=== PATIENT | female | born 1985 ===

== ENCOUNTER 2017-07-21 18:29 | Inpatient (IN) | payer MEDICAID, SELFPAY ==
[2017-07-21 18:44] VITALS: BMI 34.7
[2017-07-21 20:01] LABS: HEMOGLOBIN 12.1 g/dL (12.0-16.0); MEAN CELL VOLUME 80.3 fl (81.0-99.0); MEAN CORPUSCULAR HEMOGLOBIN 26.1 pg (27.0-31.0); MEAN CORPUSCULAR HGB CONC 32.4 g/dL (33.0-37.0); RBC 4.63 Mil/uL (3.80-5.20); RED CELL DISTRIBUTION WIDTH 15.5 % (11.5-14.5)
[2017-07-22] MEDS ORDERED: Oxytocin 30 UNITS in Sodium Chloride 0.9% 500 ML IV SCH (06:00)
[2017-07-22] MEDS: Lactated Ringer's 1,000 ML IV SCH ×2 (06:02→06:57)
[2017-07-22] MEDS ORDERED: ceFAZolin IV 2 gm in Dextrose 2 GM/50 ML BAG IVPB ONE (07:30)
--- NOTE | 2017-07-22 07:56 | OBADHP ---
Datetime: 07/21/2017 19:00 Admit Comment, IP Provider: IUP at 39+w EDC Jul 14...c/o CTX this morning and then again ton ight. On and off. No SROM. No VB. +FM PNC Dr Neil Farris - scheduled sectoin Jul 13 PMH: denies PSH: C/S POBH: C/S failure to progress 7cm PGYNH: no STD NKA A: IUP at 39w Previous C/S declines PLAN: She wants to be admitted for sectoin. She ate this afternoon. Will do section in AM Informed consent Prep for delivery in AM Extremities - PN: Normal Abdomen - PN: Normal Back - PN: Normal Lungs - PN: Normal Heart - PN: Normal Thyroid - PN: Normal Neurologic - PN: Normal HEENT - PN: Normal General - PN: Normal FHR - Baseline A Provider: 130 Membranes, Provider: Intact Contraction Comments Provider: occ Comments, ACOG Physical Exam: Comfortable (Annotations: Data stored by CPN on behalf of user) Pool Provider: Negative IP Hx Assessment: The History has been Reviewed and is Current Vital Signs Provider: Reviewed; Within Normal Limits IP Chief Complaint: Uterine contractions NICHD Variability Prov Fetus A: Moderate 6-25bpm NICHD Accel Fetus A IP Provider: [id number] FHR Category Provider Fetus A: Category I NICHD Decel Fetus A IP Provider: None Dilatation, Provider: 0 Effacement, Provider: 0 Genitourinary Exam: Normal DTRs - PN: Normal IP Adm Impression: Term, intrauterine ; No Active Labor; Intact Membranes IP Admit Plan: Admit to unit; Initiate Section protocol
[2017-07-22] MEDS ORDERED: Morphine 1 mg/ml preservative-free Inj(Duramorph) ONE (08:27)
[2017-07-22] MEDS ORDERED: ePHEDrine 50 mg/ml Inj ONE (08:42)
[2017-07-22] MEDS ORDERED: Phenylephrine 10 mg/ml Inj ONE (08:42)
[2017-07-22] MEDS ORDERED: Cellulose Hemostat 2X3 Sheet ONE (09:18)
[2017-07-22] MEDS ORDERED: Oxycodone/Acetaminophen 5/325 mg Tab PO PRN (09:49)
[2017-07-22] MEDS ORDERED: DiphenhydrAMINE 50 mg/ml Inj IVP PRN ×2 (09:51→13:08)
[2017-07-22] MEDS ORDERED: Sodium Chloride 0.9% 500 ML IV ONE (16:00)
[2017-07-22 18:20] LABS: BASO % 0.1 % (0.0-2.0); EOS % 0.1 % (0.0-4.0); LYMPH # 1.2 K/uL (1.0-4.3); LYMPH % 7.6 % (20.0-40.0); MEAN CELL VOLUME 79.7 fl (81.0-99.0); MEAN CORPUSCULAR HEMOGLOBIN 25.7 pg (27.0-31.0); MEAN CORPUSCULAR HGB CONC 32.3 g/dL (33.0-37.0); MEAN PLATELET VOLUME 9.1 fl (7.2-11.7); MONO # 0.6 K/uL (0.0-0.8); MONO % 4.2 % (0.0-10.0); NEUT # 13.6 K/uL (1.8-7.0); PLATELET COUNT 303 K/uL (130-400); RBC 3.11 Mil/uL (3.80-5.20); RED CELL DISTRIBUTION WIDTH 15.2 % (11.5-14.5)
[2017-07-22 18:23] LABS: WHITE BLOOD COUNT 15.4 K/uL (4.8-10.8)
[2017-07-22 18:50] LABS: ANISOCYTOSIS SLIGHT; BANDS 1 % (0-2); LYMPHOCYTE 8 % (20-50); MONOCYTE 5 % (0-10); NEUTROPHIL 86 % (42-75); PLATELET ESTIMATE NORMAL (NORMAL); POIKILOCYTOSIS SLIGHT; TOTAL CELLS COUNTED 100
[2017-07-22] MEDS ORDERED: Lactated Ringer's 1,000 ML IV SCH (19:45)
[2017-07-23 06:59] LABS: BASO % 0.3 % (0.0-2.0); EOS % 0.3 % (0.0-4.0); LYMPH # 1.8 K/uL (1.0-4.3); LYMPH % 16.3 % (20.0-40.0); MEAN CELL VOLUME 78.8 fl (81.0-99.0); MEAN CORPUSCULAR HEMOGLOBIN 26.5 pg (27.0-31.0); MEAN CORPUSCULAR HGB CONC 33.7 g/dL (33.0-37.0); MEAN PLATELET VOLUME 9.3 fl (7.2-11.7); MONO # 0.6 K/uL (0.0-0.8); MONO % 5.8 % (0.0-10.0); NEUT # 8.5 K/uL (1.8-7.0); NEUT % 77.3 % (50.0-75.0); NRBC % 0.1 % (0.0-0.0); RBC 2.45 Mil/uL (3.80-5.20); RED CELL DISTRIBUTION WIDTH 15.1 % (11.5-14.5)
[2017-07-23 07:08] LABS: HEMOGLOBIN 6.5 g/dL (12.0-16.0)
--- NOTE | 2017-07-23 07:55 | OBPPN ---
Datetime: 07/23/2017 06:50 PP Pain Prov: Within normal limits PP Nausea Prov: Denies PP Flatus Prov: No PP BM Prov: No PP Breasts Prov: Not Done PP Heart Prov: Normal PP Lungs Prov: Normal PP Abdomen/Uterus Prov: Normal PP Lochia Prov: Normal PP Vulva/Perineum Prov: Not Done PP CVA Tenderness Prov: Not Done PP Extremities Prov: Normal PP C/S Incision Prov: Normal PP Progress Prov: Normal PP Impression Prov: Normal progression PP Plan Prov: Continue present management PP Progress Note Prov: 31 yo , s/p on 07/22/17, POD 1. Pt was seen and examined at [facility] this morning; no acute events overnight- she was experiencing some nausea yesterday that has s juanis resolved. Reports mild abdominal pain that is well controlled with medication. She has not yet ambulated around the room. Has not passed gas and has not had a BM. Lochia like menses in volume. Lorin ast and bottle feeding baby. Tolerating diet without stomach upset. Denies fever, chills, chest pain, shortness of breath, nausea, vomiting, pain in calves. Gen: no acute distress, alert CV: S1S2, RRR Resp: normal effort of respiration, clear to auscultation bilaterally Abdomen: BS+, appropriate tenderness to palpation. Uterus is firm and at the level of the umbilicu s. Dressing in place, clean, dry. Ext: no edema, calves nontender A: 31 yo , s/p on 07/22/17, POD 1. Pt stable, pain well controlled. Doing well. P: Continue current post- management. Receiving iron. Pending repeat CBC. [email or web address] OB Hospitalist Addendum: POD 1 s/p Repeat c/s, doing well, breast feeding. Hbg 6.5. Will follow for sx. (ES) Vital Signs Provider PP: Reviewed Datetime: 07/22/2017 16:04 PP Pain Prov comment: abdominal pain Vital Signs Provider Details PP: T: 98.9 BP: 93/57 HR: 97
[2017-07-23] MEDS: Oxycodone/Acetaminophen 5/325 mg Tab PO PRN (21:45)
[2017-07-24] MEDS: Oxycodone/Acetaminophen 5/325 mg Tab PO PRN (03:37)
[2017-07-24 06:40] LABS: HEMOGLOBIN 6.8 g/dL (12.0-16.0); MEAN CORPUSCULAR HEMOGLOBIN 26.4 pg (27.0-31.0); RBC 2.56 Mil/uL (3.80-5.20); RED CELL DISTRIBUTION WIDTH 14.8 % (11.5-14.5); WHITE BLOOD COUNT 14.4 K/uL (4.8-10.8)
--- NOTE | 2017-07-24 08:38 | OP ---
PROCEDURE DATE: 07/22/2017 PREOPERATIVE DIAGNOSES: Intrauterine at 39 weeks' gestation, previous section x1, declining vaginal after section. POSTOPERATIVE DIAGNOSES: Intrauterine at 39 weeks' gestation, previous section x1, declining vaginal after section. PROCEDURE: Repeat low-transverse section via previous Pfannenstiel incision. SURGEON: Jose Antonio Ruth DO MARINE MAMMAL TRAINER: Steve Dominguez MD (Dr. Dominguez, OB hospitalist that was on-call and who was available for assistance. For this cases, or assistant was vital and necessary for the procedure. He was there from the time of incision to the delivery to the closure of the skin). SECOND MARINE MAMMAL TRAINER: Dr. Flores, PGY1. ANESTHESIOLOGIST: Shimon Michael MD TYPE OF ANESTHESIA: Spinal. OPERATIVE FINDINGS: A live female infant delivered from a cephalic presentation, thin meconium noted. Apgars score of 9 and 9 given at 1 and 5 minutes respectively. was delivered intact spontaneously. Ovaries and tubes appeared to be within normal limits grossly. All equipments, sponges, and needles were accounted for. She remained hemodynamically stable throughout the procedure. ESTIMATED BLOOD LOSS: 800 mL. DESCRIPTION OF PROCEDURE: Maria G was brought to the operating room. She was given spinal anesthesia by Dr. Michael. Compression boots were placed on both lower extremities. A catheter was used to drain the bladder of its contents and left in place and noted to be draining clear urine. She was placed in supine position. She was then draped and prepped in the usual sterile manner. Once adequate anesthesia was obtained, an incision was made using a scalpel. Previous surgical scar was removed. An incision was then taken down to the underlying fascia using electrocautery. Fascia was nicked in the midline and extended bilaterally using electrocautery. Inferior aspect of the fascia was grasped using two Jessy clamps, tented up, and the rectus muscle was both bluntly and sharply dissected using electrocautery. The same was done with the superior aspect of the fascia. In the midline, superiorly the rectus muscle was grasped using 2 Allis clamps and tented up and in the midline. The rectus muscle was incised in the midline using a scalpel. Incision was then taken down inferiorly and superiorly with Metzenbaum scissors. Peritoneum was identified and then entered using 2 Moriah clamps and Metzenbaum scissors. The incision was then extended superiorly and inferiorly with direct visualization of bladder and intestines. Two lap pads were placed on paracolic gutters and bladder blade is inserted. A bladder flap was created by incising peritoneum on the uterus and then extending bilaterally using Metzenbaum scissors. The bladder flaps were created digitally. Bladder blade was then inserted behind the bladder flap. A low transverse incision was made using a scalpel. Upon entering the uterus, the incision was then extended bilaterally using Band-Aid scissors. Rupture of membranes was performed using forceps with teeth, thin meconium was noted. Thereafter, infant was then delivered as atraumatically as possible. First, the head was delivered with bulb suctioned nasopharyngeally. The remainder of the was then delivered as atraumatically as possible. The infant was crying spontaneously, was bulb suctioned. Cord was clamped and cut. Infant was handed to the pad extraction tender in attendance. Cord bloods were obtained and placenta was delivered intact manually. Uterus was then exteriorized and cleared of debris and clots. Good contracted uterus is noted, IV Pitocin is given. A 0 Vicryl suture was used to close the first layer of the uterus in an interlocking fashion. Second layer of the uterus was closed using 0 Vicryl suture imbricating the first layer. Ovaries and tubes appeared to be within normal limits. Posterior cul-de-sac was cleared of debris and clots. Irrigation was performed. The uterus was placed back into the peritoneal cavity. Irrigation was performed. The lower uterine segment was noted to have some bleeding suture was placed [id number] fashion in the midline and hemostasis was assured. Surgicel was placed under the bladder flap at the side of low transverse incision. All equipments were removed and accounted for. The rectus muscle was approximated using 0-Vicryl suture x3. Hemostasis is assured after inspection. A 0 Vicryl suture was used approximate the fascia layer in a running fashion. Irrigation was performed and hemostasis was assured using electrocautery. Skin was then approximated using 3-0 Vicryl suture. Dermabond, Steri-Strips, and a pressure bandage were applied. All equipments were accounted for. Jose Antonio Ruth DO
--- NOTE | 2017-07-24 10:53 | OBDS ---
DELIVERY PERSONNEL Delivery Doctor: Duyen Ruth DO Scrub Nurse: Sherly Camara Legal Entity Controller: Candis Ivan RN Anesthesiologist: Kyler Michael MD Resident: Nona lora (resident) MATERNAL INFORMATION Delivery Anesthesia: Spinal Medications in Delivery: Pitocin 20 mu in 1 liter of LR Estimated Blood Loss (ml): 800 Placenta Cultured: No Maternal Complications: None RN Comments: Atraumatic primary of viable babygirl with Lusty cry at 09:00 Dr Workman pr esent to recieve infant. Assigned 9/9 APGARs no abnoramalities noted. Patient tolerated delivery w ell. Infant recoverying well at this time. Provider Comments: Pre Op Dx: IUP at 39w/previous C/S x 1 declines PostOp Dx same Procedure: Repeat LTCS via previous Pfannensteil incision Surgeon Dr Flory Lora Anesth: Dr Michael Anesth: spinal Findings: live female delivered from [facility] presentation thin meconium 9/9 placenta delivered intact spontaneously Ovaries and tubes WNL All equipment sponges and needles accounted for EBL 800cc She remained stable LABOR SUMMARY EDC: 07/25/2017 00:00 No. Babies in Womb: 1 Attempted: No Labor Anesthesia: Spinal LABOR INFORMATION Reason for Induction: Not Applicable Oxytocin: N/A Group B Beta Strep: Negative Antibiotics # of Doses: 1 Antibiotics Time of Last Dose: 08:35 Steroids Given: None Reason Steroids Not Administered: Not Applicable Other Reason Not Administered: Not required MEMBRANES Membranes Rupture Method: Artificial Rupture of Membranes: 07/22/2017 09:00 Length of Rupture (hrs): 0.00 Amniotic Fluid Color: Light Meconium Amniotic Fluid Amount: Small Amniotic Fluid Odor: Normal STAGES OF LABOR Stage 3 hrs: 0 Stage 3 min: 1 VAGINAL DELIVERY Episiotomy: None Laceration Extension: N/A Laceration Type: None CSECTION DELIVERY Primary Indication: Repeat Elective CSection Urgency: Non Elective CSection Incidence: Repeat Labor: No Labor Elective: Nonelective CSection Incision: Lower Uterine Transverse Uterine Closure: Double-layer closure BABY A INFORMATION Infant Delivery Date/Time: 07/22/2017 09:00 Method of Delivery: Born in Route : No : N/A Forceps: N/A Vacuum Extraction: N/A Shoulder Dystocia : No SHOULDER DYSTOCIA BABY A Delivery Date/Time: 07/22/2017 09:00 PRESENTATION/POSITION BABY A Presentation: Cephalic Cephalic Presentation: Vertex Vertex Position: Right Occipital Posterior Breech Presentation: N/A PLACENTA INFORMATION BABY A Placenta Delivery Time : 07/22/2017 09:01 Placenta Method of Delivery: Manual Removal Placenta Status: Delivered SCORES BABY A Heart Rate 1 min: >100 bpm Resp Effort 1 min: Good Cry Reflex Irritability 1 min: Cough or Sneeze or Pulls Away Muscle Tone 1 min: Active Motion Color 1 min: Body [place], Extremities Blue Resuscitation Effort 1 min: N/A SCORE 1 MIN: 9 Heart Rate 5 min: >100 bpm Resp Effort 5 min: Good Cry Reflex Irritability 5 min: Cough or Sneeze or Pulls Away Muscle Tone 5 min: Active Motion Color 5 min: Body [place], Extremities Blue Resuscitation Effort 5 min: N/A SCORE 5 MIN: 9 INFANT INFORMATION BABY A Gestational Age at Delivery: 39.0 Gestational Status: Term Infant Outcome : Liveborn Condition : Stable Infant Sex: Female IDENTIFICATION/MEDS BABY A ID Band Number: [id number] ID Band Location: Right Leg; Right Arm WEIGHT/LENGTH BABY A Birthweight (gms): 3470 Weight (lb): 7 Infant Weight (oz): 10 Length Inches: 21.00 Infant Length cms: 53.3 CORD INFORMATION BABY A No. Cord Vessels: 3 Nuchal Cord : N/A Cord Blood Taken: No Suction: Mouth; Nose ASSESSMENT BABY A Infant Complications: None Physical Findings at Delivery: Within Normal Limits Infant Respirations: Appears Normal [employer]sembler [employer]dn[employer]/ALS Called : No Care By: Dr Workman Transferred To: Remains with Mother
--- NOTE | 2017-07-24 11:05 | OBPPN ---
Datetime: 07/23/2017 06:50 PP Progress Note Prov: 31 yo , s/p on 07/22/17, POD 1. Pt was seen and examined at [facility] this morning; no acute events overnight- she was experiencing some nausea yesterday that has s juanis resolved. Reports mild abdominal pain that is well controlled with medication. She has not yet ambulated around the room. Has not passed gas and has not had a BM. Lochia like menses in volume. Lorin ast and bottle feeding baby. Tolerating diet without stomach upset. Denies fever, chills, chest pain, shortness of breath, nausea, vomiting, pain in calves. Gen: no acute distress, alert CV: S1S2, RRR Resp: normal effort of respiration, clear to auscultation bilaterally Abdomen: BS+, appropriate tenderness to palpation. Uterus is firm and at the level of the umbilicu s. Dressing in place, clean, dry. Ext: no edema, calves nontender A: 31 yo , s/p on 07/22/17, POD 1. Pt stable, pain well controlled. Doing well. P: Continue current post- management. Receiving iron. Pending repeat CBC. [email or web address] OB Hospitalist Addendum: Pt seen and examined by me. Agree w/ above. POD 1 s/p Repeat c/s, doing well, breast feeding. Hbg 6.5. Will follow for sx. (ES)
[2017-07-24] MEDS: Multivitamin With Minerals Tab PO SCH ×2 (12:38→12:40)
[2017-07-24 20:09] LABS: HEMOGLOBIN 7.3 g/dL (12.0-16.0); MEAN CELL VOLUME 81.5 fl (81.0-99.0); MEAN CORPUSCULAR HEMOGLOBIN 26.8 pg (27.0-31.0); MEAN CORPUSCULAR HGB CONC 32.9 g/dL (33.0-37.0); RBC 2.73 Mil/uL (3.80-5.20); RED CELL DISTRIBUTION WIDTH 15.2 % (11.5-14.5); WHITE BLOOD COUNT 14.9 K/uL (4.8-10.8)
--- NOTE | 2017-07-24 20:37 | OBPPN ---
Datetime: 07/24/2017 06:30 PP Pain Prov: Within normal limits PP Nausea Prov: Denies PP Flatus Prov: Yes PP BM Prov: Yes PP Breasts Prov: Not Done PP Heart Prov: Normal PP Lungs Prov: Normal PP Abdomen/Uterus Prov: Normal PP Lochia Prov: Normal PP Vulva/Perineum Prov: Not Done PP CVA Tenderness Prov: Not Done PP Extremities Prov: Normal PP C/S Incision Prov: Normal PP Progress Prov: Normal PP Impression Prov: Normal progression PP Plan Prov: Continue present management PP Progress Note Prov: POD 2 31 yo , s/p on 07/22/17, POD 2. Yesterday pt was dizzy and lightheaded when she tr ied to ambulate; her post- CBC showed hemoglobin of 6.5, and she received 1U PRBC. Pt was seen later in the evening yesterday, around 8 pm, at which time she was not dizzy and stated she felt bett er and had ambulated without dizziness. She was seen and examined this morning and reports no acute e vents overnight. Reports mild abdominal pain that is well controlled with medication. Has passed gas and has had a BM. Lochia less than menses in volume. Able to ambulate this morning without dizziness. Breast and bottle feeding baby. Tolerating diet without stomach upset. Denies fever, chills, chest p ain, shortness of breath, nausea, vomiting, pain in calves. Gen: no acute distress, alert CV: S1S2, RRR Resp: normal effort of respiration, clear to auscultation bilaterally Abdomen: BS+, appropriate tenderness to palpation. Uterus is firm and at the level of the umbilicu s. Incision: steri strips in place, minimal dried old blood, no erythema or exudates. Ext: no edema, calves nontender A: 31 yo , s/p on 07/22/17, POD 2. Pt stable, pain well controlled, asymptomatic of anemia. P: Continue current post- management, including ferrous sulfate 325 mg TID; pending repeat CBC. Encourage , encourage pt to notify mother-baby unit staff if feels faint/dizzy. [email or web address] [employer] PAVING MACHINE OPERATOR attending addendum: Patient seen and examined by me assessment and plan. Patient denies lightheadedness malaise ambula ting well. repeat CBC this pm Vital Signs Provider PP: Reviewed (Annotations: Data stored by CPN on behalf of user)
[2017-07-25 06:47] LABS: HEMOGLOBIN 7.7 g/dL (12.0-16.0); MEAN CELL VOLUME 80.3 fl (81.0-99.0); MEAN CORPUSCULAR HEMOGLOBIN 26.9 pg (27.0-31.0); MEAN CORPUSCULAR HGB CONC 33.5 g/dL (33.0-37.0); RBC 2.88 Mil/uL (3.80-5.20); WHITE BLOOD COUNT 13.5 K/uL (4.8-10.8)
[2017-07-25] MEDS: Multivitamin With Minerals Tab PO SCH (09:48)
--- NOTE | 2017-07-25 11:21 | OBDCSUM ---
Datetime: 07/25/2017 07:48 Discharged to, Provider: Home Follow up at, Provider: [facility] Disch Instr Activity: Normal activity; May be up to bathroom; May be up for meals; May Shower Disch Instr Diet: Regular Discharge Instructions, Provider: Routine instructions given Discharge Diagnosis, Provider: Term Delivered Follow up in weeks, Provider: 1 week Disch Referrals: None Contraception discussed, Prov: Yes Disch Activity Restrictions: No exercising; No lifting; No driving; No sexual activity; Nothing in v agina - [place], tampons, douche Discharge Comment, Provider: 31 yo , s/p of viable full term female infant on , POD 3. Baby born at 0900 with weight of 3470g , and APGARS 9/9. Encourage PNV 1 tab PO/day Ibuprofen 600 mg 1 tab Q6h PRN if moderate pain, Percocet 5-325mg if severe pain, Senokot-S 2 tabl ets nightly for constipation, Ferrous Sulfate 325 mg BID Ambulate with caution. Nothing per vagina for 4-6 weeks, no heavy lifting. Do not drive while taki ng Percocet. If excessive bleeding, or fever without relief from tylenol, go to ED. Follow up with [facility] with Dr. Kim in 1 week for wound check, and in 4-6 weeks for post- appointment. Follow up with [facility] for visit in 1 week. Patient was seen with the resident and I agree with note Patient cleared for discharge Contraception after Delivery: Undecided
--- NOTE | 2017-07-25 11:21 | OBPPN ---
Datetime: 07/25/2017 07:43 PP Pain Prov: Within normal limits PP Nausea Prov: Denies PP Flatus Prov: Yes PP BM Prov: Yes PP Breasts Prov: Not Done PP Heart Prov: Normal PP Lungs Prov: Normal PP Abdomen/Uterus Prov: Normal PP Lochia Prov: Normal PP Vulva/Perineum Prov: Not Done PP CVA Tenderness Prov: Not Done PP Extremities Prov: Abnormal PP C/S Incision Prov: Normal PP Progress Prov: Normal PP Comments Phys Exam Prov: pedal edema PP Progress Note Prov: 31 yo , s/p on 07/22/17, POD 3. She was seen and examined thi s morning and reports no acute events overnight; has not had repeat episodes of dizziness and weaknes s. Reports mild abdominal pain that is well controlled with medication. Has passed gas and has had a BM. Lochia less than menses in volume. Able to ambulate last night and morning without dizziness. Lorin ast and bottle feeding baby. Tolerating diet without stomach upset. Denies fever, chills, chest pain, shortness of breath, nausea, vomiting, pain in calves. Gen: no acute distress, alert CV: S1S2, RRR Resp: normal effort of respiration, clear to auscultation bilaterally Abdomen: BS+, appropriate tenderness to palpation. Uterus is firm and at the level of the umbilicu s. Incision: steri strips in place, no erythema or exudates. Ext: calves nontender, has 1+ pedal edema A: 31 yo , s/p on 07/22/17, POD 3. Pt stable, pain well controlled, asymptomatic of anemia. P: Plan for discharge today. [email or web address] The patient was seen with the resident I agree with the note the patient is cleared for discharge Datetime: 07/24/2017 20:00 Vital Signs Provider PP: Reviewed; Within Normal Limits
[2017-07-25 18:25] VITALS: BP 116/89; PULSE 84; RESP 20; TEMP 97.5; O2SAT 98
== END 2017-07-25 13:35 | disposition home or self-care (01) | DRG 370 ==
LOC: H.EROB2 18:29 → H.L&D 19:14 → H.OB/GYN 07-22 13:00
PROVIDERS: ADMIT Obstetrics & Gynecology; ATTEND Obstetrics & Gynecology
PROC: 4A1HXCZ Monitoring of Products of Conception, Cardiac Rate, External Approach (ICD-10-PCS; 2017-07-21)
PROC: 10D00Z1 Extraction of Products of Conception, Low, Open Approach (ICD-10-PCS; principal; 2017-07-22)
PROC: 30233N1 Transfusion of Nonautologous Red Blood Cells into Peripheral Vein, Percutaneous Approach (ICD-10-PCS; 2017-07-23)
DX: O34.211 Maternal care for low transverse scar from previous cesarean delivery (principal); O90.81 Anemia of the puerperium; O77.0 Labor and delivery complicated by meconium in amniotic fluid; Z37.0 Single live birth; Z3A.39 39 weeks gestation of pregnancy

== ENCOUNTER 2017-08-02 23:23 | Inpatient (IN) | payer MEDICAID, SELFPAY ==
[2017-08-02 23:24] VITALS: BMI 34.7
--- NOTE | 2017-08-03 01:03 | ED PDOC ---
HPI: Abdomen Time Seen by Provider: 08/03/17 00:28 Chief Complaint (Nursing): Abdominal Pain Chief Complaint (Provider): abdominal pain History Per: Patient History/Exam Limitations: no limitations Onset/Duration Of Symptoms: Hrs Current Symptoms Are (Timing): Still Present Location Of Pain/Discomfort: Diffuse Quality Of Discomfort: Stabbing, "Pain" Additional History Per: Patient Additional Complaint(s): 31 y/o female presents with diffuse abdominal pain x 7 hours. Pain improved with Percocet, but returned shortly after. Patient states she had delivery 10 days ago and required blood transfusion at that time, currently on iron supplement. Patient notes mild lower abdominal pain since then, but notes pain to have intensified tonight, more diffusely. Denies fever, nausea/vomiting , chest pain, shortness of breath, palpitations, changes in bowel movements, recent travel, urinary symptoms. Last BM earlier tonight. Past Medical History Reviewed: Historical Data, Nursing Documentation, Vital Signs Vital Signs: Last Vital Signs Temp 99.3 F 08/03/17 05:02 Pulse 112 H 08/03/17 05:02 Resp 16 08/03/17 05:02 BP 105/65 08/03/17 05:02 Pulse Ox 100 08/03/17 05:16 - Medical History PMH: No Chronic Diseases Denies: Depression, Diabetes, HTN - Surgical History Surgical History: (4 years ago) - Family History Family History: States: No Known Family Hx - Living Arrangements Living Arrangements: With Family - Home Medications Home Medications: Ambulatory Orders Medication Instructions Recorded Ferrous Sulfate [Feosol] 325 mg PO BID #60 tab 07/25/17 Ibuprofen [Motrin Tab] 600 mg PO Q6 PRN #20 tab 07/25/17 Vit Calc,Iron,Folic 1 each PO DAILY #0 07/25/17 [ Vitamins] Sennosides/Docusate Sodium 1 each PO HS #28 tablet 07/25/17 [Senokot-S Tablet] oxyCODONE/Acetaminophen [Percocet 1 ea PO Q6 PRN #20 tab 07/25/17 5/325 mg Tab] - Allergies Allergies/Adverse Reactions: Allergies Allergy/AdvReac Type Severity Reaction Status Date / Time No Known Allergies Allergy Verified 08/02/17 23:59 Review of Systems ROS Statement: Except As Marked, All Systems Reviewed And Found Negative Gastrointestinal: Positive for: Abdominal Pain Physical Exam - Reviewed Nursing Documentation Reviewed: Yes Vital Signs Reviewed: Yes - Physical Exam Appears: Positive for: Well, Non-toxic, Uncomfortable Head Exam: Positive for: ATRAUMATIC, NORMAL INSPECTION, NORMOCEPHALIC Skin: Positive for: Normal Color Eye Exam: Positive for: Normal appearance ENT: Positive for: Normal ENT Inspection Cardiovascular/Chest: Positive for: Regular Rate, Rhythm Respiratory: Positive for: Normal Breath Sounds Gastrointestinal/Abdominal: Positive for: Bowel Sounds, Soft, Tenderness ( diffuse), Distended. Negative for: Guarding, Rebound Back: Positive for: Normal Inspection Extremity: Positive for: Normal ROM Neurologic/Psych: Positive for: Alert, Oriented - Laboratory Results Result Diagrams: 08/03/17 01:35 08/03/17 01:35 - ECG O2 Sat by Pulse Oximetry: 100 - Progress ED Course And Treament: labs, urine, CT abd/pelvis, IV toradol Addendum created by Arabella Gilmore MD on 08/03/2017 5:03 AM Eastern Time ([place] & [place]) THIS REPORT CONTAINS FINDINGS THAT MAY BE CRITICAL TO PATIENT CARE. The findings were verbally communicaated via telephone conference with Heena Iniguez PA-C at 5:03 AM EST on 08/03/2017. The findings were acknowledged and understood. Initial Report created on 08/03/2017 5:00 AM Eastern Time ([place] & [place]) EXAM: CT Abdomen and Pelvis With Intravenous Contrast CLINICAL HISTORY: 31 years old, female; Pain; Abdominal pain; Generalized; Prior surgery; Surgery date: <1 month; Surgery type: ; Additional info: Abd pain. 2 weeks ago TECHNIQUE: Axial computed tomography images of the abdomen and pelvis with intravenous contrast. All CT scans at this facility use one or more dose reduction techniques, viz.: automated exposure control; ma/kV adjustment per patient size (including targeted exams where dose is matched to indication; i.e. head); or iterative reconstruction technique. Coronal and sagittal reformatted images were created and reviewed. CONTRAST: 90 mL of [id number] administered intravenously. COMPARISON: CT - ABD PELVIS PO IV CONTRAST 2015-04-11 00:29 FINDINGS: Lower thorax: Streaky bibasilar opacities secondary to atelectasis or infiltrate. ABDOMEN: Liver: Unremarkable. No mass. Gallbladder and bile ducts: Unremarkable. No calcified stones. No ductal dilation. Pancreas: Unremarkable. No mass. No ductal dilation. Spleen: Unremarkable. No splenomegaly. Adrenals: Unremarkable. No mass. Kidneys and ureters: Unremarkable. No solid mass. No hydronephrosis. Stomach and bowel: Unremarkable. No obstruction. No mucosal thickening. Appendix: No findings to suggest acute appendicitis. PELVIS: Bladder: Unremarkable. No mass. Reproductive: There is enlarged uterus. There is a large complex mostly hyperdense fluid collection containing gas with rim enhancement and surrounding inflammatory stranding in the pelvis. The collection abuts the anterior margin of the lower uterine segment and measures 12.8 x 7.0 x 8.3 cm. Hyperdensity in the fluid collection is probably secondary to blood products. There is gas present in the endometrial cavity. ABDOMEN and PELVIS: Intraperitoneal space: There is a small amount of free fluid in the abdomen surrounding the liver and spleen. Free fluid extends to the paracolic gutters and pelvis. There is diffuse stranding in the mesentery of the lower abdomen and pelvis. Bones/joints: No acute fracture. No dislocation. Vasculature: Unremarkable. No abdominal aortic aneurysm. Lymph nodes: Unremarkable. No enlarged lymph nodes. IMPRESSION: Enlarged uterus with gas in the endometrial cavity. Endometritis is not excluded. Clinical correlation recommended. Large complex fluid collection abutting the anterior margin of the lower uterine segment most consistent with an abscess. Hyperdense fluid in the collection probably secondary to blood products. Given history of recent , findings could be related to uterine dehiscence. Ascites. Generalized inflammatory stranding of the mesentery in the abdomen and pelvi IV vanco, IV zosyn dose ordered in ED. Case discussed with Dr. Mercer, Ob on-call; patient to be admitted. Recommends notifying OB resident. Case discussed with Dr. Burton Ob resident on-call, will evaluate patient Disposition - Clinical Impression Clinical Impression: uterine abscess - Patient ED Disposition Is Patient to be Admitted: Yes - Disposition Disposition Time: 05:00 Condition: FAIR
[2017-08-03 01:38] LABS: BASO # 0.1 K/uL (0.0-0.2); BASO % 0.3 % (0.0-2.0); EOS % 0.1 % (0.0-4.0); HEMOGLOBIN 9.6 g/dL (12.0-16.0); LYMPH # 1.2 K/uL (1.0-4.3); LYMPH % 6.1 % (20.0-40.0); MEAN CELL VOLUME 80.1 fl (81.0-99.0); MEAN CORPUSCULAR HGB CONC 32.4 g/dL (33.0-37.0); MEAN PLATELET VOLUME 8.2 fl (7.2-11.7); MONO # 0.5 K/uL (0.0-0.8); MONO % 2.5 % (0.0-10.0); NEUT # 18.2 K/uL (1.8-7.0); PLATELET COUNT 609 K/uL (130-400); RBC 3.68 Mil/uL (3.80-5.20); RED CELL DISTRIBUTION WIDTH 15.5 % (11.5-14.5)
[2017-08-03 01:41] LABS: SQUAMOUS EPITHIAL < 1 /hpf (0-5); URINE BILIRUBIN NEGATIVE (NEGATIVE); URINE BLOOD NEGATIVE (NEGATIVE); URINE CLARITY CLEAR (Clear); URINE COLOR YELLOW (YELLOW); URINE GLUCOSE (UA) NEG (Normal); URINE LEUKOCYTE ESTERASE NEG Leu/uL (Negative); URINE NITRATE NEGATIVE (NEGATIVE); URINE PROTEIN NEGATIVE (NEGATIVE); URINE UROBILINOGEN 0.2-1.0 mg/dL (0.2-1.0)
[2017-08-03 01:48] LABS: ALB/GLOB RATIO 0.8 (1.0-2.1); ALBUMIN 3.2 g/dL (3.5-5.0); ALT/SGPT 34 U/L (9-52); AST/SGOT 26 U/L (14-36); BLOOD UREA NITROGEN 15 mg/dl (7-17); CALCIUM 8.7 mg/dL (8.4-10.2); GFR AFRICAN-AMERICAN > 60; GFR NON-AFRICAN AMERICAN > 60; LIPASE 12 U/L (23-300)
[2017-08-03] MEDS ORDERED: Iohexol 240 (50 ml) PO ONE (02:03)
[2017-08-03] MEDS ORDERED: Iohexol 240 (50 ml) ONE (02:25)
[2017-08-03] MEDS ORDERED: Iohexol 300 100 ML IJ ONE (03:51)
[2017-08-03] MEDS ORDERED: Sodium Chloride 0.9% 100 ML ONE (03:52)
[2017-08-03 04:12] LABS: ANISOCYTOSIS SLIGHT; BANDS 5 % (0-2); HYPOCHROMIC SLIGHT; LYMPHOCYTE 7 % (20-50); MONOCYTE 0 % (0-10); NEUTROPHIL 88 % (42-75); PLATELET ESTIMATE MARKEDLY INCREASED (NORMAL); TOTAL CELLS COUNTED 100
--- NOTE | 2017-08-03 05:00 | CT ---
EXAM: CT Abdomen and Pelvis With Intravenous Contrast CLINICAL HISTORY: 31 years old, female; Pain; Abdominal pain; Generalized; Prior surgery; Surgery date: <1 month; Surgery type: ; Additional info: Abd pain. 2 weeks ago TECHNIQUE: Axial computed tomography images of the abdomen and pelvis with intravenous contrast. All CT scans at this facility use one or more dose reduction techniques, viz.: automated exposure control; ma/kV adjustment per patient size (including targeted exams where dose is matched to indication; i.e. head); or iterative reconstruction technique. Coronal and sagittal reformatted images were created and reviewed. CONTRAST: 90 mL of [id number] administered intravenously. COMPARISON: CT - ABD PELVIS PO IV CONTRAST 2015-04-11 00:29 FINDINGS: Lower thorax: Streaky bibasilar opacities secondary to atelectasis or infiltrate. ABDOMEN: Liver: Unremarkable. No mass. Gallbladder and bile ducts: Unremarkable. No calcified stones. No ductal dilation. Pancreas: Unremarkable. No mass. No ductal dilation. Spleen: Unremarkable. No splenomegaly. Adrenals: Unremarkable. No mass. Kidneys and ureters: Unremarkable. No solid mass. No hydronephrosis. Stomach and bowel: Unremarkable. No obstruction. No mucosal thickening. Appendix: No findings to suggest acute appendicitis. PELVIS: Bladder: Unremarkable. No mass. Reproductive: There is enlarged uterus. There is a large complex mostly hyperdense fluid collection containing gas with rim enhancement and surrounding inflammatory stranding in the pelvis. The collection abuts the anterior margin of the lower uterine segment and measures 12.8 x 7.0 x 8.3 cm. Hyperdensity in the fluid collection is probably secondary to blood products. There is gas present in the endometrial cavity. ABDOMEN and PELVIS: Intraperitoneal space: There is a small amount of free fluid in the abdomen surrounding the liver and spleen. Free fluid extends to the paracolic gutters and pelvis. There is diffuse stranding in the mesentery of the lower abdomen and pelvis. Bones/joints: No acute fracture. No dislocation. Vasculature: Unremarkable. No abdominal aortic aneurysm. Lymph nodes: Unremarkable. No enlarged lymph nodes. IMPRESSION: Enlarged uterus with gas in the endometrial cavity. Endometritis is not excluded. Clinical correlation recommended. Large complex fluid collection abutting the anterior margin of the lower uterine segment most consistent with an abscess. Hyperdense fluid in the collection probably secondary to blood products. Given history of recent , findings could be related to uterine dehiscence. Ascites. Generalized inflammatory stranding of the mesentery in the abdomen and pelvi
[2017-08-03] MEDS ORDERED: Piperacillin/Tazobact 3.375 GM in Sodium Chloride 0.9% 100 ML IV STA (05:02)
[2017-08-03] MEDS ORDERED: Sodium Chloride 0.9% 1,000 ML IV STA (05:03)
[2017-08-03] MEDS ORDERED: Piperacillin/Tazobact 3.375 gm Inj IVPB ONE (05:13)
--- NOTE | 2017-08-03 05:48 | CP.PCM.HP ---
History of Present Illness - History of Present Illness History of Present Illness: Pt is a 31F s/p repeat c section on 07/22 at 39+wks gestation presenting to ED on POD #10 with complaints of worsening abdominal pain since yesterday evening. Pt localizes pain to upper abdomen, describes is as dull/ache , associated with chills and pleuritic posterior chest wall pain. Also reports mild burning with urination and minimally productive cough over the past week. Denies n/v/d/c, fever, calf pain, LE edema, headache, dizziness. Denies sick contacts or recent travel. PNC course unremarkable, GBS negative. Pt had an uncomplicated c section procedure with post course complicated by severe anemia with Hg of 6.5 and was transfused 1 units of PRBC and d/c on Iron supplements. Tolerating PO fluids and +BM. Denies any illness in baby. PMHX: denies Meds: Motrin, Percocet, Ferrous Sulfate, Colace OBHx: 2 c section NKDA ER Course: Morphine x1 CBC BCx Abdominal CT Urinalysis Vancomyocin and Zosyn x1 Cxray Present on Admission - Present on Admission Any Indicators Present on Admission: No History of DVT/PE: No History of Uncontrolled Diabetes: No Urinary Catheter: No Decubitus Ulcer Present: No Review of Systems - Constitutional Constitutional: absent: Fever, Malaise, Weakness - EENT Eyes: absent: Blurred Vision - Cardiovascular Cardiovascular: absent: Chest Pain, Pedal Edema - Respiratory Respiratory: Cough (minimal sputum production), Pain with Coughing (sharp chest wall pain- posterior with deep inhalation and cough). absent: Dyspnea, Hemoptysis, Wheezing, Excessive Mucous Production - Gastrointestinal Gastrointestinal: Abdominal Pain. absent: Bloating, Change in Bowel Habits, Loose Stools, Nausea, Vomiting - Genitourinary Genitourinary: Dysuria. absent: Flank Pain - Reproductive: Female Reproductive:Female: absent: Abnormal Vaginal Bleeding, Genital Pruritis, Vaginal Discharge, Vaginal Odor Past Patient History - Past Social History Smoking Status: Never Smoked - CARDIAC Hx Hypertension: No - PSYCHIATRIC Hx Depression: No - SURGICAL HISTORY Hx Section: Yes - ANESTHESIA Hx Anesthesia: Yes Meds Allergies/Adverse Reactions: Allergies Allergy/AdvReac Type Severity Reaction Status Date / Time No Known Allergies Allergy Verified 08/02/17 23:59 Physical Exam - Constitutional Appears: Well, Non-toxic, Other (uncomfortable, lying still ) - Head Exam Head Exam: ATRAUMATIC, NORMAL INSPECTION - ENT Exam ENT Exam: Mucous Membranes Moist - Respiratory Exam Respiratory Exam: Clear to Auscultation Bilateral. absent: Accessory Muscle Use , Chest Wall Tenderness, Rales, Respiratory Distress - Cardiovascular Exam Cardiovascular Exam: +S1, +S2. absent: Systolic Murmur - GI/Abdominal Exam GI & Abdominal Exam: Normal Bowel Sounds (surgical incision, closed, clean margins, steri strips in place, no bleeding, discharge, erythema, fluctance), Soft, Tenderness (tender to light palpation of upper quadrants). absent: Distended, Guarding - Extremities Exam Extremities exam: Positive for: normal inspection - Back Exam Back exam: CVA tenderness (L). absent: CVA tenderness (R) (questionnable tenderness over left CVA) - Neurological Exam Neurological exam: Alert, Oriented x3 - Psychiatric Exam Psychiatric exam: Normal Mood - Skin Skin Exam: Normal Color Results - Vital Signs Recent Vital Signs: Last Vital Signs Temp 99.3 F 08/03/17 05:02 Pulse 112 H 08/03/17 05:02 Resp 16 08/03/17 05:02 BP 105/65 08/03/17 05:02 Pulse Ox 100 08/03/17 05:46 - Labs Result Diagrams: 08/03/17 01:35 08/03/17 01:35 Labs: Laboratory Results - last 24 hr 08/03/17 08/03/17 08/03/17 01:35 01:35 01:35 WBC 20.0 H RBC 3.68 L Hgb 9.6 L Hct 29.5 L MCV 80.1 L MCH 26.0 L MCHC 32.4 L RDW 15.5 H Plt Count 609 H D MPV 8.2 Neut % (Auto) 91.0 H Lymph % (Auto) 6.1 L Major % (Auto) 2.5 Eos % (Auto) 0.1 Baso % (Auto) 0.3 Neut # (Auto) 18.2 H Lymph # (Auto) 1.2 Major # (Auto) 0.5 Eos # (Auto) 0.0 Baso # (Auto) 0.1 Neutrophils % (Manual) 88 H Band Neutrophils % 5 H Lymphocytes % (Manual) 7 L Monocytes % (Manual) 0 Platelet Estimate Markedly increased H Hypochromasia (manual) Slight Anisocytosis (manual) Slight Sodium 137 Potassium 4.3 Chloride 101 Carbon Dioxide 24 Anion Gap 16 BUN 15 Creatinine 0.6 L Est GFR ( Amer) > 60 Est GFR (Non-Af Amer) > 60 Random Glucose 121 H Calcium 8.7 Total Bilirubin 1.1 AST 26 ALT 34 Alkaline Phosphatase 124 Total Protein 7.0 Albumin 3.2 L D Globulin 3.8 Albumin/Globulin Ratio 0.8 L Lipase 12 L Urine Color Yellow Urine Clarity Clear Urine pH 6.0 Ur Specific [place] 1.016 Urine Protein Negative Urine Glucose (UA) Neg Urine Ketones Negative Urine Blood Negative Urine Nitrate Negative Urine Bilirubin Negative Urine Urobilinogen 0.2-1.0 Ur Leukocyte Esterase Neg Urine RBC (Auto) 2 Urine Microscopic WBC 2 Ur Squamous Epith Cells < 1 Assessment & Plan - Assessment and Plan (Free Text) Assessment: 31 y/o female s/p c section POD#10 presenting with acute abdominal pain. #Abdominal Pain -Abdominal CT: + for complex fluid collection in lower uterine segment consistent with an abscess. Hyperdense fluid collection sugegstive of blood products, could be related to uterine dehiscince. +Ascitis -Leukocytosis, WBC 20 -Blood Cx, UCx, Cxray pending -Vancomyosin and Zosyn given in ED x1 #Cough associated with pleuritis CP -URI vs PNU -Questionnable infiltrates seen on Abdominal CT -F/U Cxray
[2017-08-03 06:36] LABS: VENOUS BLOOD GAS PCO2 39 mmHg (40-60); VENOUS BLOOD GAS PO2 26 mm/Hg (30-55); VENOUS BLOOD PH 7.45 (7.32-7.43)
[2017-08-03] MEDS ORDERED: Oxycodone/Acetaminophen 5/325 mg Tab PO STA (07:56)
[2017-08-03] MEDS ORDERED: Oxycodone/Acetaminophen 5/325 mg Tab ONE (08:00)
--- NOTE | 2017-08-03 09:09 | RAD ---
HISTORY: COMPARISON: No prior. TECHNIQUE: Chest PA and lateral FINDINGS: LINES AND TUBES: None. LUNG AND PLEURA: The lungs are well inflated. There is confluent airspace disease in the left upper lobe. There is subsegmental atelectasis in the left lower lobe. HEART AND MEDIASTINUM: The heart is not enlarged. The hilar and mediastinal contours are within normal limits. SKELETAL STRUCTURES: The bony structures are within normal limits for the patient's age. VISUALIZED UPPER ABDOMEN: Normal. OTHER FINDINGS: None. IMPRESSION: Left upper lobe pneumonia. Follow-up to resolution is advised.
[2017-08-03] MEDS: Sodium Chloride 0.9% 1,000 ML IV SCH ×2 (11:03→20:38)
[2017-08-03] MEDS: Piperacillin/Tazobact 3.375 GM in Sodium Chloride 0.9% 100 ML IVPB SCH ×3 (12:36→22:34)
[2017-08-03] MEDS: Oxycodone/Acetaminophen 5/325 mg Tab PO PRN (15:18)
[2017-08-03] MEDS ORDERED: Oxycodone/Acetaminophen 5/325 mg Tab PO PRN (18:04)
[2017-08-03] MEDS ORDERED: Sodium Chloride 0.9% 500 ML IV ONE (20:29)
--- NOTE | 2017-08-03 23:40 | US ---
EXAM: US Bilateral Duplex Extrem Lower Arteries Complete EXAM DATE/TIME: 08/03/2017 8:21 PM CLINICAL HISTORY: 31 years old, female; Signs and symptoms; Other: Tachycardia; Additional info: Tachycardia, post op TECHNIQUE: Real-time ultrasound of the bilateral duplex extrem lower arteries complete with image documentation. COMPARISON: No relevant prior studies available. FINDINGS: RIGHT LE Peak systolic velocities are as follows (cm/s): FIRST ASSIST 110 SFA 74-94 Pop 94 SPINNING FRAME TENDER 87 ODETTE 70 DP 77 Triphasic waveforms are observed in the FIRST ASSIST, SFA, popliteal arteries. Monophasic wave forms are observed in the SPINNING FRAME TENDER, ODETTE, DP. LEFT LE Peak systolic velocities are as follows (cm/s): FIRST ASSIST 116 SFA 70-86 Pop 70 SPINNING FRAME TENDER 84 ODETTE 80 DP 92 Triphasic waveforms are observed in the FIRST ASSIST, SFA, popliteal arteries. Monophasic wave forms are observed in the SPINNING FRAME TENDER, ODETTE, DP. IMPRESSION: No vascular occlusion. Monophasic waveforms in SPINNING FRAME TENDER,ODETTE,DP bilaterally.
[2017-08-04 00:29] LABS: BASO % 0.2 % (0.0-2.0); EOS # 0.1 K/uL (0.0-0.7); EOS % 0.4 % (0.0-4.0); HEMOGLOBIN 8.8 g/dL (12.0-16.0); LYMPH # 1.5 K/uL (1.0-4.3); MEAN CELL VOLUME 79.5 fl (81.0-99.0); MEAN CORPUSCULAR HEMOGLOBIN 26.4 pg (27.0-31.0); MEAN CORPUSCULAR HGB CONC 33.2 g/dL (33.0-37.0); MEAN PLATELET VOLUME 8.4 fl (7.2-11.7); MONO # 0.6 K/uL (0.0-0.8); NEUT # 16.1 K/uL (1.8-7.0); NEUT % 88.4 % (50.0-75.0); RBC 3.33 Mil/uL (3.80-5.20); RED CELL DISTRIBUTION WIDTH 15.7 % (11.5-14.5); WHITE BLOOD COUNT 18.2 K/uL (4.8-10.8)
[2017-08-04] MEDS: Oxycodone/Acetaminophen 5/325 mg Tab PO PRN (00:33)
[2017-08-04] MEDS: Piperacillin/Tazobact 3.375 GM in Sodium Chloride 0.9% 100 ML IVPB SCH ×4 (03:05→22:34)
[2017-08-04 06:25] LABS: BASO % 0.2 % (0.0-2.0); EOS % 0.3 % (0.0-4.0); HEMOGLOBIN 8.2 g/dL (12.0-16.0); LYMPH # 1.2 K/uL (1.0-4.3); LYMPH % 6.9 % (20.0-40.0); MEAN CELL VOLUME 80.5 fl (81.0-99.0); MEAN CORPUSCULAR HEMOGLOBIN 26.3 pg (27.0-31.0); MEAN CORPUSCULAR HGB CONC 32.6 g/dL (33.0-37.0); MEAN PLATELET VOLUME 8.6 fl (7.2-11.7); MONO # 0.8 K/uL (0.0-0.8); MONO % 4.3 % (0.0-10.0); NEUT # 15.9 K/uL (1.8-7.0); NEUT % 88.3 % (50.0-75.0); RBC 3.11 Mil/uL (3.80-5.20); RED CELL DISTRIBUTION WIDTH 15.8 % (11.5-14.5)
--- NOTE | 2017-08-04 06:54 | CP.PCM.PN ---
<Brandon Burton - Last Filed: 08/04/17 09:01> Subjective - Date & Time of Evaluation Date of Evaluation: 08/04/17 Time of Evaluation: 06:59 - Subjective Subjective: Overnight- pt reported severe abdominal and back pain after using the bathroom. Pt seen and evaluated by me. Pt was given 2 tablets of percocet 3-325mg. Pain scale 3/10 after medication was administered. Pt remained tachycardic overnight. Tmax overnight 102 This morning, pt was seen sleeping in bed comfortable. Reporting abdominal and back pain, 3/10. + mild cough. Denies sob, cp, n/v, chills. BM last night. Normal urination. Objective - Vital Signs/Intake and Output Vital Signs (last 24 hours): Temp Pulse Resp BP Pulse Ox 98.9 F 107 H 16 96/64 L 98 08/04/17 05:00 08/04/17 05:00 08/04/17 05:00 08/04/17 05:00 08/04/17 05:00 - Medications Medications: Current Medications Acetaminophen (Tylenol 325mg Tab) 650 mg PO Q4 PRN PRN Reason: Fever >100.4 F Last Admin: 08/04/17 00:33 Dose: 650 mg Sodium Chloride (Sodium Chloride 0.9%) 1,000 mls @ 100 mls/hr IV .Q10H MARCIA Stop: 08/04/17 09:18 Last Admin: 08/03/17 20:38 Dose: 100 mls/hr Vancomycin HCl 1 gm/ Sodium (Chloride) 250 mls @ 166.667 mls/hr IVPB Q12 MARCIA PRN Reason: Protocol Last Admin: 08/03/17 21:26 Dose: 166.667 mls/hr Piperacillin Sod/Tazobactam (Sod 3.375 gm/ Sodium Chloride) 100 mls @ 100 mls/ hr IVPB Q6 MARICA PRN Reason: Protocol Last Admin: 08/04/17 03:05 Dose: 100 mls/hr Oxycodone/Acetaminophen (Percocet 5/325 Mg Tab) 1 tab PO Q6 PRN PRN Reason: Pain, moderate (4-7) Stop: 08/06/17 08:45 Last Admin: 08/04/17 00:33 Dose: 1 tab Oxycodone/Acetaminophen (Percocet 5/325 Mg Tab) 2 tab PO Q4 PRN PRN Reason: Pain, severe (8-10) Stop: 08/06/17 18:05 Last Admin: 08/04/17 03:03 Dose: 2 tab - Labs Labs: 08/04/17 00:20 08/03/17 01:35 - Constitutional Appears: Well, Non-toxic, No Acute Distress - ENT Exam ENT Exam: Mucous Membranes Moist - Respiratory Exam Respiratory Exam: Clear to Ausculation Bilateral. absent: Rales, Wheezes - Cardiovascular Exam Cardiovascular Exam: REGULAR RHYTHM, +S1, +S2. absent: Murmur - GI/Abdominal Exam GI & Abdominal Exam: Distended, Soft, Tenderness (Diffuse tenderness on light palpation), Normal Bowel Sounds. absent: Guarding, Rigid Additional comments: + Ascites, palpable fluid shift - Extremities Exam Extremities Exam: Normal Capillary Refill, Normal Inspection. absent: Calf Tenderness, Pedal Edema - Back Exam Back Exam: CVA tenderness (L), CVA tenderness (R), NORMAL INSPECTION Additional comments: BL flank tenderness to palpation - Neurological Exam Neurological Exam: Alert, Awake, Oriented x3 - Psychiatric Exam Psychiatric exam: Normal Affect - Skin Skin Exam: Normal Color Assessment and Plan - Assessment and Plan (Free Text) Assessment: 31 y/o female s/p c section POD #10 admitted with sepsis secondary to possible abdominal abscess and pnu. Still spiking fevers overnight but afebrile this morning. #Sepsis, improving -Tmax 102 overnight, low grade fevers this morning. Tachycardia improving, 100' s this morning -WBC trending down, 18 -Unclear etiology. Likely from abdominal fluid collection vs PNU -Abdominal CT: 12 cm fluid collection suggestive of abscess -Cxray: left lower lobe infiltrate consistent with pnu -F/u repeat BCx, UCx -ID consulted as pt was still spiking fevers despite being on ABX -Will consider IR drainage if pt condition not improving #Abdominal pain, controlled -D/C percocet 5-325 -Motrin 600 #Diet-Advanced to regular #DVT ppx -encouraged pt to ambulate -SCD's Discussed with OB Hospitalist Ashley PGY1 <Steve Dominguez O - Last Filed: 08/04/17 14:27> Objective - Vital Signs/Intake and Output Vital Signs (last 24 hours): Temp Pulse Resp BP Pulse Ox 97.6 F 97 H 18 100/66 98 08/04/17 12:00 08/04/17 12:00 08/04/17 12:00 08/04/17 12:00 08/04/17 12:00 - Medications Medications: Current Medications Acetaminophen (Tylenol 325mg Tab) 650 mg PO Q4 PRN PRN Reason: Fever >100.4 F Last Admin: 08/04/17 00:33 Dose: 650 mg Vancomycin HCl 1 gm/ Sodium (Chloride) 250 mls @ 166.667 mls/hr IVPB Q12 MARCIA PRN Reason: Protocol Last Admin: 08/04/17 11:21 Dose: 166.667 mls/hr Piperacillin Sod/Tazobactam (Sod 3.375 gm/ Sodium Chloride) 100 mls @ 100 mls/ hr IVPB Q6 MARCIA PRN Reason: Protocol Last Admin: 08/04/17 09:16 Dose: 100 mls/hr Ibuprofen (Motrin Tab) 600 mg PO Q6 PRN PRN Reason: Pain, moderate (4-7) Ondansetron HCl (Zofran Inj) 2 mg IVP Q4 PRN PRN Reason: Nausea/Vomiting Oxycodone/Acetaminophen (Percocet 5/325 Mg Tab) 1 tab PO Q6 PRN PRN Reason: Pain, moderate (4-7) Stop: 08/06/17 08:45 Last Admin: 08/04/17 00:33 Dose: 1 tab Oxycodone/Acetaminophen (Percocet 5/325 Mg Tab) 2 tab PO Q4 PRN PRN Reason: Pain, severe (8-10) Stop: 08/06/17 18:05 Last Admin: 08/04/17 03:03 Dose: 2 tab - Labs Labs: 08/04/17 05:31 08/03/17 01:35 Attending/Attestation - Attestation I have personally seen and examined this patient.: Yes I have fully participated in the care of the patient.: Yes I have reviewed all pertinent clinical information, including history, physical exam and plan: Yes Notes (Text): 08/04/17 14:26 Pt was seen and reviewed with resident and I agree with the above. Steve Dominguez M.D.
--- NOTE | 2017-08-04 07:40 | CARD ---
APPROVED REPORT EKG Measurement Heart [id number] <Conclusion> Sinus tachycardia Otherwise normal ECG
[2017-08-04] MEDS ORDERED: Meropenem 1 GM in Sodium Chloride 0.9% 100 ML IVPB ONE (10:08)
[2017-08-04] MEDS: Sodium Chloride 0.9% 1,000 ML IV SCH (15:38)
[2017-08-05] MEDS: Meropenem 1 GM in Sodium Chloride 0.9% 100 ML IVPB SCH ×3 (00:51→18:10)
--- NOTE | 2017-08-05 02:47 | CON ---
DATE: INFECTIOUS DISEASE CONSULTATION HISTORY OF PRESENT ILLNESS: The patient is a 31-year-old female, born in [place], who had a on 07/22/2017 at 39 weeks gestation. She entered the Emergency Room yesterday with complaints of abdominal pain, some nausea, no vomiting, fever and chills.She stated that she had some pain immediately post section and intermittently increased, then decreased. The patient stated that on , it became far more severe and she again noted chills and sweat. She had some chest pain and complains of cough. Apparently, the patient had an uncomplicated with course complicated by severe anemia with a hemoglobin of 6.5. The patient's labs; her lactic acid was 1, her white count was 20 when she came in and is 18 today, hemoglobin is 8.2, platelet count is 451, had been 609, and she has a left shift, polys being 91 to 88. Creatinine is 0.6, GFR is greater than 60, and lipase is 12. Liver function tests are within normal limits. CT scan of abdomen and pelvis. Impression was enlarged uterus with gas in the endometrial cavity, endometritis is not excluded. There is a large complex fluid collection abutting the anterior margin of the lower uterine segment most consistent with an abscess, hyperdense fluid collection probably secondary to blood products. Given history of recent findings could be related to uterine dehiscence, ascites generalized and inflammatory changes of the mesentery, abdomen and pelvis. PHYSICAL EXAMINATION: GENERAL: The patient is alert, cooperative, and pleasant. HEENT: Within normal limits although conjunctivae are pale. NECK: Supple. LUNGS: Decreased breath sounds at the right base and some scattered rhonchi. HEART: Regular sinus with rhythm. ABDOMEN: Positive bowel sounds. Surgical incision is intact with clean margines, no discharge noted. There is a tenderness and palpation in most of the abdomen. EXTREMITIES: No CCE. IMPRESSION: Intraabdominal abscess. Await culture results..For present the patient was placed on vancomycin and Zosyn. I have added meropenem for additional gram-negative and positive coverage. Raheel Valderrama MD [facility] # [id number] MTDD
[2017-08-05] MEDS: Piperacillin/Tazobact 3.375 GM in Sodium Chloride 0.9% 100 ML IVPB SCH ×4 (04:12→22:19)
[2017-08-05 06:52] LABS: HEMOGLOBIN 7.4 g/dL (12.0-16.0); MEAN CORPUSCULAR HEMOGLOBIN 25.7 pg (27.0-31.0); MEAN CORPUSCULAR HGB CONC 32.1 g/dL (33.0-37.0); RBC 2.89 Mil/uL (3.80-5.20); WHITE BLOOD COUNT 11.7 K/uL (4.8-10.8)
[2017-08-05 07:14] LABS: ALB/GLOB RATIO 0.7 (1.0-2.1); ALBUMIN 2.3 g/dL (3.5-5.0); ALT/SGPT 30 U/L (9-52); AST/SGOT 28 U/L (14-36); BLOOD UREA NITROGEN 9 mg/dl (7-17); CALCIUM 7.7 mg/dL (8.4-10.2); GFR AFRICAN-AMERICAN > 60; GFR NON-AFRICAN AMERICAN > 60
--- NOTE | 2017-08-05 11:02 | CP.PCM.PN ---
<Sultan Hieu - Last Filed: 08/05/17 11:10> Subjective - Date & Time of Evaluation Date of Evaluation: 08/05/17 Time of Evaluation: 09:15 - Subjective Subjective: Pt was seen and examined this morning. Pt reports she still has lower abdominal pain but improved from yesterday and she is feeling better than yesterday. Pt reports she still has right lower back pain. Denies any overnight fever. Denies nausea, vomiting, chest pain or dyspnea. Pt is tolerating PO. Objective - Vital Signs/Intake and Output Vital Signs (last 24 hours): Temp Pulse Resp BP Pulse Ox 98.4 F 89 18 98/65 L 97 08/05/17 08:33 08/05/17 09:00 08/05/17 08:33 08/05/17 08:33 08/05/17 08:33 Intake and Output: 08/05/17 08/05/17 06:59 18:59 Intake Total 2150 Output Total 3 Balance 2147 - Medications Medications: Current Medications Acetaminophen (Tylenol 325mg Tab) 650 mg PO Q4 PRN PRN Reason: Fever >100.4 F Last Admin: 08/04/17 00:33 Dose: 650 mg Ferrous Sulfate (Feosol) 325 mg PO BID [facility] Vancomycin HCl 1 gm/ Sodium (Chloride) 250 mls @ 166.667 mls/hr IVPB Q12 [facility] PRN Reason: Protocol Last Admin: 08/04/17 20:55 Dose: 166.667 mls/hr Piperacillin Sod/Tazobactam (Sod 3.375 gm/ Sodium Chloride) 100 mls @ 100 mls/ hr IVPB Q6 [facility] PRN Reason: Protocol Last Admin: 08/05/17 10:08 Dose: 100 mls/hr Meropenem 1 gm/ Sodium (Chloride) 100 mls @ 100 mls/hr IVPB Q8 [facility] PRN Reason: Protocol Last Admin: 08/05/17 08:43 Dose: 100 mls/hr Ibuprofen (Motrin Tab) 600 mg PO Q6 PRN PRN Reason: Pain, moderate (4-7) Last Admin: 08/04/17 22:31 Dose: 600 mg Ondansetron HCl (Zofran Inj) 2 mg IVP Q4 PRN PRN Reason: Nausea/Vomiting Oxycodone/Acetaminophen (Percocet 5/325 Mg Tab) 1 tab PO Q6 PRN PRN Reason: Pain, moderate (4-7) Stop: 08/06/17 08:45 Last Admin: 08/04/17 00:33 Dose: 1 tab Oxycodone/Acetaminophen (Percocet 5/325 Mg Tab) 2 tab PO Q4 PRN PRN Reason: Pain, severe (8-10) Stop: 08/06/17 18:05 Last Admin: 08/04/17 03:03 Dose: 2 tab Potassium Chloride (K-Dur 20 Meq Er Tab) 20 meq PO BID [facility] Stop: 08/06/17 00:00 - Labs Labs: 08/05/17 06:00 08/05/17 06:00 - Constitutional Appears: Well, Non-toxic, No Acute Distress, Other - ENT Exam ENT Exam: Mucous Membranes Moist - Respiratory Exam Respiratory Exam: Clear to Ausculation Bilateral. absent: Rhonchi, Wheezes - Cardiovascular Exam Cardiovascular Exam: REGULAR RHYTHM, +S1, +S2 - GI/Abdominal Exam GI & Abdominal Exam: Soft, Tenderness (in the lower abdomen with soft palpation) . absent: Guarding Additional comments: + Ascites, palpable fluid shift - Back Exam Additional comments: Mild Right CVA tenderness. No midline tendeness. - Neurological Exam Neurological Exam: Alert, Awake, Oriented x3 Assessment and Plan - Assessment and Plan (Free Text) Assessment: Assessment: 31 y/o female s/p c section on 07/22/17, today is POD #14 admitted on 08/03/17 with sepsis secondary to possible abdominal abscess and pneumonia. No overnight fever #Sepsis, improving -Afebrile >24 hrs. Tachycardia resolving 90's this morning -WBC trending down: 11.7 today. -Unclear etiology. Likely from abdominal fluid collection vs PNU -Abdominal CT: 12 cm fluid collection suggestive of abscess -CXR: left lower lobe infiltrate consistent with PNU -F/u BCx: no growth after 24 hours. -UCx: no growth (final). -ID consult by Dr. Banks appreciated. -Will repeat CT of abdomen and pelvis tomorrow morning to see progression. -Will consider IR drainage if pt condition not improving # Hypokalemia -K: 3.0 -Start KCl 20 meq po BID -Repeat BMP tomorrow AM. #Abdominal pain, controlled -Continue motrin 600 mg PO Q6H #Anemia: -H&H: 7.4/23.2 today. -Start fesol 325 mg po bid #Diet -Regular #DVT prophylaxis: -encouraged pt to ambulate -SCD's Case discussed with OB Hospitalist Dr. Dominguez. <Steve Dominguez - Last Filed: 08/06/17 10:20> Objective - Vital Signs/Intake and Output Vital Signs (last 24 hours): Temp Pulse Resp BP Pulse Ox 98.6 F 86 18 110/74 98 08/06/17 08:25 08/06/17 08:25 08/06/17 08:25 08/06/17 08:25 08/06/17 08:25 - Medications Medications: Current Medications Acetaminophen (Tylenol 325mg Tab) 650 mg PO Q4 PRN PRN Reason: Fever >100.4 F Last Admin: 08/04/17 00:33 Dose: 650 mg Ferrous Sulfate (Feosol) 325 mg PO BID [facility] Last Admin: 08/05/17 17:12 Dose: 325 mg Vancomycin HCl 1 gm/ Sodium (Chloride) 250 mls @ 166.667 mls/hr IVPB Q12 [facility]ARCIA PRN Reason: Protocol Last Admin: 08/06/17 09:16 Dose: 166.667 mls/hr Piperacillin Sod/Tazobactam (Sod 3.375 gm/ Sodium Chloride) 100 mls @ 100 mls/ hr IVPB Q6 MARCIA PRN Reason: Protocol Last Admin: 08/06/17 04:36 Dose: 100 mls/hr Meropenem 1 gm/ Sodium (Chloride) 100 mls @ 100 mls/hr IVPB Q8 MARCIA PRN Reason: Protocol Last Admin: 08/06/17 08:49 Dose: 100 mls/hr Ibuprofen (Motrin Tab) 600 mg PO Q6 PRN PRN Reason: Pain, moderate (4-7) Last Admin: 08/05/17 19:13 Dose: 600 mg Ondansetron HCl (Zofran Inj) 2 mg IVP Q4 PRN PRN Reason: Nausea/Vomiting Oxycodone/Acetaminophen (Percocet 5/325 Mg Tab) 2 tab PO Q4 PRN PRN Reason: Pain, severe (8-10) Stop: 08/06/17 18:05 Last Admin: 08/04/17 03:03 Dose: 2 tab - Labs Labs: 08/06/17 04:15 08/06/17 04:15 Attending/Attestation - Attestation I have personally seen and examined this patient.: Yes I have fully participated in the care of the patient.: Yes I have reviewed all pertinent clinical information, including history, physical exam and plan: Yes Notes (Text): 08/06/17 10:19 Pt was seen and examined with Resident and I agree with the above.
[2017-08-05] MEDS: Potassium Chloride 20 mEq ER Tab PO SCH ×2 (11:38→17:12)
--- NOTE | 2017-08-05 18:54 | CP.PCM.PN ---
Subjective - Date & Time of Evaluation Date of Evaluation: 08/05/17 Time of Evaluation: 18:53 - Subjective Subjective: I D NOTE IMPROVING WBC:11.7 ,DOWN FROM [address] FOR AM Objective - Vital Signs/Intake and Output Vital Signs (last 24 hours): Temp Pulse Resp BP Pulse Ox 98.8 F 101 H 16 104/72 98 08/05/17 16:55 08/05/17 16:55 08/05/17 16:55 08/05/17 16:55 08/05/17 16:55 Intake and Output: 08/05/17 08/05/17 06:59 18:59 Intake Total 2149 2049 Output Total 3 Balance 2146 2049 - Medications Medications: Current Medications Acetaminophen (Tylenol 325mg Tab) 650 mg PO Q4 PRN PRN Reason: Fever >100.4 F Last Admin: 08/04/17 00:33 Dose: 650 mg Ferrous Sulfate (Feosol) 325 mg PO BID [facility] Last Admin: 08/05/17 17:12 Dose: 325 mg Vancomycin HCl 1 gm/ Sodium (Chloride) 250 mls @ 166.667 mls/hr IVPB Q12 [facility] PRN Reason: Protocol Last Admin: 08/05/17 11:01 Dose: 166.667 mls/hr Piperacillin Sod/Tazobactam (Sod 3.375 gm/ Sodium Chloride) 100 mls @ 100 mls/ hr IVPB Q6 MARCIA PRN Reason: Protocol Last Admin: 08/05/17 17:13 Dose: 100 mls/hr Meropenem 1 gm/ Sodium (Chloride) 100 mls @ 100 mls/hr IVPB Q8 [facility]IA PRN Reason: Protocol Last Admin: 08/05/17 18:10 Dose: 100 mls/hr Ibuprofen (Motrin Tab) 600 mg PO Q6 PRN PRN Reason: Pain, moderate (4-7) Last Admin: 08/05/17 10:59 Dose: 600 mg Ondansetron HCl (Zofran Inj) 2 mg IVP Q4 PRN PRN Reason: Nausea/Vomiting Oxycodone/Acetaminophen (Percocet 5/325 Mg Tab) 1 tab PO Q6 PRN PRN Reason: Pain, moderate (4-7) Stop: 08/06/17 08:45 Last Admin: 08/04/17 00:33 Dose: 1 tab Oxycodone/Acetaminophen (Percocet 5/325 Mg Tab) 2 tab PO Q4 PRN PRN Reason: Pain, severe (8-10) Stop: 08/06/17 18:05 Last Admin: 08/04/17 03:03 Dose: 2 tab Potassium Chloride (K-Dur 20 Meq Er Tab) 20 meq PO BID MARCIA Stop: 08/06/17 00:00 Last Admin: 08/05/17 17:12 Dose: 20 meq - Labs Labs: 08/05/17 06:00 08/05/17 06:00
[2017-08-06] MEDS: Meropenem 1 GM in Sodium Chloride 0.9% 100 ML IVPB SCH ×3 (01:06→17:24)
[2017-08-06] MEDS: Piperacillin/Tazobact 3.375 GM in Sodium Chloride 0.9% 100 ML IVPB SCH ×4 (04:36→21:23)
[2017-08-06] MEDS ORDERED: Iohexol 240 (50 ml) PO ONE (05:03)
[2017-08-06 05:30] LABS: HEMOGLOBIN 7.2 g/dL (12.0-16.0); MEAN CELL VOLUME 80.3 fl (81.0-99.0); MEAN CORPUSCULAR HEMOGLOBIN 26.2 pg (27.0-31.0); MEAN CORPUSCULAR HGB CONC 32.6 g/dL (33.0-37.0); RBC 2.76 Mil/uL (3.80-5.20); RED CELL DISTRIBUTION WIDTH 15.9 % (11.5-14.5); WHITE BLOOD COUNT 9.1 K/uL (4.8-10.8)
[2017-08-06 05:39] LABS: BLOOD UREA NITROGEN 10 mg/dl (7-17); GFR AFRICAN-AMERICAN > 60; GFR NON-AFRICAN AMERICAN > 60
[2017-08-06] MEDS ORDERED: Iohexol 300 100 ML IJ ONE (12:07)
[2017-08-06] MEDS ORDERED: Sodium Chloride 0.9% 100 ML ONE (12:07)
--- NOTE | 2017-08-06 13:20 | CT ---
PROCEDURE: CT Abdomen and Pelvis with contrast HISTORY: f/u CT for abd pain. Clinically improving. COMPARISON: Abdomen pelvis CT with contrast 08/03/2017. TECHNIQUE: Contrast dose: Omnipaque 300, 40 cc Radiation dose: Total exam DLP = 652.76 mGy-cm. This CT exam was performed using one or more of the following dose reduction techniques: Automated exposure control, adjustment of the mA and/or kV according to patient size, and/or use of iterative reconstruction technique. FINDINGS: LOWER THORAX: Increased linear atelectasis identified in the bilateral lung bases with trace bibasilar pleural effusions now identified in the interval, right greater than left. LIVER: Hepatic steatosis identified without discrete mass the liver once again. GALLBLADDER AND BILE DUCTS: A distended but otherwise unremarkable gallbladder is identified. PANCREAS: Unremarkable. No gross lesion or ductal dilatation. SPLEEN: Prior perisplenic ascites appears to have resolved. ADRENALS: Unremarkable. No mass. KIDNEYS AND URETERS: Unremarkable. No hydronephrosis. No solid mass. VASCULATURE: Unremarkable. No aortic aneurysm. BOWEL: No definite bowel obstruction pattern appreciated. APPENDIX: Normal appendix. PERITONEUM: A lucent, nonspecific fluid collection is appreciated increased in size at the right lower quadrant immediately lateral to the uterus measuring 4.1 x 10.3 cm (these anteroposterior by transverse dimensions). No emphysematous changes are related however limited poor peripheral enhancement is suggested. Thickening of the ascending colon including the cecum is appreciated on sympathetic basis. The prior midline abscess containing hyperdense component suggestive of hemorrhage now measures 6.4 x 12.7 cm, stable to slightly smaller in the interval. Trace loculated fluid is seen at the anterior perineum at the left lower quadrant once again, though smaller (only 2 cm greatest dimension). Prior gas in the endometrial cavity has resolved with the uterus remaining prominent in this state. Small umbilical hernia again evident. LYMPH NODES: Unremarkable. No enlarged lymph nodes. BLADDER: Nearly completely decompressed. REPRODUCTIVE: See peritoneum section above. BONES: No acute fracture. OTHER FINDINGS: None. IMPRESSION: uterus is remarkable only for resolution of prior endometrial cavity gas. The dominant fluid collection in the midline inferior pelvis is stable to slightly smaller in size potentially reflecting diminishing hemorrhagic abscess. A separate fluid collection is now identified at the right lower quadrant immediately superolateral to the dominant collection measuring 4.1 x 10.3 cm with borderline peripheral enhancement. An additional small abscess is not excluded. Next item hepatic steatosis again noted.
--- NOTE | 2017-08-06 17:03 | CP.PCM.PN ---
<Radha Allisona - Last Filed: 08/06/17 17:39> Subjective - Date & Time of Evaluation Date of Evaluation: 08/06/17 Time of Evaluation: 15:30 - Subjective Subjective: Pt was seen and evaluated at bedside. Clinically improving from yesterday; states abdominal pain is less intense in nature, but still present; rates 5-6/ 10. Reports that she has been ambulating around the unit. Denies further nausea /vomiting, dizziness. Objective - Vital Signs/Intake and Output Vital Signs (last 24 hours): Temp Pulse Resp BP Pulse Ox 99.1 F 92 H 20 97/65 L 98 08/06/17 15:49 08/06/17 15:49 08/06/17 15:49 08/06/17 15:49 08/06/17 15:49 - Medications Medications: Current Medications Acetaminophen (Tylenol 325mg Tab) 650 mg PO Q4 PRN PRN Reason: Fever >100.4 F Last Admin: 08/04/17 00:33 Dose: 650 mg Ferrous Sulfate (Feosol) 325 mg PO BID [facility]IA Last Admin: 08/06/17 16:22 Dose: 325 mg Vancomycin HCl 1 gm/ Sodium (Chloride) 250 mls @ 166.667 mls/hr IVPB Q12 MARCIA PRN Reason: Protocol Last Admin: 08/06/17 09:16 Dose: 166.667 mls/hr Piperacillin Sod/Tazobactam (Sod 3.375 gm/ Sodium Chloride) 100 mls @ 100 mls/ hr IVPB Q6 MARCIA PRN Reason: Protocol Last Admin: 08/06/17 16:19 Dose: 100 mls/hr Meropenem 1 gm/ Sodium (Chloride) 100 mls @ 100 mls/hr IVPB Q8 MARCIA PRN Reason: Protocol Last Admin: 08/06/17 08:49 Dose: 100 mls/hr Ibuprofen (Motrin Tab) 600 mg PO Q6 PRN PRN Reason: Pain, moderate (4-7) Last Admin: 08/06/17 13:08 Dose: 600 mg Ondansetron HCl (Zofran Inj) 2 mg IVP Q4 PRN PRN Reason: Nausea/Vomiting Oxycodone/Acetaminophen (Percocet 5/325 Mg Tab) 2 tab PO Q4 PRN PRN Reason: Pain, severe (8-10) Stop: 08/06/17 18:05 Last Admin: 08/04/17 03:03 Dose: 2 tab - Labs Labs: 08/06/17 04:15 08/06/17 04:15 - Constitutional Appears: Non-toxic - Head Exam Head Exam: ATRAUMATIC, NORMAL INSPECTION, NORMOCEPHALIC - Eye Exam Eye Exam: Normal appearance - ENT Exam ENT Exam: Mucous Membranes Moist - Respiratory Exam Respiratory Exam: Clear to Ausculation Bilateral, NORMAL BREATHING PATTERN. absent: Accessory Muscle Use, Respiratory Distress - Cardiovascular Exam Cardiovascular Exam: REGULAR RHYTHM, +S1, +S2 - GI/Abdominal Exam GI & Abdominal Exam: Soft, Tenderness (diffuse lower abdomen) - Extremities Exam Extremities Exam: Normal Inspection. absent: Pedal Edema - Back Exam Back Exam: NORMAL INSPECTION Assessment and Plan - Assessment and Plan (Free Text) Assessment: 31 y/o female s/p c section on 07/22/17, today is POD #15; admitted on 08/03/17 with sepsis secondary to possible abdominal abscess/fluid collection vs pneumonia. Afebrile >24 hrs. Tachycardia improved. Plan: #Sepsis -Improving -Etiology pneumonia vs abdominal fluid collection -Afebrile >24 hrs -Tachycardia resolving 80s-90s this morning -WBC trending down: 9.1 today; down from 20 on admission -CXR: left lower lobe infiltrate consistent with PNU -ID consult by Dr. Banks appreciated -Continue with vancomycin and zosyn, meropenem -F/u Blood Cx: no growth after 24 hours. -Urine Cx: no growth (final) #Abdominal fluid collection -Abdominal CT on admission showed 12.8cm x 7.0cm x 8.3cm cm fluid collection suggestive of abscess -Repeat CT today: lucent nonspecific fluid collection appreciatedin RLQ immediately lateral to the uterus. (4.1x10.3xm). Prior seen dominant fluid collection in midline inferior pelvis is stable to slightly smaller in size ( now 6.4cm x 12.7cm) potentially reflecting diminishing hemorrhagic abscess. -Interventional Radiology Consult pending -Consider general surgery consult #Abdominal pain, -Controlled -Continue motrin 600 mg PO Q6 #Lung infiltrate vs atelectasis -Seen on CXR and on abdominal CT on admission -Still present on repeat CT today -Receiving vancomycin, zosyn, meropenem -Encourage incentive spirometry #Anemia: -H&H: 7.2/22.2 today. -Continue ferrous sulfate 325 mg po bid -Repeat CBC # Hypokalemia -K 3.5 today -Resolving -Repeat BMP tomorrow AM #Diet -Regular as tolerated #DVT prophylaxis: -encouraged pt to ambulate -SCD's Case discussed with OB Hospitalist Dr. Dominguez. <Steve Dominguez - Last Filed: 08/07/17 07:58> Objective - Vital Signs/Intake and Output Vital Signs (last 24 hours): Temp Pulse Resp BP Pulse Ox 97.3 F L 102 H 18 107/71 95 08/07/17 05:21 08/07/17 05:21 08/07/17 05:21 08/07/17 05:21 08/07/17 05:21 - Medications Medications: Current Medications Acetaminophen (Tylenol 325mg Tab) 650 mg PO Q4 PRN PRN Reason: Pain, moderate (4-7) Ferrous Sulfate (Feosol) 325 mg PO BID [facility] Last Admin: 08/06/17 16:22 Dose: 325 mg Piperacillin Sod/Tazobactam (Sod 3.375 gm/ Sodium Chloride) 100 mls @ 100 mls/ hr IVPB Q6 MARCIA PRN Reason: Protocol Last Admin: 08/07/17 03:12 Dose: 100 mls/hr Meropenem 1 gm/ Sodium (Chloride) 100 mls @ 100 mls/hr IVPB Q8 MARCIA PRN Reason: Protocol Last Admin: 08/07/17 00:08 Dose: 100 mls/hr Metronidazole (Flagyl 500mg/100ml Ns) 100 mls @ 100 mls/hr IVPB Q8 MARCIA PRN Reason: Protocol Last Admin: 08/07/17 01:14 Dose: 100 mls/hr Ibuprofen (Motrin Tab) 600 mg PO Q6 PRN PRN Reason: Pain, moderate (4-7) Last Admin: 08/06/17 13:08 Dose: 600 mg Ondansetron HCl (Zofran Inj) 2 mg IVP Q4 PRN PRN Reason: Nausea/Vomiting Saccharomyces Boulardii (Florastor) 250 mg PO BID [facility] Last Admin: 08/06/17 21:23 Dose: 250 mg - Labs Labs: 08/07/17 04:20 08/07/17 04:20 Attending/Attestation - Attestation I have personally seen and examined this patient.: Yes I have fully participated in the care of the patient.: Yes I have reviewed all pertinent clinical information, including history, physical exam and plan: Yes Notes (Text): 08/07/17 07:52 S/P Section, POD #15 admitted for a collection of fluid in the pelvis and pneumonia On Antibiotics. Repeat CT scan reporting a slight change in the collected fluid in the pelvis. Pt clinically stable, temps fairly normal Plan: - Interventional Radiology Consult - Pending - General Surgery consult - Pending - NPO Since Midnight - Continue Monitoring 08/07/17 07:57
[2017-08-06] MEDS: Saccharomyces Boulardi 250 mg Cap PO SCH (21:23)
--- NOTE | 2017-08-06 22:55 | CP.PCM.PN ---
Subjective - Date & Time of Evaluation Date of Evaluation: 08/06/17 Time of Evaluation: 22:50 - Subjective Subjective: I D NOTE CT SCAN REVIEWED, HAVE DISCONTINUED VANCOMYCIN AND ADDED FLAGYL FOR ADDITIONAL ANAEROBIC COVERAGE Objective - Vital Signs/Intake and Output Vital Signs (last 24 hours): Temp Pulse Resp BP Pulse Ox 97.7 F 88 20 108/75 98 08/06/17 19:40 08/06/17 20:50 08/06/17 19:40 08/06/17 19:40 08/06/17 19:40 Intake and Output: 08/06/17 08/07/17 18:59 06:59 Intake Total 1190 Output Total 4 Balance 1186 - Medications Medications: Current Medications Acetaminophen (Tylenol 325mg Tab) 650 mg PO Q4 PRN PRN Reason: Pain, moderate (4-7) Ferrous Sulfate (Feosol) 325 mg PO BID [facility] Last Admin: 08/06/17 16:22 Dose: 325 mg Piperacillin Sod/Tazobactam (Sod 3.375 gm/ Sodium Chloride) 100 mls @ 100 mls/ hr IVPB Q6 [facility]ARCIA PRN Reason: Protocol Last Admin: 08/06/17 21:23 Dose: 100 mls/hr Meropenem 1 gm/ Sodium (Chloride) 100 mls @ 100 mls/hr IVPB Q8 [facility]ARCIA PRN Reason: Protocol Last Admin: 08/06/17 17:24 Dose: 100 mls/hr Metronidazole (Flagyl 500mg/100ml Ns) 100 mls @ 100 mls/hr IVPB Q8 [facility]IA PRN Reason: Protocol Ibuprofen (Motrin Tab) 600 mg PO Q6 PRN PRN Reason: Pain, moderate (4-7) Last Admin: 08/06/17 13:08 Dose: 600 mg Ondansetron HCl (Zofran Inj) 2 mg IVP Q4 PRN PRN Reason: Nausea/Vomiting Saccharomyces Boulardii (Florastor) 250 mg PO BID [facility] Last Admin: 08/06/17 21:23 Dose: 250 mg - Labs Labs: 08/06/17 04:15 08/06/17 04:15
[2017-08-07] MEDS: Meropenem 1 GM in Sodium Chloride 0.9% 100 ML IVPB SCH ×3 (00:08→16:48)
[2017-08-07] MEDS: metroNIDAZOLE 500mg/100ml NS 100 ML IVPB SCH ×3 (01:14→16:16)
[2017-08-07] MEDS: Piperacillin/Tazobact 3.375 GM in Sodium Chloride 0.9% 100 ML IVPB SCH ×4 (03:12→21:06)
[2017-08-07 05:22] LABS: BASO # 0.1 K/uL (0.0-0.2); BASO % 0.6 % (0.0-2.0); EOS # 0.1 K/uL (0.0-0.7); EOS % 1.4 % (0.0-4.0); HEMOGLOBIN 7.4 g/dL (12.0-16.0); LYMPH % 20.6 % (20.0-40.0); MEAN CORPUSCULAR HGB CONC 32.5 g/dL (33.0-37.0); MONO # 0.8 K/uL (0.0-0.8); MONO % 7.8 % (0.0-10.0); NEUT # 6.9 K/uL (1.8-7.0); NEUT % 69.6 % (50.0-75.0); NRBC % 0.1 % (0.0-0.0); RBC 2.85 Mil/uL (3.80-5.20); RED CELL DISTRIBUTION WIDTH 16.2 % (11.5-14.5); WHITE BLOOD COUNT 9.9 K/uL (4.8-10.8)
[2017-08-07 05:33] LABS: BLOOD UREA NITROGEN 4 mg/dl (7-17); CALCIUM 7.9 mg/dL (8.4-10.2); GFR AFRICAN-AMERICAN > 60; GFR NON-AFRICAN AMERICAN > 60
[2017-08-07] MEDS: Saccharomyces Boulardi 250 mg Cap PO SCH ×3 (08:36→17:40)
--- NOTE | 2017-08-07 08:59 | CP.PCM.CON ---
History of Present Illness - History of Present Illness History of Present Illness: General Surgery Consult Note - Dr. Dickson 31 y/o female with no significant PMHx seen at bedside by general surgery team for evaluation of abdominal pain. Pt says she had a approx 2 weeks ago and since then has been experiencing abdominal pain all around the front and sides of her stomach, extending down towards her bladder. Says it does not radiate to her back. She admits that during her she lost a lot of blood and required a blood transfusion, and has been taking iron supplements since. She admits to relief with Motrin but needed to take it every 5 hours to control her pain. She states that five days ago she began feeling a fever and chills, and the pain started to feel worse, prompting her to come to the hospital. States she also noticed some burning on urination with decreased output. Denies nausea; admits to vomiting after taking Percocet. Denies CP/SOB. Admits to having regular bowel movements and passing flatus. Tolerating PO diet without difficulty. Denies D/C. Denies blood in urine; denies melena. PSHx: x 2 (Jul 2017; 2013) All: NKDA SocHx: denies EtOH, cigarette or illicit drug use FamHx: noncontributory Review of Systems - Review of Systems All systems: reviewed and no additional remarkable complaints except (per HPI) Past Patient History - Past Medical History & Family History Past Medical History?: Yes - Past Social History Smoking Status: Never Smoked - CARDIAC Hx Cardiac Disorders: No Hx Hypertension: No - PULMONARY Hx Respiratory Disorders: No - NEUROLOGICAL Hx Neurological Disorder: No - HEENT Hx HEENT Problems: No - RENAL Hx Chronic Kidney Disease: No - ENDOCRINE/METABOLIC Hx Endocrine Disorders: No - HEMATOLOGICAL/ONCOLOGICAL Hx Blood Disorders: No Hx AIDS: No Hx Human Immunodeficiency Virus (HIV): No - INTEGUMENTARY Hx Dermatological Problems: No - MUSCULOSKELETAL/RHEUMATOLOGICAL Hx Musculoskeletal Disorders: No Hx Falls: No - GASTROINTESTINAL Hx Gastrointestinal Disorders: No - GENITOURINARY/GYNECOLOGICAL Hx Genitourinary Disorders: No - PSYCHIATRIC Hx Psychophysiologic Disorder: No Hx Depression: No Hx Substance Use: No - SURGICAL HISTORY Hx Surgeries: Yes Hx Section: Yes - ANESTHESIA Hx Anesthesia: Yes Hx Anesthesia Reactions: No Hx Malignant Hyperthermia: No Has any member of the family had a problem w/ anesthesia?: No Meds Allergies/Adverse Reactions: Allergies Allergy/AdvReac Type Severity Reaction Status Date / Time No Known Allergies Allergy Verified 08/02/17 23:59 - Medications Medications: Current Medications Acetaminophen (Tylenol 325mg Tab) 650 mg PO Q4 PRN PRN Reason: Pain, moderate (4-7) Ferrous Sulfate (Feosol) 325 mg PO BID [facility] Last Admin: 08/07/17 08:36 Dose: Not Given Piperacillin Sod/Tazobactam (Sod 3.375 gm/ Sodium Chloride) 100 mls @ 100 mls/ hr IVPB Q6 [facility] PRN Reason: Protocol Last Admin: 08/07/17 03:12 Dose: 100 mls/hr Meropenem 1 gm/ Sodium (Chloride) 100 mls @ 100 mls/hr IVPB Q8 [facility] PRN Reason: Protocol Last Admin: 08/07/17 00:08 Dose: 100 mls/hr Metronidazole (Flagyl 500mg/100ml Ns) 100 mls @ 100 mls/hr IVPB Q8 [facility] PRN Reason: Protocol Last Admin: 08/07/17 08:35 Dose: 100 mls/hr Sodium Chloride (Sodium Chloride 0.9%) 1,000 mls @ 125 mls/hr IV .Q8H [facility] Stop: 08/08/17 08:49 Potassium Chloride 10 meq/ (Sodium Chloride) 105 mls @ 105 mls/hr IV Q1 [facility] Stop: 08/07/17 12:59 Ibuprofen (Motrin Tab) 600 mg PO Q6 PRN PRN Reason: Pain, moderate (4-7) Last Admin: 08/06/17 13:08 Dose: 600 mg Ondansetron HCl (Zofran Inj) 2 mg IVP Q4 PRN PRN Reason: Nausea/Vomiting Saccharomyces Boulardii (Florastor) 250 mg PO BID [facility] Last Admin: 08/07/17 08:36 Dose: Not Given Physical Exam - Constitutional Appears: Well, Non-toxic, No Acute Distress - Head Exam Head Exam: ATRAUMATIC - Eye Exam Eye Exam: Normal appearance - Respiratory Exam Respiratory Exam: NORMAL BREATHING PATTERN. absent: Chest Wall Tenderness, Respiratory Distress - Cardiovascular Exam Cardiovascular Exam: REGULAR RHYTHM - GI/Abdominal Exam GI & Abdominal Exam: Soft, Tenderness. absent: Distended, Mass Additional comments: mild diffuse periumbilical tenderness - Extremities Exam Extremities exam: Positive for: normal inspection. Negative for: calf tenderness - Neurological Exam Neurological exam: Alert, Normal Gait, Oriented x3 - Psychiatric Exam Psychiatric exam: Normal Affect, Normal Mood - Skin Skin Exam: Dry, Intact, Normal Color Results - Vital Signs Recent Vital Signs: Last Vital Signs Temp 98.1 F 08/07/17 08:00 Pulse 88 08/07/17 08:00 Resp 18 08/07/17 08:00 BP 111/73 08/07/17 08:00 Pulse Ox 94 L 08/07/17 08:00 - Labs Result Diagrams: 08/07/17 04:20 08/07/17 04:20 Labs: Laboratory Results - last 24 hr 08/07/17 08/07/17 04:20 04:20 WBC 9.9 RBC 2.85 L Hgb 7.4 L Hct 22.8 L MCV 80.0 L MCH 26.0 L MCHC 32.5 L RDW 16.2 H Plt Count 543 H MPV 9.0 Neut % (Auto) 69.6 Lymph % (Auto) 20.6 [place] % (Auto) 7.8 Eos % (Auto) 1.4 Baso % (Auto) 0.6 Neut # (Auto) 6.9 Lymph # (Auto) 2.0 [place] # (Auto) 0.8 Eos # (Auto) 0.1 Baso # (Auto) 0.1 Sodium 139 Potassium 3.1 L Chloride 107 Carbon Dioxide 25 Anion Gap 10 BUN 4 L Creatinine 0.5 L Est GFR ( Amer) > 60 Est GFR (Non-Af Amer) > 60 Random Glucose 113 H Calcium 7.9 L Assessment & Plan - Assessment and Plan (Free Text) Assessment: 31 y/o female with intra-abdominal fluid collection Plan: -cont IV abx -cont IVF -recommend IR drainage -monitor Hgb/Hct -no need for acute surgical intervention at this time -discussed w/ Dr. Dickson
[2017-08-07] MEDS: Sodium Chloride 0.9% 1,000 ML IV SCH ×2 (09:13→14:45)
[2017-08-07 09:44] LABS: INR 1.2 (0.9-1.2); PROTHROMBIN TIME 13.2 Seconds (9.8-13.1)
--- NOTE | 2017-08-07 10:39 | CP.PCM.PN ---
Subjective - Date & Time of Evaluation Date of Evaluation: 08/07/17 Time of Evaluation: 07:30 - Subjective Subjective: Pt seen and evaluated at bedside this am. Reports no acute events overnight aside from needing pain medication x1. Has been NPO overnight for possible IR procedure today. Objective - Vital Signs/Intake and Output Vital Signs (last 24 hours): Temp Pulse Resp BP Pulse Ox 98.1 F 83 18 111/73 94 L 08/07/17 09:00 08/07/17 09:00 08/07/17 09:00 08/07/17 09:00 08/07/17 09:00 - Medications Medications: Current Medications Acetaminophen (Tylenol 325mg Tab) 650 mg PO Q4 PRN PRN Reason: Pain, moderate (4-7) Ferrous Sulfate (Feosol) 325 mg PO BID [facility] Last Admin: 08/07/17 08:36 Dose: Not Given Piperacillin Sod/Tazobactam (Sod 3.375 gm/ Sodium Chloride) 100 mls @ 100 mls/ hr IVPB Q6 [facility] PRN Reason: Protocol Last Admin: 08/07/17 09:31 Dose: 100 mls/hr Meropenem 1 gm/ Sodium (Chloride) 100 mls @ 100 mls/hr IVPB Q8 [facility] PRN Reason: Protocol Last Admin: 08/07/17 09:15 Dose: 100 mls/hr Metronidazole (Flagyl 500mg/100ml Ns) 100 mls @ 100 mls/hr IVPB Q8 [facility] PRN Reason: Protocol Last Admin: 08/07/17 08:35 Dose: 100 mls/hr Sodium Chloride (Sodium Chloride 0.9%) 1,000 mls @ 125 mls/hr IV .Q8H [facility] Stop: 08/08/17 08:49 Last Admin: 08/07/17 09:13 Dose: 125 mls/hr Potassium Chloride 10 meq/ (Sodium Chloride) 105 mls @ 105 mls/hr IV Q1 [facility] Stop: 08/07/17 12:59 Last Admin: 08/07/17 10:22 Dose: 105 mls/hr Ibuprofen (Motrin Tab) 600 mg PO Q6 PRN PRN Reason: Pain, moderate (4-7) Last Admin: 08/06/17 13:08 Dose: 600 mg Ondansetron HCl (Zofran Inj) 2 mg IVP Q4 PRN PRN Reason: Nausea/Vomiting Saccharomyces Rachidi (Florastor) 250 mg PO BID [facility] Last Admin: 08/07/17 08:36 Dose: Not Given - Labs Labs: 08/07/17 04:20 08/07/17 04:20 PT 13.2 Seconds (9.8-13.1) H 08/07/17 09:10 INR 1.2 (0.9-1.2) 08/07/17 09:10 - Constitutional Appears: Non-toxic - Head Exam Head Exam: ATRAUMATIC, NORMAL INSPECTION - Eye Exam Eye Exam: Normal appearance - ENT Exam ENT Exam: Mucous Membranes Moist - Respiratory Exam Respiratory Exam: Clear to Ausculation Bilateral, NORMAL BREATHING PATTERN. absent: Respiratory Distress - Cardiovascular Exam Cardiovascular Exam: +S1, +S2 - GI/Abdominal Exam GI & Abdominal Exam: Soft, Tenderness Additional comments: diffuse, mild - Extremities Exam Extremities Exam: Normal Inspection. absent: Calf Tenderness, Pedal Edema - Back Exam Back Exam: NORMAL INSPECTION - Neurological Exam Neurological Exam: Alert, Awake, Oriented x3 - Skin Skin Exam: Dry, Intact, Warm Assessment and Plan - Assessment and Plan (Free Text) Assessment: 31 y/o female s/p c section on 07/22/17, today is POD #16; admitted on 08/03/17 with sepsis secondary to possible abdominal abscess/fluid collection vs pneumonia. Afebrile >24 hrs. Tachycardia improved. For possible IR drainage today Plan: #Sepsis -Improving -Etiology pneumonia vs abdominal fluid collection -Afebrile less than 100.4 >24 hrs -Tachycardia resolving 80s-90s this morning -WBC trended down since admission, 20 on admission, 9.7 today -CXR: left lower lobe infiltrate consistent with PNU -ID consult by Dr. Banks appreciated -Continue with zosyn, meropenem -ID d/c vancomycin and started flagyll -F/u Blood Cx: no growth after 24 hours. -Urine Cx: no growth (final) #Abdominal fluid collection -Abdominal CT on admission showed 12.8cm x 7.0cm x 8.3cm cm fluid collection suggestive of abscess -Repeat CT today: lucent nonspecific fluid collection appreciatedin RLQ immediately lateral to the uterus. (4.1x10.3xm). Prior seen dominant fluid collection in midline inferior pelvis is stable to slightly smaller in size ( now 6.4cm x 12.7cm) potentially reflecting diminishing hemorrhagic abscess. -Interventional Radiology Consult - spoke to Dr. Vasquez or possible IR procedure today -General surgery consult #Abdominal pain -Controlled -Continue motrin 600 mg PO Q6 -IV toradol since pt NPO #Lung infiltrate vs atelectasis -Seen on CXR and on abdominal CT on admission -Still present on repeat CT today -Received vancomycin, zosyn, meropenem; now vancomycin discontinued and flagyll added by ID -Encourage incentive spirometry #Anemia: -H&H: 7.4/22.8 today -Continue ferrous sulfate 325 mg po bid -Repeat CBC # Hypokalemia -K 3.1 today -K-rider 10mEq x 4 today -Repeat BMP tomorrow AM -Consult medicine team #Diet -NPO for procedure #DVT prophylaxis: -encouraged pt to ambulate -SCD's Pt seen/discussed this morning with OB attending inspector publications Dr. Dominguez.
[2017-08-07] MEDS ORDERED: Lidocaine 1% Inj (20ml) ONE (12:40)
[2017-08-07] MEDS ORDERED: Midazolam 2 MG/2 ML VIAL ONE (12:56)
[2017-08-07] MEDS ORDERED: Sodium Chloride 0.9% 100 ML ONE (13:09)
[2017-08-07] MEDS ORDERED: HYDROmorphone 0.5 mg/0.5 ml ISec IVP PRN (13:31)
--- NOTE | 2017-08-07 18:09 | CP.PCM.PN ---
<PrietoantwanRadhaa - Last Filed: 08/07/17 18:30> Subjective - Date & Time of Evaluation Date of Evaluation: 08/07/17 Time of Evaluation: 17:45 - Subjective Subjective: Pt seen and evaluated at bedside this PM; she is s/p IR drainage of abdominal/ pelvic fluid collection, with a NEIL drain currently in place. She reports some relief of abdominal pain following the drainage. Drained fluid was cultured; results are pending. Has been able to tolerate PO intake after the procedure. Objective - Vital Signs/Intake and Output Vital Signs (last 24 hours): Temp Pulse Resp BP Pulse Ox 99.7 F H 73 18 119/78 99 08/07/17 15:16 08/07/17 15:16 08/07/17 15:16 08/07/17 15:16 08/07/17 15:16 Intake and Output: 08/07/17 08/07/17 06:59 18:59 Intake Total 200 Output Total 20 Balance 180 - Medications Medications: Current Medications Acetaminophen (Tylenol 325mg Tab) 650 mg PO Q4 PRN PRN Reason: Pain, moderate (4-7) Ferrous Sulfate (Feosol) 325 mg PO BID [facility] Last Admin: 08/07/17 17:40 Dose: 325 mg Hydromorphone HCl (Dilaudid) 0.5 mg IVP Q15M PRN PRN Reason: Pain, moderate (4-7) Stop: 08/08/17 13:32 Piperacillin Sod/Tazobactam (Sod 3.375 gm/ Sodium Chloride) 100 mls @ 100 mls/ hr IVPB Q6 [facility] PRN Reason: Protocol Last Admin: 08/07/17 15:43 Dose: 100 mls/hr Meropenem 1 gm/ Sodium (Chloride) 100 mls @ 100 mls/hr IVPB Q8 [facility] PRN Reason: Protocol Last Admin: 08/07/17 16:48 Dose: 100 mls/hr Metronidazole (Flagyl 500mg/100ml Ns) 100 mls @ 100 mls/hr IVPB Q8 [facility] PRN Reason: Protocol Last Admin: 08/07/17 16:16 Dose: 100 mls/hr Sodium Chloride (Sodium Chloride 0.9%) 1,000 mls @ 125 mls/hr IV .Q8H [facility] Stop: 08/08/17 08:49 Last Admin: 08/07/17 14:45 Dose: 200 mls Ibuprofen (Motrin Tab) 600 mg PO Q6 PRN PRN Reason: Pain, moderate (4-7) Last Admin: 08/06/17 13:08 Dose: 600 mg Ondansetron HCl (Zofran Inj) 2 mg IVP Q4 PRN PRN Reason: Nausea/Vomiting Saccharomyces Boulardii (Florastor) 250 mg PO BID [facility] Last Admin: 08/07/17 17:40 Dose: 250 mg - Labs Labs: 08/07/17 04:20 08/07/17 04:20 PT 13.2 Seconds (9.8-13.1) H 08/07/17 09:10 INR 1.2 (0.9-1.2) 08/07/17 09:10 - Constitutional Appears: Non-toxic - Head Exam Head Exam: ATRAUMATIC, NORMAL INSPECTION, NORMOCEPHALIC - Eye Exam Eye Exam: Normal appearance - ENT Exam ENT Exam: Mucous Membranes Moist - Respiratory Exam Respiratory Exam: Clear to Ausculation Bilateral, NORMAL BREATHING PATTERN. absent: Decreased Breath Sounds, Respiratory Distress - Cardiovascular Exam Cardiovascular Exam: REGULAR RHYTHM, +S1, +S2 - GI/Abdominal Exam GI & Abdominal Exam: Soft, Tenderness (mild, diffuse, improved), Normal Bowel Sounds - Extremities Exam Extremities Exam: Normal Capillary Refill, Normal Inspection. absent: Calf Tenderness Additional comments: Neg Antonina's bilaterally - Back Exam Back Exam: NORMAL INSPECTION - Neurological Exam Neurological Exam: Alert, Awake, Oriented x3 - Skin Skin Exam: Dry, Intact, Normal Color, Warm Assessment and Plan - Assessment and Plan (Free Text) Assessment: 31 y/o female s/p c section on 07/22/17, today is POD #16; admitted on 08/03/17 with sepsis secondary to possible abdominal abscess/fluid collection vs pneumonia. S/p IR drain today. Plan: #Sepsis -Etiology pneumonia vs abdominal fluid collection -Tachycardia improving, HR mostly 70s-80s; 2 readings 90+ -WBC trended down since admission, 20 on admission, 9.7 today -CXR: left lower lobe infiltrate consistent with PNU -ID consult by Dr. Banks appreciated -Continue with zosyn, meropenem -ID d/c vancomycin and started flagyll -F/u Blood Cx: aerobic bottle, gram variable rods; as per RN note, ID aware -Urine Cx: no growth (final) #Abdominal fluid collection -Abdominal CT on admission showed 12.8cm x 7.0cm x 8.3cm cm fluid collection suggestive of abscess -Repeat CT 08/06: lucent nonspecific fluid collection appreciated in RLQ immediately lateral to the uterus. (4.1x10.3xm). Prior seen dominant fluid collection in midline inferior pelvis is stable to slightly smaller in size ( now 6.4cm x 12.7cm) potentially reflecting diminishing hemorrhagic abscess. -Interventional Radiology Consult - pt underwent IR drain of fluid collection today; fluid was sent for culture. -General surgery consult - no surgical intervention at this time #Abdominal pain -Controlled -Continue motrin 600 mg PO Q6 #Lung infiltrate vs atelectasis -Seen on CXR and on abdominal CT on admission -Still present on repeat CT today -Received vancomycin, zosyn, meropenem; now vancomycin discontinued and flagyll added by ID -Encourage incentive spirometry -Consult medicine team #Anemia: -H&H: 7.4/22.8 today -Continue ferrous sulfate 325 mg po bid -Repeat CBC # Hypokalemia -K 3.1 today -K-rider 10mEq x 4 today -Repeat BMP tomorrow AM -Consult medicine team #Diet -Resume regular diet #GI prophylaxis -Pepcid 20 PO daily -Florastor 250 mg PO BID #DVT prophylaxis: -Encouraged pt to ambulate -SCD's Pt discussed with OB attending Dr. Ruht. <Jose Antonio Ruth - Last Filed: 08/08/17 09:06> Objective - Vital Signs/Intake and Output Vital Signs (last 24 hours): Temp Pulse Resp BP Pulse Ox 99.6 F 74 18 114/75 95 08/08/17 08:00 08/08/17 08:00 08/08/17 08:00 08/08/17 08:00 08/08/17 08:00 Intake and Output: 08/08/17 08/08/17 06:59 18:59 Intake Total 2100 Output Total 70 Balance 2030 - Medications Medications: Current Medications Acetaminophen (Tylenol 325mg Tab) 650 mg PO Q4 PRN PRN Reason: Pain, moderate (4-7) Famotidine (Pepcid) 20 mg PO DAILY [facility] Last Admin: 08/07/17 20:59 Dose: 20 mg Ferrous Sulfate (Feosol) 325 mg PO BID [facility] Last Admin: 08/07/17 17:40 Dose: 325 mg Hydromorphone HCl (Dilaudid) 0.5 mg IVP Q15M PRN PRN Reason: Pain, moderate (4-7) Stop: 08/08/17 13:32 Piperacillin Sod/Tazobactam (Sod 3.375 gm/ Sodium Chloride) 100 mls @ 100 mls/ hr IVPB Q6 [facility] PRN Reason: Protocol Last Admin: 08/08/17 04:52 Dose: 100 mls/hr Meropenem 1 gm/ Sodium (Chloride) 100 mls @ 100 mls/hr IVPB Q8 [facility] PRN Reason: Protocol Last Admin: 08/08/17 01:41 Dose: 100 mls/hr Metronidazole (Flagyl 500mg/100ml Ns) 100 mls @ 100 mls/hr IVPB Q8 [facility] PRN Reason: Protocol Last Admin: 08/08/17 01:40 Dose: 100 mls/hr Ibuprofen (Motrin Tab) 600 mg PO Q6 PRN PRN Reason: Pain, moderate (4-7) Last Admin: 08/07/17 20:14 Dose: 600 mg Ondansetron HCl (Zofran Inj) 2 mg IVP Q4 PRN PRN Reason: Nausea/Vomiting Saccharomyces Boulardii (Florastor) 250 mg PO BID [facility] Last Admin: 08/07/17 17:40 Dose: 250 mg - Labs Labs: 08/08/17 04:25 08/08/17 04:25 PT 13.2 Seconds (9.8-13.1) H 08/07/17 09:10 INR 1.2 (0.9-1.2) 08/07/17 09:10 - GI/Abdominal Exam GI & Abdominal Exam: absent: Guarding, Rigid, Rebound Assessment and Plan - Assessment and Plan (Free Text) Plan: [facility] for Aug 07...On rounds, I saw Maria G at 16: 30pm after IR drainage of fluid collectoin. After speaking with Dr Vasquez, small amount of blood removed - dark...sent for culture. She tolerated well. She appears fine and in NAD. Also, note reviewed and agreed...TIM
--- NOTE | 2017-08-07 18:22 | CP.PCM.CON ---
History of Present Illness - History of Present Illness History of Present Illness: Consult Note: Family Medicine 31 YO F s/p repeat c section on 07/22/17 was admitted for worsening abdominal pain with subjective fever, chills and burning with urination. Abdominal pain was localized diffusely around her abdomen extending down her bladder. Patient had been having normal bowl movement and been able to pass flatus since the surgery. Denies any sick contacts or travel history. Patient had a normal c section with post anemia of 6.5 for which she was transfused one unit of blood and advised to continue to take iron supplements daily on discharge. - Patient had intrabdominal fluid drainage today. Tolerated procedure well. Pain is currently controlled with medication. Denies any chest pain, SOB, Nausea , vomiting or diarrhea. PMH:: Anemia PSH: C section x 2 Allergy: NKDA FH: Non contributory Past Patient History - Past Medical History & Family History Past Medical History?: Yes - Past Social History Smoking Status: Never Smoked - CARDIAC Hx Cardiac Disorders: No Hx Hypertension: No - PULMONARY Hx Respiratory Disorders: No - NEUROLOGICAL Hx Neurological Disorder: No - HEENT Hx HEENT Problems: No - RENAL Hx Chronic Kidney Disease: No - ENDOCRINE/METABOLIC Hx Endocrine Disorders: No - HEMATOLOGICAL/ONCOLOGICAL Hx Blood Disorders: No Hx AIDS: No Hx Human Immunodeficiency Virus (HIV): No - INTEGUMENTARY Hx Dermatological Problems: No - MUSCULOSKELETAL/RHEUMATOLOGICAL Hx Musculoskeletal Disorders: No Hx Falls: No - GASTROINTESTINAL Hx Gastrointestinal Disorders: No - GENITOURINARY/GYNECOLOGICAL Hx Genitourinary Disorders: No - PSYCHIATRIC Hx Psychophysiologic Disorder: No Hx Depression: No Hx Substance Use: No - SURGICAL HISTORY Hx Surgeries: Yes Hx Section: Yes - ANESTHESIA Hx Anesthesia: Yes Hx Anesthesia Reactions: No Hx Malignant Hyperthermia: No Has any member of the family had a problem w/ anesthesia?: No Meds Allergies/Adverse Reactions: Allergies Allergy/AdvReac Type Severity Reaction Status Date / Time No Known Allergies Allergy Verified 08/02/17 23:59 - Medications Medications: Current Medications Acetaminophen (Tylenol 325mg Tab) 650 mg PO Q4 PRN PRN Reason: Pain, moderate (4-7) Ferrous Sulfate (Feosol) 325 mg PO BID [facility] Last Admin: 08/07/17 17:40 Dose: 325 mg Hydromorphone HCl (Dilaudid) 0.5 mg IVP Q15M PRN PRN Reason: Pain, moderate (4-7) Stop: 08/08/17 13:32 Piperacillin Sod/Tazobactam (Sod 3.375 gm/ Sodium Chloride) 100 mls @ 100 mls/ hr IVPB Q6 [facility] PRN Reason: Protocol Last Admin: 08/07/17 15:43 Dose: 100 mls/hr Meropenem 1 gm/ Sodium (Chloride) 100 mls @ 100 mls/hr IVPB Q8 [facility] PRN Reason: Protocol Last Admin: 08/07/17 16:48 Dose: 100 mls/hr Metronidazole (Flagyl 500mg/100ml Ns) 100 mls @ 100 mls/hr IVPB Q8 [facility] PRN Reason: Protocol Last Admin: 08/07/17 16:16 Dose: 100 mls/hr Sodium Chloride (Sodium Chloride 0.9%) 1,000 mls @ 125 mls/hr IV .Q8H [facility] Stop: 08/08/17 08:49 Last Admin: 08/07/17 14:45 Dose: 200 mls Ibuprofen (Motrin Tab) 600 mg PO Q6 PRN PRN Reason: Pain, moderate (4-7) Last Admin: 08/06/17 13:08 Dose: 600 mg Ondansetron HCl (Zofran Inj) 2 mg IVP Q4 PRN PRN Reason: Nausea/Vomiting Saccharomyces Boulardii (Florastor) 250 mg PO BID [facility] Last Admin: 08/07/17 17:40 Dose: 250 mg Physical Exam - Constitutional Appears: No Acute Distress - Head Exam Head Exam: NORMAL INSPECTION - Respiratory Exam Respiratory Exam: Clear to Auscultation Bilateral, NORMAL BREATHING PATTERN. absent: Rhonchi, Wheezes - Cardiovascular Exam Cardiovascular Exam: REGULAR RHYTHM, +S1, +S2 - GI/Abdominal Exam GI & Abdominal Exam: Soft Additional comments: mild diffuse abdominal tenderness. - Drain c/ D/I. Draining serosanguinous fluid - Extremities Exam Extremities exam: Positive for: normal inspection. Negative for: calf tenderness, pedal edema, tenderness - Neurological Exam Neurological exam: Alert, CN II-XII Intact, Oriented x3 Results - Vital Signs Recent Vital Signs: Last Vital Signs Temp 99.7 F H 08/07/17 15:16 Pulse 73 08/07/17 15:16 Resp 18 08/07/17 15:16 BP 119/78 08/07/17 15:16 Pulse Ox 99 08/07/17 15:16 - Labs Result Diagrams: 08/07/17 04:20 08/07/17 04:20 Labs: Laboratory Results - last 24 hr 08/07/17 08/07/17 08/07/17 04:20 04:20 09:10 WBC 9.9 RBC 2.85 L Hgb 7.4 L Hct 22.8 L MCV 80.0 L MCH 26.0 L MCHC 32.5 L RDW 16.2 H Plt Count 543 H MPV 9.0 Neut % (Auto) 69.6 Lymph % (Auto) 20.6 [place] % (Auto) 7.8 Eos % (Auto) 1.4 Baso % (Auto) 0.6 Neut # (Auto) 6.9 Lymph # (Auto) 2.0 [place] # (Auto) 0.8 Eos # (Auto) 0.1 Baso # (Auto) 0.1 PT 13.2 H INR 1.2 Sodium 139 Potassium 3.1 L Chloride 107 Carbon Dioxide 25 Anion Gap 10 BUN 4 L Creatinine 0.5 L Est GFR ( Amer) > 60 Est GFR (Non-Af Amer) > 60 Random Glucose 113 H Calcium 7.9 L Assessment & Plan - Assessment and Plan (Free Text) Assessment: 31 YO F w/ abdominal pain s/p C section section w/ intrabdominal fluid collection 1) Abdominal pain ( improving) - Most likely secondary to fluid collection suggestive of abscess. Admitted with Sepsis. - CT 08/06: lucent nonspecific fluid collection appreciated in RLQ immediately lateral to the uterus. (4.1x10.3xm). Prior seen dominant fluid collection in midline inferior pelvis is stable to slightly smaller in size (now 6.4cm x 12.7cm) potentially reflecting diminishing hemorrhagic abscess. - Urine culture did not show any growth - ID consulted, Surgery consulted - C/W Zosyn, meropenem, Flagyl as per ID. WBC trending down to 9.9. - S/P IR drainage today, fluid sent for culture - No surgical intervention at this time - C/W pain management as per primary team 2) Lung infiltrate -Received vancomycin, zosyn, meropenem; now vancomycin discontinued and flagyll added by ID - C/W IV antibiotics as per ID - Encourage incentive spirometry 3) Anemia -H&H: 7.4/22.8 today -Continue ferrous sulfate 325 mg po bid - F/U with morning CBC 4) Hypokalemia - K+: of 3.1 - 4 runs of K+ given - F/U with morning CMP 5) DVT prophylaxis - Recommend anticoagulation : Will speak to primary team - Encourage ambulation - C/W w/ SCD
[2017-08-08] MEDS: metroNIDAZOLE 500mg/100ml NS 100 ML IVPB SCH ×3 (01:40→16:49)
[2017-08-08] MEDS: Meropenem 1 GM in Sodium Chloride 0.9% 100 ML IVPB SCH ×3 (01:41→16:58)
[2017-08-08] MEDS: Sodium Chloride 0.9% 1,000 ML IV SCH (01:46)
[2017-08-08] MEDS: Piperacillin/Tazobact 3.375 GM in Sodium Chloride 0.9% 100 ML IVPB SCH ×3 (04:52→21:18)
[2017-08-08 05:32] LABS: BASO # 0.1 K/uL (0.0-0.2); BASO % 0.7 % (0.0-2.0); EOS # 0.1 K/uL (0.0-0.7); HEMOGLOBIN 7.1 g/dL (12.0-16.0); LYMPH # 2.1 K/uL (1.0-4.3); LYMPH % 22.6 % (20.0-40.0); MEAN CELL VOLUME 79.8 fl (81.0-99.0); MEAN CORPUSCULAR HEMOGLOBIN 25.7 pg (27.0-31.0); MEAN CORPUSCULAR HGB CONC 32.3 g/dL (33.0-37.0); MEAN PLATELET VOLUME 8.7 fl (7.2-11.7); MONO # 0.9 K/uL (0.0-0.8); MONO % 9.5 % (0.0-10.0); NEUT # 6.1 K/uL (1.8-7.0); NEUT % 66.2 % (50.0-75.0); NRBC % 0.3 % (0.0-0.0); RBC 2.76 Mil/uL (3.80-5.20); RED CELL DISTRIBUTION WIDTH 16.2 % (11.5-14.5); WHITE BLOOD COUNT 9.2 K/uL (4.8-10.8)
[2017-08-08 05:53] LABS: BLOOD UREA NITROGEN 7 mg/dl (7-17); CALCIUM 8.1 mg/dL (8.4-10.2); GFR AFRICAN-AMERICAN > 60; GFR NON-AFRICAN AMERICAN > 60
--- NOTE | 2017-08-08 08:11 | CP.PCM.CON ---
History of Present Illness - History of Present Illness History of Present Illness: Pt seen and examined at bedside this AM. Reports decreased abdominal pain today , stating she only has mild tenderness now localized to the drain site. States she feels much better overall. Slept well overnight. Denies F/C/N/V/CP/SOB at present. Past Patient History - Past Medical History & Family History Past Medical History?: Yes - Past Social History Smoking Status: Never Smoked - CARDIAC Hx Cardiac Disorders: No Hx Hypertension: No - PULMONARY Hx Respiratory Disorders: No - NEUROLOGICAL Hx Neurological Disorder: No - HEENT Hx HEENT Problems: No - RENAL Hx Chronic Kidney Disease: No - ENDOCRINE/METABOLIC Hx Endocrine Disorders: No - HEMATOLOGICAL/ONCOLOGICAL Hx Blood Disorders: No Hx AIDS: No Hx Human Immunodeficiency Virus (HIV): No - INTEGUMENTARY Hx Dermatological Problems: No - MUSCULOSKELETAL/RHEUMATOLOGICAL Hx Musculoskeletal Disorders: No Hx Falls: No - GASTROINTESTINAL Hx Gastrointestinal Disorders: No - GENITOURINARY/GYNECOLOGICAL Hx Genitourinary Disorders: No - PSYCHIATRIC Hx Psychophysiologic Disorder: No Hx Depression: No Hx Substance Use: No - SURGICAL HISTORY Hx Surgeries: Yes Hx Section: Yes - ANESTHESIA Hx Anesthesia: Yes Hx Anesthesia Reactions: No Hx Malignant Hyperthermia: No Has any member of the family had a problem w/ anesthesia?: No Meds Allergies/Adverse Reactions: Allergies Allergy/AdvReac Type Severity Reaction Status Date / Time No Known Allergies Allergy Verified 08/02/17 23:59 - Medications Medications: Current Medications Acetaminophen (Tylenol 325mg Tab) 650 mg PO Q4 PRN PRN Reason: Pain, moderate (4-7) Famotidine (Pepcid) 20 mg PO DAILY [facility] Last Admin: 08/07/17 20:59 Dose: 20 mg Ferrous Sulfate (Feosol) 325 mg PO BID [facility] Last Admin: 08/07/17 17:40 Dose: 325 mg Hydromorphone HCl (Dilaudid) 0.5 mg IVP Q15M PRN PRN Reason: Pain, moderate (4-7) Stop: 08/08/17 13:32 Piperacillin Sod/Tazobactam (Sod 3.375 gm/ Sodium Chloride) 100 mls @ 100 mls/ hr IVPB Q6 [facility] PRN Reason: Protocol Last Admin: 08/08/17 04:52 Dose: 100 mls/hr Meropenem 1 gm/ Sodium (Chloride) 100 mls @ 100 mls/hr IVPB Q8 [facility] PRN Reason: Protocol Last Admin: 08/08/17 01:41 Dose: 100 mls/hr Metronidazole (Flagyl 500mg/100ml Ns) 100 mls @ 100 mls/hr IVPB Q8 [facility] PRN Reason: Protocol Last Admin: 08/08/17 01:40 Dose: 100 mls/hr Ibuprofen (Motrin Tab) 600 mg PO Q6 PRN PRN Reason: Pain, moderate (4-7) Last Admin: 08/07/17 20:14 Dose: 600 mg Ondansetron HCl (Zofran Inj) 2 mg IVP Q4 PRN PRN Reason: Nausea/Vomiting Saccharomyces Boulardii (Florastor) 250 mg PO BID [facility] Last Admin: 08/07/17 17:40 Dose: 250 mg Results - Vital Signs Recent Vital Signs: Last Vital Signs Temp 99.6 F 08/08/17 08:00 Pulse 74 08/08/17 08:00 Resp 18 08/08/17 08:00 BP 114/75 08/08/17 08:00 Pulse Ox 95 08/08/17 08:00 - Labs Result Diagrams: 08/08/17 04:25 08/08/17 04:25 Labs: Laboratory Results - last 24 hr 08/07/17 08/08/17 08/08/17 09:10 04:25 04:25 WBC 9.2 RBC 2.76 L Hgb 7.1 L Hct 22.0 L MCV 79.8 L MCH 25.7 L MCHC 32.3 L RDW 16.2 H Plt Count 491 H MPV 8.7 Neut % (Auto) 66.2 Lymph % (Auto) 22.6 [place] % (Auto) 9.5 Eos % (Auto) 1.0 Baso % (Auto) 0.7 Neut # (Auto) 6.1 Lymph # (Auto) 2.1 [place] # (Auto) 0.9 H Eos # (Auto) 0.1 Baso # (Auto) 0.1 PT 13.2 H INR 1.2 Sodium 143 Potassium 3.6 Chloride 110 H Carbon Dioxide 25 Anion Gap 12 BUN 7 Creatinine 0.5 L Est GFR ( Amer) > 60 Est GFR (Non-Af Amer) > 60 Random Glucose 85 Calcium 8.1 L
--- NOTE | 2017-08-08 08:16 | CP.PCM.PN ---
Subjective - Date & Time of Evaluation Date of Evaluation: 08/08/17 Time of Evaluation: 08:12 - Subjective Subjective: General Surgery Progress Note - Dr. Dickson Pt seen and examined at bedside this AM. Reports decreased abdominal pain today , stating she only has mild tenderness now localized to the drain site. States she feels much better overall. Tolerated regular diet last night without difficulty; no N/V. Voiding without difficulty. Denies having a bowel movement since the surgery. Denies diarrhea/constipation. Slept well overnight. Denies F/ C/CP/SOB at present. Objective - Vital Signs/Intake and Output Vital Signs (last 24 hours): Temp Pulse Resp BP Pulse Ox 99.6 F 74 18 114/75 95 08/08/17 08:00 08/08/17 08:00 08/08/17 08:00 08/08/17 08:00 08/08/17 08:00 Intake and Output: 08/08/17 08/08/17 06:59 18:59 Intake Total 2100 Output Total 70 Balance 2030 - Medications Medications: Current Medications Acetaminophen (Tylenol 325mg Tab) 650 mg PO Q4 PRN PRN Reason: Pain, moderate (4-7) Famotidine (Pepcid) 20 mg PO DAILY [facility] Last Admin: 08/07/17 20:59 Dose: 20 mg Ferrous Sulfate (Feosol) 325 mg PO BID [facility] Last Admin: 08/07/17 17:40 Dose: 325 mg Hydromorphone HCl (Dilaudid) 0.5 mg IVP Q15M PRN PRN Reason: Pain, moderate (4-7) Stop: 08/08/17 13:32 Piperacillin Sod/Tazobactam (Sod 3.375 gm/ Sodium Chloride) 100 mls @ 100 mls/ hr IVPB Q6 [facility] PRN Reason: Protocol Last Admin: 08/08/17 04:52 Dose: 100 mls/hr Meropenem 1 gm/ Sodium (Chloride) 100 mls @ 100 mls/hr IVPB Q8 [facility] PRN Reason: Protocol Last Admin: 08/08/17 01:41 Dose: 100 mls/hr Metronidazole (Flagyl 500mg/100ml Ns) 100 mls @ 100 mls/hr IVPB Q8 [facility] PRN Reason: Protocol Last Admin: 08/08/17 01:40 Dose: 100 mls/hr Ibuprofen (Motrin Tab) 600 mg PO Q6 PRN PRN Reason: Pain, moderate (4-7) Last Admin: 08/07/17 20:14 Dose: 600 mg Ondansetron HCl (Zofran Inj) 2 mg IVP Q4 PRN PRN Reason: Nausea/Vomiting Saccharomyces Boulardii (Florastor) 250 mg PO BID [facility] Last Admin: 08/07/17 17:40 Dose: 250 mg - Labs Labs: 08/08/17 04:25 08/08/17 04:25 PT 13.2 Seconds (9.8-13.1) H 08/07/17 09:10 INR 1.2 (0.9-1.2) 08/07/17 09:10 - Constitutional Appears: Well, Non-toxic, No Acute Distress - Head Exam Head Exam: ATRAUMATIC, NORMAL INSPECTION - Respiratory Exam Respiratory Exam: NORMAL BREATHING PATTERN. absent: Wheezes, Respiratory Distress - Cardiovascular Exam Cardiovascular Exam: REGULAR RHYTHM - GI/Abdominal Exam GI & Abdominal Exam: Soft, Tenderness. absent: Distended, Firm, Mass Additional comments: mild localized RLQ tenderness to drain site IR drain in place with 15-20cc dark sanguinous output no strikethrough noted on drain bandage midline longitudinal scar noted - Extremities Exam Extremities Exam: Normal Inspection. absent: Calf Tenderness - Neurological Exam Neurological Exam: Alert, Awake, Oriented x3 - Psychiatric Exam Psychiatric exam: Normal Affect, Normal Mood - Skin Skin Exam: Dry, Warm Assessment and Plan - Assessment and Plan (Free Text) Assessment: 31 y/o female with intra-abdominal fluid collection, s/p drainage by IR Plan: -s/p IR drainage yesterday; symptoms resolving -cont IV abx -cont IVF -cont regular diet -monitor Hgb/Hct -recommend CT scan prior to drain removal -no surgical intervention planned at this time -please re-consult as needed -discussed w/ Dr. Dickson
[2017-08-08] MEDS: Saccharomyces Boulardi 250 mg Cap PO SCH ×2 (09:14→16:50)
--- NOTE | 2017-08-08 09:45 | RAD ---
HISTORY: Abdominal drainage catheter placement COMPARISON: And pelvis CT examinations dated 08/06/2017. FINDINGS: BOWEL: There is a nonobstructive bowel gas pattern identified. A peritoneal drainage catheter placed in the pelvis with telemetry wires complete significantly obscuring evaluation of the exam. Consider repeat radiography. No gross free intrarenal gas or suspicious intra-abdominal calcifications. BONES: Normal. OTHER FINDINGS: None. IMPRESSION: Nonobstructive bowel gas pattern. Peritoneal drainage catheter in position in the pelvis.
--- NOTE | 2017-08-08 16:58 | CP.PCM.PN ---
Subjective - Date & Time of Evaluation Date of Evaluation: 08/08/17 Time of Evaluation: 11:45 - Subjective Subjective: Pt seen and evaluated at bedside; reports significant improvement in comfort level since IR drainage of abdominal/pelvic fluid collection yesterday. Denies abdominal pain/discomfort at this time, denies dizziness, chest pain, shortness of breath. States she can tolerate PO diet without nausea/vomiting, and has been ambulating. Objective - Vital Signs/Intake and Output Vital Signs (last 24 hours): Temp Pulse Resp BP Pulse Ox 98.2 F 82 20 107/72 97 08/08/17 16:32 08/08/17 16:32 08/08/17 16:32 08/08/17 16:32 08/08/17 16:32 Intake and Output: 08/08/17 08/08/17 06:59 18:59 Intake Total 2100 Output Total 70 Balance 2030 - Medications Medications: Current Medications Acetaminophen (Tylenol 325mg Tab) 650 mg PO Q4 PRN PRN Reason: Pain, moderate (4-7) Famotidine (Pepcid) 20 mg PO DAILY [facility] Last Admin: 08/08/17 09:14 Dose: 20 mg Ferrous Sulfate (Feosol) 325 mg PO BID [facility] Last Admin: 08/08/17 16:50 Dose: 325 mg Meropenem 1 gm/ Sodium (Chloride) 100 mls @ 100 mls/hr IVPB Q8 [facility] PRN Reason: Protocol Last Admin: 08/08/17 09:16 Dose: 100 mls/hr Metronidazole (Flagyl 500mg/100ml Ns) 100 mls @ 100 mls/hr IVPB Q8 [facility] PRN Reason: Protocol Last Admin: 08/08/17 16:49 Dose: 100 mls/hr Piperacillin Sod/Tazobactam (Sod 3.375 gm/ Sodium Chloride) 100 mls @ 100 mls/ hr IVPB Q6 [facility] PRN Reason: Protocol Ibuprofen (Motrin Tab) 600 mg PO Q6 PRN PRN Reason: Pain, moderate (4-7) Last Admin: 08/08/17 10:06 Dose: 600 mg Ondansetron HCl (Zofran Inj) 2 mg IVP Q4 PRN PRN Reason: Nausea/Vomiting Saccharomyces Boulardii (Florastor) 250 mg PO BID [facility] Last Admin: 08/08/17 16:50 Dose: 250 mg - Labs Labs: 08/08/17 04:25 08/08/17 04:25 PT 13.2 Seconds (9.8-13.1) H 08/07/17 09:10 INR 1.2 (0.9-1.2) 08/07/17 09:10 - Constitutional Appears: Non-toxic - Head Exam Head Exam: ATRAUMATIC, NORMAL INSPECTION, NORMOCEPHALIC - Eye Exam Eye Exam: Normal appearance - ENT Exam ENT Exam: Mucous Membranes Moist - Respiratory Exam Respiratory Exam: Clear to Ausculation Bilateral, NORMAL BREATHING PATTERN. absent: Accessory Muscle Use, Decreased Breath Sounds - Cardiovascular Exam Cardiovascular Exam: REGULAR RHYTHM, +S1, +S2 - GI/Abdominal Exam GI & Abdominal Exam: Soft, Normal Bowel Sounds. absent: Distended, Guarding, Rigid, Rebound Additional comments: drain clean, dry, intact in place in RLQ,minimal amount of serosanginious fluid in drain at time of exam - Extremities Exam Extremities Exam: Normal Capillary Refill, Normal Inspection. absent: Calf Tenderness - Neurological Exam Neurological Exam: Alert, Awake, Oriented x3 Assessment and Plan - Assessment and Plan (Free Text) Assessment: 31 y/o female s/p c section on 07/22/17, today is POD #17; admitted on 08/03/17 with sepsis secondary to possible abdominal abscess/fluid collection vs pneumonia. S/p IR drain yesterday. Clinically significantly improving- tachycardia resolved, blood pressure stable, pain resolved. Plan: #Sepsis -Resolving -Etiology pneumonia vs abdominal fluid collection -Tachycardia resolved HR in 80s >24 hrs -Afebrile overnight -WBC trended down since admission, 20 on admission, has been wnl x3 days, 9.2 today -CXR: left lower lobe infiltrate consistent with PNU -ID consult by Dr. Banks appreciated -Continue with zosyn, meropenem -ID d/c vancomycin and started flagyll -F/u Blood Cx: aerobic bottle, gram variable rods; as per RN note, ID aware -Urine Cx: no growth (final) #Abdominal fluid collection -Abdominal CT on admission showed 12.8cm x 7.0cm x 8.3cm cm fluid collection suggestive of abscess -Repeat CT 08/06: lucent nonspecific fluid collection appreciated in RLQ immediately lateral to the uterus. (4.1x10.3xm). Prior seen dominant fluid collection in midline inferior pelvis is stable to slightly smaller in size ( now 6.4cm x 12.7cm) potentially reflecting diminishing hemorrhagic abscess. -Interventional Radiology Consult - pt underwent IR drain of fluid collection today; fluid was sent for culture -Culture of drained fluid pending -General surgery consult - no surgical intervention at this time, recommend repeat CT prior to drain removal; otherwise have signed off. #Abdominal pain -Controlled -Continue motrin 600 mg PO Q6 #Lung infiltrate vs atelectasis -Seen on CXR and on abdominal CT on admission -Still present on repeat CT today -Received vancomycin, zosyn, meropenem; now vancomycin discontinued and flagyll added by ID -Encourage incentive spirometry -Consult medicine team - family medicine consult appreciated, continue with abx as per ID #Anemia: -H&H: 7.1/22.0 today -Continue ferrous sulfate 325 mg po bid -Transfuse 1U PRBC -Repeat CBC # Hypokalemia -K 3.5 today -s/p K 3.1 yesterday, received K-rider 10mEq x 4 yesterday -Repeat CMP tomorrow AM #Diet -Regular diet #GI prophylaxis -Pepcid 20mg PO daily -Florastor 250 mg PO BID #DVT prophylaxis: -Lovenox 40mg SC daily -Encouraged pt to ambulate Discussed w/ OB attending Dr. Baxter.
--- NOTE | 2017-08-08 17:52 | CP.PCM.PN ---
Subjective - Date & Time of Evaluation Date of Evaluation: 08/08/27 Time of Evaluation: 17:50 - Subjective Subjective: I D NOTE HAD FEVER DURING IR DRAINAGE WBC IS DECREASED NEED TO MONITOR HGB NO CHANGE IN RX Objective - Vital Signs/Intake and Output Vital Signs (last 24 hours): Temp Pulse Resp BP Pulse Ox 98.2 F 82 20 107/72 97 08/08/17 16:32 08/08/17 16:32 08/08/17 16:32 08/08/17 16:32 08/08/17 16:32 Intake and Output: 08/08/17 08/08/17 06:59 18:59 Intake Total 2100 Output Total 70 Balance 2030 - Medications Medications: Current Medications Acetaminophen (Tylenol 325mg Tab) 650 mg PO Q4 PRN PRN Reason: Pain, moderate (4-7) Famotidine (Pepcid) 20 mg PO DAILY [facility] Last Admin: 08/08/17 09:14 Dose: 20 mg Ferrous Sulfate (Feosol) 325 mg PO BID [facility] Last Admin: 08/08/17 16:50 Dose: 325 mg Meropenem 1 gm/ Sodium (Chloride) 100 mls @ 100 mls/hr IVPB Q8 [facility] PRN Reason: Protocol Last Admin: 08/08/17 16:58 Dose: 100 mls/hr Metronidazole (Flagyl 500mg/100ml Ns) 100 mls @ 100 mls/hr IVPB Q8 [facility] PRN Reason: Protocol Last Admin: 08/08/17 16:49 Dose: 100 mls/hr Piperacillin Sod/Tazobactam (Sod 3.375 gm/ Sodium Chloride) 100 mls @ 100 mls/ hr IVPB Q6 [facility] PRN Reason: Protocol Ibuprofen (Motrin Tab) 600 mg PO Q6 PRN PRN Reason: Pain, moderate (4-7) Last Admin: 08/08/17 10:06 Dose: 600 mg Ondansetron HCl (Zofran Inj) 2 mg IVP Q4 PRN PRN Reason: Nausea/Vomiting Saccharomyces Boulardii (Florastor) 250 mg PO BID [facility] Last Admin: 08/08/17 16:50 Dose: 250 mg - Labs Labs: 08/08/17 04:25 08/08/17 04:25 PT 13.2 Seconds (9.8-13.1) H 08/07/17 09:10 INR 1.2 (0.9-1.2) 08/07/17 09:10
[2017-08-09] MEDS: metroNIDAZOLE 500mg/100ml NS 100 ML IVPB SCH ×3 (00:11→16:27)
[2017-08-09] MEDS: Meropenem 1 GM in Sodium Chloride 0.9% 100 ML IVPB SCH ×3 (00:15→16:28)
[2017-08-09] MEDS: Piperacillin/Tazobact 3.375 GM in Sodium Chloride 0.9% 100 ML IVPB SCH ×4 (05:03→21:33)
[2017-08-09 05:40] LABS: HEMOGLOBIN 8.3 g/dL (12.0-16.0); MEAN CELL VOLUME 80.4 fl (81.0-99.0); MEAN CORPUSCULAR HEMOGLOBIN 25.2 pg (27.0-31.0); MEAN CORPUSCULAR HGB CONC 31.4 g/dL (33.0-37.0); RBC 3.27 Mil/uL (3.80-5.20); RED CELL DISTRIBUTION WIDTH 16.1 % (11.5-14.5); WHITE BLOOD COUNT 9.5 K/uL (4.8-10.8)
[2017-08-09 06:39] LABS: ALB/GLOB RATIO 0.7 (1.0-2.1); ALBUMIN 2.3 g/dL (3.5-5.0); ALT/SGPT 62 U/L (9-52); AST/SGOT 45 U/L (14-36); BLOOD UREA NITROGEN 6 mg/dl (7-17); CALCIUM 7.7 mg/dL (8.4-10.2); GFR AFRICAN-AMERICAN > 60; GFR NON-AFRICAN AMERICAN > 60
[2017-08-09] MEDS: Saccharomyces Boulardi 250 mg Cap PO SCH ×2 (08:20→16:27)
[2017-08-09] MEDS: Enoxaparin 40 mg Syringe SC SCH (08:20)
--- NOTE | 2017-08-09 08:30 | CP.PCM.PN ---
Subjective - Date & Time of Evaluation Date of Evaluation: 08/09/17 Time of Evaluation: 08:22 - Subjective Subjective: 31 year old female s/p C section on 07/22/17 and intra-abdominal fluid drainage on 08/07/17 seen at bedside this morning. Patient is AAO x 3 and NAD at time of examination. States that pain to surgical site today is 4/10 but is well controlled with Motrin. States that she has noticed small amounts of hemouria. Denies any recent N/V/F/C/CP/SOB/D/posterior calf pain when squeezed. States that she has good appetite and has been eating regularly. Objective - Vital Signs/Intake and Output Vital Signs (last 24 hours): Temp Pulse Resp BP Pulse Ox 98.3 F 73 18 122/78 96 08/09/17 05:52 08/09/17 05:52 08/09/17 05:52 08/09/17 05:52 08/09/17 05:52 - Medications Medications: Current Medications Acetaminophen (Tylenol 325mg Tab) 650 mg PO Q4 PRN PRN Reason: Pain, moderate (4-7) Enoxaparin Sodium (Lovenox) 40 mg SC DAILY [facility] PRN Reason: Protocol Last Admin: 08/09/17 08:20 Dose: 40 mg Famotidine (Pepcid) 20 mg PO DAILY [facility] Last Admin: 08/09/17 08:21 Dose: 20 mg Ferrous Sulfate (Feosol) 325 mg PO BID [facility] Last Admin: 08/09/17 08:19 Dose: 325 mg Meropenem 1 gm/ Sodium (Chloride) 100 mls @ 100 mls/hr IVPB Q8 [facility] PRN Reason: Protocol Last Admin: 08/09/17 08:21 Dose: 100 mls/hr Metronidazole (Flagyl 500mg/100ml Ns) 100 mls @ 100 mls/hr IVPB Q8 [facility] PRN Reason: Protocol Last Admin: 08/09/17 08:20 Dose: 100 mls/hr Piperacillin Sod/Tazobactam (Sod 3.375 gm/ Sodium Chloride) 100 mls @ 100 mls/ hr IVPB Q6 [facility] PRN Reason: Protocol Last Admin: 08/09/17 05:03 Dose: 100 mls/hr Ibuprofen (Motrin Tab) 600 mg PO Q6 PRN PRN Reason: Pain, moderate (4-7) Last Admin: 08/09/17 00:07 Dose: 600 mg Ondansetron HCl (Zofran Inj) 2 mg IVP Q4 PRN PRN Reason: Nausea/Vomiting Saccharomyces Boulardii (Florastor) 250 mg PO BID [facility] Last Admin: 08/09/17 08:20 Dose: 250 mg - Labs Labs: 08/09/17 05:00 08/09/17 05:00 PT 13.2 Seconds (9.8-13.1) H 08/07/17 09:10 INR 1.2 (0.9-1.2) 08/07/17 09:10 - Constitutional Appears: Well, Non-toxic, No Acute Distress - Head Exam Head Exam: ATRAUMATIC, NORMOCEPHALIC - Eye Exam Eye Exam: EOMI, PERRL Pupil Exam: PERRL - ENT Exam ENT Exam: Normal Exam - Neck Exam Neck Exam: Normal Inspection - Respiratory Exam Respiratory Exam: NORMAL BREATHING PATTERN. absent: Respiratory Distress - GI/Abdominal Exam GI & Abdominal Exam: Guarding. absent: Distended, Firm Additional comments: Site of abdominal drainage shows no clinical signs of infection at this time. Minimal drainage collection appreciated. Dressings C/D/I - Rectal Exam Rectal Exam: Deferred - Extremities Exam Extremities Exam: Normal Inspection - Back Exam Back Exam: NORMAL INSPECTION - Neurological Exam Neurological Exam: Alert, Awake, Oriented x3 - Psychiatric Exam Psychiatric exam: Normal Affect, Normal Mood - Skin Skin Exam: Intact, Normal Color, Warm Assessment and Plan - Assessment and Plan (Free Text) Assessment: 31 YO F w/ abdominal pain s/p C section section w/ intra-abdominal fluid collection and intra-abdominal fluid drainage Plan: 1) Intra-abdominal collection - pain is controlled, PO intake is appropriate, no BM, voiding regularly. - Management as per primary team - OBGYN - [employer] will follow 2) Lung infiltrate - Patient febrile overnight, suspect may be secondary to medications vs. non-infectious inflammatory response. However, will f/u with repeat CXR and procalcitonin - 08/03 CXR UNRULY pneumonia - Receiving Meropenem, Flagyl, Zosyn per ID - C/W IV antibiotics as per ID - Encourage incentive spirometry - Repeat CXR - patient may go down to xray without telemetry - Send procalcitonin - Consider scaling back abx 3) Anemia - Management and recommendations as per primary team - OBGYN - [employer] will follow 4) Hypokalemia - Likely secondary to combination of medications and underlying condition - K+ of 3.4 - Give 40 KCl PO followed by 20 tomorrow - Recheck BMP in AM 5) DVT prophylaxis - Lovenox 40 SQ daily
--- NOTE | 2017-08-09 10:19 | RAD ---
HISTORY: repeat for infilatrate UNRULY pneumonia COMPARISON: 08/03/2017 TECHNIQUE: Chest PA and lateral FINDINGS: LUNGS: There is vague bandlike opacity in the upper left eugene thorax. This is seen only in the frontal projection and may represent fluid or thickening within the superior aspect of the major fissure or may represent focal consolidation or parenchymal scar. It is unchanged compared to the prior examination. There is linear vertically oriented scar/ atelectasis at the left base. PLEURA: Small right pleural effusion. No pneumothorax. CARDIOVASCULAR: Normal. OSSEOUS STRUCTURES: No significant abnormalities. VISUALIZED UPPER ABDOMEN: Normal. OTHER FINDINGS: None. IMPRESSION: Stable band -like opacity in upper left eugene thorax common nonspecific. Stable vertically-oriented linear scar/ atelectasis at left base. New small right pleural effusion.
--- NOTE | 2017-08-09 17:05 | CP.PCM.PCO ---
Assessment/Plan - Assessment and Plan (Free Text) Assessment: Patient discussed with resident. Also discussed with Dr Valderrama. Wants echocardiogram adn repeat abd CTscan D/w Dr Mercer,OB on today. We will sign off. He is aware and is in agreement. He will order echo. He will hold off on CT scan for now
--- NOTE | 2017-08-09 17:12 | CP.PCM.PN ---
<Dandre Murdock - Last Filed: 08/09/17 19:27> Subjective - Date & Time of Evaluation Date of Evaluation: 08/09/17 Time of Evaluation: 09:00 - Subjective Subjective: 31 y/o F evaluated and examined by bedside. Pt reports feeling well, had a fever of 100.6 degF at 1 am last night. Pt reports remarkable improvement since NEIL drainage was placed. Pain is intermittent and currently 4/10 intensity at most severe. Pt with decreased appetite, tolerating PO, ambulating with no difficulties, no urinary complaints, having soft bowel movements. Objective - Vital Signs/Intake and Output Vital Signs (last 24 hours): Temp Pulse Resp BP Pulse Ox 99.4 F 81 20 108/70 95 08/09/17 15:47 08/09/17 15:47 08/09/17 15:47 08/09/17 15:47 08/09/17 15:47 - Medications Medications: Current Medications Acetaminophen (Tylenol 325mg Tab) 650 mg PO Q4 PRN PRN Reason: Pain, moderate (4-7) Enoxaparin Sodium (Lovenox) 40 mg SC DAILY [facility] PRN Reason: Protocol Last Admin: 08/09/17 08:20 Dose: 40 mg Famotidine (Pepcid) 20 mg PO DAILY [facility] Last Admin: 08/09/17 08:21 Dose: 20 mg Ferrous Sulfate (Feosol) 325 mg PO BID [facility] Last Admin: 08/09/17 16:27 Dose: 325 mg Meropenem 1 gm/ Sodium (Chloride) 100 mls @ 100 mls/hr IVPB Q8 [facility] PRN Reason: Protocol Last Admin: 08/09/17 16:28 Dose: 100 mls/hr Metronidazole (Flagyl 500mg/100ml Ns) 100 mls @ 100 mls/hr IVPB Q8 [facility] PRN Reason: Protocol Last Admin: 08/09/17 16:27 Dose: 100 mls/hr Piperacillin Sod/Tazobactam (Sod 3.375 gm/ Sodium Chloride) 100 mls @ 100 mls/ hr IVPB Q6 [facility] PRN Reason: Protocol Last Admin: 08/09/17 16:28 Dose: 100 mls/hr Ibuprofen (Motrin Tab) 600 mg PO Q6 PRN PRN Reason: Pain, moderate (4-7) Last Admin: 08/09/17 14:28 Dose: 600 mg Ondansetron HCl (Zofran Inj) 2 mg IVP Q4 PRN PRN Reason: Nausea/Vomiting Saccharomyces Boulardii (Florastor) 250 mg PO BID [facility] Last Admin: 08/09/17 16:27 Dose: 250 mg - Labs Labs: 08/09/17 05:00 08/09/17 05:00 PT 13.2 Seconds (9.8-13.1) H 08/07/17 09:10 INR 1.2 (0.9-1.2) 08/07/17 09:10 - Constitutional Appears: Well, No Acute Distress - Head Exam Head Exam: ATRAUMATIC, NORMAL INSPECTION - Eye Exam Eye Exam: EOMI, Normal appearance - ENT Exam ENT Exam: Mucous Membranes Moist - Neck Exam Neck Exam: Full ROM - Respiratory Exam Respiratory Exam: Clear to Ausculation Bilateral, NORMAL BREATHING PATTERN - Cardiovascular Exam Cardiovascular Exam: REGULAR RHYTHM, +S1, +S2 - GI/Abdominal Exam GI & Abdominal Exam: Soft, Tenderness (mild on RLQ, where NEIL dainage is placed. ), Normal Bowel Sounds. absent: Firm, Guarding - Neurological Exam Neurological Exam: Alert, Awake, Oriented x3 Assessment and Plan - Assessment and Plan (Free Text) Assessment: 31 y/o female s/p c section on 07/22/17, today is POD #18; admitted on 08/03/17 with sepsis secondary to possible abdominal abscess/fluid collection. S/P IR drain on 08/07/17. --Clinically improving-tachycardia resolved, blood pressure stable, pain resolved. Plan: # Sepsis -Resolving -Etiology pneumonia vs abdominal fluid collection -Fever of 100.6 degF at 01:00 today 08/09/17. -WBC trended down since admission, 20 on admission, has been wnl x3 days, 9.2 yesterday, 9.5-today 08/09/17. -CXR: UNRULY pneumonia on 08/03. -ID on board, Dr. Banks. -General Surgery and Family Medicine signed off. -Continue with zosyn, meropenem and flagyl. -Blood Cx: Enterobacter Sajazakii, sensitive to current antibiotic therapy. -Urine Cx: no growth (final) -Today's CXR showed stable band-like opacity in upper left hemithorax and stable vertically-oriented linear scar atelectasis at L base. New R pleural effusion. #Abdominal fluid collection -Abdominal CT on 08/03showed 12.8cm x 7.0cm x 8.3cm cm fluid collection suggestive of abscess -Repeat CT on 08/06: lucent nonspecific fluid collection appreciated in RLQ immediately lateral to the uterus. (4.1x10.3xm). Prior seen dominant fluid collection in midline inferior pelvis is stable to slightly smaller in size ( now 6.4cm x 12.7cm) potentially reflecting diminishing hemorrhagic abscess. -Interventional Radiology consulted. -NEIL drainage placed on 08/07/17; fluid was sent for culture -Culture of drained fluid-NO growth after 2 days (preliminary) -General surgery consult - no surgical intervention at this time, recommend repeat CT prior to drain removal; otherwise have signed off. #Abdominal pain -Controlled -Continue motrin 600 mg PO Q6 #Lung infiltrate vs atelectasis -Seen on CXR and on abdominal CT on admission -C/w incentive spirometry - C/w current antibiotics: Meropenem, Zosyn and Flagyl. #Anemia: -Today's H&H: 8.3/26.3 (08/09/17) s/p 1 PRBC's yesterday 08/08/17. -H&H: 7.1/22.0 yesterday 08/08/17 -Continue ferrous sulfate 325 mg po bid -Repeat CBC # Hypokalemia -K 3.4 today -KCl 20mEq PO ordered for tonight. -F/U BMP #Diet -Regular diet #GI prophylaxis -Pepcid 20mg PO daily -Florastor 250 mg PO BID #DVT prophylaxis: -Lovenox 40mg SC daily -Ambulation Encouraged <Sravan Mercer - Last Filed: 08/10/17 07:59> Objective - Vital Signs/Intake and Output Vital Signs (last 24 hours): Temp Pulse Resp BP Pulse Ox 97.9 F 72 18 124/80 96 08/10/17 05:15 08/10/17 05:15 08/10/17 05:15 08/10/17 05:15 08/10/17 05:15 Intake and Output: 08/10/17 08/10/17 06:59 18:59 Intake Total 1000 Output Total 10 Balance 990 - Medications Medications: Current Medications Acetaminophen (Tylenol 325mg Tab) 650 mg PO Q4 PRN PRN Reason: Pain, moderate (4-7) Enoxaparin Sodium (Lovenox) 40 mg SC DAILY [facility] PRN Reason: Protocol Last Admin: 08/09/17 08:20 Dose: 40 mg Famotidine (Pepcid) 20 mg PO DAILY [facility] Last Admin: 08/09/17 08:21 Dose: 20 mg Ferrous Sulfate (Feosol) 325 mg PO BID [facility] Last Admin: 08/09/17 16:27 Dose: 325 mg Meropenem 1 gm/ Sodium (Chloride) 100 mls @ 100 mls/hr IVPB Q8 [facility] PRN Reason: Protocol Last Admin: 08/10/17 00:12 Dose: 100 mls/hr Metronidazole (Flagyl 500mg/100ml Ns) 100 mls @ 100 mls/hr IVPB Q8 [facility] PRN Reason: Protocol Last Admin: 08/10/17 00:14 Dose: 100 mls/hr Piperacillin Sod/Tazobactam (Sod 3.375 gm/ Sodium Chloride) 100 mls @ 100 mls/ hr IVPB Q6 [facility] PRN Reason: Protocol Last Admin: 08/10/17 04:19 Dose: 100 mls/hr Ibuprofen (Motrin Tab) 600 mg PO Q6 PRN PRN Reason: Pain, moderate (4-7) Last Admin: 08/10/17 00:16 Dose: 600 mg Ondansetron HCl (Zofran Inj) 2 mg IVP Q4 PRN PRN Reason: Nausea/Vomiting Saccharomyces Boulardii (Florastor) 250 mg PO BID [facility] Last Admin: 08/09/17 16:27 Dose: 250 mg - Labs Labs: 08/09/17 05:00 08/10/17 04:45 PT 13.2 Seconds (9.8-13.1) H 08/07/17 09:10 INR 1.2 (0.9-1.2) 08/07/17 09:10 Assessment and Plan - Assessment and Plan (Free Text) Plan: I saw and examined the patient. Patient status post abscess drainage by interventional radiology. She reports pain much improved. Incision clean, dry, intact. NEIL drain serosanguineous fluid. Vital signs improved over the past 24 hours. Plan to continue current management.
[2017-08-09] MEDS ORDERED: Potassium Chloride 20 mEq ER Tab PO ONE (19:01)
[2017-08-10] MEDS: Meropenem 1 GM in Sodium Chloride 0.9% 100 ML IVPB SCH ×3 (00:12→16:41)
[2017-08-10] MEDS: metroNIDAZOLE 500mg/100ml NS 100 ML IVPB SCH ×3 (00:14→16:41)
[2017-08-10] MEDS: Piperacillin/Tazobact 3.375 GM in Sodium Chloride 0.9% 100 ML IVPB SCH ×2 (04:19→09:18)
[2017-08-10 06:43] LABS: BLOOD UREA NITROGEN 7 mg/dl (7-17); CALCIUM 8.1 mg/dL (8.4-10.2); GFR AFRICAN-AMERICAN > 60; GFR NON-AFRICAN AMERICAN > 60
[2017-08-10 08:40] LABS: BASO # 0.1 K/uL (0.0-0.2); BASO % 0.6 % (0.0-2.0); EOS # 0.2 K/uL (0.0-0.7); EOS % 1.4 % (0.0-4.0); HEMOGLOBIN 8.7 g/dL (12.0-16.0); MEAN CORPUSCULAR HEMOGLOBIN 26.6 pg (27.0-31.0); MEAN CORPUSCULAR HGB CONC 33.3 g/dL (33.0-37.0); MONO # 0.7 K/uL (0.0-0.8); MONO % 6.2 % (0.0-10.0); NEUT # 7.7 K/uL (1.8-7.0); NEUT % 72.8 % (50.0-75.0); NRBC % 0.1 % (0.0-0.0); RBC 3.28 Mil/uL (3.80-5.20); RED CELL DISTRIBUTION WIDTH 16.1 % (11.5-14.5); WHITE BLOOD COUNT 10.6 K/uL (4.8-10.8)
[2017-08-10] MEDS: Saccharomyces Boulardi 250 mg Cap PO SCH ×2 (08:46→16:41)
[2017-08-10] MEDS: Enoxaparin 40 mg Syringe SC SCH (08:47)
--- NOTE | 2017-08-10 09:01 | CP.PCM.PN ---
Subjective - Date & Time of Evaluation Date of Evaluation: 08/10/17 Time of Evaluation: 08:47 - Subjective Subjective: 31 y/o F evaluated and examined by bedside. Pt reports feeling well, with remarkable improvement since day of admission, ambulating with no difficulties, tolerating PO, better appetite than yesterday. Pt remained afebrile overnight. No events reported. Abdominal pain is mild 4/10 at most intense and relieved with PO Ibuprofen. Output NEIL drainage 10 cc yesterday. Objective - Vital Signs/Intake and Output Vital Signs (last 24 hours): Temp Pulse Resp BP Pulse Ox 98 F 73 18 124/82 96 08/10/17 08:37 08/10/17 08:37 08/10/17 08:37 08/10/17 08:37 08/10/17 08:37 Intake and Output: 08/10/17 08/10/17 06:59 18:59 Intake Total 1000 Output Total 10 Balance 990 - Medications Medications: Current Medications Acetaminophen (Tylenol 325mg Tab) 650 mg PO Q4 PRN PRN Reason: Pain, moderate (4-7) Enoxaparin Sodium (Lovenox) 40 mg SC DAILY [facility] PRN Reason: Protocol Last Admin: 08/09/17 08:20 Dose: 40 mg Famotidine (Pepcid) 20 mg PO DAILY [facility] Last Admin: 08/10/17 08:47 Dose: 20 mg Ferrous Sulfate (Feosol) 325 mg PO BID [facility] Last Admin: 08/10/17 08:47 Dose: 325 mg Meropenem 1 gm/ Sodium (Chloride) 100 mls @ 100 mls/hr IVPB Q8 [facility] PRN Reason: Protocol Last Admin: 08/10/17 00:12 Dose: 100 mls/hr Metronidazole (Flagyl 500mg/100ml Ns) 100 mls @ 100 mls/hr IVPB Q8 [facility] PRN Reason: Protocol Last Admin: 08/10/17 00:14 Dose: 100 mls/hr Piperacillin Sod/Tazobactam (Sod 3.375 gm/ Sodium Chloride) 100 mls @ 100 mls/ hr IVPB Q6 [facility] PRN Reason: Protocol Last Admin: 08/10/17 04:19 Dose: 100 mls/hr Ibuprofen (Motrin Tab) 600 mg PO Q6 PRN PRN Reason: Pain, moderate (4-7) Last Admin: 08/10/17 00:16 Dose: 600 mg Ondansetron HCl (Zofran Inj) 2 mg IVP Q4 PRN PRN Reason: Nausea/Vomiting Saccharomyces Boulardii (Florastor) 250 mg PO BID [facility] Last Admin: 08/10/17 08:46 Dose: 250 mg - Labs Labs: 08/10/17 08:36 08/10/17 04:45 PT 13.2 Seconds (9.8-13.1) H 08/07/17 09:10 INR 1.2 (0.9-1.2) 08/07/17 09:10 - Constitutional Appears: Well, Non-toxic, No Acute Distress - Head Exam Head Exam: ATRAUMATIC - Eye Exam Eye Exam: EOMI, Normal appearance - ENT Exam ENT Exam: Mucous Membranes Moist - Neck Exam Neck Exam: Full ROM - Respiratory Exam Respiratory Exam: Clear to Ausculation Bilateral, NORMAL BREATHING PATTERN - Cardiovascular Exam Cardiovascular Exam: REGULAR RHYTHM, +S1, +S2 - GI/Abdominal Exam GI & Abdominal Exam: Soft, Tenderness (very mild on RLQ, improved since yesterday. ), Normal Bowel Sounds - Extremities Exam Extremities Exam: Full ROM, Normal Inspection. absent: Tenderness - Neurological Exam Neurological Exam: Alert, Awake, Oriented x3 Assessment and Plan - Assessment and Plan (Free Text) Assessment: 31 y/o female s/p c section on 07/22/17, today is POD #19; admitted on 08/03/17 with sepsis secondary to possible abdominal abscess/fluid collection. S/P IR drain on 08/07/17. --Clinically improving-tachycardia resolved, blood pressure stable, pain under control. Plan: #Abdominal fluid collection -VS currently stable -Abdominal CT on 08/03 showed 12.8cm x 7.0cm x 8.3cm cm fluid collection on RLQ , suggestive of abscess -Repeat CT on 08/06 showed lucent nonspecific fluid collection appreciated in RLQ immediately lateral to the uterus. (4.1x10.3xm). Prior seen dominant fluid collection in midline inferior pelvis is stable to slightly smaller in size ( now 6.4cm x 12.7cm) potentially reflecting diminishing hemorrhagic abscess. -Interventional Radiology on board. -NEIL drainage placed on 08/07/17 by IR; fluid was sent for culture -Culture of drained fluid-NO growth after 3 days (preliminary) -General surgery consult - no surgical intervention at this time, recommend repeat CT prior to NEIL drain removal; otherwise have signed off. -Blood Cx: Enterobacter Sajazakii. -ID on board, Dr. Banks. -Today, Zosyn was discontinued, Ciprofloxacin started, As per ID. -CT scan prior to NEIL drain removal was recommended by ID and General Surgery. -Currently on IV Meropenem, Flagyl and Ciprofloxacin. TODAY IS DAY#6 OF IV ANTIBIOTICS. Need at least 10 days of IV antibiotics. -As per IR, NEIL drainage can be removed on Sunday after a CT of Abdomen/Pelvis. Spoke with Dr Vasquez. -F/U CBC,CMP(CHECK LFTs),AND BLOOD CULTURES. # Sepsis -CXR: UNRULY pneumonia on 08/03.-VS currently stable -Etiology: pneumonia vs abdominal fluid collection -Last fever of 100.6 degF at 01:00 on 08/09/17. -WBC trending down since admission, 10.6-WNL today 08/10/17. -General Surgery and Family Medicine signed off. -Zosyn was discontinued, Ciprofloxacin started. As per ID. -Blood Cx: Enterobacter Sajazakii. -Urine Cx: no growth (final) -CXR on 08/09/17 showed stable band-like opacity in upper left hemithorax and stable vertically-oriented linear scar atelectasis at L base. New R pleural effusion. -Currently on IV Meropenem, Flagyl and Ciprofloxacin. -F/U CBC,CMP(CHECK LFTs),AND BLOOD CULTURES) #Abdominal pain -Controlled -Continue motrin 600 mg PO Q6 #Lung infiltrate vs atelectasis -Seen on CXR and on abdominal CT on admission -C/w incentive spirometry -C/w current antibiotics: Meropenem, Ciprofloxacin and Flagyl. #Anemia: -Today's H&H: 8.7/26.2 (08/10/17) -S/p 1 PRBC's yesterday 08/08/17. -H&H: was 7.1/22.0 on 08/08/17 -Continue ferrous sulfate 325 mg po bid -F/U CBC tomorrow. # Hypokalemia -K 3.6-WNL today -F/U BMP tomorrow. #Diet -Regular diet #GI prophylaxis -Pepcid 20mg PO daily -Florastor 250 mg PO BID #DVT prophylaxis: -Lovenox 40mg SC daily -Ambulation Encouraged
--- NOTE | 2017-08-10 14:30 | CP.PCM.PN ---
Subjective - Date & Time of Evaluation Date of Evaluation: 08/10/17 Time of Evaluation: 14:15 - Subjective Subjective: I D NOTE PATIENT CLINICALLY IMPROVING SINCE IR DRAINAGE HAD LOW GRADE FEVER POSITIVE BLOOD CULTURES FOR ENTEROBACTER SAKAZAKI MICs FOR ZOSYN ARE CLOSE TO INTERMEDIATE,HAVE D/Tc AND STARTED CIPRO .CONTINUE METRONIDAZOLE AND MEROPENEM PATIENT WILL NEED AT LEAST 10 DAYS TO POSSIBLY [address] SCAN FINDINGS HAVE ORDERED F/U CBC,CMP(CHECK LFTs),AND BLOOD CULTURES). Objective - Vital Signs/Intake and Output Vital Signs (last 24 hours): Temp Pulse Resp BP Pulse Ox 98.4 F 80 18 120/77 94 L 08/10/17 12:45 08/10/17 12:45 08/10/17 12:45 08/10/17 12:45 08/10/17 12:45 Intake and Output: 08/10/17 08/10/17 06:59 18:59 Intake Total 1000 Output Total 10 Balance 990 - Medications Medications: Current Medications Acetaminophen (Tylenol 325mg Tab) 650 mg PO Q4 PRN PRN Reason: Pain, moderate (4-7) Enoxaparin Sodium (Lovenox) 40 mg SC DAILY [facility] PRN Reason: Protocol Last Admin: 08/10/17 08:47 Dose: 40 mg Famotidine (Pepcid) 20 mg PO DAILY [facility] Last Admin: 08/10/17 08:47 Dose: 20 mg Ferrous Sulfate (Feosol) 325 mg PO BID [facility] Last Admin: 08/10/17 08:47 Dose: 325 mg Meropenem 1 gm/ Sodium (Chloride) 100 mls @ 100 mls/hr IVPB Q8 [facility] PRN Reason: Protocol Last Admin: 08/10/17 08:48 Dose: 100 mls/hr Metronidazole (Flagyl 500mg/100ml Ns) 100 mls @ 100 mls/hr IVPB Q8 [facility] PRN Reason: Protocol Last Admin: 08/10/17 08:48 Dose: 100 mls/hr Ciprofloxacin (Cipro 400mg/200ml Dsw) 400 mg in 200 mls @ 200 mls/hr IVPB Q12 [facility] PRN Reason: Protocol Ibuprofen (Motrin Tab) 600 mg PO Q6 PRN PRN Reason: Pain, moderate (4-7) Last Admin: 08/10/17 13:35 Dose: 600 mg Ondansetron HCl (Zofran Inj) 2 mg IVP Q4 PRN PRN Reason: Nausea/Vomiting Saccharomyces Boulardii (Florastor) 250 mg PO BID [facility] Last Admin: 08/10/17 08:46 Dose: 250 mg - Labs Labs: 08/10/17 08:36 08/10/17 04:45 PT 13.2 Seconds (9.8-13.1) H 08/07/17 09:10 INR 1.2 (0.9-1.2) 08/07/17 09:10
--- NOTE | 2017-08-10 17:16 | CP.PCM.PN ---
Subjective - Date & Time of Evaluation Date of Evaluation: 08/10/17 Time of Evaluation: 16:54 - Subjective Subjective: Pt is a 31F s/p repeat c section on 07/22 at 39+wks gestation, now POD# 19 admitted for pelvic abscess and spepticemia, s/p IR drainage and IV antibiotics, clinically improving. Pt has now been afebrile for over 36 hours, last WBC = 10.6, IR drainage is about 10cc today. Patient denies CP, no SOB, no N/V, tolerating PO diet, abdominal pain tolerable with meds, ambulating well. Objective - Vital Signs/Intake and Output Vital Signs (last 24 hours): Temp Pulse Resp BP Pulse Ox 98 F 82 20 127/85 98 08/10/17 16:31 08/10/17 16:31 08/10/17 16:31 08/10/17 16:31 08/10/17 16:31 Intake and Output: 08/10/17 08/10/17 06:59 18:59 Intake Total 1000 Output Total 10 Balance 990 - Medications Medications: Current Medications Acetaminophen (Tylenol 325mg Tab) 650 mg PO Q4 PRN PRN Reason: Pain, moderate (4-7) Enoxaparin Sodium (Lovenox) 40 mg SC DAILY [facility] PRN Reason: Protocol Last Admin: 08/10/17 08:47 Dose: 40 mg Famotidine (Pepcid) 20 mg PO DAILY [facility] Last Admin: 08/10/17 08:47 Dose: 20 mg Ferrous Sulfate (Feosol) 325 mg PO BID [facility] Last Admin: 08/10/17 16:42 Dose: 325 mg Meropenem 1 gm/ Sodium (Chloride) 100 mls @ 100 mls/hr IVPB Q8 [facility] PRN Reason: Protocol Last Admin: 08/10/17 16:41 Dose: 100 mls/hr Metronidazole (Flagyl 500mg/100ml Ns) 100 mls @ 100 mls/hr IVPB Q8 [facility] PRN Reason: Protocol Last Admin: 08/10/17 16:41 Dose: 100 mls/hr Ciprofloxacin (Cipro 400mg/200ml Dsw) 400 mg in 200 mls @ 200 mls/hr IVPB Q12 [facility] PRN Reason: Protocol Ibuprofen (Motrin Tab) 600 mg PO Q6 PRN PRN Reason: Pain, moderate (4-7) Last Admin: 08/10/17 13:35 Dose: 600 mg Ondansetron HCl (Zofran Inj) 2 mg IVP Q4 PRN PRN Reason: Nausea/Vomiting Saccharomyces Boulardii (Florastor) 250 mg PO BID [facility] Last Admin: 08/10/17 16:41 Dose: 250 mg - Labs Labs: 08/10/17 08:36 08/10/17 04:45 PT 13.2 Seconds (9.8-13.1) H 08/07/17 09:10 INR 1.2 (0.9-1.2) 08/07/17 09:10 - Constitutional Appears: Well, Non-toxic - Head Exam Head Exam: ATRAUMATIC - Eye Exam Pupil Exam: NORMAL ACCOMODATION - Respiratory Exam Respiratory Exam: NORMAL BREATHING PATTERN - Cardiovascular Exam Cardiovascular Exam: REGULAR RHYTHM - GI/Abdominal Exam Additional comments: soft, mild tenderness, drain present, +serosanginous fluid about 10cc today, no rebound, no gaurding - Extremities Exam Extremities Exam: Normal Inspection Assessment and Plan - Assessment and Plan (Free Text) Plan: A/P 31 yo s/p pelvic abscess and septicemia with IR drainage, improving 1. Continue IV antibiotics as per ID 2. As per IR, drainage to come out in a few days 3. COntinue pain management and all other orders
[2017-08-10] MEDS: Ciprofloxacin 400mg/200ml D5W 400 MG/200 ML BAG IVPB SCH (20:18)
[2017-08-11] MEDS: metroNIDAZOLE 500mg/100ml NS 100 ML IVPB SCH ×3 (00:25→16:28)
[2017-08-11] MEDS: Meropenem 1 GM in Sodium Chloride 0.9% 100 ML IVPB SCH ×3 (01:51→16:28)
[2017-08-11 07:25] LABS: BASO % 0.4 % (0.0-2.0); EOS # 0.1 K/uL (0.0-0.7); EOS % 1.3 % (0.0-4.0); HEMOGLOBIN 9.1 g/dL (12.0-16.0); LYMPH # 2.2 K/uL (1.0-4.3); LYMPH % 21.1 % (20.0-40.0); MEAN CELL VOLUME 79.1 fl (81.0-99.0); MEAN CORPUSCULAR HEMOGLOBIN 26.3 pg (27.0-31.0); MEAN CORPUSCULAR HGB CONC 33.3 g/dL (33.0-37.0); MEAN PLATELET VOLUME 8.9 fl (7.2-11.7); MONO # 0.6 K/uL (0.0-0.8); MONO % 5.4 % (0.0-10.0); NEUT # 7.5 K/uL (1.8-7.0); NEUT % 71.8 % (50.0-75.0); NRBC % 0.2 % (0.0-0.0); RBC 3.44 Mil/uL (3.80-5.20); RED CELL DISTRIBUTION WIDTH 16.8 % (11.5-14.5); WHITE BLOOD COUNT 10.4 K/uL (4.8-10.8)
[2017-08-11 07:30] LABS: ALB/GLOB RATIO 0.7 (1.0-2.1); ALBUMIN 2.5 g/dL (3.5-5.0); ALT/SGPT 50 U/L (9-52); AST/SGOT 30 U/L (14-36); BLOOD UREA NITROGEN 5 mg/dl (7-17); CALCIUM 8.3 mg/dL (8.4-10.2); GFR AFRICAN-AMERICAN > 60; GFR NON-AFRICAN AMERICAN > 60
[2017-08-11] MEDS: Saccharomyces Boulardi 250 mg Cap PO SCH ×2 (08:36→16:28)
[2017-08-11] MEDS: Enoxaparin 40 mg Syringe SC SCH (08:36)
[2017-08-11] MEDS: Ciprofloxacin 400mg/200ml D5W 400 MG/200 ML BAG IVPB SCH ×2 (08:37→21:17)
--- NOTE | 2017-08-11 14:01 | CP.PCM.PN ---
Subjective - Date & Time of Evaluation Date of Evaluation: 08/11/17 Time of Evaluation: 08:45 - Subjective Subjective: 31 y/o F evaluated and examined by bedside. Pt reports feeling better. RLQ pain is constant, 4/10 intensity at most severe and relieved with PO Ibuprofen. Pt afebrile for more than 48 hours, tolerating PO, appetite improving, ambulating with NO difficulties, urinating with NO issues, had a bowel movement last night which was soft. NEIL drain ouput: 10cc last 24 hours. sanguineous fluid. Objective - Vital Signs/Intake and Output Vital Signs (last 24 hours): Temp Pulse Resp BP Pulse Ox 99.7 F H 81 20 125/86 95 08/11/17 07:32 08/11/17 07:32 08/11/17 07:32 08/11/17 07:32 08/11/17 07:32 Intake and Output: 08/11/17 08/11/17 06:59 18:59 Intake Total 1450 Output Total 10 Balance 1440 - Medications Medications: Current Medications Acetaminophen (Tylenol 325mg Tab) 650 mg PO Q4 PRN PRN Reason: Pain, moderate (4-7) Enoxaparin Sodium (Lovenox) 40 mg SC DAILY [facility] PRN Reason: Protocol Last Admin: 08/11/17 08:36 Dose: 40 mg Famotidine (Pepcid) 20 mg PO DAILY [facility] Last Admin: 08/11/17 08:36 Dose: 20 mg Ferrous Sulfate (Feosol) 325 mg PO BID [facility] Last Admin: 08/11/17 08:36 Dose: 325 mg Meropenem 1 gm/ Sodium (Chloride) 100 mls @ 100 mls/hr IVPB Q8 [facility] PRN Reason: Protocol Last Admin: 08/11/17 08:37 Dose: 100 mls/hr Metronidazole (Flagyl 500mg/100ml Ns) 100 mls @ 100 mls/hr IVPB Q8 [facility] PRN Reason: Protocol Last Admin: 08/11/17 08:36 Dose: 100 mls/hr Ciprofloxacin (Cipro 400mg/200ml Dsw) 400 mg in 200 mls @ 200 mls/hr IVPB Q12 [facility] PRN Reason: Protocol Last Admin: 08/11/17 08:37 Dose: 200 mls/hr Ibuprofen (Motrin Tab) 600 mg PO Q6 PRN PRN Reason: Pain, moderate (4-7) Last Admin: 08/11/17 08:35 Dose: 600 mg Ondansetron HCl (Zofran Inj) 2 mg IVP Q4 PRN PRN Reason: Nausea/Vomiting Saccharomyces Boulardii (Florastor) 250 mg PO BID [facility] Last Admin: 08/11/17 08:36 Dose: 250 mg - Labs Labs: 08/11/17 05:30 08/11/17 05:30 PT 13.2 Seconds (9.8-13.1) H 08/07/17 09:10 INR 1.2 (0.9-1.2) 08/07/17 09:10 - Constitutional Appears: Well, No Acute Distress - Head Exam Head Exam: ATRAUMATIC, NORMAL INSPECTION - Eye Exam Eye Exam: EOMI, Normal appearance - ENT Exam ENT Exam: Mucous Membranes Moist - Neck Exam Neck Exam: Full ROM, Normal Inspection. absent: Meningismus - Respiratory Exam Respiratory Exam: Clear to Ausculation Bilateral, NORMAL BREATHING PATTERN - Cardiovascular Exam Cardiovascular Exam: REGULAR RHYTHM, +S1, +S2 - GI/Abdominal Exam GI & Abdominal Exam: Soft, Tenderness (mild on RLQ.), Normal Bowel Sounds Additional comments: NEIL drain in place, RLQ, with clean, dry and intact dressing. - Extremities Exam Extremities Exam: Full ROM, Normal Inspection. absent: Tenderness - Neurological Exam Neurological Exam: Alert, Awake, Oriented x3 Assessment and Plan - Assessment and Plan (Free Text) Assessment: 31 y/o female s/p on 07/22/17, today is POD #20; admitted on 08/03/17 with sepsis secondary to possible abdominal abscess/fluid collection. S/P IR drain on 08/07/17. Blood Cx: positive for Enterobacter Sajazakii. --Clinically improving-tachycardia resolved, blood pressure stable, pain under control. --Needs to complete at least 10 days of IV antibiotics. --Will repeat CT scan of abdomen before NEIL drain removal on Sunday08/13/17. Plan: #Abdominal fluid collection -VS currently stable -Abdominal CT on 08/03 showed 12.8cm x 7.0cm x 8.3cm cm fluid collection on RLQ , suggestive of abscess -Repeat CT on 08/06 showed lucent nonspecific fluid collection appreciated in RLQ immediately lateral to the uterus. (4.1x10.3xm). Prior seen dominant fluid collection in midline inferior pelvis is stable to slightly smaller in size ( now 6.4cm x 12.7cm) potentially reflecting diminishing hemorrhagic abscess. -Interventional Radiology on board. -NEIL drainage placed on 08/07/17 by IR; fluid was sent for culture -Culture of drained fluid-NO growth -Final report. -General Surgery and Family Medicine signed off. -General surgery recommended repeat CT prior to NEIL drain removal, have signed off. -Blood Cx: positive for Enterobacter Sajazakii. -ID on board, Dr. Banks. -Currently on IV Meropenem, Flagyl and Ciprofloxacin. TODAY IS DAY#7 OF IV ANTIBIOTICS. Need at least 10 days of IV antibiotics. -As per IR, NEIL drainage can be removed on Sunday after a CT of Abdomen/Pelvis. Spoke with Dr Vasquez. -F/U CBC,CMP,AND BLOOD CULTURES. # Sepsis -CXR: UNRULY pneumonia on 08/03.-VS currently stable -Etiology: pneumonia vs abdominal fluid collection -Last fever of 100.6 degF at 01:00 on 08/09/17, more than 48 hours ago. -WBC trending down since admission, 10.4-WNL today 08/11/17. -Blood Cx: positive for Enterobacter Sajazakii. -Urine Cx: no growth (final) -CXR on 08/09/17 showed stable band-like opacity in upper left hemithorax and stable vertically-oriented linear scar atelectasis at L base. New R pleural effusion. -Currently on IV Meropenem, Flagyl and Ciprofloxacin. -F/U CBC,CMP(CHECK LFTs),AND BLOOD CULTURES) #Abdominal pain -Controlled -Continue motrin 600 mg PO Q6 #Lung infiltrate vs atelectasis -Seen on CXR and on abdominal CT on admission -C/w incentive spirometry -C/w current antibiotics: Meropenem, Ciprofloxacin and Flagyl. #Anemia: -Today's H&H: 9.1/27.2 (08/11/17) -S/p 1 PRBC's yesterday 08/08/17. -H&H: was 7.1/22.0 on 08/08/17 -Continue ferrous sulfate 325 mg po bid -F/U CBC tomorrow. # Hypokalemia -K 3.6-WNL today 08/11/17 -F/U CMP tomorrow. #Diet -Regular diet #GI prophylaxis -Pepcid 20mg PO daily -Florastor 250 mg PO BID #DVT prophylaxis: -Lovenox 40mg SC daily -Ambulation Encouraged
--- NOTE | 2017-08-11 15:15 | CP.PCM.PN ---
Subjective - Date & Time of Evaluation Date of Evaluation: 08/11/17 Time of Evaluation: 15:11 - Subjective Subjective: I D NOTE AFEBRILE TODAY CXR REVIEWED WOULD HAVE CT DONE ON CHEST AND ABDOMEN Objective - Vital Signs/Intake and Output Vital Signs (last 24 hours): Temp Pulse Resp BP Pulse Ox 99.7 F H 81 20 125/86 95 08/11/17 07:32 08/11/17 07:32 08/11/17 07:32 08/11/17 07:32 08/11/17 07:32 Intake and Output: 08/11/17 08/11/17 06:59 18:59 Intake Total 1450 Output Total 10 Balance 1440 - Medications Medications: Current Medications Acetaminophen (Tylenol 325mg Tab) 650 mg PO Q4 PRN PRN Reason: Pain, moderate (4-7) Enoxaparin Sodium (Lovenox) 40 mg SC DAILY [facility] PRN Reason: Protocol Last Admin: 08/11/17 08:36 Dose: 40 mg Famotidine (Pepcid) 20 mg PO DAILY [facility] Last Admin: 08/11/17 08:36 Dose: 20 mg Ferrous Sulfate (Feosol) 325 mg PO BID [facility] Last Admin: 08/11/17 08:36 Dose: 325 mg Meropenem 1 gm/ Sodium (Chloride) 100 mls @ 100 mls/hr IVPB Q8 [facility] PRN Reason: Protocol Last Admin: 08/11/17 08:37 Dose: 100 mls/hr Metronidazole (Flagyl 500mg/100ml Ns) 100 mls @ 100 mls/hr IVPB Q8 [facility] PRN Reason: Protocol Last Admin: 08/11/17 08:36 Dose: 100 mls/hr Ciprofloxacin (Cipro 400mg/200ml Dsw) 400 mg in 200 mls @ 200 mls/hr IVPB Q12 [facility] PRN Reason: Protocol Last Admin: 08/11/17 08:37 Dose: 200 mls/hr Ibuprofen (Motrin Tab) 600 mg PO Q6 PRN PRN Reason: Pain, moderate (4-7) Last Admin: 08/11/17 08:35 Dose: 600 mg Ondansetron HCl (Zofran Inj) 2 mg IVP Q4 PRN PRN Reason: Nausea/Vomiting Saccharomyces Boulardii (Florastor) 250 mg PO BID [facility] Last Admin: 08/11/17 08:36 Dose: 250 mg - Labs Labs: 08/11/17 05:30 08/11/17 05:30 PT 13.2 Seconds (9.8-13.1) H 08/07/17 09:10 INR 1.2 (0.9-1.2) 08/07/17 09:10
[2017-08-12] MEDS: metroNIDAZOLE 500mg/100ml NS 100 ML IVPB SCH ×3 (00:13→16:15)
[2017-08-12] MEDS: Meropenem 1 GM in Sodium Chloride 0.9% 100 ML IVPB SCH ×3 (01:16→16:15)
[2017-08-12] MEDS: Ciprofloxacin 400mg/200ml D5W 400 MG/200 ML BAG IVPB SCH ×2 (08:42→21:31)
[2017-08-12] MEDS: Enoxaparin 40 mg Syringe SC SCH (08:43)
[2017-08-12] MEDS: Saccharomyces Boulardi 250 mg Cap PO SCH ×2 (08:43→16:15)
--- NOTE | 2017-08-12 11:55 | CP.PCM.PN ---
<Judy Monsalve - Last Filed: 08/12/17 12:10> Subjective - Date & Time of Evaluation Date of Evaluation: 08/12/17 Time of Evaluation: 10:00 - Subjective Subjective: Patient seen and examined this morning with Dr. Lane. patient was ambulating in hallway this morning w/o any pain. Patient reports occasional abdominal pain which is well controlled on Ibuprofen. Tolerating PO diet, Voiding freely, Afebrile, had a normal BM this morning. Patient denies any dizziness, chest pain , SOB, or urinary symptoms. Objective - Vital Signs/Intake and Output Vital Signs (last 24 hours): Temp Pulse Resp BP Pulse Ox 99.6 F 78 20 117/74 99 08/12/17 08:14 08/12/17 08:14 08/12/17 08:14 08/12/17 08:14 08/12/17 08:14 Intake and Output: 08/12/17 08/12/17 06:59 18:59 Intake Total 700 Balance 700 - Medications Medications: Current Medications Acetaminophen (Tylenol 325mg Tab) 650 mg PO Q4 PRN PRN Reason: Pain, moderate (4-7) Famotidine (Pepcid) 20 mg PO DAILY [facility] Last Admin: 08/12/17 08:43 Dose: 20 mg Ferrous Sulfate (Feosol) 325 mg PO BID [facility] Last Admin: 08/12/17 08:43 Dose: 325 mg Meropenem 1 gm/ Sodium (Chloride) 100 mls @ 100 mls/hr IVPB Q8 MARCIA PRN Reason: Protocol Last Admin: 08/12/17 08:42 Dose: 100 mls/hr Metronidazole (Flagyl 500mg/100ml Ns) 100 mls @ 100 mls/hr IVPB Q8 MARCIA PRN Reason: Protocol Last Admin: 08/12/17 08:42 Dose: 100 mls/hr Ciprofloxacin (Cipro 400mg/200ml Dsw) 400 mg in 200 mls @ 200 mls/hr IVPB Q12 MARCIA PRN Reason: Protocol Last Admin: 08/12/17 08:42 Dose: 200 mls/hr Ibuprofen (Motrin Tab) 600 mg PO Q6 PRN PRN Reason: Pain, moderate (4-7) Last Admin: 08/12/17 04:55 Dose: 600 mg Ondansetron HCl (Zofran Inj) 2 mg IVP Q4 PRN PRN Reason: Nausea/Vomiting Saccharomyces Rachidi (Florastor) 250 mg PO BID MARCIA Last Admin: 08/12/17 08:43 Dose: 250 mg - Labs Labs: 08/11/17 05:30 08/11/17 05:30 PT 13.2 Seconds (9.8-13.1) H 08/07/17 09:10 INR 1.2 (0.9-1.2) 08/07/17 09:10 - Constitutional Appears: No Acute Distress - Head Exam Head Exam: ATRAUMATIC, NORMAL INSPECTION - Eye Exam Eye Exam: EOMI, Normal appearance Pupil Exam: NORMAL ACCOMODATION - ENT Exam ENT Exam: Mucous Membranes Moist - Neck Exam Neck Exam: Normal Inspection - Respiratory Exam Respiratory Exam: Clear to Ausculation Bilateral, NORMAL BREATHING PATTERN - Cardiovascular Exam Cardiovascular Exam: REGULAR RHYTHM - GI/Abdominal Exam GI & Abdominal Exam: Soft, Tenderness (RLQ around NEIL drain ), Normal Bowel Sounds - Exam Additional comments: NEIL drain in place, RLQ, with clean, dry and intact dressing, NEIL drain with some serosanguineous fluid - Extremities Exam Extremities Exam: Full ROM, Normal Inspection - Back Exam Back Exam: NORMAL INSPECTION. absent: CVA tenderness (L), CVA tenderness (R) - Neurological Exam Neurological Exam: Alert, Awake, Oriented x3 - Psychiatric Exam Psychiatric exam: Normal Affect - Skin Skin Exam: Normal Color Assessment and Plan - Assessment and Plan (Free Text) Assessment: A/P: 31 y/o female s/p on 07/22/17, today is POD #20; admitted on 08/03/17 with sepsis secondary to possible abdominal abscess/fluid collection. S/P IR drain on 08/07/17. Blood Cx: positive for Enterobacter Sajazakii. Patient requirs 10 days of IV abx and repeat CT abdo before NEIL drain removal. Abdominal fluid collection -Stable -Abdominal CT on 08/03 showed 12.8cm x 7.0cm x 8.3cm cm fluid collection on RLQ , suggestive of abscess -Repeat CT on 08/06 showed lucent nonspecific fluid collection appreciated in RLQ immediately lateral to the uterus. (4.1x10.3xm). Prior seen dominant fluid collection in midline inferior pelvis is stable to slightly smaller in size ( now 6.4cm x 12.7cm) potentially reflecting diminishing hemorrhagic abscess. -Interventional Radiology on board. -NEIL drainage placed on 08/07/17 by IR; fluid was sent for culture -Culture of drained fluid-NO growth -Final report. -Blood Cx: positive for Enterobacter Sajazakii. -General Surgery and Family Medicine signed off. -General surgery recommended repeat CT prior to NEIL drain removal -ID on board, Dr. Banks. -Continue Meropenem, Flagyl and Ciprofloxacin. TODAY IS DAY#8 OF IV ANTIBIOTICS. Need at least 10 days of IV antibiotics. -As per IR, NEIL drainage can be removed on Sunday after a CT of Abdomen/Pelvis Sepsis -CXR: UNRULY pneumonia on 08/03.-VS currently stable -Etiology: pneumonia vs abdominal fluid collection -Last fever of 100.6 degF at 01:00 on 08/09/17, more than 48 hours ago. -WBC trending down since admission, 10.4-WNL today 08/11/17. -Blood Cx: positive for Enterobacter Sajazakii. -Urine Cx: no growth (final) -Follow up Bcx 08/11/17 -CXR on 08/09/17 showed stable band-like opacity in upper left hemithorax and stable vertically-oriented linear scar atelectasis at L base. New R pleural effusion. -Currently on IV Meropenem, Flagyl and Ciprofloxacin, day 8 Abdominal pain -Controlled -Continue motrin 600 mg PO Q6 PRN Lung infiltrate vs atelectasis -Seen on CXR and on abdominal CT on admission -C/w incentive spirometry -C/w current antibiotics: Meropenem, Ciprofloxacin and Flagyl. Anemia: -Today's H&H: 9.1/27.2 (08/11/17) -S/p 1 PRBC's yesterday 08/08/17. -H&H: was 7.1/22.0 on 08/08/17 -Continue ferrous sulfate 325 mg po bid Hypokalemia -K 3.6-WNL today 08/11/17 #Diet -Regular diet GI prophylaxis -Pepcid 20mg PO daily -Florastor 250 mg PO BID DVT prophylaxis: -Ambulation Encouraged <Nae Lane - Last Filed: 08/12/17 16:39> Objective - Vital Signs/Intake and Output Vital Signs (last 24 hours): Temp Pulse Resp BP Pulse Ox 98.4 F 72 18 122/81 96 08/12/17 15:55 08/12/17 15:55 08/12/17 15:55 08/12/17 15:55 08/12/17 15:55 Intake and Output: 08/12/17 08/12/17 06:59 18:59 Intake Total 700 Balance 700 - Medications Medications: Current Medications Acetaminophen (Tylenol 325mg Tab) 650 mg PO Q4 PRN PRN Reason: Pain, moderate (4-7) Famotidine (Pepcid) 20 mg PO DAILY [facility] Last Admin: 08/12/17 08:43 Dose: 20 mg Ferrous Sulfate (Feosol) 325 mg PO BID [facility] Last Admin: 08/12/17 16:15 Dose: 325 mg Meropenem 1 gm/ Sodium (Chloride) 100 mls @ 100 mls/hr IVPB Q8 MARCIA PRN Reason: Protocol Last Admin: 08/12/17 16:15 Dose: 100 mls/hr Metronidazole (Flagyl 500mg/100ml Ns) 100 mls @ 100 mls/hr IVPB Q8 MARCIA PRN Reason: Protocol Last Admin: 08/12/17 16:15 Dose: 100 mls/hr Ciprofloxacin (Cipro 400mg/200ml Dsw) 400 mg in 200 mls @ 200 mls/hr IVPB Q12 MARCIA PRN Reason: Protocol Last Admin: 08/12/17 08:42 Dose: 200 mls/hr Ibuprofen (Motrin Tab) 600 mg PO Q6 PRN PRN Reason: Pain, moderate (4-7) Last Admin: 08/12/17 04:55 Dose: 600 mg Ondansetron HCl (Zofran Inj) 2 mg IVP Q4 PRN PRN Reason: Nausea/Vomiting Saccharomyces Boulardii (Florastor) 250 mg PO BID [facility] Last Admin: 08/12/17 16:15 Dose: 250 mg - Labs Labs: 08/11/17 05:30 08/11/17 05:30 PT 13.2 Seconds (9.8-13.1) H 08/07/17 09:10 INR 1.2 (0.9-1.2) 08/07/17 09:10 Assessment and Plan - Assessment and Plan (Free Text) Assessment: Addendum by Dr. Lane: I have assessed the patient independently and I agree with the above management
[2017-08-13] MEDS: metroNIDAZOLE 500mg/100ml NS 100 ML IVPB SCH ×3 (00:30→16:26)
[2017-08-13] MEDS: Meropenem 1 GM in Sodium Chloride 0.9% 100 ML IVPB SCH ×3 (01:30→16:28)
[2017-08-13] MEDS ORDERED: Iohexol 240 (50 ml) PO ONE (06:00)
[2017-08-13] MEDS ORDERED: Iohexol 300 100 ML IJ ONE (09:54)
[2017-08-13] MEDS: Saccharomyces Boulardi 250 mg Cap PO SCH ×2 (10:50→16:23)
--- NOTE | 2017-08-13 11:05 | CT ---
PROCEDURE: CT Abdomen and Pelvis with contrast HISTORY: Evaluate RLQ fluid collection. COMPARISON: Abdomen and pelvis CT with contrast 08/06/2017. TECHNIQUE: Following oral and intravenous contrast administration, a CT examination of the abdomen and pelvis performed from the domes of the diaphragms to the symphysis pubis with reformatted datasets provided not only axial but also sagittal and coronal series. Contrast dose: Omnipaque 300, 95 cc Radiation dose: Total exam DLP = 823.67 mGy-cm. This CT exam was performed using one or more of the following dose reduction techniques: Automated exposure control, adjustment of the mA and/or kV according to patient size, and/or use of iterative reconstruction technique. FINDINGS: LOWER THORAX: A mild right pleural effusion is increased appearing now [id number] overall volume. None is seen at the left and there is no pericardial effusion. Compression atelectasis affects the right right lower lobe. LIVER: Hepatic steatosis appreciated without focal mass once again. GALLBLADDER AND BILE DUCTS: Unremarkable. PANCREAS: Unremarkable. No gross lesion or ductal dilatation. SPLEEN: Unremarkable. ADRENALS: Unremarkable. No mass. KIDNEYS AND URETERS: Unremarkable. No hydronephrosis. No solid mass. VASCULATURE: Unremarkable. No aortic aneurysm. BOWEL: Some thickening of the distal ascending colon/hepatic flexure is appreciated, potentially on the basis of segmental colitis with peristalsis less likely. No pericolic reaction identified. No bowel obstruction nevertheless. Limited distention of the stomach with gas and retained fluid is identified. APPENDIX: Normal appendix. PERITONEUM: Anterior pelvic abscess is reiterated but now with drainage catheter in place only marginally smaller in size measuring 11.8 x 6.5 cm compared to 6.4 x 12.7 cm previously. Abscess Mass as contents may be too viscus to drain through the pigtail catheter deployed. Alternately, the catheter may be included in part or completely. However, the complex smaller abscess is significantly diminished in size at the right adnexal compartment, measuring 7.5 x 2.1 cm compared to 10.3 x 4.1 cm previously. LYMPH NODES: Unremarkable. No enlarged lymph nodes. BLADDER: Unremarkable. REPRODUCTIVE: Enlarged uterus. BONES: No acute fracture. OTHER FINDINGS: None. IMPRESSION: Only a marginal decrease in size in the dominant abscess at the midline inferior pelvis is seen status post drainage catheter placement. Consider possible drainage catheter dysfunction or viscous abscess not drainable might current catheter. Significant reduction in right adnexal smaller abscess noted however. Limited segmental colitis is questioned at the distal ascending colon through hepatic flexure. Infectious or inflammatory causes likely. . Continued CT follow-up recommended.
--- NOTE | 2017-08-13 11:57 | CP.PCM.PN ---
<Dandre Murdock - Last Filed: 08/13/17 12:15> Subjective - Date & Time of Evaluation Date of Evaluation: 08/13/17 Time of Evaluation: 08:00 - Subjective Subjective: 31 y/o F evaluated and examined by bedside. Pt reports feeling well. Pt tolerating PO, good appetite, voiding with no problems, ambulating on the floor , normal bowel movements. Pt afebrile with NO acute events overnight. --Pt aware she will be going for a CT scan of abdomen. --NEIL drain to be removed later today or tomorrow after evaluating CT scan. -NEIL drained 5cc of sanguineous fluid yesterday. (for 24 hours) Objective - Vital Signs/Intake and Output Vital Signs (last 24 hours): Temp Pulse Resp BP Pulse Ox 98.3 F 80 20 109/76 97 08/13/17 09:00 08/13/17 09:00 08/13/17 09:00 08/13/17 09:00 08/13/17 09:00 Intake and Output: 08/13/17 08/13/17 06:59 18:59 Intake Total 640 Output Total 5 Balance 635 - Medications Medications: Current Medications Acetaminophen (Tylenol 325mg Tab) 650 mg PO Q4 PRN PRN Reason: Pain, moderate (4-7) Famotidine (Pepcid) 20 mg PO DAILY [facility] Last Admin: 08/13/17 10:50 Dose: 20 mg Ferrous Sulfate (Feosol) 325 mg PO BID [facility] Last Admin: 08/13/17 10:50 Dose: 325 mg Meropenem 1 gm/ Sodium (Chloride) 100 mls @ 100 mls/hr IVPB Q8 MARCIA PRN Reason: Protocol Last Admin: 08/13/17 10:49 Dose: 100 mls/hr Metronidazole (Flagyl 500mg/100ml Ns) 100 mls @ 100 mls/hr IVPB Q8 MARCIA PRN Reason: Protocol Last Admin: 08/13/17 08:35 Dose: 100 mls/hr Ciprofloxacin (Cipro 400mg/200ml Dsw) 400 mg in 200 mls @ 200 mls/hr IVPB Q12 MARCIA PRN Reason: Protocol Last Admin: 08/12/17 21:31 Dose: 200 mls/hr Ibuprofen (Motrin Tab) 600 mg PO Q6 PRN PRN Reason: Pain, moderate (4-7) Last Admin: 08/12/17 20:11 Dose: 600 mg Ondansetron HCl (Zofran Inj) 2 mg IVP Q4 PRN PRN Reason: Nausea/Vomiting Saccharomyces Boulardii (Florastor) 250 mg PO BID MARCIA Last Admin: 08/13/17 10:50 Dose: 250 mg - Labs Labs: 08/11/17 05:30 08/11/17 05:30 PT 13.2 Seconds (9.8-13.1) H 08/07/17 09:10 INR 1.2 (0.9-1.2) 08/07/17 09:10 - Constitutional Appears: Well, No Acute Distress - Head Exam Head Exam: ATRAUMATIC, NORMAL INSPECTION - Eye Exam Eye Exam: EOMI - ENT Exam ENT Exam: Mucous Membranes Moist - Neck Exam Neck Exam: Full ROM. absent: Meningismus - Respiratory Exam Respiratory Exam: Clear to Ausculation Bilateral, NORMAL BREATHING PATTERN - Cardiovascular Exam Cardiovascular Exam: REGULAR RHYTHM, +S1, +S2 - GI/Abdominal Exam GI & Abdominal Exam: Soft, Tenderness (very mild on RLQ, where NEIL drain is located. ), Normal Bowel Sounds. absent: Guarding, Rigid, Rebound - Neurological Exam Neurological Exam: Alert, Awake, Oriented x3 - Skin Skin Exam: Dry, Intact, Normal Color Assessment and Plan - Assessment and Plan (Free Text) Assessment: 31 y/o female s/p on 07/22/17, today is POD #20; admitted on 08/03/17 with sepsis secondary to possible abdominal abscess/fluid collection. --S/P IR drain on 08/07/17. Blood Cx: positive for Enterobacter Sajazakii. Patient requires 10 days of IV abx. --CT of Abdomen/Pelvis today 08/13/17 showed only a marginal decrease in size in the dominant abscess at the midline inferior pelvis. Consider possible drainage catheter dysfunction or viscous abscess not drainable. --Evaluating NEIL drain removal. As per IR, not today. --Awaiting Today's Infectious Disease's recommendations. C/W IV antibiotics. Plan: 1. Abdominal fluid collection, possible abscess -Stable -Abdominal CT on 08/03 showed 12.8cm x 7.0cm x 8.3cm cm fluid collection on RLQ , suggestive of abscess -Repeat CT on 08/06 showed lucent nonspecific fluid collection appreciated in RLQ immediately lateral to the uterus. (4.1x10.3cm). Prior seen dominant fluid collection in midline inferior pelvis is stable to slightly smaller in size ( now 6.4cm x 12.7cm) potentially reflecting diminishing hemorrhagic abscess. -Interventional Radiology on board. -NEIL drainage placed on 08/07/17 by IR; fluid was sent for culture. Culture of drained fluid-NO growth -Final report. -Blood Cx: positive for Enterobacter Sajazakii. -General Surgery and Family Medicine signed off. -General surgery recommended repeat CT prior to NEIL drain removal -ID on board, Dr. Banks. -CT of Abdomen/Pelvis today 08/13/17 showed only a marginal decrease in size in the dominant abscess at the midline inferior pelvis. Consider possible drainage catheter dysfunction or viscous abscess not drainable. -NEIL drained 5cc of sanguineous fluid yesterday. (for 24 hours). As per IR, NEIL drainage cannot be removed today. Will revaluate tomorrow. -Continue Meropenem, Flagyl and Ciprofloxacin. TODAY IS DAY#9 OF IV ANTIBIOTICS . Need at least 10 days of IV antibiotics. -Awaiting today's Infectology recommendations. 2. Sepsis -CXR: UNRULY pneumonia on 08/03.-VS currently stable -Etiology: pneumonia vs abdominal fluid collection -Last fever of 100.6 degF at 01:00 on 08/09/17, more than 4 days ago. -WBC trending down since admission, 10.4-WNL today 08/11/17. -Blood Cx: positive for Enterobacter Sajazakii. -Urine Cx: no growth (final) -CXR on 08/09/17 showed stable band-like opacity in upper left hemithorax and stable vertically-oriented linear scar atelectasis at L base. New R pleural effusion. -Currently on IV Meropenem, Flagyl and Ciprofloxacin, day 9 -Bcx 08/11/17 no growth after 48 hours -BCx 08/12/17 no growth after 24 hours. 3. Abdominal pain -Controlled -Continue motrin 600 mg PO Q6 PRN 4. Lung infiltrate vs atelectasis -Seen on CXR and on abdominal CT on admission -CXR on 08/09/17 showed stable band-like opacity in upper left hemithorax and stable vertically-oriented linear scar atelectasis at L base. New R pleural effusion. -C/w incentive spirometry -C/w current antibiotics: Meropenem, Ciprofloxacin and Flagyl. 5. Anemia - Resolving - H&H: 9.1/27.2 (08/11/17) - S/p 1 PRBC's on 08/08/17. - H&H: was 7.1/22.0 on 08/08/17 - Continue ferrous sulfate 325 mg po bid 6. Hypokalemia -Resolved -K 3.6-WNL today 08/11/17 7. Diet -Regular diet 8. GI prophylaxis -Pepcid 20mg PO daily -Florastor 250 mg PO BID 9. DVT prophylaxis -Ambulation Encouraged <Aleyda Soria - Last Filed: 08/13/17 16:11> Objective - Vital Signs/Intake and Output Vital Signs (last 24 hours): Temp Pulse Resp BP Pulse Ox 98.3 F 80 20 109/76 97 08/13/17 09:00 08/13/17 09:00 08/13/17 09:00 08/13/17 09:00 08/13/17 09:00 Intake and Output: 08/13/17 08/13/17 06:59 18:59 Intake Total 640 Output Total 5 Balance 635 - Medications Medications: Current Medications Acetaminophen (Tylenol 325mg Tab) 650 mg PO Q4 PRN PRN Reason: Pain, moderate (4-7) Famotidine (Pepcid) 20 mg PO DAILY [facility] Last Admin: 08/13/17 10:50 Dose: 20 mg Ferrous Sulfate (Feosol) 325 mg PO BID [facility] Last Admin: 08/13/17 10:50 Dose: 325 mg Meropenem 1 gm/ Sodium (Chloride) 100 mls @ 100 mls/hr IVPB Q8 MARCIA PRN Reason: Protocol Last Admin: 08/13/17 10:49 Dose: 100 mls/hr Metronidazole (Flagyl 500mg/100ml Ns) 100 mls @ 100 mls/hr IVPB Q8 MARCIA PRN Reason: Protocol Last Admin: 08/13/17 08:35 Dose: 100 mls/hr Ciprofloxacin (Cipro 400mg/200ml Dsw) 400 mg in 200 mls @ 200 mls/hr IVPB Q12 MARCIA PRN Reason: Protocol Last Admin: 08/13/17 12:15 Dose: 200 mls/hr Ibuprofen (Motrin Tab) 600 mg PO Q6 PRN PRN Reason: Pain, moderate (4-7) Last Admin: 08/13/17 13:44 Dose: 600 mg Ondansetron HCl (Zofran Inj) 2 mg IVP Q4 PRN PRN Reason: Nausea/Vomiting Saccharomyces Boulardii (Florastor) 250 mg PO BID MARCIA Last Admin: 08/13/17 10:50 Dose: 250 mg - Labs Labs: 08/11/17 05:30 08/11/17 05:30 PT 13.2 Seconds (9.8-13.1) H 08/07/17 09:10 INR 1.2 (0.9-1.2) 08/07/17 09:10 Assessment and Plan - Assessment and Plan (Free Text) Assessment: OB Hospitalist Addendum: Pt seen and examined by me. 31 yo POD #22 s/p section on 07/22, admitted on 08/03/2017 w/ sepsis w/ fluid collections / hematomas in abdomen as well as pneumonia. Pt is now s/p IR drainage on 08/[address] Vasquez. Pt is also currently on Day 9/10 of IV abx, specifically Ciprofloxacin, Meropenem, and Flagyl Pt appears well today and reports that she feel better. IR drain w/ small amt of serosanguinous fluid. (ES)
[2017-08-13] MEDS: Ciprofloxacin 400mg/200ml D5W 400 MG/200 ML BAG IVPB SCH ×2 (12:15→21:54)
--- NOTE | 2017-08-13 15:15 | CP.PCM.PN ---
Subjective - Date & Time of Evaluation Date of Evaluation: 08/13/17 Time of Evaluation: 15:13 - Subjective Subjective: ID NOTE CT NOTED APPAARENTLL MINIMAL DECREASE IN ABSCESS SIZI IR TO RE EVALUATE CONTINUE IV ANTIBIOTICS Objective - Vital Signs/Intake and Output Vital Signs (last 24 hours): Temp Pulse Resp BP Pulse Ox 98.3 F 80 20 109/76 97 08/13/17 09:00 08/13/17 09:00 08/13/17 09:00 08/13/17 09:00 08/13/17 09:00 Intake and Output: 08/13/17 08/13/17 06:59 18:59 Intake Total 640 Output Total 5 Balance 635 - Medications Medications: Current Medications Acetaminophen (Tylenol 325mg Tab) 650 mg PO Q4 PRN PRN Reason: Pain, moderate (4-7) Famotidine (Pepcid) 20 mg PO DAILY [facility] Last Admin: 08/13/17 10:50 Dose: 20 mg Ferrous Sulfate (Feosol) 325 mg PO BID [facility] Last Admin: 08/13/17 10:50 Dose: 325 mg Meropenem 1 gm/ Sodium (Chloride) 100 mls @ 100 mls/hr IVPB Q8 MARCIA PRN Reason: Protocol Last Admin: 08/13/17 10:49 Dose: 100 mls/hr Metronidazole (Flagyl 500mg/100ml Ns) 100 mls @ 100 mls/hr IVPB Q8 MARCIA PRN Reason: Protocol Last Admin: 08/13/17 08:35 Dose: 100 mls/hr Ciprofloxacin (Cipro 400mg/200ml Dsw) 400 mg in 200 mls @ 200 mls/hr IVPB Q12 MARCIA PRN Reason: Protocol Last Admin: 08/13/17 12:15 Dose: 200 mls/hr Ibuprofen (Motrin Tab) 600 mg PO Q6 PRN PRN Reason: Pain, moderate (4-7) Last Admin: 08/13/17 13:44 Dose: 600 mg Ondansetron HCl (Zofran Inj) 2 mg IVP Q4 PRN PRN Reason: Nausea/Vomiting Saccharomyces Boulardii (Florastor) 250 mg PO BID [facility] Last Admin: 08/13/17 10:50 Dose: 250 mg - Labs Labs: 08/11/17 05:30 08/11/17 05:30 PT 13.2 Seconds (9.8-13.1) H 08/07/17 09:10 INR 1.2 (0.9-1.2) 08/07/17 09:10
[2017-08-14] MEDS: metroNIDAZOLE 500mg/100ml NS 100 ML IVPB SCH ×2 (00:33→08:51)
[2017-08-14] MEDS: Meropenem 1 GM in Sodium Chloride 0.9% 100 ML IVPB SCH ×2 (01:39→08:52)
[2017-08-14 07:04] LABS: BASO % 0.4 % (0.0-2.0); EOS # 0.2 K/uL (0.0-0.7); EOS % 2.2 % (0.0-4.0); HEMOGLOBIN 9.6 g/dL (12.0-16.0); LYMPH # 1.8 K/uL (1.0-4.3); LYMPH % 17.4 % (20.0-40.0); MEAN CORPUSCULAR HEMOGLOBIN 26.1 pg (27.0-31.0); MEAN CORPUSCULAR HGB CONC 32.6 g/dL (33.0-37.0); MEAN PLATELET VOLUME 8.9 fl (7.2-11.7); MONO # 0.7 K/uL (0.0-0.8); MONO % 6.8 % (0.0-10.0); NEUT # 7.7 K/uL (1.8-7.0); NEUT % 73.2 % (50.0-75.0); RBC 3.67 Mil/uL (3.80-5.20); WHITE BLOOD COUNT 10.5 K/uL (4.8-10.8)
[2017-08-14 07:49] VITALS: BP 123/77; PULSE 68; RESP 18; TEMP 98.5; O2SAT 97
[2017-08-14] MEDS: Ciprofloxacin 400mg/200ml D5W 400 MG/200 ML BAG IVPB SCH (08:51)
[2017-08-14] MEDS: Saccharomyces Boulardi 250 mg Cap PO SCH (08:58)
--- NOTE | 2017-08-14 10:23 | CT ---
PROCEDURE: Date of procedure: 08/07/2017 Procedure: 1. Pelvic abscess drainage with CT guidance, CPT 28677 Medications: The patient received IV sedation administered by anesthesiologist Radiation: 1310.31 mGy-cm HISTORY: Status post with pelvic collection containing air TECHNIQUE: Following informed consent procedure time-out, non contrast CT was performed which showed a large complex pelvic collection. The skin localizer was placed on the patient's abdomen and a repeat CT scan performed. The skin was marked, prepped, and draped in the usual sterile fashion. Under CT guidance, a Nutritics drainage catheter was advanced into the collection. Upon return of purulent drainage, the catheter exchanged over an 035 guidewire and the tract was dilated to accommodate a 10 Prydeinig pigtail drainage catheter formed within the collection. The position of the 10 Fr drainage catheter was confirmed with repeat CT scan. 60 cubic centimeters of old blood was removed and sent for culture and sensitivity. The catheter was secured the patient's skin. A dressing was applied. IMPRESSION: CT-guided drainage of pelvic collection with the placement of a 10 Prydeinig drainage catheter. 60 cubic centimeters of old blood products was removed and sent for culture and sensitivity.
--- NOTE | 2017-08-14 14:19 | CP.PCM.DIS ---
Provider - Provider Date of Admission: 08/03/17 05:06 Attending physician: Sravan Mercer MD Primary care physician: Dr Sarahi Jensen at [facility] in [place]. Consults: Interventional Radiology: Dr Vasquez. Infectious Disease: Dr Valderrama Family Medicine: Dr Acuna General Surgery: Dr Dickson Time Spent in preparation of Discharge (in minutes): 30 Diagnosis - Discharge Diagnosis (1) uterine abscess Status: Acute Comment: -S/P delivery. Colecction of fluid on CT scan showed minimal decreased in size after 8 days since IR drain was placed. -Collection of fluid most probable of blood, possible hematoma. -Pt afebrile for >5 days, discharged on PO Metronidazole and Ciprofloxacin for 2 weeks as per ID. -Will f /u at [facility] with Dr Montgomery and Dr Jensen. Hospital Course - Lab Results Lab Results: Micro Results 08/12/17 09:10 Blood Blood Culture - Preliminary NO GROWTH AFTER 48 HOURS 08/11/17 09:01 Blood Blood Culture - Preliminary NO GROWTH AFTER 3 DAYS 08/07/17 17:43 Other: Please Indicate Gram Stain - Final 08/07/17 17:43 Other: Please Indicate Body Fluid Culture - Final No growth. 08/03/17 06:30 Blood-Venous Blood Culture - Final Enterobacter Sakazakii 08/03/17 06:30 Blood-Venous Gram Stain - Final 08/03/17 23:43 Blood Blood Culture - Final NO GROWTH AFTER 5 DAYS 08/03/17 23:43 Blood Gram Stain - Final TEST NOT PERFORMED 08/03/17 06:15 Blood-Venous Blood Culture - Final NO GROWTH AFTER 5 DAYS 08/03/17 06:15 Blood-Venous Gram Stain - Final TEST NOT PERFORMED 08/04/17 03:30 Urine,Clean Catch Urine Culture - Final No Growth (<1,000 CFU/ML) 08/03/17 05:57 Urine,Clean Catch Urine Culture - Final No Growth (<1,000 CFU/ML) Most Recent Lab Values WBC 10.5 K/uL (4.8-10.8) 08/14/17 06:10 RBC 3.67 Mil/uL (3.80-5.20) L 08/14/17 06:10 Hgb 9.6 g/dL (12.0-16.0) L 08/14/17 06:10 Hct 29.3 % (34.0-47.0) L 08/14/17 06:10 MCV 80.0 fl (81.0-99.0) L 08/14/17 06:10 MCH 26.1 pg (27.0-31.0) L 08/14/17 06:10 MCHC 32.6 g/dL (33.0-37.0) L 08/14/17 06:10 RDW 17.0 % (11.5-14.5) H 08/14/17 06:10 Plt Count 574 K/uL (130-400) H 08/14/17 06:10 MPV 8.9 fl (7.2-11.7) 08/14/17 06:10 Neut % (Auto) 73.2 % (50.0-75.0) 08/14/17 06:10 Lymph % (Auto) 17.4 % (20.0-40.0) L 08/14/17 06:10 Mineral % (Auto) 6.8 % (0.0-10.0) 08/14/17 06:10 Eos % (Auto) 2.2 % (0.0-4.0) 08/14/17 06:10 Baso % (Auto) 0.4 % (0.0-2.0) 08/14/17 06:10 Neut # (Auto) 7.7 K/uL (1.8-7.0) H 08/14/17 06:10 Lymph # (Auto) 1.8 K/uL (1.0-4.3) 08/14/17 06:10 Mineral # (Auto) 0.7 K/uL (0.0-0.8) 08/14/17 06:10 Eos # (Auto) 0.2 K/uL (0.0-0.7) 08/14/17 06:10 Baso # (Auto) 0.0 K/uL (0.0-0.2) 08/14/17 06:10 Neutrophils % (Manual) 88 % (42-75) H 08/03/17 01:35 Band Neutrophils % 5 % (0-2) H 08/03/17 01:35 Lymphocytes % (Manual) 7 % (20-50) L 08/03/17 01:35 Monocytes % (Manual) 0 % (0-10) 08/03/17 01:35 Platelet Estimate Markedly increased (NORMAL) H 08/03/17 01:35 Hypochromasia (manual) Slight 08/03/17 01:35 Anisocytosis (manual) Slight 08/03/17 01:35 PT 13.2 Seconds (9.8-13.1) H 08/07/17 09:10 INR 1.2 (0.9-1.2) 08/07/17 09:10 pO2 26 mm/Hg (30-55) L 08/03/17 06:33 VBG pH 7.45 (7.32-7.43) H 08/03/17 06:33 VBG pCO2 39 mmHg (40-60) L 08/03/17 06:33 VBG HCO3 26.0 mmol/L 08/03/17 06:33 VBG Total CO2 28.3 mmol/L (22-28) H 08/03/17 06:33 VBG O2 Sat (Calc) 57.1 % (40-65) 08/03/17 06:33 VBG Base Excess 3.0 mmol/L (0.0-2.0) H 08/03/17 06:33 VBG Potassium 4.2 mmol/L (3.6-5.2) 08/03/17 06:33 Sodium 138.0 mmol/L (132-148) 08/03/17 06:33 Chloride 110.0 mmol/L (98-107) H 08/03/17 06:33 Glucose 105 mg/dL (65-105) 08/03/17 06:33 Lactate 1.0 mmol/L (0.7-2.1) 08/03/17 06:33 FiO2 21.0 % 08/03/17 06:33 Sodium 142 mmol/l (132-148) 08/11/17 05:30 Potassium 3.6 MMOL/L (3.6-5.0) 08/11/17 05:30 Chloride 107 mmol/L (98-107) 08/11/17 05:30 Carbon Dioxide 26 mmol/L (22-30) 08/11/17 05:30 Anion Gap 13 (10-20) 08/11/17 05:30 BUN 5 mg/dl (7-17) L 08/11/17 05:30 Creatinine 0.5 mg/dl (0.7-1.2) L 08/11/17 05:30 Est GFR ( Amer) > 60 08/11/17 05:30 Est GFR (Non-Af Amer) > 60 08/11/17 05:30 Random Glucose 92 mg/dL (65-105) 08/11/17 05:30 Lactic Acid 1.0 MMOL/L (0.7-2.1) 08/04/17 18:20 Calcium 8.3 mg/dL (8.4-10.2) L 08/11/17 05:30 Total Bilirubin 0.3 mg/dl (0.2-1.3) 08/11/17 05:30 AST 30 U/L (14-36) 08/11/17 05:30 ALT 50 U/L (9-52) 08/11/17 05:30 Alkaline Phosphatase 115 U/L (38-126) 08/11/17 05:30 Total Protein 5.9 G/DL (6.3-8.2) L 08/11/17 05:30 Albumin 2.5 g/dL (3.5-5.0) L 08/11/17 05:30 Globulin 3.5 gm/dL (2.2-3.9) 08/11/17 05:30 Albumin/Globulin Ratio 0.7 (1.0-2.1) L 08/11/17 05:30 Lipase 12 U/L (23-300) L 08/03/17 01:35 Procalcitonin 0.22 NG/ML (0.19-0.49) 08/09/17 04:30 Venous Blood Potassium 4.2 mmol/L (3.6-5.2) 08/03/17 06:33 Urine Color Yellow (YELLOW) 08/03/17 01:35 Urine Clarity Clear (Clear) 08/03/17 01:35 Urine pH 6.0 (5.0-8.0) 08/03/17 01:35 Ur Specific [place] 1.016 (1.003-1.030) 08/03/17 01:35 Urine Protein Negative mg/dL (NEGATIVE) 08/03/17 01:35 Urine Glucose (UA) Neg mg/dL (Normal) 08/03/17 01:35 Urine Ketones Negative mg/dL (NEGATIVE) 08/03/17 01:35 Urine Blood Negative (NEGATIVE) 08/03/17 01:35 Urine Nitrate Negative (NEGATIVE) 08/03/17 01:35 Urine Bilirubin Negative (NEGATIVE) 08/03/17 01:35 Urine Urobilinogen 0.2-1.0 mg/dL (0.2-1.0) 08/03/17 01:35 Ur Leukocyte Esterase Neg Elizabet/uL (Negative) 08/03/17 01:35 Urine RBC (Auto) 2 /hpf (0-3) 08/03/17 01:35 Urine Microscopic WBC 2 /hpf (0-5) 08/03/17 01:35 Ur Squamous Epith Cells < 1 /hpf (0-5) 08/03/17 01:35 Vancomycin Trough 6.7 ug/mL (5.0-10.0) 08/04/17 20:15 Blood Type O POSITIVE 08/08/17 21:02 Antibody Screen Negative 08/08/17 21:02 Crossmatch See Detail 08/08/17 21:02 BBK History Checked Patient has bt 08/08/17 21:02 - Hospital Course Hospital Course: 31 y/o F s/p on 07/22/17, today POD #23, was admitted on 08/03/17 with sepsis secondary to possible abdominal abscess or fluid collection. -Abdominal CT on 08/03: 12.8cm x 7.0cm x 8.3cm cm fluid collection on RLQ, suggestive of abscess -Repeat CT on 08/06: lucent nonspecific fluid collection appreciated in RLQ immediately lateral to the uterus. (4.1x10.3cm). Prior seen dominant fluid collection in midline inferior pelvis is stable to slightly smaller in size ( now 6.4cm x 12.7cm) potentially reflecting diminishing hemorrhagic abscess. -IR drain placed on 08/07/17. It has been collecting from 3-10 cc daily since placement. -Blood Cx: positive for Enterobacter Sajazakii. -Patient completed 10 days of IV abx as per ID. Pt today with IV Metronidazole, Ciprofloxacin and Meropenem. -WBC has return and stayed within normal levels for 9 days. -Pt remained afebrile for more than 4 days. Last fever episode on 08/09/17 at 1am -CT of Abdomen/Pelvis today 08/13/17: only a marginal decrease in size in the dominant abscess at the midline inferior pelvis. Consider possible drainage catheter dysfunction or viscous abscess not drainable. -IR drain removed today, 08/14/17. -Repeated Blood Cx 2 and 3 days ago, are preliminary negative for any growth. Pt has remained afebrile and stable, tolerating PO, WBC in normal range for several days with NO urinary problems. Pt discharged today with PO Ciprofloxacin and Metronidazole for 2 weeks, will f/u with Dr Montgomery in [address] Jensen in 2 weeks at [facility]. - Date & Time of H&P Date of H&P: 08/03/17 Time of H&P: 05:48 Discharge Exam - Head Exam Head Exam: ATRAUMATIC, NORMAL INSPECTION - Eye Exam Eye Exam: EOMI, Normal appearance - Neck Exam Neck exam: Full Rom, Lymphadenopathy - Respiratory Exam Respiratory Exam: Clear to PA & Lateral, NORMAL BREATHING PATTERN - Cardiovascular Exam Cardiovascular Exam: REGULAR RHYTHM, +S1, +S2 - GI/Abdominal Exam GI & Abdominal Exam: Normal Bowel Sounds, Soft, Tenderness (mild on RUQ.). absent: Distended, Guarding Discharge Plan - Discharge Medications Prescriptions: Ciprofloxacin [Cipro] 500 mg PO BID 14 Days #28 tab Ibuprofen [Motrin Tab] 600 mg PO Q6 PRN #30 tab PRN Reason: Pain, Moderate (4-7) Metronidazole [Flagyl] 500 mg PO QID 14 Days #56 tablet - Follow Up Plan Condition: FAIR Disposition: HOME/ ROUTINE Instructions: Abscess Incision and Drainage, ( Delivery) (DC) , Abscess Drainage, Percutaneous (DC), Acute Abdominal Pain (DC), Acute Abdominal Pain (GEN) Additional Instructions: -Please F/U at [facility], 3rd floor with Dr Montgomery on Sunday at 3:20pm and with Dr Jensen on Sunday08/27/17 at 3:00pm. -Wound care as instructed. -Please complete PO antibiotics course. -Please go to ER if fever or intolerable pain. Referrals: [facility] [Provider Group] Sarahi Jensen MD [Family Provider] -
== END 2017-08-14 15:00 | disposition home or self-care (01) | DRG 376 ==
LOC: H.ER 23:23 → H.ERHOLD 08-03 05:06 → H.TEL 08-03 13:04 → H.MEDSURG1 08-10 22:19
PROVIDERS: ADMIT Obstetrics & Gynecology; ATTEND Obstetrics & Gynecology
PROC: 0W9J30Z Drainage of Pelvic Cavity with Drainage Device, Percutaneous Approach (ICD-10-PCS; principal; 2017-08-07 12:30)
PROC: 30233N1 Transfusion of Nonautologous Red Blood Cells into Peripheral Vein, Percutaneous Approach (ICD-10-PCS; 2017-08-09)
DX: O86.0 Infection of obstetric surgical wound (principal); K65.1 Peritoneal abscess; A41.9 Sepsis, unspecified organism; J18.9 Pneumonia, unspecified organism; R18.8 Other ascites; O86.12 Endometritis following delivery; O90.81 Anemia of the puerperium; E87.6 Hypokalemia; B96.89 Other specified bacterial agents as the cause of diseases classified elsewhere; G89.18 Other acute postprocedural pain

== ENCOUNTER 2017-08-18 18:01 | Inpatient (IN) | payer MEDICAID, SELFPAY ==
[2017-08-18 18:01] VITALS: BMI 34.7
[2017-08-18] MEDS ORDERED: Sodium Chloride 0.9% 1,000 ML IV STA ×2 (19:03→23:18)
--- NOTE | 2017-08-18 19:06 | ED PDOC ---
HPI: General Adult Time Seen by Provider: 08/18/17 18:50 Chief Complaint (Nursing): GI Problem Chief Complaint (Provider): Breast pain History Per: Patient History/Exam Limitations: no limitations Additional Complaint(s): Pt reports fever (Tm 38C) today, associated with nausea, vomiting, R breast pain and R back pain. Pt recently discharged from [facility] s/p post-op uterine abscess, currently on Cipro and Flagyl. Pt pumping breast milk. Denies abdominal pain, diarrhea, dysuria, hematuria, cough, SOB. Past Medical History Reviewed: Nursing Documentation, Vital Signs Vital Signs: Last Vital Signs Temp 100.2 F H 08/22/17 15:41 Pulse 81 08/22/17 15:41 Resp 18 08/22/17 15:41 BP 119/78 08/22/17 15:41 Pulse Ox 95 08/22/17 15:41 - Medical History PMH: No Chronic Diseases Denies: Depression, Diabetes, HIV, HTN, Chronic Kidney Disease - Surgical History Surgical History: (4 years ago) - Family History Family History: States: Unknown Family Hx - Living Arrangements Living Arrangements: With Family - Home Medications Home Medications: Ambulatory Orders Medication Instructions Recorded Ibuprofen [Motrin Tab] 600 mg PO Q6 PRN #20 tab 07/25/17 Ciprofloxacin [Cipro] 500 mg PO BID 14 Days #28 tab 08/14/17 Ibuprofen [Motrin Tab] 600 mg PO Q6 PRN #30 tab 08/14/17 Metronidazole [Flagyl] 500 mg PO QID 14 Days #56 tablet 08/14/17 Ferrous Sulfate [Feosol] 65 mg PO BID 08/19/17 Ferrous Sulfate [Feosol] 65 mg PO BID 08/19/17 - Allergies Allergies/Adverse Reactions: Allergies Allergy/AdvReac Type Severity Reaction Status Date / Time No Known Allergies Allergy Verified 08/18/17 18:29 Review of Systems Constitutional: Positive for: Fever, Malaise Cardiovascular: Negative for: Chest Pain, Palpitations Respiratory: Negative for: Cough, Shortness of Breath Gastrointestinal: Positive for: Nausea, Vomiting. Negative for: Abdominal Pain , Diarrhea Genitourinary Female: Negative for: Dysuria, Hematuria Skin: Negative for: Rash, Lesions Neurological: Negative for: Altered Mental Status, Headache Physical Exam - Reviewed Nursing Documentation Reviewed: Yes Vital Signs Reviewed: Yes - Physical Exam Appears: Positive for: Well, No Acute Distress Head Exam: Positive for: ATRAUMATIC, NORMAL INSPECTION Skin: Positive for: Normal Color, Warm, Dry Eye Exam: Positive for: Normal appearance, EOMI, PERRL Cardiovascular/Chest: Positive for: Regular Rate, Rhythm, Other (R BREAST: No TTP, no erythema, no edema no enlarged ducts appreciated, no mass) Respiratory: Positive for: Normal Breath Sounds. Negative for: Rales, Rhonchi, Wheezing Gastrointestinal/Abdominal: Positive for: Normal Exam, Bowel Sounds, Soft. Negative for: Tenderness Back: Positive for: Normal Inspection, Other (TTP R upper lateral back). Negative for: L CVA Tenderness, R CVA Tenderness Extremity: Positive for: Normal ROM. Negative for: Tenderness, Calf Tenderness , Deformity, Swelling - Laboratory Results Result Diagrams: 08/22/17 05:45 08/22/17 05:45 - ECG O2 Sat by Pulse Oximetry: 97 Medical Decision Making Medical Decision Makin yo female with fever, vomiting, R breast pain and R back pain. - labs - CXR - IVF - Toradol - Zofran Disposition - Clinical Impression Clinical Impression: Pleural effusion, Pneumonia - Disposition Disposition Time: 19:00 Condition: STABLE Patient Signed Over To: Stef Franks
[2017-08-18 19:16] LABS: VENOUS BLOOD GAS BASE EXCESS 0.8 mmol/L (0.0-2.0); VENOUS BLOOD GAS PCO2 39 mmHg (40-60); VENOUS BLOOD GAS PO2 30 mm/Hg (30-55); VENOUS BLOOD PH 7.42 (7.32-7.43)
[2017-08-18 19:49] LABS: BASO % 0.4 % (0.0-2.0); EOS # 0.1 K/uL (0.0-0.7); EOS % 1.2 % (0.0-4.0); HEMOGLOBIN 10.3 g/dL (12.0-16.0); LYMPH # 1.3 K/uL (1.0-4.3); LYMPH % 11.3 % (20.0-40.0); MEAN CELL VOLUME 79.9 fl (81.0-99.0); MEAN CORPUSCULAR HEMOGLOBIN 25.1 pg (27.0-31.0); MEAN CORPUSCULAR HGB CONC 31.4 g/dL (33.0-37.0); MEAN PLATELET VOLUME 9.3 fl (7.2-11.7); MONO % 8.7 % (0.0-10.0); NEUT # 8.8 K/uL (1.8-7.0); NEUT % 78.4 % (50.0-75.0); NRBC % 0.2 % (0.0-0.0); RBC 4.13 Mil/uL (3.80-5.20); RED CELL DISTRIBUTION WIDTH 17.1 % (11.5-14.5); WHITE BLOOD COUNT 11.2 K/uL (4.8-10.8)
[2017-08-18 19:54] LABS: URINE BILIRUBIN NEGATIVE (NEGATIVE); URINE BLOOD SMALL (NEGATIVE); URINE CLARITY CLEAR (Clear); URINE COLOR YELLOW (YELLOW); URINE GLUCOSE (UA) NEG (Normal); URINE LEUKOCYTE ESTERASE SMALL Leu/uL (Negative); URINE PROTEIN NEGATIVE (NEGATIVE); URINE UROBILINOGEN 0.2-1.0 mg/dL (0.2-1.0)
[2017-08-18 19:56] LABS: INR 1.4 (0.9-1.2); PARTIAL THROMBOPLASTIN TIME 32.5 Seconds (25.6-37.1); PROTHROMBIN TIME 15.1 Seconds (9.8-13.1)
[2017-08-18 20:00] LABS: ALB/GLOB RATIO 0.8 (1.0-2.1); ALBUMIN 3.3 g/dL (3.5-5.0); CALCIUM 9.2 mg/dL (8.4-10.2)
--- NOTE | 2017-08-18 20:47 | RAD ---
EXAM: XR Chest, 2 Views CLINICAL HISTORY: 31 years old, female; Signs and symptoms; Fever; Additional info: R sided back pain TECHNIQUE: Frontal and lateral views of the chest. COMPARISON: CR - CHEST TWO VIEWS (PA/LAT) 2017-08-09 09:34 FINDINGS: Lungs/pleura: Elevation of the right hemidiaphragm with atelectasis. Evidence of small right effusion. Cannot exclude infectious infiltrate at the right lung base. Opacity in the left upper lung field concerning for infiltrate. Heart/mediastinum: No acute abnormality as visualized. No cardiomegaly. Bones: No acute abnormality as visualized. IMPRESSION: Elevation of the right hemidiaphragm with atelectasis. Evidence of small right effusion. Cannot exclude infectious infiltrate at the right lung base. Opacity in the left upper lung field concerning for infiltrate. Similar appearance compared to prior study. Followup evaluation recommended. Followup imaging to resolution recommended.
[2017-08-18] MEDS ORDERED: Sodium Chloride 0.9% 100 ML ONE (21:58)
[2017-08-18] MEDS ORDERED: Iodixanol 320 MG/ML 100 ML BOTTLE IV ONE (21:58)
[2017-08-18] MEDS ORDERED: Piperacillin/Tazobact 3.375 GM in Sodium Chloride 0.9% 100 ML IVPB STA (23:18)
[2017-08-18] MEDS ORDERED: Piperacillin/Tazobact 3.375 gm Inj IVPB ONE (23:40)
--- NOTE | 2017-08-19 00:38 | CP.PCM.HP ---
History of Present Illness - History of Present Illness History of Present Illness: Hx taken from patient and previous records PMD: [facility] 31 y/o F with PMHx of bacteremia and pelvic abscess after delivery via C-Sect on 07/22/17 and posterior hosp admission to [facility] from 08/03/17 to 08/14/17, presented to ED c/o persistent, progressively increasing in intensity chest pain to the right side of the thorax, nausea, 1 episode of NBNB vomiting and fever. As per patient when she was DC from hosp she was having the chest pain but was told was prob MSK from being in bed and was DC on NSAIDs, the chest pain has worsen and is spreading to a more extended area covering lateral/ medial and anterior/upper R/chest, worsen with movement and deep inspiration. Fever was 100.4 today as well as vomiting. She denies cough or SOB, she is able to climb 1 set of stairs at home without SOB, lochia s still present but as per patient is decreasing in amount, denies pelvic or abd pain. Denies sick contacts , recent traveling, pets, exposure to dust, chemicals, animals. Patient was born in [place] and has lived in [facility] for 17 years. Denies breast pain or swelling, she is pumping breast milk at home and baby is doing fine. She is . During her last admission she had a BCx positive for Enterobacter Sakasakki, repeated CT abd and pelvis on 08/13/16 showed markedly decrease in size of adnexal smaller abscess but minimally decrease in size of pelvic abscess. Patient was taking Cipro and Flagyl PO since DCed from [facility] 4 days ago. ED course: WBC 11.2 Hgb 10.3 PT/INR 15.1/1.4 Dimers 3117 CXR: R/pleura effusion. Left loculated atelectasies/opacity: Please see full report CT Chest: Moderate right pleural effusion with evidence of mild loculation. Collection of fluid visualized along with the major fissure. Atelectasis in association with right effusion in the lower lobe and right middle lobe. Likely associated infectious infiltrate also in this location. Masslike focus of infiltrate in the left upper lobe with air bronchograms. Minimal pericardial effusion. Spleen slightly prominent in size. BUN/Creat: 18/1.5 GFR 41 Lactate 0.8 Given Zsyn/Vanco one dose, IV fluids, Toradol, Zofran Bcx ordered PMHx: As per HPI SxHX: C-Sect x2 SHx: Denies x3, lives with family, no recent travel or sick contacts. Originally [place] town in [place] FhX: Mother, Father DM OBHx: S/P C-Sect 07/22/17, Uncomplicated , complicated with acute anemia that needed 1 unit of PRBC transfusion (Full terms) Had normal PAP 2016 Present on Admission - Present on Admission Any Indicators Present on Admission: No Review of Systems - Review of Systems All systems: reviewed and no additional remarkable complaints except - Constitutional Constitutional: Fever - Respiratory Additional comments: Pleuritic CP - Gastrointestinal Gastrointestinal: As Per HPI - Reproductive: Female Reproductive:Female: As Per HPI - Menstruation Menstruation: As Per HPI Past Patient History - Past Medical History & Family History Past Medical History?: Yes - Past Social History Smoking Status: Never Smoked Alcohol: None Home Situation {Lives}: With Family - CARDIAC Hx Hypertension: No - PULMONARY Hx Respiratory Disorders: No - NEUROLOGICAL Hx Neurological Disorder: No - HEENT Hx HEENT Problems: No - RENAL Hx Chronic Kidney Disease: No - ENDOCRINE/METABOLIC Hx Endocrine Disorders: No - HEMATOLOGICAL/ONCOLOGICAL Hx Blood Transfusions: Yes Hx Human Immunodeficiency Virus (HIV): No - INTEGUMENTARY Hx Dermatological Problems: No - MUSCULOSKELETAL/RHEUMATOLOGICAL Hx Musculoskeletal Disorders: No Hx Falls: No - GASTROINTESTINAL Hx Gastrointestinal Disorders: No - GENITOURINARY/GYNECOLOGICAL Hx Genitourinary Disorders: Yes (Pelvic abscess/Post bleeding) - PSYCHIATRIC Hx Depression: No - SURGICAL HISTORY Hx Surgeries: Yes Hx Section: Yes - ANESTHESIA Hx Anesthesia: Yes Hx Anesthesia Reactions: No Hx Malignant Hyperthermia: No Meds Allergies/Adverse Reactions: Allergies Allergy/AdvReac Type Severity Reaction Status Date / Time No Known Allergies Allergy Verified 08/18/17 18:29 Physical Exam - Constitutional Appears: Non-toxic, No Acute Distress - Head Exam Head Exam: ATRAUMATIC - Eye Exam Eye Exam: EOMI Pupil Exam: PERRL - ENT Exam ENT Exam: Mucous Membranes Moist - Respiratory Exam Respiratory Exam: Decreased Breath Sounds (R/lung base), NORMAL BREATHING PATTERN. absent: Rales, Rhonchi, Wheezes, Respiratory Distress - Cardiovascular Exam Cardiovascular Exam: REGULAR RHYTHM, +S1, +S2. absent: Gallop, Systolic Murmur - GI/Abdominal Exam GI & Abdominal Exam: Normal Bowel Sounds, Soft. absent: Distended, Mass, Rebound, Tenderness - Extremities Exam Extremities exam: Positive for: normal capillary refill. Negative for: calf tenderness, joint swelling, pedal edema, tenderness - Back Exam Back exam: absent: CVA tenderness (L), CVA tenderness (R) - Neurological Exam Neurological exam: Alert, CN II-XII Intact, Oriented x3 - Psychiatric Exam Psychiatric exam: Normal Affect, Normal Mood - Skin Skin Exam: Intact, Normal Color, Warm Results - Vital Signs Recent Vital Signs: Last Vital Signs Temp 98.2 F 08/19/17 00:35 Pulse 82 08/19/17 00:35 Resp 20 08/18/17 18:29 BP 125/86 08/19/17 00:35 Pulse Ox 97 08/19/17 00:35 - Labs Result Diagrams: 08/18/17 19:12 08/18/17 19:12 Labs: Laboratory Results - last 24 hr 08/18/17 08/18/17 08/18/17 19:05 19:12 19:12 WBC 11.2 H RBC 4.13 Hgb 10.3 L Hct 33.0 L MCV 79.9 L MCH 25.1 L MCHC 31.4 L RDW 17.1 H Plt Count 608 H MPV 9.3 Neut % (Auto) 78.4 H Lymph % (Auto) 11.3 L [place] % (Auto) 8.7 Eos % (Auto) 1.2 Baso % (Auto) 0.4 Neut # (Auto) 8.8 H Lymph # (Auto) 1.3 [place] # (Auto) 1.0 H Eos # (Auto) 0.1 Baso # (Auto) 0.0 PT INR APTT D-Dimer, Quantitative pO2 30 VBG pH 7.42 VBG pCO2 39 L VBG HCO3 24.6 VBG Total CO2 26.5 VBG O2 Sat (Calc) 56.3 VBG Base Excess 0.8 VBG Potassium 4.0 Sodium 139.0 143 Chloride 110.0 H 106 Glucose 129 H Lactate 0.8 FiO2 21.0 Potassium 4.7 Carbon Dioxide 25 Anion Gap 17 BUN 18 H Creatinine 1.5 H Est GFR ( Amer) 49 Est GFR (Non-Af Amer) 41 Random Glucose 130 H Calcium 9.2 Total Bilirubin 0.5 AST 23 ALT 30 Alkaline Phosphatase 116 Total Protein 7.4 Albumin 3.3 L D Globulin 4.1 H Albumin/Globulin Ratio 0.8 L Venous Blood Potassium 4.0 Urine Color Urine Clarity Urine pH Ur Specific [place] Urine Protein Urine Glucose (UA) Urine Ketones Urine Blood Urine Nitrate Urine Bilirubin Urine Urobilinogen Ur Leukocyte Esterase Urine RBC (Auto) Urine Microscopic WBC 08/18/17 08/18/17 19:12 19:12 WBC RBC Hgb Hct MCV MCH MCHC RDW Plt Count MPV Neut % (Auto) Lymph % (Auto) [place] % (Auto) Eos % (Auto) Baso % (Auto) Neut # (Auto) Lymph # (Auto) [place] # (Auto) Eos # (Auto) Baso # (Auto) PT 15.1 H INR 1.4 H APTT 32.5 D-Dimer, Quantitative 3117 H pO2 VBG pH VBG pCO2 VBG HCO3 VBG Total CO2 VBG O2 Sat (Calc) VBG Base Excess VBG Potassium Sodium Chloride Glucose Lactate FiO2 Potassium Carbon Dioxide Anion Gap BUN Creatinine Est GFR ( Amer) Est GFR (Non-Af Amer) Random Glucose Calcium Total Bilirubin AST ALT Alkaline Phosphatase Total Protein Albumin Globulin Albumin/Globulin Ratio Venous Blood Potassium Urine Color Yellow Urine Clarity Clear Urine pH 6.0 Ur Specific [place] 1.010 Urine Protein Negative Urine Glucose (UA) Neg Urine Ketones Negative Urine Blood Small Urine Nitrate Negative Urine Bilirubin Negative Urine Urobilinogen 0.2-1.0 Ur Leukocyte Esterase Small Urine RBC (Auto) 1 Urine Microscopic WBC 6 H Assessment & Plan - Assessment and Plan (Free Text) Assessment: Pleural effusion/Pneumonia PE likely chronic. Poss HCAP, although this is uncertain. Patient DCed from hosp 4 days ago and had similar symptoms to today's presentation during last inpatient stay as well as some changes including R/pleural effusion on CXR done at the time CT Chest at ED today: Moderate right pleural effusion with evidence of mild loculation. Collection of fluid visualized along with the major fissure. Atelectasis in association with right effusion in the lower lobe and right middle lobe. Likely associated infectious infiltrate also in this location. Masslike focus of infiltrate in the left upper lobe with air bronchograms. WBC 11.2. No cough, SOB C/O Pleuritic CP, 1 episode of fever S/p IV abx and 10 day hosp admission for pelvic abscess. C/W Zosyn/Vanco CPT/PEP valve Q8h Duonebs PRN Pulmonology consult: Dr Shepherd, will follow recs F/U Procalcitonin, AM CBC, Legionella ag, sputum Cx and Citology, BCx, Quantiferon, INES, RF, ESR. MILIND Impaired BUN/Creat/GFR that is a new finding Unknown F/U repeat BMP AM IV fluids F/U abd US Microcitic anemia IMproving Patient anemic since delivery and has been on Iron BID at home. Hgb today 10.3 which continue trending up since C-Sect F/U Iron studies, VIt b12, Folate Coagulopathy Elevated PT/INR/D-Dimers/Platelets POss related to infectious/inflammatory process? R/O malignancy Consider Hem-onc consult Denies LE pain. CT angio chest no PE F/U Abd/Pelvis US F/U INES/ESR Pelvic abscess Recently DCed from hosp after 10 days of IV abx C/W Zosyn/Vanco IV CT Abd/Pelvis on 08/13/17: Some interval improvement from initial CT Denies pelvic/abd pain F/U Abd/TV US Small pericardial effusion Chest CT finding F/U Echo, INES, RF, ESR Prophylactic measures Florastor Hold anticoag for now since PT/INR slightly elevated SCDs
[2017-08-19] MEDS ORDERED: Sodium Chloride 3% for Inhalation 4 ML VIAL.NEB IH PRN (00:39)
[2017-08-19] MEDS ORDERED: Albuterol-Ipratrop 3 mg / 0.5 (3 ml) UD INH PRN (01:04)
--- NOTE | 2017-08-19 01:23 | ED PDOC ---
"- Laboratory Results Result Diagrams: 08/18/17 19:12 08/18/17 19:12 - ECG O2 Sat by Pulse Oximetry: 96 Pulse Ox Interpretation: Normal Medical Decision Making Medical Decision Making: EXAM: CT Angiography Chest With Intravenous Contrast CLINICAL HISTORY: 31 years old, female; Signs and symptoms; Other: Vomiting, fever; Additional info: R/O pe, elevated d-dimer, rib pain TECHNIQUE: Axial computed tomographic angiography images of the chest with intravenous contrast using pulmonary embolism protocol. All CT scans at this facility use one or more dose reduction techniques, viz.: automated exposure control; ma/kV adjustment per patient size (including targeted exams where dose is matched to indication; i.e. head); or iterative reconstruction technique. MIP reconstructed images were created and reviewed. Coronal and sagittal reformatted images were created and reviewed. CONTRAST: 95 mL of VISIPAQUE 320 administered intravenously. COMPARISON: CR - CHEST TWO VIEWS (PA/LAT) 2017-08-09 09:34 FINDINGS: Pulmonary arteries: No acute abnormality as visualized. No pulmonary embolism. Aorta: No acute findings. No thoracic aortic aneurysm. Lungs: Atelectasis in association with right effusion in the lower lobe and right middle lobe. Likely associated infectious infiltrate also in this location. Masslike focus of infiltrate in the left upper lobe with air bronchograms. Pleural space: Moderate right effusion with evidence of mild loculation. Collection of fluid visualized along with the major fissure. No pneumothorax. Heart: Minimal pericardial effusion. No cardiomegaly. Bones: No acute fracture. Soft tissues: No acute abnormality as visualized. Lymph nodes: No acute abnormality as visualized. No enlarged lymph nodes. Spleen slightly prominent in size. IMPRESSION: JUANI ANDREWS | Preliminary Radiology Report FPGA ENGINEER (QA) DISCREPANCY? If there is a discrepancy between the preliminary and final interpretation, please notify [facility] via [email or web address]. If you do not have access to our QA portal, call our QA team at [phone] CONFIDENTIALITY STATEMENT This report is intended only for the use of the referring physician, and only in accordance with law, If you received this in error, call [phone] Page 2 of 2 Moderate right pleural effusion with evidence of mild loculation. Collection of fluid visualized along with the major fissure. Atelectasis in association with right effusion in the lower lobe and right middle lobe. Likely associated infectious infiltrate also in this location. Masslike focus of infiltrate in the left upper lobe with air bronchograms. Minimal pericardial effusion. Spleen slightly prominent in size. Patient was endorsed to me pending labwork. Patient had elevated d-dimer requiring CT Angio, no clot seen but pleural effusions and PNA identified. Blood Cx's previously ordered, ABx ordered, will require admission. Case discussed with family practice resident. Disposition - Clinical Impression Clinical Impression: Pleural effusion, Pneumonia - POA Present On Arrival: None - Disposition Disposition: Admitted as In-Patient Disposition Time: 23:00 Condition: FAIR"
[2017-08-19] MEDS: Piperacillin/Tazobact 3.375 GM in Sodium Chloride 0.9% 100 ML IVPB SCH ×5 (06:08→23:45)
[2017-08-19 08:21] LABS: BASO # 0.1 K/uL (0.0-0.2); BASO % 0.6 % (0.0-2.0); EOS # 0.1 K/uL (0.0-0.7); EOS % 1.5 % (0.0-4.0); HEMOGLOBIN 9.3 g/dL (12.0-16.0); LYMPH # 1.5 K/uL (1.0-4.3); LYMPH % 15.8 % (20.0-40.0); MEAN CELL VOLUME 79.7 fl (81.0-99.0); MEAN CORPUSCULAR HEMOGLOBIN 25.3 pg (27.0-31.0); MEAN CORPUSCULAR HGB CONC 31.7 g/dL (33.0-37.0); MONO % 10.4 % (0.0-10.0); NEUT # 6.8 K/uL (1.8-7.0); NEUT % 71.7 % (50.0-75.0); RBC 3.68 Mil/uL (3.80-5.20); RED CELL DISTRIBUTION WIDTH 16.8 % (11.5-14.5); WHITE BLOOD COUNT 9.5 K/uL (4.8-10.8)
[2017-08-19 08:30] LABS: IRON 19 ug/dL (37-170)
[2017-08-19 08:38] LABS: ALB/GLOB RATIO 0.7 (1.0-2.1); ALBUMIN 2.6 g/dL (3.5-5.0); CALCIUM 8.3 mg/dL (8.4-10.2)
[2017-08-19 08:41] LABS: % IRON SATURATION 8 % (20-55); TOTAL IRON BINDING CAPACITY 233 ug/dL (250-450)
--- NOTE | 2017-08-19 09:31 | CT ---
PROCEDURE: CT Chest with contrast (Pulmonary Angiogram) HISTORY: r/o PE, elevated D-Dimer, rib pain COMPARISON: None available. TECHNIQUE: Axial computed tomography images were obtained of the chest in the pulmonary arterial phase of enhancement. Coronal and sagittal reformatted images were created and reviewed. Intravenous contrast dose: Radiation dose: Total exam DLP = mGy-cm. This CT exam was performed using one or more of the following dose reduction techniques: Automated exposure control, adjustment of the mA and/or kV according to patient size, and/or use of iterative reconstruction technique. FINDINGS: PULMONARY ARTERIES: Unremarkable. No pulmonary embolism. AORTA: No acute findings. No thoracic aortic aneurysm. LUNGS: Moderate right pleural effusion with evidence of mild loculation. Collection of fluid visualized along the left major fissure. Atelectasis in association with right pleural effusion in the right lower lobe and right middle lobe. A likely infectious infiltrate in this location as well masslike focus of infiltrate in the left upper lobe with air bronchograms. PLEURAL SPACES: See above. HEART: Small pericardial effusion. LYMPH NODES: No lymphadenopathy. BONES, CHEST WALL: Unremarkable. No fracture or destructive lesion OTHER FINDINGS: Unremarkable. IMPRESSION: Moderate right pleural effusion with evidence of mild loculation. Collection of fluid visualized along the left major fissure. Atelectasis in association with right pleural effusion in the right lower lobe and right middle lobe. A likely infectious infiltrate in this location as well masslike focus of infiltrate in the left upper lobe with air bronchograms.
[2017-08-19] MEDS: Saccharomyces Boulardi 250 mg Cap PO SCH ×2 (09:40→17:13)
--- NOTE | 2017-08-19 10:22 | US ---
HISTORY: S/P Pelvic Abcess. Pleural effusion COMPARISON: None. TECHNIQUE: Sonographic evaluation of the abdomen. FINDINGS: LIVER: Measures cm. Normal echogenicity of the liver parenchyma. No mass. No intrahepatic bile duct dilatation. GALLBLADDER: Unremarkable. No gallstones. COMMON BILE DUCT: Measures mm. No stones. No dilatation. PANCREAS: Unremarkable as visualized. No mass. No ductal dilatation. RIGHT KIDNEY: Measures cm. Normal echogenicity. No calculus, mass, or hydronephrosis. LEFT KIDNEY: Measures cm. Normal echogenicity. No calculus, mass, or hydronephrosis. SPLEEN: Normal in size and contour. No mass. AORTA: No aneurysmal dilatation. IVC: Unremarkable. OTHER FINDINGS: Right pleural effusion. IMPRESSION: Right pleural effusion.
--- NOTE | 2017-08-19 13:44 | US ---
PROCEDURE: HISTORY: S/P Pelvic abscess and C-Sect COMPARISON: 03/09/2016 TECHNIQUE: FINDINGS: The uterus measures 15.9 x 8.5 x 11.0 centimeters. The endometrium measures 7 millimeters. There is an anterior complex cystic mass measuring 10.7 centimeters with a central echogenic region measuring 2.3 centimeters. The ovaries are not identified. IMPRESSION: Anterior complex cystic utero mass measuring up to 10.7 centimeters which is nonspecific in appearance. It is uncertain whether this is uterine or adnexal in origin. This could represent an abscess. Recommend correlation with pelvic MRI with contrast.
[2017-08-19 18:44] LABS: FOLATE 15.1 ng/mL
--- NOTE | 2017-08-19 19:45 | CP.PCM.CON ---
History of Present Illness - History of Present Illness History of Present Illness: Pulmonary consult. 31 y/o F, admitted on 08/18/17 c/o of CP R side of the thorax, extended to lateral/medial, anterior/upper R chest, pain has continued from last day she was discharged from [facility] on 08/11/17. Currently, Pt c/o of increased pain from 2 days CORRESPONDENT associated to fever 100.4F, nausea, vomiting x1 NBNB, also associated intermittent cough with scanty phlegms, denied SOB. Pt was taking abx from last admission with no complete relief. Worsening Symptoms: CT Chest showing R moderate pleural effusion with evidence of mild loculation collection of of fluid visualized along the major fissure. Atelectasis RLL, and R middle lobe. A likely infectious infiltrate in this location as well mass-like focus of infiltrate in the left upper lobe with air bronchograms. Pt with no chronic PMHx, Born in [place], living in [facility] x 17 yrs, Pt is s/p C - Section on 07/22/17, admitted to [facility], [place] on 08/03/17 to 08/11/17 with sepsis possible 2nd to pelvic abscess. There after, on 08/07/17, she had IR drainage of abscess with improvement. On 08/11/17, Pt was discharged home but stated that chest pain continue. Aggravated factor: Movements/ deep inspiration. Pt denied: SOB, bloody cough, exposures to dust, chemicals or animal, diarrhea , abdominal/pelvic pain, urinary symptoms, sick contact, recent travel out of [facility]. Review of Systems - Constitutional Constitutional: Chills, Fever, Malaise - EENT Eyes: Other (negative) Ears: Other (negative) Nose/Mouth/Throat: Other (negative) - Cardiovascular Cardiovascular: Chest Pain - Respiratory Respiratory: Cough - Gastrointestinal Gastrointestinal: Nausea, Vomiting - Genitourinary Genitourinary: Other (negative) - Musculoskeletal Musculoskeletal: Other (negative) - Integumentary Integumentary: Other (negative) - Neurological Neurological: Other (negative) - Psychiatric Psychiatric: Other (negative) - Endocrine Endocrine: Other (negative) - Hematologic/Lymphatic Hematologic: Other (negative) Past Patient History - Past Medical History & Family History Past Medical History?: Yes Pertinent Family History: Unknown - Past Social History Smoking Status: Never Smoked Alcohol: None Drugs: Denies Home Situation {Lives}: With Family - CARDIAC Hx Cardiac Disorders: No Hx Hypertension: No - PULMONARY Hx Respiratory Disorders: No - NEUROLOGICAL Hx Neurological Disorder: No - HEENT Hx HEENT Problems: No - RENAL Hx Chronic Kidney Disease: No - ENDOCRINE/METABOLIC Hx Endocrine Disorders: No - HEMATOLOGICAL/ONCOLOGICAL Hx Blood Disorders: Yes Hx Blood Transfusions: Yes Hx Human Immunodeficiency Virus (HIV): No - INTEGUMENTARY Hx Dermatological Problems: No - MUSCULOSKELETAL/RHEUMATOLOGICAL Hx Musculoskeletal Disorders: No Hx Falls: No - GASTROINTESTINAL Hx Gastrointestinal Disorders: No - GENITOURINARY/GYNECOLOGICAL Hx Genitourinary Disorders: Yes (Pelvic abscess/Post bleeding) - PSYCHIATRIC Hx Psychophysiologic Disorder: No Hx Depression: No - SURGICAL HISTORY Hx Surgeries: Yes Hx Section: Yes - ANESTHESIA Hx Anesthesia: Yes Hx Anesthesia Reactions: No Hx Malignant Hyperthermia: No Meds Allergies/Adverse Reactions: Allergies Allergy/AdvReac Type Severity Reaction Status Date / Time No Known Allergies Allergy Verified 08/18/17 18:29 - Medications Medications: Current Medications Acetaminophen (Tylenol 325mg Tab) 650 mg PO Q6 PRN PRN Reason: Fever >100.4 F Albuterol/Ipratropium (Duoneb 3 Mg/0.5 Mg (3 Ml) Ud) 3 ml INH RQ6 PRN PRN Reason: Shortness of Breath Famotidine (Pepcid) 20 mg PO BID [facility] Last Admin: 08/19/17 17:13 Dose: 20 mg Ferrous Sulfate (Feosol) 325 mg PO BID [facility] Last Admin: 08/19/17 17:13 Dose: 325 mg Vancomycin HCl 1 gm/ Sodium (Chloride) 250 mls @ 166.667 mls/hr IVPB Q12 MARCIA PRN Reason: Protocol Last Admin: 08/19/17 13:24 Dose: 166.667 mls/hr Piperacillin Sod/Tazobactam (Sod 3.375 gm/ Sodium Chloride) 100 mls @ 100 mls/ hr IVPB Q6H MARCIA PRN Reason: Protocol Last Admin: 08/19/17 17:13 Dose: 100 mls/hr Ibuprofen (Motrin Tab) 600 mg PO Q6 PRN PRN Reason: Pain, Mild (1-3) Ondansetron HCl (Zofran Inj) 4 mg IVP Q6 PRN PRN Reason: Nausea/Vomiting Saccharomyces Boulardii (Florastor) 250 mg PO BID [facility] Last Admin: 08/19/17 17:13 Dose: 250 mg Senna/Docusate Sodium (Senokot S 50 Mg-8.6 Mg) 1 tab PO [facility] Physical Exam - Constitutional Appears: No Acute Distress - Head Exam Head Exam: NORMAL INSPECTION - Eye Exam Eye Exam: PERRL - ENT Exam ENT Exam: Normal Exam - Neck Exam Neck exam: Positive for: Normal Inspection - Respiratory Exam Respiratory Exam: Chest Wall Tenderness (mild), NORMAL BREATHING PATTERN - Cardiovascular Exam Cardiovascular Exam: REGULAR RHYTHM - GI/Abdominal Exam GI & Abdominal Exam: Normal Bowel Sounds, Soft - Extremities Exam Extremities exam: Positive for: normal inspection - Neurological Exam Neurological exam: Alert, Oriented x3 - Psychiatric Exam Psychiatric exam: Normal Mood - Skin Skin Exam: Warm Results - Vital Signs Recent Vital Signs: Last Vital Signs Temp 98.6 F 08/19/17 15:37 Pulse 84 08/19/17 15:37 Resp 20 08/19/17 15:37 BP 108/73 08/19/17 15:37 Pulse Ox 95 08/19/17 15:37 reviewed Adalgisa - Labs Result Diagrams: 08/20/17 05:30 08/20/17 05:30 Labs: Laboratory Results - last 24 hr 08/18/17 08/18/17 08/18/17 19:05 19:12 19:12 WBC 11.2 H RBC 4.13 Hgb 10.3 L Hct 33.0 L MCV 79.9 L MCH 25.1 L MCHC 31.4 L RDW 17.1 H Plt Count 608 H MPV 9.3 Neut % (Auto) 78.4 H Lymph % (Auto) 11.3 L [place] % (Auto) 8.7 Eos % (Auto) 1.2 Baso % (Auto) 0.4 Neut # (Auto) 8.8 H Lymph # (Auto) 1.3 [place] # (Auto) 1.0 H Eos # (Auto) 0.1 Baso # (Auto) 0.0 ESR PT INR APTT D-Dimer, Quantitative pO2 30 VBG pH 7.42 VBG pCO2 39 L VBG HCO3 24.6 VBG Total CO2 26.5 VBG O2 Sat (Calc) 56.3 VBG Base Excess 0.8 VBG Potassium 4.0 Sodium 139.0 143 Chloride 110.0 H 106 Glucose 129 H Lactate 0.8 FiO2 21.0 Potassium 4.7 Carbon Dioxide 25 Anion Gap 17 BUN 18 H Creatinine 1.5 H Est GFR ( Amer) 49 Est GFR (Non-Af Amer) 41 Random Glucose 130 H Calcium 9.2 Iron TIBC % Saturation Ferritin Total Bilirubin 0.5 AST 23 ALT 30 Alkaline Phosphatase 116 Total Protein 7.4 Albumin 3.3 L D Globulin 4.1 H Albumin/Globulin Ratio 0.8 L Vitamin B12 Folate Procalcitonin TSH 3rd Generation Venous Blood Potassium 4.0 Urine Color Urine Clarity Urine pH Ur Specific Harper Urine Protein Urine Glucose (UA) Urine Ketones Urine Blood Urine Nitrate Urine Bilirubin Urine Urobilinogen Ur Leukocyte Esterase Urine RBC (Auto) Urine Microscopic WBC Ur L.pneumophila Ag 08/18/17 08/18/17 08/19/17 19:12 19:12 06:30 WBC 9.5 RBC 3.68 L Hgb 9.3 L Hct 29.3 L MCV 79.7 L MCH 25.3 L MCHC 31.7 L RDW 16.8 H Plt Count 529 H MPV 9.0 Neut % (Auto) 71.7 Lymph % (Auto) 15.8 L [place] % (Auto) 10.4 H Eos % (Auto) 1.5 Baso % (Auto) 0.6 Neut # (Auto) 6.8 Lymph # (Auto) 1.5 [place] # (Auto) 1.0 H Eos # (Auto) 0.1 Baso # (Auto) 0.1 ESR 76 H PT 15.1 H INR 1.4 H APTT 32.5 D-Dimer, Quantitative 3117 H pO2 VBG pH VBG pCO2 VBG HCO3 VBG Total CO2 VBG O2 Sat (Calc) VBG Base Excess VBG Potassium Sodium Chloride Glucose Lactate FiO2 Potassium Carbon Dioxide Anion Gap BUN Creatinine Est GFR ( Amer) Est GFR (Non-Af Amer) Random Glucose Calcium Iron TIBC % Saturation Ferritin Total Bilirubin AST ALT Alkaline Phosphatase Total Protein Albumin Globulin Albumin/Globulin Ratio Vitamin B12 Folate Procalcitonin TSH 3rd Generation Venous Blood Potassium Urine Color Yellow Urine Clarity Clear Urine pH 6.0 Ur Specific Harper 1.010 Urine Protein Negative Urine Glucose (UA) Neg Urine Ketones Negative Urine Blood Small Urine Nitrate Negative Urine Bilirubin Negative Urine Urobilinogen 0.2-1.0 Ur Leukocyte Esterase Small Urine RBC (Auto) 1 Urine Microscopic WBC 6 H Ur L.pneumophila Ag 08/19/17 08/19/17 08/19/17 06:30 06:30 06:30 WBC RBC Hgb Hct MCV MCH MCHC RDW Plt Count MPV Neut % (Auto) Lymph % (Auto) [place] % (Auto) Eos % (Auto) Baso % (Auto) Neut # (Auto) Lymph # (Auto) [place] # (Auto) Eos # (Auto) Baso # (Auto) ESR PT INR APTT D-Dimer, Quantitative pO2 VBG pH VBG pCO2 VBG HCO3 VBG Total CO2 VBG O2 Sat (Calc) VBG Base Excess VBG Potassium Sodium 141 Chloride 106 Glucose Lactate FiO2 Potassium 3.8 Carbon Dioxide 21 L Anion Gap 18 BUN 13 Creatinine 1.3 H Est GFR ( Amer) 58 Est GFR (Non-Af Amer) 48 Random Glucose 99 Calcium 8.3 L Iron 19 L TIBC 233 L % Saturation 8 L Ferritin 146.0 H Total Bilirubin 0.4 AST 23 ALT 22 Alkaline Phosphatase 90 Total Protein 6.3 Albumin 2.6 L D Globulin 3.7 Albumin/Globulin Ratio 0.7 L Vitamin B12 438 Folate 15.1 Procalcitonin 0.12 L TSH 3rd Generation 1.70 Venous Blood Potassium Urine Color Urine Clarity Urine pH Ur Specific Harper Urine Protein Urine Glucose (UA) Urine Ketones Urine Blood Urine Nitrate Urine Bilirubin Urine Urobilinogen Ur Leukocyte Esterase Urine RBC (Auto) Urine Microscopic WBC Ur L.pneumophila Ag 08/19/17 10:15 WBC RBC Hgb Hct MCV MCH MCHC RDW Plt Count MPV Neut % (Auto) Lymph % (Auto) [place] % (Auto) Eos % (Auto) Baso % (Auto) Neut # (Auto) Lymph # (Auto) [place] # (Auto) Eos # (Auto) Baso # (Auto) ESR PT INR APTT D-Dimer, Quantitative pO2 VBG pH VBG pCO2 VBG HCO3 VBG Total CO2 VBG O2 Sat (Calc) VBG Base Excess VBG Potassium Sodium Chloride Glucose Lactate FiO2 Potassium Carbon Dioxide Anion Gap BUN Creatinine Est GFR ( Amer) Est GFR (Non-Af Amer) Random Glucose Calcium Iron TIBC % Saturation Ferritin Total Bilirubin AST ALT Alkaline Phosphatase Total Protein Albumin Globulin Albumin/Globulin Ratio Vitamin B12 Folate Procalcitonin TSH 3rd Generation Venous Blood Potassium Urine Color Urine Clarity Urine pH Ur Specific [place] Urine Protein Urine Glucose (UA) Urine Ketones Urine Blood Urine Nitrate Urine Bilirubin Urine Urobilinogen Ur Leukocyte Esterase Urine RBC (Auto) Urine Microscopic WBC Ur L.pneumophila Ag Negative reviewed J.P. - EKG Data EKG comments: reviewed J.P. - Imaging and Cardiology CT scan - chest Status: Report reviewed by me (Adalgisa) Chest x-ray Status: Report reviewed by me (Adalgisa) US - abdomen Status: Report reviewed by me (Adalgisa) Assessment & Plan (1) Pleural effusion Status: Acute Priority: High (2) Atelectasis of right lung Status: Acute Priority: High (3) PNA (pneumonia) Status: Acute Priority: High - Assessment and Plan (Free Text) Plan: F/U Sputum C-S, Continue Vanco, Zosyn, Duoneb, Lovenox and rest of Tx. IR Thoracentesis for R pleural effusion. ID consult. - Date & Time Date: 08/19/17 Time: 17:30
[2017-08-19] MEDS: Docusate-Senna 50 mg-8.6 mg Tab PO SCH (21:44)
[2017-08-20] MEDS: Piperacillin/Tazobact 3.375 GM in Sodium Chloride 0.9% 100 ML IVPB SCH ×4 (06:17→23:32)
[2017-08-20 06:34] LABS: HEMOGLOBIN 9.1 g/dL (12.0-16.0); MEAN CELL VOLUME 79.5 fl (81.0-99.0); MEAN CORPUSCULAR HEMOGLOBIN 25.8 pg (27.0-31.0); MEAN CORPUSCULAR HGB CONC 32.5 g/dL (33.0-37.0); RBC 3.53 Mil/uL (3.80-5.20); RED CELL DISTRIBUTION WIDTH 16.5 % (11.5-14.5); WHITE BLOOD COUNT 7.9 K/uL (4.8-10.8)
[2017-08-20 06:42] LABS: INR 1.3 (0.9-1.2); PROTHROMBIN TIME 14.8 Seconds (9.8-13.1)
[2017-08-20 07:16] LABS: ALB/GLOB RATIO 0.8 (1.0-2.1); ALBUMIN 2.7 g/dL (3.5-5.0); ALT/SGPT 27 U/L (9-52); AST/SGOT 23 U/L (14-36); BLOOD UREA NITROGEN 10 mg/dl (7-17); CALCIUM 8.6 mg/dL (8.4-10.2); GFR AFRICAN-AMERICAN > 60; GFR NON-AFRICAN AMERICAN > 60
[2017-08-20] MEDS: Saccharomyces Boulardi 250 mg Cap PO SCH ×2 (08:34→16:34)
--- NOTE | 2017-08-20 09:02 | CARD ---
APPROVED REPORT EKG Measurement Heart [id number] <Conclusion> Normal sinus rhythm with sinus arrhythmia Normal ECG
[2017-08-20] MEDS ORDERED: Lidocaine 1% Inj (20ml) ONE (11:01)
--- NOTE | 2017-08-20 11:46 | CP.PCM.PN ---
Subjective - Date & Time of Evaluation Date of Evaluation: 08/20/17 Time of Evaluation: 08:00 - Subjective Subjective: No acute overnight events. Pt seen and examined at the bedside this morning. States she feels her back/posterior chest wall pain is controlled. Denies shortness of breath, cough, abdominal pain, n/v/d, calf pain, fever, chills. Explained plan with pt for thorocentesis. Questions regarding procedures asked and answered. Pt verbalized understanding. Objective - Vital Signs/Intake and Output Vital Signs (last 24 hours): Temp Pulse Resp BP Pulse Ox 99 F 92 H 18 119/76 97 08/20/17 11:33 08/20/17 11:33 08/20/17 11:33 08/20/17 11:33 08/20/17 11:33 - Medications Medications: Current Medications Acetaminophen (Tylenol 325mg Tab) 650 mg PO Q6 PRN PRN Reason: Fever >100.4 F Albuterol/Ipratropium (Duoneb 3 Mg/0.5 Mg (3 Ml) Ud) 3 ml INH RQ6 PRN PRN Reason: Shortness of Breath Famotidine (Pepcid) 20 mg PO BID [facility] Last Admin: 08/20/17 08:34 Dose: 20 mg Ferrous Sulfate (Feosol) 325 mg PO BID [facility] Last Admin: 08/20/17 08:33 Dose: 325 mg Vancomycin HCl 1 gm/ Sodium (Chloride) 250 mls @ 166.667 mls/hr IVPB Q12 MARCIA PRN Reason: Protocol Last Admin: 08/20/17 08:34 Dose: 166.667 mls/hr Piperacillin Sod/Tazobactam (Sod 3.375 gm/ Sodium Chloride) 100 mls @ 100 mls/ hr IVPB Q6H MARCIA PRN Reason: Protocol Last Admin: 08/20/17 06:17 Dose: 100 mls/hr Ibuprofen (Motrin Tab) 600 mg PO Q6 PRN PRN Reason: Pain, Mild (1-3) Ondansetron HCl (Zofran Inj) 4 mg IVP Q6 PRN PRN Reason: Nausea/Vomiting Saccharomyces Boulardii (Florastor) 250 mg PO BID [facility] Last Admin: 08/20/17 08:34 Dose: 250 mg Senna/Docusate Sodium (Senokot S 50 Mg-8.6 Mg) 1 tab PO HS [facility] Last Admin: 08/19/17 21:44 Dose: 1 tab - Labs Labs: 08/20/17 05:30 08/20/17 05:30 PT 14.8 Seconds (9.8-13.1) H 08/20/17 05:30 INR 1.3 (0.9-1.2) H 08/20/17 05:30 APTT 32.5 Seconds (25.6-37.1) 08/18/17 19:12 - Constitutional Appears: Well, Non-toxic, No Acute Distress - ENT Exam ENT Exam: Mucous Membranes Moist - Respiratory Exam Respiratory Exam: Chest Wall Tenderness. absent: Accessory Muscle Use, Prolonged Expiratory Phase, Rales, Wheezes, Respiratory Distress Additional comments: Poor breath sounds on right mid and lower lung bases, no rales appreciated. + R Chest wall tenderness - Cardiovascular Exam Cardiovascular Exam: REGULAR RHYTHM, +S1, +S2. absent: Murmur - GI/Abdominal Exam GI & Abdominal Exam: Normal Bowel Sounds. absent: Distended, Tenderness - Extremities Exam Extremities Exam: Normal Inspection - Neurological Exam Neurological Exam: Alert, Awake, Oriented x3 - Psychiatric Exam Psychiatric exam: Normal Mood - Skin Skin Exam: Normal Color Assessment and Plan - Assessment and Plan (Free Text) Assessment: 31 y/o F admitted with moderate pleural effusion. Pt was recently d/c after 10 day hosp admission for pelvic abscess complication from c secton on 07/23. S/P thoracentisis Pleural effusion -Etiology unknown. Working differential includes Transudative 2/2 to low albumin , ParaPNU effusion, Patient DCed from hosp 4 days ago and had similar symptoms to today's presentation during last inpatient stay as well as some changes including R/pleural effusion on CXR done at the time. -S/p IV abx and 10 day hosp admission for pelvic abscess. -No cough, SOB, C/O Pleuritic CP -WBC 7.9 today, procalcitonin -Cxray: Moderate R. Pleural effusion -CT Chest at ED today: Moderate right pleural effusion with evidence of mild loculation. Mass-like focus of infiltrate in the left. Pulmonary arteries no PE upper lobe with air bronchograms. -Pulmonology consult: Dr Shepherd, thoracentesis completed, pleural fluid analysis sent -C/W Zosyn/Vanco -CPT/PEP valve Q8h -Duonebs PRN and Incentive spirometry q1hr -F/U am Procalcitonin, AM CBC, Legionella ag, sputum Cx and Citology, BCx, Quantiferon, INES, RF, ESR, BCx, Pelvic abscess -Recently DCed from hosp after 10 days of IV abx -C/W Zosyn/Vanco IV -CT Abd/Pelvis on 08/13/17: Some interval improvement from initial CT -Denies pelvic/abd pain -F/U Abd/TV US -ID Consulted, Dr. Jannie VAZ, improved -Crea 0.9 today -Likely prerenal 2/2 dehydration -IV fluids Microcitic anemia -Improving -Patient anemic since delivery and has been on Iron BID at home. -Hgb 9.1 today, 10 on admission -F/U Iron studies, VIt b12, Folate Coagulopathy -Elevated PT/INR/D-Dimers/Platelets -POss related to infectious/inflammatory process? -Consider Hem-onc consult -Denies LE pain. CT angio chest no PE -F/U Abd/Pelvis US -F/U INES/ESR Small pericardial effusion -Chest CT finding -F/U Echo, INES, RF, ESR -F/u Echo Prophylactic measures -Florastor -Hold anticoag for now since PT/INR slightly elevated -SCDs Diet -Regular
--- NOTE | 2017-08-20 11:52 | US ---
PROCEDURE: ULTRASOUND-GUIDED THORACENTESIS CLINICAL HISTORY: 31-year-old female with suspected loculated right pleural effusion is referred to Interventional Radiology for ultrasound-guided thoracentesis. COMPARISON: CT angiography of the pulmonary arteries dated 08/18/2017 PROCEDURE: 1. Ultrasound-guided right thoracentesis. PRE-PROCEDURE FINDINGS: 1. Moderate volume simple. Pleural effusion. POST-PROCEDURE FINDINGS: 1. No evidence of post-procedural complication. INTERVENTIONAL RADIOLOGIST: Norberto Randolph M.D. (the attending was present for the entire procedure) ANESTHESIA: None. MEDICATION: Lidocaine 1% for local subcutaneous analgesia. COMPLICATIONS: None. PROCEDURE DESCRIPTION AND FINDINGS: The risks, benefits, alternatives and possible complications of the procedure were fully discussed; all questions were answered and informed consent was obtained. The patient was brought into the interventional suite and a pre-procedure 'time-out' was performed. The patient was placed in the seated position. Preliminary ultrasound images of the right hemithorax demonstrate a moderate simple appearing pleural effusion. The right hemithorax was prepped and draped in the usual sterile fashion. Maximum sterile barrier precautions were maintained throughout the entire procedure. Following subcutaneous infiltration of lidocaine 1% for local analgesia, under ultrasound guidance, a 5 Cambodian centesis catheter was advanced into right pleural space with real-time visualization of needle entry. The ultrasound images were permanently recorded and submitted to the PACS. The inner stylet was removed with prompt return of serosanguineous fluid. The catheter was attached to gentle vacuum suction. A total of 800 mL of serosanguineous fluid was aspirated. A sample was sent to the laboratory for analysis. The drainage catheter was then removed. A sterile adhesive bandage was placed over the puncture site. The patient tolerated the procedure well without immediate post-procedure complications and was transferred back to the floor in stable condition. IMPRESSION: SUCCESSFUL ULTRASOUND-GUIDED RIGHT DIAGNOSTIC AND THERAPEUTIC THORACENTESIS.
--- NOTE | 2017-08-20 12:40 | PCM.SURG1 ---
Surgeon's Initial Post Op Note - Surgeon's Notes Surgeon: Norberto Ranodlph MD Hydraulic Lift Driver: None Type of Anesthesia: Local Pre-Operative Diagnosis: pleural effusion Operative Findings: moderate RIGHT simple appearing pleural effusion Post-Operative Diagnosis: same Operation Performed: US guided RIGHT thoracentesis Specimen/Specimens Removed: 800 cc serosanguinous fluid. sample submitted Estimated Blood Loss: EBL {In ML}: 0 Date of Surgery/Procedure: 08/20/17 Time of Surgery/Procedure: 11:10
[2017-08-20 15:15] LABS: BODY FLUID TYPE PLEURAL/THORACENTESI
[2017-08-20 15:44] LABS: GLUCOSE,BODY FLUID 88 mg/dL (NONE ESTABLISHED)
--- NOTE | 2017-08-20 16:47 | CP.PCM.PN ---
Subjective - Date & Time of Evaluation Date of Evaluation: 08/20/17 Time of Evaluation: 10:00 - Subjective Subjective: F/U Pleural effusion. No A/D, breathing better. Objective - Vital Signs/Intake and Output Vital Signs (last 24 hours): Temp Pulse Resp BP Pulse Ox 98.1 F 93 H 18 107/72 95 08/20/17 15:57 08/20/17 15:57 08/20/17 15:57 08/20/17 15:57 08/20/17 15:57 - Medications Medications: Current Medications Acetaminophen (Tylenol 325mg Tab) 650 mg PO Q6 PRN PRN Reason: Fever >100.4 F Albuterol/Ipratropium (Duoneb 3 Mg/0.5 Mg (3 Ml) Ud) 3 ml INH RQ6 PRN PRN Reason: Shortness of Breath Enoxaparin Sodium (Lovenox) 40 mg SC DAILY [facility] PRN Reason: Protocol Famotidine (Pepcid) 20 mg PO BID [facility] Last Admin: 08/20/17 16:34 Dose: 20 mg Ferrous Sulfate (Feosol) 325 mg PO BID [facility] Last Admin: 08/20/17 16:34 Dose: 325 mg Vancomycin HCl 1 gm/ Sodium (Chloride) 250 mls @ 166.667 mls/hr IVPB Q12 [facility] PRN Reason: Protocol Last Admin: 08/20/17 08:34 Dose: 166.667 mls/hr Piperacillin Sod/Tazobactam (Sod 3.375 gm/ Sodium Chloride) 100 mls @ 100 mls/ hr IVPB Q6H [facility] PRN Reason: Protocol Last Admin: 08/20/17 13:49 Dose: 100 mls/hr Ibuprofen (Motrin Tab) 600 mg PO Q6 PRN PRN Reason: Pain, Mild (1-3) Last Admin: 08/20/17 13:45 Dose: 600 mg Morphine Sulfate (Morphine) 2 mg IVP Q4 PRN PRN Reason: Pain, moderate (4-7) Ondansetron HCl (Zofran Inj) 4 mg IVP Q6 PRN PRN Reason: Nausea/Vomiting Saccharomyces Boulardii (Florastor) 250 mg PO BID [facility] Last Admin: 08/20/17 16:34 Dose: 250 mg Senna/Docusate Sodium (Senokot S 50 Mg-8.6 Mg) 1 tab PO HS [facility] Last Admin: 08/19/17 21:44 Dose: 1 tab - Labs Labs: 08/20/17 05:30 08/20/17 05:30 PT 14.8 Seconds (9.8-13.1) H 08/20/17 05:30 INR 1.3 (0.9-1.2) H 08/20/17 05:30 APTT 32.5 Seconds (25.6-37.1) 08/18/17 19:12 - Constitutional Appears: No Acute Distress - Head Exam Head Exam: NORMAL INSPECTION - Eye Exam Eye Exam: PERRL - ENT Exam ENT Exam: Normal Exam - Neck Exam Neck Exam: Normal Inspection - Respiratory Exam Respiratory Exam: Chest Wall Tenderness (mild), NORMAL BREATHING PATTERN - Cardiovascular Exam Cardiovascular Exam: REGULAR RHYTHM - GI/Abdominal Exam GI & Abdominal Exam: Soft, Normal Bowel Sounds - Extremities Exam Extremities Exam: Normal Inspection - Back Exam Back Exam: NORMAL INSPECTION - Neurological Exam Neurological Exam: Alert, Oriented x3 - Psychiatric Exam Psychiatric exam: Normal Mood - Skin Skin Exam: Warm Assessment and Plan (1) Pleural effusion Status: Acute (2) Atelectasis of right lung Status: Acute (3) PNA (pneumonia) Status: Acute - Assessment and Plan (Free Text) Plan: For IR thoracentesis today.
[2017-08-20 16:59] LABS: BF GROSS APPEARANCE SL CLOUDY (CLEAR)
[2017-08-20 17:01] LABS: BODY FLUID MONO/MACROPHAGE 6 % (0-0); BODY FLUID TOTAL COUNT 100 (0-0)
--- NOTE | 2017-08-20 17:47 | CARD ---
APPROVED REPORT EXAM: Two-dimensional and M-mode echocardiogram with Doppler and color Doppler. Other Information Quality : GoodRhythm : NSR INDICATION Pericardial Effusion Pleural Effusion 2D DIMENSIONS IVSd0.99 (0.7-1.1cm)LVDd4.72 (3.9-5.9cm) LVOT Diameter1.87 (1.8-2.4cm)PWd0.84 (0.7-1.1cm) IVSs1.34 (0.8-1.2cm)LVDs3.15 (2.5-4.0cm) FS (%) 33.3 %PWs1.15 (0.8-1.2cm) M-Mode DIMENSIONS Left Atrium (MM)3.61 (2.5-4.0cm)IVSd0.91 (0.7-1.1cm) Aortic Root2.63 (2.2-3.7cm)LVDd4.68 (4.0-5.6cm) Aortic Cusp Exc.1.67 (1.5-2.0cm)PWd0.96 (0.7-1.1cm) IVSs1.60 cmFS (%) 42 % LVDs2.72 (2.0-3.8cm)PWs1.39 cm Mitral Valve MV E Oekbgbbq03.0cm/sMV DECEL [id number] A Fofnpqgu74.9cm/s MV WWS17hcH/A ratio1.4MVA (PHT)3.74cm2 TDI Lateral E' Peak V14.67cm/sMedial E' Peak V10.84cm/sE/Lateral E'6.7 E/Medial E'9.1 Tricuspid Valve TR Peak Srwotqrb175eb/sRAP IWZGVIRH39uyLtRH Peak Gr.28mmHg SRJA25vlHe LEFT VENTRICLE The left ventricle is normal size. There is normal left ventricular wall thickness. The left ventricular function is normal. The left ventricular ejection fraction is within the normal range. The Ejection Fraction is 60-65%. There is normal LV segmental wall motion. The left ventricular diastolic function is normal. RIGHT VENTRICLE The right ventricle is normal size. The right ventricular systolic function is normal. ATRIA The left atrium size is normal. The right atrium size is normal. AORTIC VALVE The aortic valve is normal in structure. No aortic regurgitation is present. There is no aortic valvular stenosis. MITRAL VALVE The mitral valve is normal in structure. There is no mitral valve stenosis. Mitral regurgitation is trace to mild. TRICUSPID VALVE The tricuspid valve is normal in structure. There is no tricuspid valve regurgitation noted. There is no tricuspid valve stenosis. PULMONIC VALVE The pulmonary valve is normal in structure. There is no pulmonic valvular regurgitation. GREAT VESSELS The aortic root is normal in size. The IVC is normal in size and collapses >50% with inspiration. PERICARDIAL EFFUSION The pericardium appears normal. <Conclusion> The left ventricle is normal size. The left ventricular function is normal. The left ventricular ejection fraction is within the normal range. The Ejection Fraction is 60-65%. Mitral regurgitation is trace to mild.
[2017-08-20] MEDS: Enoxaparin 40 mg Syringe SC SCH (20:39)
[2017-08-20] MEDS: Docusate-Senna 50 mg-8.6 mg Tab PO SCH (21:11)
[2017-08-21] MEDS: Piperacillin/Tazobact 3.375 GM in Sodium Chloride 0.9% 100 ML IVPB SCH ×3 (05:13→17:20)
[2017-08-21 06:21] LABS: BASO % 0.5 % (0.0-2.0); EOS # 0.2 K/uL (0.0-0.7); EOS % 1.9 % (0.0-4.0); HEMOGLOBIN 9.2 g/dL (12.0-16.0); LYMPH # 1.5 K/uL (1.0-4.3); MEAN CELL VOLUME 79.1 fl (81.0-99.0); MEAN CORPUSCULAR HEMOGLOBIN 25.7 pg (27.0-31.0); MEAN CORPUSCULAR HGB CONC 32.5 g/dL (33.0-37.0); MEAN PLATELET VOLUME 8.8 fl (7.2-11.7); MONO # 0.5 K/uL (0.0-0.8); MONO % 6.7 % (0.0-10.0); NEUT % 72.9 % (50.0-75.0); NRBC % 0.1 % (0.0-0.0); RBC 3.57 Mil/uL (3.80-5.20); WHITE BLOOD COUNT 8.2 K/uL (4.8-10.8)
[2017-08-21 06:31] LABS: BLOOD UREA NITROGEN 8 mg/dl (7-17); CALCIUM 8.5 mg/dL (8.4-10.2); GFR AFRICAN-AMERICAN > 60; GFR NON-AFRICAN AMERICAN > 60
[2017-08-21] MEDS: Enoxaparin 40 mg Syringe SC SCH (08:23)
[2017-08-21] MEDS: Saccharomyces Boulardi 250 mg Cap PO SCH ×2 (08:24→17:15)
--- NOTE | 2017-08-21 12:07 | CP.PCM.CON ---
Addendum entered and electronically signed by Dandre Murdock MD 08/21/17 18 :35: Case discussed by Dr Ruth with Dr Acuna. --No further ALLERGIST/MD intervention at this moment. --General Surgery consult recommended. Case discussed with Dr uRth, OB manager transfusion. Mathieu PGY-1. Original Note: <Dandre Murdock - Last Filed: 08/21/17 13:20> History of Present Illness - History of Present Illness History of Present Illness: ALLERGIST/MD Consult Note. 31 y/o F presented to ED 3 days ago with complaints of R posterior chest pain. - Pt was previously hospitalized on 08/03/17 due to pelvic fluid collections (S/ P on 07/22/17) and was managed for suspected abscess with IV antibiotics. Pt was discharged on 08/14/17 with PO antibiotics, Metronidazole and Ciprofloxacin. - Pt reports NO pain on abdomen or pelvic areas. Pt has not been able to breastfeed due to antibiotics intake. Pt pumping her breasts. Pt denies mayor vaginal bleeding, vaginal discharge, urinary complaints, fever, chills, night sweats, fever or SOB. Pt tolerating PO, decreased appetite but eating, ambulating but feels tired. - Pt underwent thoracocentesis yesterday and reports improvement of chest pain and SOB. Review of Systems - Constitutional Constitutional: absent: Anorexia, Chills, Fever, Night Sweats - EENT Eyes: absent: Blurred Vision - Breasts Breasts: absent: Skin Changes, Swelling - Cardiovascular Cardiovascular: absent: Chest Pain, Chest Pain at Rest - Respiratory Respiratory: absent: Cough, Dyspnea - Gastrointestinal Gastrointestinal: absent: Abdominal Pain, Bloating, Constipation, Loose Stools - Genitourinary Genitourinary: absent: Change in Urinary Stream, Difficulty Urinating, Flank Pain, Hematuria, Freq UTI - Reproductive: Female Reproductive:Female: absent: Dysmenorrhea, Genital Lesions, Vaginal Discharge, Vaginal Odor, Vaginal Pruritis Past Patient History - Past Medical History & Family History Past Medical History?: Yes - Past Social History Smoking Status: Never Smoked Alcohol: None Drugs: Denies Home Situation {Lives}: With Family - CARDIAC Hx Cardiac Disorders: No Hx Hypertension: No - PULMONARY Hx Respiratory Disorders: No - NEUROLOGICAL Hx Neurological Disorder: No - HEENT Hx HEENT Problems: No - RENAL Hx Chronic Kidney Disease: No - ENDOCRINE/METABOLIC Hx Endocrine Disorders: No - HEMATOLOGICAL/ONCOLOGICAL Hx Blood Disorders: Yes Hx Blood Transfusions: Yes Hx Human Immunodeficiency Virus (HIV): No - INTEGUMENTARY Hx Dermatological Problems: No - MUSCULOSKELETAL/RHEUMATOLOGICAL Hx Musculoskeletal Disorders: No Hx Falls: No - GASTROINTESTINAL Hx Gastrointestinal Disorders: No - GENITOURINARY/GYNECOLOGICAL Hx Genitourinary Disorders: Yes (Pelvic abscess/Post bleeding) - PSYCHIATRIC Hx Psychophysiologic Disorder: No Hx Depression: No - SURGICAL HISTORY Hx Surgeries: Yes Hx Section: Yes - ANESTHESIA Hx Anesthesia: Yes Hx Anesthesia Reactions: No Hx Malignant Hyperthermia: No Meds Allergies/Adverse Reactions: Allergies Allergy/AdvReac Type Severity Reaction Status Date / Time No Known Allergies Allergy Verified 08/18/17 18:29 - Medications Medications: Current Medications Acetaminophen (Tylenol 325mg Tab) 650 mg PO Q6 PRN PRN Reason: Fever >100.4 F Last Admin: 08/21/17 08:27 Dose: 650 mg Albuterol/Ipratropium (Duoneb 3 Mg/0.5 Mg (3 Ml) Ud) 3 ml INH RQ6 PRN PRN Reason: Shortness of Breath Enoxaparin Sodium (Lovenox) 40 mg SC DAILY [facility] PRN Reason: Protocol Last Admin: 08/21/17 08:23 Dose: 40 mg Famotidine (Pepcid) 20 mg PO BID [facility] Last Admin: 08/21/17 08:24 Dose: 20 mg Ferrous Sulfate (Feosol) 325 mg PO BID [facility] Last Admin: 08/21/17 08:24 Dose: 325 mg Vancomycin HCl 1 gm/ Sodium (Chloride) 250 mls @ 166.667 mls/hr IVPB Q12 [facility] PRN Reason: Protocol Last Admin: 08/21/17 08:25 Dose: 166.667 mls/hr Piperacillin Sod/Tazobactam (Sod 3.375 gm/ Sodium Chloride) 100 mls @ 100 mls/ hr IVPB Q6H [facility] PRN Reason: Protocol Last Admin: 08/21/17 05:13 Dose: 100 mls/hr Ibuprofen (Motrin Tab) 600 mg PO Q6 PRN PRN Reason: Pain, Mild (1-3) Last Admin: 08/20/17 13:45 Dose: 600 mg Morphine Sulfate (Morphine) 2 mg IVP Q4 PRN PRN Reason: Pain, moderate (4-7) Ondansetron HCl (Zofran Inj) 4 mg IVP Q6 PRN PRN Reason: Nausea/Vomiting Saccharomyces Boulardii (Florastor) 250 mg PO BID [facility] Last Admin: 08/21/17 08:24 Dose: 250 mg Senna/Docusate Sodium (Senokot S 50 Mg-8.6 Mg) 1 tab PO HS [facility] Last Admin: 08/20/17 21:11 Dose: 1 tab Physical Exam - Constitutional Appears: Well, Non-toxic, No Acute Distress - Head Exam Head Exam: ATRAUMATIC - Eye Exam Eye Exam: EOMI, Normal appearance - ENT Exam ENT Exam: Mucous Membranes Moist - Neck Exam Neck exam: Positive for: Full Rom, Normal Inspection - Respiratory Exam Respiratory Exam: NORMAL BREATHING PATTERN Additional comments: Decreased breath sounds on R lower field. No wheezing or rales. Dressing from thoracocentesis is clean dry and intact. - GI/Abdominal Exam GI & Abdominal Exam: Normal Bowel Sounds, Soft. absent: Rebound, Rigid, Tenderness - Neurological Exam Neurological exam: Alert, Oriented x3 Results - Vital Signs Recent Vital Signs: Last Vital Signs Temp 100.7 F H 08/21/17 08:27 Pulse 80 08/21/17 08:12 Resp 20 08/21/17 08:12 BP 119/78 08/21/17 08:12 Pulse Ox 96 08/21/17 08:12 - Labs Result Diagrams: 08/21/17 05:55 08/21/17 05:55 Labs: Laboratory Results - last 24 hr 08/20/17 08/20/17 08/20/17 15:10 15:10 15:10 WBC RBC Hgb Hct MCV MCH MCHC RDW Plt Count MPV Neut % (Auto) Lymph % (Auto) Becker % (Auto) Eos % (Auto) Baso % (Auto) Neut # (Auto) Lymph # (Auto) Becker # (Auto) Eos # (Auto) Baso # (Auto) Sodium Potassium Chloride Carbon Dioxide Anion Gap BUN Creatinine Est GFR ( Amer) Est GFR (Non-Af Amer) Random Glucose Calcium Fluid Source Pleural/thoracentesi Fluid Appearance Sl cloudy Fluid WBC 3018.0 H Fluid RBC 9525.0 H Fluid Tot Cell Count 100 H Fluid Neutrophils 72.0 H Fluid Lymphocytes 22.0 H Fld Monocyte/Macrophag 6 H Fluid Glucose 88 Fluid Total Protein 4.0 Fluid LDH 961 Fluid Amylase < 30 Fluid Comment Lt yellow 08/21/17 08/21/17 05:55 05:55 WBC 8.2 RBC 3.57 L Hgb 9.2 L Hct 28.2 L MCV 79.1 L MCH 25.7 L MCHC 32.5 L RDW 17.0 H Plt Count 562 H MPV 8.8 Neut % (Auto) 72.9 Lymph % (Auto) 18.0 L Becker % (Auto) 6.7 Eos % (Auto) 1.9 Baso % (Auto) 0.5 Neut # (Auto) 6.0 Lymph # (Auto) 1.5 Becker # (Auto) 0.5 Eos # (Auto) 0.2 Baso # (Auto) 0.0 Sodium 143 Potassium 3.9 Chloride 107 Carbon Dioxide 25 Anion Gap 15 BUN 8 Creatinine 0.8 Est GFR ( Amer) > 60 Est GFR (Non-Af Amer) > 60 Random Glucose 109 H Calcium 8.5 Fluid Source Fluid Appearance Fluid WBC Fluid RBC Fluid Tot Cell Count Fluid Neutrophils Fluid Lymphocytes Fld Monocyte/Macrophag Fluid Glucose Fluid Total Protein Fluid LDH Fluid Amylase Fluid Comment Assessment & Plan - Assessment and Plan (Free Text) Assessment: 31 y/o F s/p , with pelvic mass, was admitted for evaluation and management of R pleural effusion. S/P thoracentesis. Plan: 1. R Pleural effusion - Continue medical management as per primary team. 2. Pelvic mass. - Most likely hematoma. No fever or increased WBC count. - F/U Hgb levels. - Follow up ID and Gen Surgery recommendations. - Will f/u MRI of pelvis. Case discussed with Dr Ruth, OB-hospitalist manager transfusion. Mathieu PGY-1. <Jose Antonio Ruth - Last Filed: 08/22/17 17:31> Meds - Medications Medications: Current Medications Acetaminophen (Tylenol 325mg Tab) 650 mg PO Q6 PRN PRN Reason: Fever >100.4 F Last Admin: 08/22/17 16:13 Dose: 650 mg Albuterol/Ipratropium (Duoneb 3 Mg/0.5 Mg (3 Ml) Ud) 3 ml INH RQ6 PRN PRN Reason: Shortness of Breath Enoxaparin Sodium (Lovenox) 40 mg SC DAILY [facility] PRN Reason: Protocol Last Admin: 08/22/17 09:00 Dose: 40 mg Famotidine (Pepcid) 20 mg PO BID [facility] Last Admin: 08/22/17 17:08 Dose: 20 mg Ferrous Sulfate (Feosol) 325 mg PO BID [facility] Last Admin: 08/22/17 17:08 Dose: 325 mg Vancomycin HCl 1 gm/ Sodium (Chloride) 250 mls @ 166.667 mls/hr IVPB Q12 [facility] PRN Reason: Protocol Last Admin: 08/22/17 09:02 Dose: 166.667 mls/hr Metronidazole (Flagyl 500mg/100ml Ns) 100 mls @ 100 mls/hr IVPB Q8 [facility] PRN Reason: Protocol Last Admin: 08/22/17 17:05 Dose: 100 mls/hr Meropenem 500 mg/ Sodium (Chloride) 100 mls @ 100 mls/hr IVPB Q8 [facility] PRN Reason: Protocol Last Admin: 08/22/17 17:05 Dose: 100 mls/hr Ibuprofen (Motrin Tab) 600 mg PO Q6 PRN PRN Reason: Pain, Mild (1-3) Last Admin: 08/20/17 13:45 Dose: 600 mg Ondansetron HCl (Zofran Inj) 4 mg IVP Q6 PRN PRN Reason: Nausea/Vomiting Multivit/Folic Acid/Iron () 1 tab PO DAILY [facility] Last Admin: 08/22/17 09:00 Dose: 1 tab Saccharomyces Boulardii (Florastor) 250 mg PO BID [facility] Last Admin: 08/22/17 17:08 Dose: 250 mg Senna/Docusate Sodium (Senokot S 50 Mg-8.6 Mg) 1 tab PO HS [facility] Last Admin: 08/21/17 21:31 Dose: 1 tab Results - Vital Signs Recent Vital Signs: Last Vital Signs Temp 100.2 F H 08/22/17 16:13 Pulse 81 08/22/17 15:41 Resp 18 08/22/17 15:41 BP 119/78 08/22/17 15:41 Pulse Ox 97 08/22/17 15:50 - Labs Result Diagrams: 08/22/17 05:45 08/22/17 05:45 Labs: Laboratory Results - last 24 hr 08/20/17 08/20/17 08/21/17 14:00 15:42 05:55 WBC RBC Hgb Hct MCV MCH MCHC RDW Plt Count MPV Neut % (Auto) Lymph % (Auto) Becker % (Auto) Eos % (Auto) Baso % (Auto) Neut # (Auto) Lymph # (Auto) Becker # (Auto) Eos # (Auto) Baso # (Auto) Sodium Potassium Chloride Carbon Dioxide Anion Gap BUN Creatinine Est GFR ( Amer) Est GFR (Non-Af Amer) Random Glucose Calcium Total Bilirubin AST ALT Alkaline Phosphatase Total Protein Albumin Globulin Albumin/Globulin Ratio Angiotensin Convert Enz 16 Pleur Adenosine Deamin 13.7 H Vancomycin Trough INES Screen Negative 08/22/17 08/22/17 08/22/17 05:45 05:45 05:45 WBC 8.8 RBC 3.52 L Hgb 8.9 L Hct 27.9 L MCV 79.2 L MCH 25.2 L MCHC 31.8 L RDW 16.5 H Plt Count 546 H MPV 8.6 Neut % (Auto) 64.7 Lymph % (Auto) 23.3 Becker % (Auto) 9.0 Eos % (Auto) 1.5 Baso % (Auto) 1.5 Neut # (Auto) 5.7 Lymph # (Auto) 2.1 Becker # (Auto) 0.8 Eos # (Auto) 0.1 Baso # (Auto) 0.1 Sodium 145 Potassium 3.9 Chloride 104 Carbon Dioxide 27 Anion Gap 18 BUN 4 L Creatinine 0.6 L Est GFR ( Amer) > 60 Est GFR (Non-Af Amer) > 60 Random Glucose 95 Calcium 8.9 Total Bilirubin 0.2 AST 22 ALT 28 Alkaline Phosphatase 82 Total Protein 6.5 Albumin 2.8 L Globulin 3.7 Albumin/Globulin Ratio 0.8 L Angiotensin Convert Enz Pleur Adenosine Deamin Vancomycin Trough 11.7 H INES Screen Assessment & Plan - Assessment and Plan (Free Text) Plan: Late entry for Aug 21. OB Hospitalist on-call. Pt seen and examined while she was eating lunch. She feels better. No abd pain. For pelvic mass/hematoma, CBC unchanged and asymtpomatic after IR drainage. Admitted for pnemuonia/effusion - S/P drainage follow up cultures - Date & Time Date: 08/21/17 Time: 12:00
--- NOTE | 2017-08-21 12:17 | CP.PCM.PN ---
Subjective - Date & Time of Evaluation Date of Evaluation: 08/21/17 Time of Evaluation: 08:00 - Subjective Subjective: No acute overnight events. Pt seen and examined at the bedside this morning. States that she is feeling better today than yesterday. Mild chest that is controlled with medication. Tolerating diet. Ambulating frequently and using incentive spirometry. Denies sob, cough, cp. Objective - Vital Signs/Intake and Output Vital Signs (last 24 hours): Temp Pulse Resp BP Pulse Ox 100.7 F H 80 20 119/78 96 08/21/17 08:27 08/21/17 08:12 08/21/17 08:12 08/21/17 08:12 08/21/17 08:12 - Medications Medications: Current Medications Acetaminophen (Tylenol 325mg Tab) 650 mg PO Q6 PRN PRN Reason: Fever >100.4 F Last Admin: 08/21/17 08:27 Dose: 650 mg Albuterol/Ipratropium (Duoneb 3 Mg/0.5 Mg (3 Ml) Ud) 3 ml INH RQ6 PRN PRN Reason: Shortness of Breath Enoxaparin Sodium (Lovenox) 40 mg SC DAILY [facility] PRN Reason: Protocol Last Admin: 08/21/17 08:23 Dose: 40 mg Famotidine (Pepcid) 20 mg PO BID [facility] Last Admin: 08/21/17 08:24 Dose: 20 mg Ferrous Sulfate (Feosol) 325 mg PO BID [facility] Last Admin: 08/21/17 08:24 Dose: 325 mg Vancomycin HCl 1 gm/ Sodium (Chloride) 250 mls @ 166.667 mls/hr IVPB Q12 [facility] PRN Reason: Protocol Last Admin: 08/21/17 08:25 Dose: 166.667 mls/hr Piperacillin Sod/Tazobactam (Sod 3.375 gm/ Sodium Chloride) 100 mls @ 100 mls/ hr IVPB Q6H [facility] PRN Reason: Protocol Last Admin: 08/21/17 05:13 Dose: 100 mls/hr Ibuprofen (Motrin Tab) 600 mg PO Q6 PRN PRN Reason: Pain, Mild (1-3) Last Admin: 08/20/17 13:45 Dose: 600 mg Morphine Sulfate (Morphine) 2 mg IVP Q4 PRN PRN Reason: Pain, moderate (4-7) Ondansetron HCl (Zofran Inj) 4 mg IVP Q6 PRN PRN Reason: Nausea/Vomiting Saccharomyces Boulardii (Florastor) 250 mg PO BID [facility] Last Admin: 08/21/17 08:24 Dose: 250 mg Senna/Docusate Sodium (Senokot S 50 Mg-8.6 Mg) 1 tab PO HS [facility] Last Admin: 08/20/17 21:11 Dose: 1 tab - Labs Labs: 08/21/17 05:55 08/21/17 05:55 PT 14.8 Seconds (9.8-13.1) H 08/20/17 05:30 INR 1.3 (0.9-1.2) H 08/20/17 05:30 APTT 32.5 Seconds (25.6-37.1) 08/18/17 19:12 - Constitutional Appears: Well, Non-toxic, No Acute Distress - Head Exam Head Exam: ATRAUMATIC, NORMAL INSPECTION - ENT Exam ENT Exam: Mucous Membranes Moist - Respiratory Exam Respiratory Exam: Decreased Breath Sounds (Right sided, dressing clean , dry , and in tact. No surrounding erythema), Clear to Ausculation Bilateral. absent: Rales, Rhonchi, Wheezes - Cardiovascular Exam Cardiovascular Exam: REGULAR RHYTHM, +S1, +S2. absent: Murmur - GI/Abdominal Exam GI & Abdominal Exam: Soft, Normal Bowel Sounds. absent: Distended, Tenderness - Extremities Exam Extremities Exam: Normal Inspection. absent: Pedal Edema - Neurological Exam Neurological Exam: Alert, Normal Gait, Oriented x3 - Psychiatric Exam Psychiatric exam: Normal Affect - Skin Skin Exam: Normal Color Assessment and Plan - Assessment and Plan (Free Text) Assessment: 31 y/o F admitted with moderate pleural effusion. Pt was recently d/c after 10 day hosp admission for pelvic abscess complication from c section on 07/23. S/P thoracentisis on 08/19. Plan for Pelvic MRI w/o contrast today to evaluate abdominal abscess. Pleural effusion -Etiology unknown. Working differential includes Transudative 2/2 to low albumin , ParaPNU effusion, Patient DCed from hosp 4 days ago and had similar symptoms to today's presentation during last inpatient stay as well as some changes including R/pleural effusion on CXR done at the time. -No cough, SOB, C/O Pleuritic CP -WBC 7.9 today, procalcitonin wn -Cxray: Moderate R. Pleural effusion -CT Chest at ED today: Moderate right pleural effusion with evidence of mild loculation. Mass-like focus of infiltrate in the left. Pulmonary arteries no PE upper lobe with air bronchograms. -Pulmonology consult: Dr Shepherd, thoracentesis completed, pleural fluid analysis sent -C/W Zosyn/Vanco -CPT/PEP valve Q8h -Duonebs PRN and Incentive spirometry q1hr -Pleural fluid analysis c/w Exudative effusion, LDH 961, elevated WBC w/ neutrophilic predominance, ++ blood. +Cloudy. F/U stain and Cx -Echo completed ,no pericardial effusion seen, EF wnl -F/U am Procalcitonin, AM CBC, Legionella ag, sputum Cx and Cytology, BCx, Quantiferon, INES, RF, ESR, BCx, Pelvic abscess -Recently DCed from hosp after 10 days of IV abx -C/W Zosyn/Vanco IV -CT Abd/Pelvis on 08/13/17: Some interval improvement from initial CT -Denies pelvic/abd pain -ID Consulted, Dr. Valderrama. -ObGYN consulted -General Surgery consulted -Plan for pelvic MRI today to evaluate fluid collection Microcytic anemia -Stable -Patient anemic since delivery and has been on Iron BID at home. -Hgb 9.2 today, 10 on admission -Iron studies c/w iron def anemia -Continue with Ferrous Sulfate BID MILIND,resolved -Crea 0.8 today -Likely prerenal 2/2 dehydration Coagulopathy -Elevated PT/INR/D-Dimers/Platelets -POss related to infectious/inflammatory process? -Denies LE pain. CT angio chest no PE -F/U Abd/Pelvis US -F/U INES/ESR Small pericardial effusion -Chest CT finding -F/U Echo, INES, RF, ESR -F/u Echo Prophylactic measures -Lovenox 40mg SC daily -SCDs Diet -Regular
--- NOTE | 2017-08-21 15:41 | MRI ---
MRI pelvis without IV contrast Indication: Abdominal abscess Comparison: Pelvis/transvaginal pelvic ultrasound performed 08/19/17, CT abdomen pelvis without IV contrast performed 08/13/17 and Technique: Multi sequence multiplanar MRI of the pelvis without IV contrast. A total of 299 images were submitted for review. Findings: Complex pelvic collection measures approximately 5.9 cm (AP) by 10.3 cm (transverse) by 6.7 cm (cc), consistent with abscess demonstrated on prior imaging. Uterus is present. Bilateral ovaries were containing follicles, grossly unremarkable. Under distended urinary bladder appears unremarkable. Small pelvic free fluid. No acute osseous abnormality is detected. Impression: 5.9 x 10.3 x 6.7 cm complex pelvic collection consistent with abscess as demonstrated on prior imaging. Definitive characterization cannot be obtained in the absence of IV contrast.
--- NOTE | 2017-08-21 17:10 | CP.PCM.CON ---
History of Present Illness - History of Present Illness History of Present Illness: SURGERY CONSULT NOTE FOR DR. VARGAS 31F presents to [facility] for right chest pain and surgery consulted for fluid collection in the pelvis. Patient is s/p which was done 07/22/17, was admitted for pelvic fluid collection with was treated with IR drainage and antibiotics. Patient was then discharged on the 14 of august but returned to to [facility] on . Patient had a 800cc of fluid drained from the right thorax yesterday. Patient denies abdominal pain, N/V/F/C. States she is having normal bowel function. Tolerating diet. PMH:denies PSH:csec*2, thoracentesis, abdominal IR abscess drainage Social: denies tobacco, alcohol and illicit drug abuse Allergies: NKDA Past Patient History - Past Medical History & Family History Past Medical History?: Yes - Past Social History Smoking Status: Never Smoked Alcohol: None Drugs: Denies Home Situation {Lives}: With Family - CARDIAC Hx Cardiac Disorders: No Hx Hypertension: No - PULMONARY Hx Respiratory Disorders: No - NEUROLOGICAL Hx Neurological Disorder: No - HEENT Hx HEENT Problems: No - RENAL Hx Chronic Kidney Disease: No - ENDOCRINE/METABOLIC Hx Endocrine Disorders: No - HEMATOLOGICAL/ONCOLOGICAL Hx Blood Disorders: Yes Hx Blood Transfusions: Yes Hx Human Immunodeficiency Virus (HIV): No - INTEGUMENTARY Hx Dermatological Problems: No - MUSCULOSKELETAL/RHEUMATOLOGICAL Hx Musculoskeletal Disorders: No Hx Falls: No - GASTROINTESTINAL Hx Gastrointestinal Disorders: No - GENITOURINARY/GYNECOLOGICAL Hx Genitourinary Disorders: Yes (Pelvic abscess/Post bleeding) - PSYCHIATRIC Hx Psychophysiologic Disorder: No Hx Depression: No - SURGICAL HISTORY Hx Surgeries: Yes Hx Section: Yes - ANESTHESIA Hx Anesthesia: Yes Hx Anesthesia Reactions: No Hx Malignant Hyperthermia: No Meds Allergies/Adverse Reactions: Allergies Allergy/AdvReac Type Severity Reaction Status Date / Time No Known Allergies Allergy Verified 08/18/17 18:29 - Medications Medications: Current Medications Acetaminophen (Tylenol 325mg Tab) 650 mg PO Q6 PRN PRN Reason: Fever >100.4 F Last Admin: 08/21/17 08:27 Dose: 650 mg Albuterol/Ipratropium (Duoneb 3 Mg/0.5 Mg (3 Ml) Ud) 3 ml INH RQ6 PRN PRN Reason: Shortness of Breath Enoxaparin Sodium (Lovenox) 40 mg SC DAILY [facility] PRN Reason: Protocol Last Admin: 08/21/17 08:23 Dose: 40 mg Famotidine (Pepcid) 20 mg PO BID [facility] Last Admin: 08/21/17 08:24 Dose: 20 mg Ferrous Sulfate (Feosol) 325 mg PO BID [facility] Last Admin: 08/21/17 08:24 Dose: 325 mg Vancomycin HCl 1 gm/ Sodium (Chloride) 250 mls @ 166.667 mls/hr IVPB Q12 [facility] PRN Reason: Protocol Last Admin: 08/21/17 08:25 Dose: 166.667 mls/hr Piperacillin Sod/Tazobactam (Sod 3.375 gm/ Sodium Chloride) 100 mls @ 100 mls/ hr IVPB Q6H [facility] PRN Reason: Protocol Last Admin: 08/21/17 12:41 Dose: 100 mls/hr Ibuprofen (Motrin Tab) 600 mg PO Q6 PRN PRN Reason: Pain, Mild (1-3) Last Admin: 08/20/17 13:45 Dose: 600 mg Ondansetron HCl (Zofran Inj) 4 mg IVP Q6 PRN PRN Reason: Nausea/Vomiting Multivit/Folic Acid/Iron () 1 tab PO DAILY [facility] Saccharomyces Boulardii (Florastor) 250 mg PO BID [facility] Last Admin: 08/21/17 08:24 Dose: 250 mg Senna/Docusate Sodium (Senokot S 50 Mg-8.6 Mg) 1 tab PO HS [facility] Last Admin: 08/20/17 21:11 Dose: 1 tab Physical Exam - Constitutional Appears: Well, Non-toxic, No Acute Distress - Head Exam Head Exam: ATRAUMATIC - ENT Exam ENT Exam: Mucous Membranes Moist - Respiratory Exam Respiratory Exam: Clear to Auscultation Bilateral, NORMAL BREATHING PATTERN - Cardiovascular Exam Cardiovascular Exam: REGULAR RHYTHM, +S1, +S2 - GI/Abdominal Exam GI & Abdominal Exam: Soft, Tenderness (mild to moderate tenderness in mid abdomen). absent: Distended, Firm, Guarding, Rebound, Rigid - Extremities Exam Extremities exam: Negative for: pedal edema, tenderness - Neurological Exam Neurological exam: Alert, Oriented x3 - Psychiatric Exam Psychiatric exam: Normal Affect, Normal Mood - Skin Skin Exam: Dry, Intact, Normal Color, Warm Results - Vital Signs Recent Vital Signs: Last Vital Signs Temp 99.6 F 08/21/17 15:44 Pulse 77 08/21/17 15:44 Resp 20 08/21/17 15:44 BP 129/84 08/21/17 15:44 Pulse Ox 95 08/21/17 15:44 - Labs Result Diagrams: 08/21/17 05:55 08/21/17 05:55 Labs: Laboratory Results - last 24 hr 08/19/17 08/21/17 08/21/17 06:30 05:55 05:55 WBC 8.2 RBC 3.57 L Hgb 9.2 L Hct 28.2 L MCV 79.1 L MCH 25.7 L MCHC 32.5 L RDW 17.0 H Plt Count 562 H MPV 8.8 Neut % (Auto) 72.9 Lymph % (Auto) 18.0 L Aiken % (Auto) 6.7 Eos % (Auto) 1.9 Baso % (Auto) 0.5 Neut # (Auto) 6.0 Lymph # (Auto) 1.5 Aiken # (Auto) 0.5 Eos # (Auto) 0.2 Baso # (Auto) 0.0 Sodium Potassium Chloride Carbon Dioxide Anion Gap BUN Creatinine Est GFR ( Amer) Est GFR (Non-Af Amer) Random Glucose Calcium Procalcitonin < 0.05 L TB Test Mitogen - Nil TB Test (QFT) TNP 08/21/17 05:55 WBC RBC Hgb Hct MCV MCH MCHC RDW Plt Count MPV Neut % (Auto) Lymph % (Auto) Aiken % (Auto) Eos % (Auto) Baso % (Auto) Neut # (Auto) Lymph # (Auto) Aiken # (Auto) Eos # (Auto) Baso # (Auto) Sodium 143 Potassium 3.9 Chloride 107 Carbon Dioxide 25 Anion Gap 15 BUN 8 Creatinine 0.8 Est GFR ( Amer) > 60 Est GFR (Non-Af Amer) > 60 Random Glucose 109 H Calcium 8.5 Procalcitonin TB Test Mitogen - Nil TB Test (QFT) Assessment & Plan - Assessment and Plan (Free Text) Assessment: 31F presents with pelvic fluid collection MRI report: 5.9 *10.3*6.7cm complex pelvic collection consistent with abscess Plan: - continue antibiotics - consider IR drainage - monitor CBC, vitals Further recs discuss with Dr. Randolph Reid, PGY2
[2017-08-21] MEDS: Prenatal Multivit/Folic Acid/Iron Tab PO SCH (17:15)
[2017-08-21] MEDS: Meropenem 500 MG in Sodium Chloride 0.9% 100 ML IVPB SCH (20:25)
[2017-08-21] MEDS: metroNIDAZOLE 500mg/100ml NS 100 ML IVPB SCH (20:26)
--- NOTE | 2017-08-21 20:43 | CT ---
EXAM: CT Chest Without Intravenous Contrast EXAM DATE/TIME: 08/21/2017 5:15 PM CLINICAL HISTORY: 31 years old, female; Signs and symptoms; Other: Pleura effusion, S/P thoracentesis; Additional info: Pleural effusion, S/P thoracentesis TECHNIQUE: Axial computed tomography images of the chest without intravenous contrast. All CT scans at this facility use one or more dose reduction techniques, viz.: automated exposure control; ma/kV adjustment per patient size (including targeted exams where dose is matched to indication; i.e. head); or iterative reconstruction technique. Coronal and sagittal reformatted images were created and reviewed. COMPARISON: Prior CT angiogram of the chest of 2017-08-18 FINDINGS: LUNGS: Stable appearance of a focal area of dense consolidation containing air bronchograms in the left upper lobe, highly suspicious for a persistent pneumonia. Decreasing areas of consolidation in the right lung, most likely representing atelectasis, related to the right effusion. This is greatest in the right lower lobe. No evidence of diffuse pulmonary vascular congestion. PLEURAL SPACE: Compared to the prior CT, interval decrease in size of the right pleural effusion. There is persistence of a small to moderate complex-appearing right-sided pleural collection, which appears multiloculated, and is greatest along the right lower lobe. This does not contain gas. No evidence of significant left pleural effusion or pneumothorax. HEART: Heart appears mildly enlarged. No evidence of significant pericardial effusion. BONES/JOINTS: No acute fractures or other acute bony abnormality noted. SOFT TISSUES: No acute abnormality of the visualized soft tissues is seen. VASCULATURE: Exam is nondiagnostic for aortic dissection and pulmonary emboli, secondary to unenhanced technique. LYMPH NODES: No evidence of diffuse lymphadenopathy. GALLBLADDER AND BILE DUCTS: Gallbladder appears contracted. IMPRESSION: - Compared to a CT chest done 3 days prior, interval decrease in size of the right pleural effusion. There is , however, a persistent small to moderate complex-appearing right pleural collection, which appears multiloculated, and is greatest along the right lower lobe. This does not contain gas. - Otherwise, no significant change is seen. - Persistence of consolidation in the left upper lobe, suspicious for pneumonia. - See above for remaining findings.
[2017-08-21] MEDS: Docusate-Senna 50 mg-8.6 mg Tab PO SCH (21:31)
[2017-08-22] MEDS: metroNIDAZOLE 500mg/100ml NS 100 ML IVPB SCH ×3 (00:21→17:05)
[2017-08-22] MEDS: Meropenem 500 MG in Sodium Chloride 0.9% 100 ML IVPB SCH ×3 (00:22→17:05)
--- NOTE | 2017-08-22 03:20 | CON ---
INFECTIOUS DISEASE CONSULTATION DATE: HISTORY OF PRESENT ILLNESS: The patient is a 31-year-old female who was readmitted to the hospital on 08/18/2017. At this time, she was complaining of chest pain on the right side of the chest and radiated laterally and medially to the upper chest. She states she has had the pain from when she was discharged from [facility] on 08/11/2017. The pain increased and she has been having fever of 100.4 and has had some nausea and vomiting. The patient states she also had an intermittent cough. No real shortness of breath. She had taken antibiotics on previous admission intravenously and was taking antibiotics orally at home, which I think were Flagyl and Cipro. The patient had a section and was admitted to the hospital on 08/03/2017 and was there until 08/11/2017 with sepsis likely secondary to pelvic abscess. At the time, she grew a Gram-negative elvis, which was I think wasEnterobacter sakazakii. She had IR drainage and was treated with antibiotics at the time with multiple antibiotics that included metronidazole and vancomycin, which we switched to clindamycin and Zosyn and Cipro. The patient was sent home on the noted day, but did not get any improvement while at home and came back because of the increasing chest pain and shortness of breath. PHYSICAL EXAMINATION: GENERAL: The patient is a pleasant female, born in [place]. She is alert, cooperative, and oriented to time and place. NECK: Supple. HEART: There is a chest wall tenderness and has decreased breath sounds bilaterally especially on right. ABDOMEN: Tender in the right and left lower quadrants below the umbilicus. EXTREMITIES: No CCE. At this point in time, the patient had 800 mL of fluid drained from the right thoracentesis, the sample was submitted for culture. Microbiology from the previous admission showed Enterobacter sakazakii. Her creatinine is 0.8 and GFR is greater than 60. Liver function tests are within normal limits. Cultures so far are all negative. At the present time, the patient has a multiple issues including a pleural effusion, which was drained and an intra-abdominal and intrapelvic abscess. For the moment, we will continue the vancomycin. I have discontinued Zosyn and put her on meropenem 1 g q.8 hours and placed her on Flagyl 500 q.8 hours. Thank you and we will follow the patient along with you. Raheel Valderrama MD [email or web address]
[2017-08-22 06:05] LABS: BASO # 0.1 K/uL (0.0-0.2); BASO % 1.5 % (0.0-2.0); EOS # 0.1 K/uL (0.0-0.7); EOS % 1.5 % (0.0-4.0); HEMOGLOBIN 8.9 g/dL (12.0-16.0); LYMPH # 2.1 K/uL (1.0-4.3); LYMPH % 23.3 % (20.0-40.0); MEAN CELL VOLUME 79.2 fl (81.0-99.0); MEAN CORPUSCULAR HEMOGLOBIN 25.2 pg (27.0-31.0); MEAN CORPUSCULAR HGB CONC 31.8 g/dL (33.0-37.0); MEAN PLATELET VOLUME 8.6 fl (7.2-11.7); MONO # 0.8 K/uL (0.0-0.8); NEUT # 5.7 K/uL (1.8-7.0); NEUT % 64.7 % (50.0-75.0); NRBC % 0.1 % (0.0-0.0); RBC 3.52 Mil/uL (3.80-5.20); RED CELL DISTRIBUTION WIDTH 16.5 % (11.5-14.5); WHITE BLOOD COUNT 8.8 K/uL (4.8-10.8)
[2017-08-22 06:40] LABS: ALB/GLOB RATIO 0.8 (1.0-2.1); ALBUMIN 2.8 g/dL (3.5-5.0); ALT/SGPT 28 U/L (9-52); AST/SGOT 22 U/L (14-36); BLOOD UREA NITROGEN 4 mg/dl (7-17); CALCIUM 8.9 mg/dL (8.4-10.2); GFR AFRICAN-AMERICAN > 60; GFR NON-AFRICAN AMERICAN > 60
[2017-08-22] MEDS: Enoxaparin 40 mg Syringe SC SCH (09:00)
[2017-08-22] MEDS: Saccharomyces Boulardi 250 mg Cap PO SCH ×2 (09:00→17:08)
[2017-08-22] MEDS: Prenatal Multivit/Folic Acid/Iron Tab PO SCH (09:00)
--- NOTE | 2017-08-22 09:36 | CP.PCM.PN ---
Subjective - Date & Time of Evaluation Date of Evaluation: 08/22/17 Time of Evaluation: 08:00 - Subjective Subjective: Spiked fevers 100.7 overnight. Pt seen and examined this am. Reports chest wall pain is minimal and relieved with medications. Tolerating diet, ambulating. Denies sob, abdominal pain, n/v, chills. Objective - Vital Signs/Intake and Output Vital Signs (last 24 hours): Temp Pulse Resp BP Pulse Ox 99 F 83 20 122/81 94 L 08/22/17 07:44 08/22/17 07:44 08/22/17 07:44 08/22/17 07:44 08/22/17 07:44 - Medications Medications: Current Medications Acetaminophen (Tylenol 325mg Tab) 650 mg PO Q6 PRN PRN Reason: Fever >100.4 F Last Admin: 08/22/17 00:35 Dose: 650 mg Albuterol/Ipratropium (Duoneb 3 Mg/0.5 Mg (3 Ml) Ud) 3 ml INH RQ6 PRN PRN Reason: Shortness of Breath Enoxaparin Sodium (Lovenox) 40 mg SC DAILY [facility] PRN Reason: Protocol Last Admin: 08/22/17 09:00 Dose: 40 mg Famotidine (Pepcid) 20 mg PO BID [facility] Last Admin: 08/22/17 09:00 Dose: 20 mg Ferrous Sulfate (Feosol) 325 mg PO BID [facility] Last Admin: 08/22/17 09:00 Dose: 325 mg Vancomycin HCl 1 gm/ Sodium (Chloride) 250 mls @ 166.667 mls/hr IVPB Q12 [facility] PRN Reason: Protocol Last Admin: 08/22/17 09:02 Dose: 166.667 mls/hr Metronidazole (Flagyl 500mg/100ml Ns) 100 mls @ 100 mls/hr IVPB Q8 [facility] PRN Reason: Protocol Last Admin: 08/22/17 08:59 Dose: 100 mls/hr Meropenem 500 mg/ Sodium (Chloride) 100 mls @ 100 mls/hr IVPB Q8 [facility] PRN Reason: Protocol Last Admin: 08/22/17 09:01 Dose: 100 mls/hr Ibuprofen (Motrin Tab) 600 mg PO Q6 PRN PRN Reason: Pain, Mild (1-3) Last Admin: 08/20/17 13:45 Dose: 600 mg Ondansetron HCl (Zofran Inj) 4 mg IVP Q6 PRN PRN Reason: Nausea/Vomiting Multivit/Folic Acid/Iron () 1 tab PO DAILY [facility] Last Admin: 08/22/17 09:00 Dose: 1 tab Saccharomyces Boulardii (Florastor) 250 mg PO BID [facility] Last Admin: 08/22/17 09:00 Dose: 250 mg Senna/Docusate Sodium (Senokot S 50 Mg-8.6 Mg) 1 tab PO HS [facility] Last Admin: 08/21/17 21:31 Dose: 1 tab - Labs Labs: 08/22/17 05:45 08/22/17 05:45 PT 14.8 Seconds (9.8-13.1) H 08/20/17 05:30 INR 1.3 (0.9-1.2) H 08/20/17 05:30 APTT 32.5 Seconds (25.6-37.1) 08/18/17 19:12 - Constitutional Appears: Well, Non-toxic, No Acute Distress - Eye Exam Eye Exam: Normal appearance - ENT Exam ENT Exam: Mucous Membranes Moist - Respiratory Exam Respiratory Exam: Chest Wall Tenderness (mild chest wall tenderness R lower lung base), Decreased Breath Sounds, Rales. absent: Accessory Muscle Use (Left upper quadrant mild rales appreciated, R light lower base- reduced breath sounds , improved), Rhonchi, Wheezes, Respiratory Distress - Cardiovascular Exam Cardiovascular Exam: REGULAR RHYTHM, +S1, +S2. absent: Murmur - GI/Abdominal Exam GI & Abdominal Exam: Soft, Normal Bowel Sounds. absent: Distended, Tenderness Assessment and Plan - Assessment and Plan (Free Text) Assessment: 31 y/o F admitted with moderate pleural effusion. Pt was recently d/c after 10 day hosp admission for pelvic abscess complication from c section on 07/23. S/P thoracentisis on 08/19. Plan for Pelvic MRI w/o contrast today to evaluate abdominal abscess. Pleural effusion -Etiology unknown. Working differential includes Transudative 2/2 to low albumin , ParaPNU effusion, Patient DCed from hosp 4 days ago and had similar symptoms to today's presentation during last inpatient stay as well as some changes including R/pleural effusion on CXR done at the time. -No cough, SOB, C/O Pleuritic CP -WBC 7.9 today, procalcitonin wn -Cxray: Moderate R. Pleural effusion -CT Chest at ED today: Moderate right pleural effusion with evidence of mild loculation. Mass-like focus of infiltrate in the left. Pulmonary arteries no PE upper lobe with air bronchograms. -Pulmonology consult: Dr Shepherd, thoracentesis completed, pleural fluid analysis sent -C/W Zosyn/Vanco -CPT/PEP valve Q8h -Duonebs PRN and Incentive spirometry q1hr -Pleural fluid analysis c/w Exudative effusion, LDH 961, elevated WBC w/ neutrophilic predominance, ++ blood. +Cloudy. F/U stain and Cx -Echo completed ,no pericardial effusion seen, EF wnl -F/U am Procalcitonin, AM CBC, Legionella ag, sputum Cx and Cytology, BCx, Quantiferon, INES, RF, ESR, BCx, Pelvic abscess 5.9 *10.3*6.7cm complex pelvic collection, -Recently DCed from hosp after 10 days of IV abx -C/W Zosyn/Vanco IV -CT Abd/Pelvis on 08/13/17: Some interval improvement from initial CT -Denies pelvic/abd pain -ID Consulted, Dr. Valderrama. -ObGYN consulted -General Surgery consulted -Plan for pelvic MRI today to evaluate fluid collection Microcytic anemia -Stable -Patient anemic since delivery and has been on Iron BID at home. -Hgb 9.2 today, 10 on admission -Iron studies c/w iron def anemia -Continue with Ferrous Sulfate BID MILIND,resolved -Crea 0.8 today -Likely prerenal 2/2 dehydration Coagulopathy -Elevated PT/INR/D-Dimers/Platelets -POss related to infectious/inflammatory process? -Denies LE pain. CT angio chest no PE -F/U Abd/Pelvis US -F/U INES/ESR Small pericardial effusion -Chest CT finding -F/U Echo, INES, RF, ESR -F/u Echo Prophylactic measures -Lovenox 40mg SC daily -SCDs Diet -Regular
--- NOTE | 2017-08-22 12:36 | CP.PCM.PN ---
Subjective - Date & Time of Evaluation Date of Evaluation: 08/22/17 Time of Evaluation: 12:34 - Subjective Subjective: 31 year old female patient was seen and evaluated at bedside. Patient is AAOX3 and is in NAD. Reports that she is feeling well today. Denies of any pain. Denies of any acute overnight events. Denies of having F/N/V/C/SOB/CP/headache. Objective - Vital Signs/Intake and Output Vital Signs (last 24 hours): Temp Pulse Resp BP Pulse Ox 98.4 F 105 H 20 116/69 94 L 08/22/17 07:44 08/22/17 07:44 08/22/17 07:44 08/22/17 07:44 08/22/17 07:44 - Medications Medications: Current Medications Acetaminophen (Tylenol 325mg Tab) 650 mg PO Q6 PRN PRN Reason: Fever >100.4 F Last Admin: 08/22/17 00:35 Dose: 650 mg Albuterol/Ipratropium (Duoneb 3 Mg/0.5 Mg (3 Ml) Ud) 3 ml INH RQ6 PRN PRN Reason: Shortness of Breath Enoxaparin Sodium (Lovenox) 40 mg SC DAILY [facility] PRN Reason: Protocol Last Admin: 08/22/17 09:00 Dose: 40 mg Famotidine (Pepcid) 20 mg PO BID [facility] Last Admin: 08/22/17 09:00 Dose: 20 mg Ferrous Sulfate (Feosol) 325 mg PO BID [facility] Last Admin: 08/22/17 09:00 Dose: 325 mg Vancomycin HCl 1 gm/ Sodium (Chloride) 250 mls @ 166.667 mls/hr IVPB Q12 [facility] PRN Reason: Protocol Last Admin: 08/22/17 09:02 Dose: 166.667 mls/hr Metronidazole (Flagyl 500mg/100ml Ns) 100 mls @ 100 mls/hr IVPB Q8 [facility] PRN Reason: Protocol Last Admin: 08/22/17 08:59 Dose: 100 mls/hr Meropenem 500 mg/ Sodium (Chloride) 100 mls @ 100 mls/hr IVPB Q8 [facility] PRN Reason: Protocol Last Admin: 08/22/17 09:01 Dose: 100 mls/hr Ibuprofen (Motrin Tab) 600 mg PO Q6 PRN PRN Reason: Pain, Mild (1-3) Last Admin: 08/20/17 13:45 Dose: 600 mg Ondansetron HCl (Zofran Inj) 4 mg IVP Q6 PRN PRN Reason: Nausea/Vomiting Multivit/Folic Acid/Iron () 1 tab PO DAILY [facility] Last Admin: 08/22/17 09:00 Dose: 1 tab Saccharomyces Boulardii (Florastor) 250 mg PO BID [facility] Last Admin: 08/22/17 09:00 Dose: 250 mg Senna/Docusate Sodium (Senokot S 50 Mg-8.6 Mg) 1 tab PO HS [facility] Last Admin: 08/21/17 21:31 Dose: 1 tab - Labs Labs: 08/22/17 05:45 08/22/17 05:45 PT 14.8 Seconds (9.8-13.1) H 08/20/17 05:30 INR 1.3 (0.9-1.2) H 08/20/17 05:30 APTT 32.5 Seconds (25.6-37.1) 08/18/17 19:12 - Constitutional Appears: Well, Non-toxic, No Acute Distress - Neck Exam Neck Exam: Full ROM - Respiratory Exam Respiratory Exam: NORMAL BREATHING PATTERN - GI/Abdominal Exam GI & Abdominal Exam: Soft. absent: Rigid, Hernia, Mass - Neurological Exam Neurological Exam: Alert, Awake, Oriented x3 - Psychiatric Exam Psychiatric exam: Normal Affect, Normal Mood - Skin Skin Exam: Dry, Intact, Normal Color, Warm Assessment and Plan - Assessment and Plan (Free Text) Assessment: 31F presents with pelvic fluid collection MRI report: 5.9 *10.3*6.7cm complex pelvic collection consistent with abscess Plan: - continue antibiotics - consider IR drainage - monitor CBC, vitals Further recs discuss with Dr. Dickson
--- NOTE | 2017-08-22 13:22 | RAD ---
HISTORY: Rule out Pneumothorax COMPARISON: No prior. TECHNIQUE: Chest PA and lateral FINDINGS: LUNGS: Right basilar opacity on again noted consistent with some combination of right-sided effusion and right lower lobe atelectasis and or infiltrate. Previously noted left upper lobe infiltrate improved. . Minor left basilar atelectasis PLEURA: No significant pleural effusion identified. No pneumothorax apparent. CARDIOVASCULAR: Normal. OSSEOUS STRUCTURES: No significant abnormalities. VISUALIZED UPPER ABDOMEN: Normal. OTHER FINDINGS: None. IMPRESSION: Right lower lobe opacity consistent with some combination of right-sided effusion with atelectasis and/or infiltrate. Improved left upper lobe infiltrate. Minor left basilar atelectasis
--- NOTE | 2017-08-22 13:56 | CP.PCM.PN ---
Subjective - Date & Time of Evaluation Date of Evaluation: 08/22/17 Time of Evaluation: 12:00 - Subjective Subjective: F/U Pleural Effusion. Pt c/o of Vaginal bleeding, mild R chest wall pain with breathing. Objective - Vital Signs/Intake and Output Vital Signs (last 24 hours): Temp Pulse Resp BP Pulse Ox 98.4 F 105 H 20 116/69 94 L 08/22/17 07:44 08/22/17 07:44 08/22/17 07:44 08/22/17 07:44 08/22/17 07:44 - Medications Medications: Current Medications Acetaminophen (Tylenol 325mg Tab) 650 mg PO Q6 PRN PRN Reason: Fever >100.4 F Last Admin: 08/22/17 00:35 Dose: 650 mg Albuterol/Ipratropium (Duoneb 3 Mg/0.5 Mg (3 Ml) Ud) 3 ml INH RQ6 PRN PRN Reason: Shortness of Breath Enoxaparin Sodium (Lovenox) 40 mg SC DAILY [facility] PRN Reason: Protocol Last Admin: 08/22/17 09:00 Dose: 40 mg Famotidine (Pepcid) 20 mg PO BID [facility] Last Admin: 08/22/17 09:00 Dose: 20 mg Ferrous Sulfate (Feosol) 325 mg PO BID [facility] Last Admin: 08/22/17 09:00 Dose: 325 mg Vancomycin HCl 1 gm/ Sodium ([facility]) 250 mls @ 166.667 mls/hr IVPB Q12 [facility] PRN Reason: Protocol Last Admin: 08/22/17 09:02 Dose: 166.667 mls/hr Metronidazole (Flagyl 500mg/100ml Ns) 100 mls @ 100 mls/hr IVPB Q8 [facility] PRN Reason: Protocol Last Admin: 08/22/17 08:59 Dose: 100 mls/hr Meropenem 500 mg/ Sodium ([facility]) 100 mls @ 100 mls/hr IVPB Q8 [facility] PRN Reason: Protocol Last Admin: 08/22/17 09:01 Dose: 100 mls/hr Ibuprofen (Motrin Tab) 600 mg PO Q6 PR[facility] PRN Reason: Pain, Mild (1-3) Last Admin: 08/20/17 13:45 Dose: 600 mg Ondansetron HCl (Zofran Inj) 4 mg IVP Q6 PRN PRN Reason: Nausea/Vomiting Multivit/Folic Acid/Iron () 1 tab PO DAILY [facility] Last Admin: 08/22/17 09:00 Dose: 1 tab Saccharomyces Boulardii (Florastor) 250 mg PO BID [facility] Last Admin: 08/22/17 09:00 Dose: 250 mg Senna/Docusate Sodium (Senokot S 50 Mg-8.6 Mg) 1 tab PO HS [facility] Last Admin: 08/21/17 21:31 Dose: 1 tab - Labs Labs: 08/22/17 05:45 08/22/17 05:45 PT 14.8 Seconds (9.8-13.1) H 08/20/17 05:30 INR 1.3 (0.9-1.2) H 08/20/17 05:30 APTT 32.5 Seconds (25.6-37.1) 08/18/17 19:12 - Constitutional Appears: No Acute Distress - Head Exam Head Exam: NORMAL INSPECTION - Eye Exam Eye Exam: PERRL - ENT Exam ENT Exam: Normal Exam - Neck Exam Neck Exam: Normal Inspection - Respiratory Exam Respiratory Exam: Chest Wall Tenderness (R side with breathing.), Decreased Breath Sounds (R base) - Cardiovascular Exam Cardiovascular Exam: REGULAR RHYTHM - GI/Abdominal Exam GI & Abdominal Exam: Soft, Normal Bowel Sounds - Extremities Exam Extremities Exam: Normal Inspection - Back Exam Back Exam: NORMAL INSPECTION - Neurological Exam Neurological Exam: Alert, Oriented x3 - Psychiatric Exam Psychiatric exam: Normal Mood - Skin Skin Exam: Warm Assessment and Plan (1) Pleural effusion Status: Acute (2) Atelectasis of right lung Status: Acute (3) PNA (pneumonia) Status: Acute - Assessment and Plan (Free Text) Plan: F/U [employer], continue current Tx.
--- NOTE | 2017-08-22 14:06 | CP.PCM.PN ---
Subjective - Date & Time of Evaluation Date of Evaluation: 08/22/17 Time of Evaluation: 08:40 - Subjective Subjective: PALLIATIVE CARE SPECIALIST Progress Note: 31 y/o F evaluated and examined at bedside. Pt reports feeling better, tolerating PO, ambulating, had fever of 100.7 deg F last night. Pt now reports a mild bilateral pelvic pain with urination and bowel movement, 3/10 intensity at most severe that alleviates rapidly with rest. - Pt also reports daily vaginal bleeding after C/Section on 07/22/17. Bleeding is small in amount, quantified as less than menses, sometimes increases a little in amount; pt has to change 2 pads per day. Pt also sees traces of blood on toilet paper after cleaning. --Pt reports that last , she bled vaginally for 3 weeks and it took 8 months to have her menses again. --Pt denies cramping pain or pre-menstrual symptoms. No intercourse after C- Section. No Hx of coagulopathies in herself and her family. Objective - Vital Signs/Intake and Output Vital Signs (last 24 hours): Temp Pulse Resp BP Pulse Ox 98.4 F 105 H 20 116/69 94 L 08/22/17 07:44 08/22/17 07:44 08/22/17 07:44 08/22/17 07:44 08/22/17 07:44 - Medications Medications: Current Medications Acetaminophen (Tylenol 325mg Tab) 650 mg PO Q6 PRN PRN Reason: Fever >100.4 F Last Admin: 08/22/17 00:35 Dose: 650 mg Albuterol/Ipratropium (Duoneb 3 Mg/0.5 Mg (3 Ml) Ud) 3 ml INH RQ6 PRN PRN Reason: Shortness of Breath Enoxaparin Sodium (Lovenox) 40 mg SC DAILY [facility] PRN Reason: Protocol Last Admin: 08/22/17 09:00 Dose: 40 mg Famotidine (Pepcid) 20 mg PO BID [facility] Last Admin: 08/22/17 09:00 Dose: 20 mg Ferrous Sulfate (Feosol) 325 mg PO BID [facility] Last Admin: 08/22/17 09:00 Dose: 325 mg Vancomycin HCl 1 gm/ Sodium (Chloride) 250 mls @ 166.667 mls/hr IVPB Q12 [facility] PRN Reason: Protocol Last Admin: 08/22/17 09:02 Dose: 166.667 mls/hr Metronidazole (Flagyl 500mg/100ml Ns) 100 mls @ 100 mls/hr IVPB Q8 [facility] PRN Reason: Protocol Last Admin: 08/22/17 08:59 Dose: 100 mls/hr Meropenem 500 mg/ Sodium (Chloride) 100 mls @ 100 mls/hr IVPB Q8 [facility] PRN Reason: Protocol Last Admin: 08/22/17 09:01 Dose: 100 mls/hr Ibuprofen (Motrin Tab) 600 mg PO Q6 PRN PRN Reason: Pain, Mild (1-3) Last Admin: 08/20/17 13:45 Dose: 600 mg Ondansetron HCl (Zofran Inj) 4 mg IVP Q6 PRN PRN Reason: Nausea/Vomiting Multivit/Folic Acid/Iron () 1 tab PO DAILY [facility] Last Admin: 08/22/17 09:00 Dose: 1 tab Saccharomyces Boulardii (Florastor) 250 mg PO BID [facility] Last Admin: 08/22/17 09:00 Dose: 250 mg Senna/Docusate Sodium (Senokot S 50 Mg-8.6 Mg) 1 tab PO HS [facility] Last Admin: 08/21/17 21:31 Dose: 1 tab - Labs Labs: 08/22/17 05:45 08/22/17 05:45 PT 14.8 Seconds (9.8-13.1) H 08/20/17 05:30 INR 1.3 (0.9-1.2) H 08/20/17 05:30 APTT 32.5 Seconds (25.6-37.1) 08/18/17 19:12 - Constitutional Appears: Well, No Acute Distress - Head Exam Head Exam: NORMAL INSPECTION - Eye Exam Eye Exam: EOMI, Normal appearance - ENT Exam ENT Exam: Mucous Membranes Moist, Normal Exam - Neck Exam Neck Exam: Full ROM. absent: Meningismus - Respiratory Exam Respiratory Exam: NORMAL BREATHING PATTERN Additional comments: Decreased breath sounds on R lower field. - Cardiovascular Exam Cardiovascular Exam: REGULAR RHYTHM - GI/Abdominal Exam GI & Abdominal Exam: Soft, Normal Bowel Sounds. absent: Guarding, Rigid, Tenderness - Extremities Exam Extremities Exam: Full ROM, Normal Inspection. absent: Tenderness - Neurological Exam Neurological Exam: Alert, Awake, Oriented x3 Assessment and Plan - Assessment and Plan (Free Text) Assessment: 31 y/o F s/p , with pelvic mass, was admitted for evaluation and management of R pleural effusion. S/P thoracentesis. --MRI of pelvis without contrast on 08/22/17: 5.9 x10.3x6.7cm complex pelvic collection consistent with abscess Plan: 1. R Pleural effusion/Pneumonia - Continue medical management as per primary team. 2. Pelvic mass. - Most likely hematoma. No fever or increased WBC count. - F/U Hgb levels. - No LUNCHROOM MONITOR intervention at this moment. - Follow up Gen Surgery recommendations. 3. S/P 07/22/17, POD 31, vaginal bleeding <menses, in [place]. - Will f/u Hgb and coagulation profile. - Monitor VS. Case discussed with Dr Baxter, OB-hospitalist licensed mental health professional. Mathieu PGY-1.
--- NOTE | 2017-08-22 15:35 | CP.PCM.PCO ---
Assessment/Plan - Assessment and Plan (Free Text) Assessment: Spoke with Dr Dickson. SHe agrees with Post Office Clerk that pt has a hematoma and less likely an abscess Spoke with Dr. Shepherd - reviewed CT scan and CXR with him- will call thoracic surgery consult
[2017-08-22] MEDS: Docusate-Senna 50 mg-8.6 mg Tab PO SCH (22:00)
[2017-08-23] MEDS: Meropenem 500 MG in Sodium Chloride 0.9% 100 ML IVPB SCH ×3 (00:32→16:51)
[2017-08-23] MEDS: metroNIDAZOLE 500mg/100ml NS 100 ML IVPB SCH ×3 (01:52→16:49)
--- NOTE | 2017-08-23 06:23 | CP.PCM.CON ---
History of Present Illness - History of Present Illness History of Present Illness: Cardiothoracic Surgery Consult for Dr. Nagel 31F presents to [facility] for right chest pain. Patient is s/p which was done 07/22/17, was admitted for pelvic fluid collection with was treated with IR drainage and antibiotics. Patient was then discharged on the 14 of august but returned to to [facility] on for chest pain was found to have a pleural effusion. Patient had a 800cc of fluid drained from IR which as culture negative however it was exudative. Patient denies abdominal pain or chest pain, N/V/F/C. States she is having normal bowel function. Tolerating diet. PMH:denies PSH:csec*2, thoracentesis, abdominal IR abscess drainage Social: denies tobacco, alcohol and illicit drug abuse Allergies: NKDA Review of Systems - Review of Systems All systems: reviewed and no additional remarkable complaints except Past Patient History - Past Medical History & Family History Past Medical History?: Yes - Past Social History Smoking Status: Never Smoked Alcohol: None Drugs: Denies Home Situation {Lives}: With Family - CARDIAC Hx Hypertension: No - PULMONARY Hx Respiratory Disorders: No - NEUROLOGICAL Hx Neurological Disorder: No - HEENT Hx HEENT Problems: No - RENAL Hx Chronic Kidney Disease: No - ENDOCRINE/METABOLIC Hx Endocrine Disorders: No - HEMATOLOGICAL/ONCOLOGICAL Hx Human Immunodeficiency Virus (HIV): No - INTEGUMENTARY Hx Dermatological Problems: No - MUSCULOSKELETAL/RHEUMATOLOGICAL Hx Musculoskeletal Disorders: No Hx Falls: No - GASTROINTESTINAL Hx Gastrointestinal Disorders: No - GENITOURINARY/GYNECOLOGICAL Hx Genitourinary Disorders: Yes (Pelvic abscess/Post bleeding) - PSYCHIATRIC Hx Depression: No - SURGICAL HISTORY Hx Surgeries: Yes Hx Section: Yes - ANESTHESIA Hx Anesthesia: Yes Hx Anesthesia Reactions: No Hx Malignant Hyperthermia: No Meds Allergies/Adverse Reactions: Allergies Allergy/AdvReac Type Severity Reaction Status Date / Time No Known Allergies Allergy Verified 08/18/17 18:29 - Medications Medications: Current Medications Acetaminophen (Tylenol 325mg Tab) 650 mg PO Q6 PRN PRN Reason: Fever >100.4 F Last Admin: 08/22/17 16:13 Dose: 650 mg Albuterol/Ipratropium (Duoneb 3 Mg/0.5 Mg (3 Ml) Ud) 3 ml INH RQ6 PRN PRN Reason: Shortness of Breath Enoxaparin Sodium (Lovenox) 40 mg SC DAILY [facility] PRN Reason: Protocol Last Admin: 08/22/17 09:00 Dose: 40 mg Famotidine (Pepcid) 20 mg PO BID [facility] Last Admin: 08/22/17 17:08 Dose: 20 mg Ferrous Sulfate (Feosol) 325 mg PO BID [facility] Last Admin: 08/22/17 17:08 Dose: 325 mg Vancomycin HCl 1 gm/ Sodium (Chloride) 250 mls @ 166.667 mls/hr IVPB Q12 [facility] PRN Reason: Protocol Last Admin: 08/22/17 21:24 Dose: 166.667 mls/hr Metronidazole (Flagyl 500mg/100ml Ns) 100 mls @ 100 mls/hr IVPB Q8 [facility] PRN Reason: Protocol Last Admin: 08/23/17 01:52 Dose: 100 mls/hr Meropenem 500 mg/ Sodium (Chloride) 100 mls @ 100 mls/hr IVPB Q8 [facility] PRN Reason: Protocol Last Admin: 08/23/17 00:32 Dose: 100 mls/hr Ibuprofen (Motrin Tab) 600 mg PO Q6 PRN PRN Reason: Pain, Mild (1-3) Last Admin: 08/20/17 13:45 Dose: 600 mg Ondansetron HCl (Zofran Inj) 4 mg IVP Q6 PRN PRN Reason: Nausea/Vomiting Multivit/Folic Acid/Iron () 1 tab PO DAILY [facility] Last Admin: 08/22/17 09:00 Dose: 1 tab Saccharomyces Boulardii (Florastor) 250 mg PO BID [facility] Last Admin: 08/22/17 17:08 Dose: 250 mg Senna/Docusate Sodium (Senokot S 50 Mg-8.6 Mg) 1 tab PO HS [facility] Last Admin: 08/22/17 22:00 Dose: 1 tab Physical Exam - Constitutional Additional comments: - Constitutional Appears: Well, Non-toxic, No Acute Distress - Head Exam Head Exam: ATRAUMATIC - ENT Exam ENT Exam: Mucous Membranes Moist - Respiratory Exam Respiratory Exam: NORMAL BREATHING PATTERN - Cardiovascular Exam Cardiovascular Exam: REGULAR RHYTHM, +S1, +S2 - GI/Abdominal Exam GI & Abdominal Exam: Soft, Tenderness (mild to moderate tenderness in mid abdomen). absent: Distended, Firm, Guarding, Rebound, Rigid - Extremities Exam Extremities exam: Negative for: pedal edema, tenderness - Neurological Exam Neurological exam: Alert, Oriented x3 - Psychiatric Exam Psychiatric exam: Normal Affect, Normal Mood - Skin Skin Exam: Dry, Intact, Normal Color, Warm Results - Vital Signs Recent Vital Signs: Last Vital Signs Temp 99.5 F 08/22/17 23:57 Pulse 83 08/22/17 23:57 Resp 18 08/22/17 23:57 BP 115/75 08/22/17 23:57 Pulse Ox 96 08/22/17 23:57 - Labs Result Diagrams: 08/22/17 05:45 08/22/17 05:45 Labs: Laboratory Results - last 24 hr 08/20/17 08/20/17 08/21/17 14:00 15:42 05:55 Sodium Potassium Chloride Carbon Dioxide Anion Gap BUN Creatinine Est GFR ( Amer) Est GFR (Non-Af Amer) Random Glucose Calcium Total Bilirubin AST ALT Alkaline Phosphatase Total Protein Albumin Globulin Albumin/Globulin Ratio Angiotensin Convert Enz 16 Pleur Adenosine Deamin 13.7 H Vancomycin Trough INES Screen Negative 08/22/17 08/22/17 05:45 05:45 Sodium 145 Potassium 3.9 Chloride 104 Carbon Dioxide 27 Anion Gap 18 BUN 4 L Creatinine 0.6 L Est GFR ( Amer) > 60 Est GFR (Non-Af Amer) > 60 Random Glucose 95 Calcium 8.9 Total Bilirubin 0.2 AST 22 ALT 28 Alkaline Phosphatase 82 Total Protein 6.5 Albumin 2.8 L Globulin 3.7 Albumin/Globulin Ratio 0.8 L Angiotensin Convert Enz Pleur Adenosine Deamin Vancomycin Trough 11.7 H INES Screen Assessment & Plan - Assessment and Plan (Free Text) Assessment: 31F with loculated pleural effusion Continue ABX Monitor vitals will discuss with Dr. Nagel
--- NOTE | 2017-08-23 07:57 | CP.PCM.PN ---
Subjective - Date & Time of Evaluation Date of Evaluation: 08/23/17 Time of Evaluation: 07:55 - Subjective Subjective: General Surgery Progress note: Dr. Dickson 31 year old female patient was seen and evaluated at bedside. Patient is AAOX3 and is in NAD. Reports that she has little pain on the right upper back area. Denies of any acute overnight events. Denies of having F/N/V/C/SOB/CP/headache. Objective - Vital Signs/Intake and Output Vital Signs (last 24 hours): Temp Pulse Resp BP Pulse Ox 99.6 F 81 20 122/79 95 08/23/17 07:42 08/23/17 07:42 08/23/17 07:42 08/23/17 07:42 08/23/17 07:42 - Medications Medications: Current Medications Acetaminophen (Tylenol 325mg Tab) 650 mg PO Q6 PRN PRN Reason: Fever >100.4 F Last Admin: 08/22/17 16:13 Dose: 650 mg Albuterol/Ipratropium (Duoneb 3 Mg/0.5 Mg (3 Ml) Ud) 3 ml INH RQ6 PRN PRN Reason: Shortness of Breath Enoxaparin Sodium (Lovenox) 40 mg SC DAILY [facility] PRN Reason: Protocol Last Admin: 08/22/17 09:00 Dose: 40 mg Famotidine (Pepcid) 20 mg PO BID [facility] Last Admin: 08/22/17 17:08 Dose: 20 mg Ferrous Sulfate (Feosol) 325 mg PO BID [facility] Last Admin: 08/22/17 17:08 Dose: 325 mg Vancomycin HCl 1 gm/ Sodium (Chloride) 250 mls @ 166.667 mls/hr IVPB Q12 [facility] PRN Reason: Protocol Last Admin: 08/22/17 21:24 Dose: 166.667 mls/hr Metronidazole (Flagyl 500mg/100ml Ns) 100 mls @ 100 mls/hr IVPB Q8 [facility] PRN Reason: Protocol Last Admin: 08/23/17 01:52 Dose: 100 mls/hr Meropenem 500 mg/ Sodium (Chloride) 100 mls @ 100 mls/hr IVPB Q8 [facility] PRN Reason: Protocol Last Admin: 08/23/17 00:32 Dose: 100 mls/hr Ibuprofen (Motrin Tab) 600 mg PO Q6 PRN PRN Reason: Pain, Mild (1-3) Last Admin: 08/20/17 13:45 Dose: 600 mg Ondansetron HCl (Zofran Inj) 4 mg IVP Q6 PRN PRN Reason: Nausea/Vomiting Multivit/Folic Acid/Iron () 1 tab PO DAILY [facility] Last Admin: 08/22/17 09:00 Dose: 1 tab Saccharomyces Boulardii (Florastor) 250 mg PO BID [facility] Last Admin: 08/22/17 17:08 Dose: 250 mg Senna/Docusate Sodium (Senokot S 50 Mg-8.6 Mg) 1 tab PO HS [facility] Last Admin: 08/22/17 22:00 Dose: 1 tab - Labs Labs: 08/22/17 05:45 08/22/17 05:45 PT 14.8 Seconds (9.8-13.1) H 08/20/17 05:30 INR 1.3 (0.9-1.2) H 08/20/17 05:30 APTT 32.5 Seconds (25.6-37.1) 08/18/17 19:12 - Constitutional Appears: Well, Non-toxic, No Acute Distress - Head Exam Head Exam: ATRAUMATIC - Eye Exam Eye Exam: Normal appearance - Neck Exam Neck Exam: Full ROM - Respiratory Exam Respiratory Exam: NORMAL BREATHING PATTERN - GI/Abdominal Exam GI & Abdominal Exam: Soft. absent: Rigid, Hernia, Mass - Rectal Exam Rectal Exam: Deferred - Extremities Exam Extremities Exam: Normal Inspection - Back Exam Back Exam: NORMAL INSPECTION, tenderness - Neurological Exam Neurological Exam: Alert, Awake, Oriented x3 - Psychiatric Exam Psychiatric exam: Normal Affect, Normal Mood - Skin Skin Exam: Intact, Normal Color, Warm Assessment and Plan - Assessment and Plan (Free Text) Assessment: 31F presents with pelvic fluid collection MRI report: 5.9 *10.3*6.7cm complex pelvic collection consistent with abscess Plan: - continue antibiotics - consider IR drainage - monitor CBC, vitals Further recs discuss with Dr. Dickson
--- NOTE | 2017-08-23 08:01 | CP.PCM.PN ---
Subjective - Date & Time of Evaluation Date of Evaluation: 08/23/17 Time of Evaluation: 07:59 - Subjective Subjective: Cardiothoracic Surgery Consult for Dr. Nagel 31F with right side chest pain seen and evaluated at bedside. Reports of upper right chest as well as back pain. Denies of any acute overnight events. Denies of any recent F/N/V/C/SOB/CP Objective - Vital Signs/Intake and Output Vital Signs (last 24 hours): Temp Pulse Resp BP Pulse Ox 99.6 F 81 20 122/79 95 08/23/17 07:42 08/23/17 07:42 08/23/17 07:42 08/23/17 07:42 08/23/17 07:42 - Medications Medications: Current Medications Acetaminophen (Tylenol 325mg Tab) 650 mg PO Q6 PRN PRN Reason: Fever >100.4 F Last Admin: 08/22/17 16:13 Dose: 650 mg Albuterol/Ipratropium (Duoneb 3 Mg/0.5 Mg (3 Ml) Ud) 3 ml INH RQ6 PRN PRN Reason: Shortness of Breath Enoxaparin Sodium (Lovenox) 40 mg SC DAILY [facility] PRN Reason: Protocol Last Admin: 08/22/17 09:00 Dose: 40 mg Famotidine (Pepcid) 20 mg PO BID [facility] Last Admin: 08/22/17 17:08 Dose: 20 mg Ferrous Sulfate (Feosol) 325 mg PO BID [facility] Last Admin: 08/22/17 17:08 Dose: 325 mg Vancomycin HCl 1 gm/ Sodium (Chloride) 250 mls @ 166.667 mls/hr IVPB Q12 [facility] PRN Reason: Protocol Last Admin: 08/22/17 21:24 Dose: 166.667 mls/hr Metronidazole (Flagyl 500mg/100ml Ns) 100 mls @ 100 mls/hr IVPB Q8 [facility] PRN Reason: Protocol Last Admin: 08/23/17 01:52 Dose: 100 mls/hr Meropenem 500 mg/ Sodium (Chloride) 100 mls @ 100 mls/hr IVPB Q8 [facility] PRN Reason: Protocol Last Admin: 08/23/17 00:32 Dose: 100 mls/hr Ibuprofen (Motrin Tab) 600 mg PO Q6 PRN PRN Reason: Pain, Mild (1-3) Last Admin: 08/20/17 13:45 Dose: 600 mg Ondansetron HCl (Zofran Inj) 4 mg IVP Q6 PRN PRN Reason: Nausea/Vomiting Multivit/Folic Acid/Iron () 1 tab PO DAILY [facility] Last Admin: 08/22/17 09:00 Dose: 1 tab Saccharomyces Boulardii (Florastor) 250 mg PO BID [facility] Last Admin: 08/22/17 17:08 Dose: 250 mg Senna/Docusate Sodium (Senokot S 50 Mg-8.6 Mg) 1 tab PO HS [facility] Last Admin: 08/22/17 22:00 Dose: 1 tab - Labs Labs: 08/22/17 05:45 08/22/17 05:45 PT 14.8 Seconds (9.8-13.1) H 08/20/17 05:30 INR 1.3 (0.9-1.2) H 08/20/17 05:30 APTT 32.5 Seconds (25.6-37.1) 08/18/17 19:12 - Constitutional Appears: Well, Non-toxic, No Acute Distress - Head Exam Head Exam: ATRAUMATIC - Eye Exam Eye Exam: Normal appearance - Neck Exam Neck Exam: Full ROM, Normal Inspection - Respiratory Exam Respiratory Exam: NORMAL BREATHING PATTERN - GI/Abdominal Exam GI & Abdominal Exam: Soft. absent: Rigid, Hernia, Mass - Rectal Exam Rectal Exam: Deferred - Extremities Exam Extremities Exam: Normal Inspection - Back Exam Back Exam: NORMAL INSPECTION, tenderness - Neurological Exam Neurological Exam: Alert, Awake, Oriented x3 - Psychiatric Exam Psychiatric exam: Normal Affect, Normal Mood - Skin Skin Exam: Intact, Normal Color, Warm Assessment and Plan - Assessment and Plan (Free Text) Assessment: 31F with loculated pleural effusion Plan: Continue ABX Monitor vitals Will continue to follow d/w with Dr. Nagel
[2017-08-23 08:31] LABS: HEMOGLOBIN 10.1 g/dL (12.0-16.0); MEAN CELL VOLUME 79.3 fl (81.0-99.0); MEAN CORPUSCULAR HEMOGLOBIN 25.4 pg (27.0-31.0); RBC 3.98 Mil/uL (3.80-5.20); WHITE BLOOD COUNT 9.7 K/uL (4.8-10.8)
[2017-08-23 08:51] LABS: BLOOD UREA NITROGEN 5 mg/dl (7-17); CALCIUM 8.9 mg/dL (8.4-10.2); GFR AFRICAN-AMERICAN > 60; GFR NON-AFRICAN AMERICAN > 60
[2017-08-23] MEDS: Saccharomyces Boulardi 250 mg Cap PO SCH ×2 (09:08→16:51)
[2017-08-23] MEDS: Prenatal Multivit/Folic Acid/Iron Tab PO SCH (09:10)
--- NOTE | 2017-08-23 12:11 | CP.PCM.PN ---
Subjective - Date & Time of Evaluation Date of Evaluation: 08/23/17 Time of Evaluation: 09:00 - Subjective Subjective: Pt seen and examined at bedside. States she is comfortable. Mild right chest wall pain, but is controlled with meds. Has been ambulating frequently and using incentive spirometry. Denies any sob, cough, abdominal pain, n/v. Tolerating diet. Objective - Vital Signs/Intake and Output Vital Signs (last 24 hours): Temp Pulse Resp BP Pulse Ox 99.6 F 81 20 122/79 95 08/23/17 07:42 08/23/17 07:42 08/23/17 07:42 08/23/17 07:42 08/23/17 07:42 - Medications Medications: Current Medications Acetaminophen (Tylenol 325mg Tab) 650 mg PO Q6 PRN PRN Reason: Fever >100.4 F Last Admin: 08/22/17 16:13 Dose: 650 mg Albuterol/Ipratropium (Duoneb 3 Mg/0.5 Mg (3 Ml) Ud) 3 ml INH RQ6 PRN PRN Reason: Shortness of Breath Enoxaparin Sodium (Lovenox) 40 mg SC DAILY [facility] PRN Reason: Protocol Last Admin: 08/22/17 09:00 Dose: 40 mg Famotidine (Pepcid) 20 mg PO BID [facility] Last Admin: 08/23/17 09:08 Dose: 20 mg Ferrous Sulfate (Feosol) 325 mg PO BID [facility] Last Admin: 08/23/17 09:07 Dose: 325 mg Vancomycin HCl 1 gm/ Sodium (Chloride) 250 mls @ 166.667 mls/hr IVPB Q12 [facility] PRN Reason: Protocol Last Admin: 08/23/17 09:08 Dose: 166.667 mls/hr Metronidazole (Flagyl 500mg/100ml Ns) 100 mls @ 100 mls/hr IVPB Q8 [facility] PRN Reason: Protocol Last Admin: 08/23/17 09:09 Dose: 100 mls/hr Meropenem 500 mg/ Sodium (Chloride) 100 mls @ 100 mls/hr IVPB Q8 [facility] PRN Reason: Protocol Last Admin: 08/23/17 09:08 Dose: 100 mls/hr Ibuprofen (Motrin Tab) 600 mg PO Q6 PRN PRN Reason: Pain, Mild (1-3) Last Admin: 08/20/17 13:45 Dose: 600 mg Ondansetron HCl (Zofran Inj) 4 mg IVP Q6 PRN PRN Reason: Nausea/Vomiting Multivit/Folic Acid/Iron () 1 tab PO DAILY [facility] Last Admin: 08/23/17 09:10 Dose: 1 tab Saccharomyces Boulardii (Florastor) 250 mg PO BID [facility] Last Admin: 08/23/17 09:08 Dose: 250 mg Senna/Docusate Sodium (Senokot S 50 Mg-8.6 Mg) 1 tab PO HS [facility] Last Admin: 08/22/17 22:00 Dose: 1 tab - Labs Labs: 08/23/17 08:24 08/23/17 08:24 PT 14.8 Seconds (9.8-13.1) H 08/20/17 05:30 INR 1.3 (0.9-1.2) H 08/20/17 05:30 APTT 32.5 Seconds (25.6-37.1) 08/18/17 19:12 - Constitutional Appears: Well, Non-toxic, No Acute Distress - Eye Exam Eye Exam: Normal appearance - ENT Exam ENT Exam: Mucous Membranes Moist - Respiratory Exam Respiratory Exam: Chest Wall Tenderness (mild right side and base of lung), Decreased Breath Sounds (Right side), NORMAL BREATHING PATTERN. absent: Accessory Muscle Use, Rales, Wheezes - Cardiovascular Exam Cardiovascular Exam: REGULAR RHYTHM, +S1, +S2. absent: Murmur - GI/Abdominal Exam GI & Abdominal Exam: Soft, Normal Bowel Sounds. absent: Distended, Tenderness - Extremities Exam Extremities Exam: absent: Pedal Edema Assessment and Plan - Assessment and Plan (Free Text) Assessment: 31 y/o F admitted with moderate pleural effusion. Pt was recently d/c after 10 day hosp admission for pelvic abscess complication from c section on 07/23. S/P thoracentisis on 08/19. For OR tomorrow to evaluate abdominal hematoma by BANA[employer] RO[employer] C[employer]. Tmax of 100.2 overnight. Pleural effusion -Etiology unknown. Working differential includes Transudative 2/2 to low albumin , ParaPNU effusion, Patient DCed from hosp 4 days ago and had similar symptoms to today's presentation during last inpatient stay as well as some changes including R/pleural effusion on CXR done at the time. -No cough, SOB, C/O Pleuritic CP -WBC 7.9 today, procalcitonin wn -Cxray: Moderate R. Pleural effusion -CT Chest at ED today: Moderate right pleural effusion with evidence of mild loculation. Mass-like focus of infiltrate in the left. Pulmonary arteries no PE upper lobe with air bronchograms. -Pulmonology consult: Dr Shepherd, thoracentesis completed, pleural fluid analysis sent -C/W Zosyn/Vanco -CPT/PEP valve Q8h -Duonebs PRN and Incentive spirometry q1hr -Pleural fluid analysis c/w Exudative effusion, LDH 961, elevated WBC w/ neutrophilic predominance, ++ blood. +Cloudy. F/U stain and Cx -Echo completed ,no pericardial effusion seen, EF wnl -F/U am Procalcitonin, AM CBC, Legionella ag, sputum Cx and Cytology, BCx, Quantiferon, INES, RF, ESR, BCx, Pelvic abscess 5.9 *10.3*6.7cm complex pelvic collection -Recently DCed from hosp after 10 days of IV abx -C/W Zosyn/Vanco IV -CT Abd/Pelvis on 08/13/17: Some interval improvement from initial CT -Denies pelvic/abd pain -ID Consulted, Dr. Valderrama. -ObGYN consulted -General Surgery consulted -Plan for pelvic MRI today to evaluate fluid collection Microcytic anemia -Stable -Patient anemic since delivery and has been on Iron BID at home. -Hgb 10.0 today -Iron studies c/w iron def anemia -Continue with Ferrous Sulfate BID MILIND,resolved -Crea 0.8 today -Likely prerenal 2/2 dehydration Coagulopathy -Elevated PT/INR/D-Dimers/Platelets -POss related to infectious/inflammatory process? -Denies LE pain. CT angio chest no PE -F/U Abd/Pelvis US -F/U INES/ESR Small pericardial effusion -Chest CT finding -F/U Echo, INES, RF, ESR -F/u Echo Prophylactic measures -Lovenox 40mg SC daily -SCDs Diet -Regular -NPO after midnight
--- NOTE | 2017-08-23 15:11 | CP.PCM.PN ---
Subjective - Date & Time of Evaluation Date of Evaluation: 08/23/17 Time of Evaluation: 14:56 - Subjective Subjective: Pt reports that she is able to eat a little bit, reports she had mild nausea this am that resolved, ambulating w/o difficulty, denies bowel issues. Objective - Vital Signs/Intake and Output Vital Signs (last 24 hours): Temp Pulse Resp BP Pulse Ox 99.6 F 81 20 122/79 95 08/23/17 07:42 08/23/17 07:42 08/23/17 07:42 08/23/17 07:42 08/23/17 07:42 - Medications Medications: Current Medications Acetaminophen (Tylenol 325mg Tab) 650 mg PO Q6 PRN PRN Reason: Fever >100.4 F Last Admin: 08/22/17 16:13 Dose: 650 mg Albuterol/Ipratropium (Duoneb 3 Mg/0.5 Mg (3 Ml) Ud) 3 ml INH RQ6 PRN PRN Reason: Shortness of Breath Enoxaparin Sodium (Lovenox) 40 mg SC DAILY [facility] PRN Reason: Protocol Last Admin: 08/22/17 09:00 Dose: 40 mg Famotidine (Pepcid) 20 mg PO BID [facility] Last Admin: 08/23/17 09:08 Dose: 20 mg Ferrous Sulfate (Feosol) 325 mg PO BID [facility] Last Admin: 08/23/17 09:07 Dose: 325 mg Vancomycin HCl 1 gm/ Sodium (Chloride) 250 mls @ 166.667 mls/hr IVPB Q12 [facility] PRN Reason: Protocol Last Admin: 08/23/17 09:08 Dose: 166.667 mls/hr Metronidazole (Flagyl 500mg/100ml Ns) 100 mls @ 100 mls/hr IVPB Q8 [facility] PRN Reason: Protocol Last Admin: 08/23/17 09:09 Dose: 100 mls/hr Meropenem 500 mg/ Sodium (Chloride) 100 mls @ 100 mls/hr IVPB Q8 [facility] PRN Reason: Protocol Last Admin: 08/23/17 09:08 Dose: 100 mls/hr Ibuprofen (Motrin Tab) 600 mg PO Q6 PRN PRN Reason: Pain, Mild (1-3) Last Admin: 08/20/17 13:45 Dose: 600 mg Ondansetron HCl (Zofran Inj) 4 mg IVP Q6 PRN PRN Reason: Nausea/Vomiting Multivit/Folic Acid/Iron () 1 tab PO DAILY [facility] Last Admin: 08/23/17 09:10 Dose: 1 tab Saccharomyces Boulardii (Florastor) 250 mg PO BID [facility] Last Admin: 08/23/17 09:08 Dose: 250 mg Senna/Docusate Sodium (Senokot S 50 Mg-8.6 Mg) 1 tab PO HS [facility] Last Admin: 08/22/17 22:00 Dose: 1 tab - Labs Labs: 08/23/17 08:24 08/23/17 08:24 PT 14.8 Seconds (9.8-13.1) H 08/20/17 05:30 INR 1.3 (0.9-1.2) H 08/20/17 05:30 APTT 32.5 Seconds (25.6-37.1) 08/18/17 19:12 - Constitutional Appears: No Acute Distress - Respiratory Exam Additional comments: Decreased breath sounds on lower right side - GI/Abdominal Exam Additional comments: Positive bowel sounds, soft, NT - Extremities Exam Additional comments: Nom-tender, no edema - Neurological Exam Neurological Exam: Oriented x3 - Skin Skin Exam: Dry, Normal Color, Warm Assessment and Plan - Assessment and Plan (Free Text) Assessment: 31 yo s/p section on 07/22/2017, readmitted to the hospital on 2017- 08/14/3017 for pelvic hematoma and pneumonia, during which IR placed drain in abdomen d/t pelvic hematoma/ abscess w/ little bloody drainage, also treated w/ IV abx for 10 days, sent home w/ PO abx, now readmitted on 08/18/2017 , c/o back and right-sided chest pain, fevers, N/V, and intermittent cough, now with right pleural effusion drained on 08/18/2017- 800cc serosanguinous fluid. Discussed case w/ Dr. Dickson, her surgeon, who explained that the risks of surgery would out-weight the benefits especially because she currently has pneumonia and a pleural effusion. Surgery is also not warranted because she has stable hemoglobin, a normal white blood cell count, and benign abdominal exam and it is expected for an abdominal/ pelvic hematoma to take several weeks to resolve.
--- NOTE | 2017-08-23 15:28 | CP.PCM.CON ---
History of Present Illness - History of Present Illness History of Present Illness: Reason for consultaion: Right pleual effusion. Requested by: Dr. Sahni pt s/e at bedside, and imaging studies reviewed as well as progresss notes. 31 yo female s/p (07-22-17) complicated by pelvic collection, drained by IR with a catheter and d/c home. Readmitted 08-18-17 with chest [id number] pleural effusion and compressive atelectasis and infiltrates-left upper lobe. IR drainage for right pleural effusion-ct of chest(08-21-17): small residual loculated effusion but mostly consolidation and atelectasis, right basal segments, and somewhat smaller left infiltrates. Residual right pleural effusion is too small to drain at this time. Continue antibiotics and pulm PT, and will follow right effusion with serial ct of chest with contrast. Surgical intervene if it gets bigger. In the interim, I am inclined to recommend a more effective drainage for pelvic collections. d/w Stella Sahni, and Estella. Past Patient History - Past Medical History & Family History Past Medical History?: Yes - Past Social History Smoking Status: Never Smoked Alcohol: None Drugs: Denies Home Situation {Lives}: With Family - CARDIAC Hx Hypertension: No - PULMONARY Hx Respiratory Disorders: No - NEUROLOGICAL Hx Neurological Disorder: No - HEENT Hx HEENT Problems: No - RENAL Hx Chronic Kidney Disease: No - ENDOCRINE/METABOLIC Hx Endocrine Disorders: No - HEMATOLOGICAL/ONCOLOGICAL Hx Human Immunodeficiency Virus (HIV): No - INTEGUMENTARY Hx Dermatological Problems: No - MUSCULOSKELETAL/RHEUMATOLOGICAL Hx Musculoskeletal Disorders: No Hx Falls: No - GASTROINTESTINAL Hx Gastrointestinal Disorders: No - GENITOURINARY/GYNECOLOGICAL Hx Genitourinary Disorders: Yes (Pelvic abscess/Post bleeding) - PSYCHIATRIC Hx Depression: No - SURGICAL HISTORY Hx Surgeries: Yes Hx Section: Yes - ANESTHESIA Hx Anesthesia: Yes Hx Anesthesia Reactions: No Hx Malignant Hyperthermia: No Meds Allergies/Adverse Reactions: Allergies Allergy/AdvReac Type Severity Reaction Status Date / Time No Known Allergies Allergy Verified 08/18/17 18:29 - Medications Medications: Current Medications Acetaminophen (Tylenol 325mg Tab) 650 mg PO Q6 PRN PRN Reason: Fever >100.4 F Last Admin: 08/22/17 16:13 Dose: 650 mg Albuterol/Ipratropium (Duoneb 3 Mg/0.5 Mg (3 Ml) Ud) 3 ml INH RQ6 PRN PRN Reason: Shortness of Breath Enoxaparin Sodium (Lovenox) 40 mg SC DAILY [facility] PRN Reason: Protocol Last Admin: 08/22/17 09:00 Dose: 40 mg Famotidine (Pepcid) 20 mg PO BID [facility] Last Admin: 08/23/17 09:08 Dose: 20 mg Ferrous Sulfate (Feosol) 325 mg PO BID [facility] Last Admin: 08/23/17 09:07 Dose: 325 mg Vancomycin HCl 1 gm/ Sodium (Chloride) 250 mls @ 166.667 mls/hr IVPB Q12 [facility] PRN Reason: Protocol Last Admin: 08/23/17 09:08 Dose: 166.667 mls/hr Metronidazole (Flagyl 500mg/100ml Ns) 100 mls @ 100 mls/hr IVPB Q8 [facility] PRN Reason: Protocol Last Admin: 08/23/17 09:09 Dose: 100 mls/hr Meropenem 500 mg/ Sodium (Chloride) 100 mls @ 100 mls/hr IVPB Q8 [facility] PRN Reason: Protocol Last Admin: 08/23/17 09:08 Dose: 100 mls/hr Ibuprofen (Motrin Tab) 600 mg PO Q6 PRN PRN Reason: Pain, Mild (1-3) Last Admin: 08/20/17 13:45 Dose: 600 mg Ondansetron HCl (Zofran Inj) 4 mg IVP Q6 PRN PRN Reason: Nausea/Vomiting Multivit/Folic Acid/Iron () 1 tab PO DAILY [facility] Last Admin: 08/23/17 09:10 Dose: 1 tab Saccharomyces Boulardii (Florastor) 250 mg PO BID [facility] Last Admin: 08/23/17 09:08 Dose: 250 mg Senna/Docusate Sodium (Senokot S 50 Mg-8.6 Mg) 1 tab PO HS [facility] Last Admin: 08/22/17 22:00 Dose: 1 tab Results - Vital Signs Recent Vital Signs: Last Vital Signs Temp 99.6 F 08/23/17 07:42 Pulse 81 08/23/17 07:42 Resp 20 08/23/17 07:42 BP 122/79 08/23/17 07:42 Pulse Ox 95 08/23/17 07:42 - Labs Result Diagrams: 08/24/17 05:45 08/24/17 05:45 Labs: Laboratory Results - last 24 hr 08/23/17 08/23/17 08:24 08:24 WBC 9.7 RBC 3.98 Hgb 10.1 L Hct 31.6 L MCV 79.3 L MCH 25.4 L MCHC 32.0 L RDW 17.0 H Plt Count 592 H Sodium 144 Potassium 3.8 Chloride 101 Carbon Dioxide 26 Anion Gap 21 H BUN 5 L Creatinine 0.6 L Est GFR ( Amer) > 60 Est GFR (Non-Af Amer) > 60 Random Glucose 98 Calcium 8.9
[2017-08-23 16:04] LABS: TB ANTIGEN MINUS NIL <0.00 IU/mL
--- NOTE | 2017-08-23 16:15 | CP.PCM.PN ---
Subjective - Date & Time of Evaluation Date of Evaluation: 08/23/17 Time of Evaluation: 10:00 - Subjective Subjective: F/U Pleural effusion. Pt c/o of minimal R chest wall pain with breathing inspiration, dry cough, no SOB Objective - Vital Signs/Intake and Output Vital Signs (last 24 hours): Temp Pulse Resp BP Pulse Ox 97.8 F 92 H 18 119/80 95 08/23/17 16:06 08/23/17 16:06 08/23/17 16:06 08/23/17 16:06 08/23/17 16:06 - Medications Medications: Current Medications Acetaminophen (Tylenol 325mg Tab) 650 mg PO Q6 PRN PRN Reason: Fever >100.4 F Last Admin: 08/22/17 16:13 Dose: 650 mg Albuterol/Ipratropium (Duoneb 3 Mg/0.5 Mg (3 Ml) Ud) 3 ml INH RQ6 PRN PRN Reason: Shortness of Breath Enoxaparin Sodium (Lovenox) 40 mg SC DAILY [facility] PRN Reason: Protocol Last Admin: 08/22/17 09:00 Dose: 40 mg Famotidine (Pepcid) 20 mg PO BID [facility] Last Admin: 08/23/17 09:08 Dose: 20 mg Ferrous Sulfate (Feosol) 325 mg PO BID [facility] Last Admin: 08/23/17 09:07 Dose: 325 mg Vancomycin HCl 1 gm/ Sodium (Chloride) 250 mls @ 166.667 mls/hr IVPB Q12 [facility] PRN Reason: Protocol Last Admin: 08/23/17 09:08 Dose: 166.667 mls/hr Metronidazole (Flagyl 500mg/100ml Ns) 100 mls @ 100 mls/hr IVPB Q8 [facility] PRN Reason: Protocol Last Admin: 08/23/17 09:09 Dose: 100 mls/hr Meropenem 500 mg/ Sodium (Chloride) 100 mls @ 100 mls/hr IVPB Q8 [facility] PRN Reason: Protocol Last Admin: 08/23/17 09:08 Dose: 100 mls/hr Ibuprofen (Motrin Tab) 600 mg PO Q6 PRN PRN Reason: Pain, Mild (1-3) Last Admin: 08/20/17 13:45 Dose: 600 mg Ondansetron HCl (Zofran Inj) 4 mg IVP Q6 PRN PRN Reason: Nausea/Vomiting Multivit/Folic Acid/Iron () 1 tab PO DAILY [facility] Last Admin: 08/23/17 09:10 Dose: 1 tab Saccharomyces Boulardii (Florastor) 250 mg PO BID [facility] Last Admin: 08/23/17 09:08 Dose: 250 mg Senna/Docusate Sodium (Senokot S 50 Mg-8.6 Mg) 1 tab PO HS [facility] Last Admin: 08/22/17 22:00 Dose: 1 tab - Labs Labs: 08/23/17 08:24 08/23/17 08:24 PT 14.8 Seconds (9.8-13.1) H 08/20/17 05:30 INR 1.3 (0.9-1.2) H 08/20/17 05:30 APTT 32.5 Seconds (25.6-37.1) 08/18/17 19:12 - Constitutional Appears: No Acute Distress - Head Exam Head Exam: NORMAL INSPECTION - Eye Exam Eye Exam: PERRL - ENT Exam ENT Exam: Normal Exam - Neck Exam Neck Exam: Normal Inspection - Respiratory Exam Respiratory Exam: Chest Wall Tenderness (mild R side with breathing.), Decreased Breath Sounds (R base) - Cardiovascular Exam Cardiovascular Exam: REGULAR RHYTHM - GI/Abdominal Exam GI & Abdominal Exam: Soft, Normal Bowel Sounds - Extremities Exam Extremities Exam: Normal Inspection - Back Exam Back Exam: NORMAL INSPECTION - Neurological Exam Neurological Exam: Alert, Oriented x3 - Psychiatric Exam Psychiatric exam: Normal Mood - Skin Skin Exam: Warm Assessment and Plan (1) Pleural effusion Status: Acute (2) Atelectasis of right lung Status: Acute (3) PNA (pneumonia) Status: Acute - Assessment and Plan (Free Text) Plan: F/U CT Chest and ABG RA in AM , Patient on Vanco , Flagyl , Merren , also to cover Pelvic abcess
--- NOTE | 2017-08-23 18:42 | CP.PCM.PN ---
Subjective - Date & Time of Evaluation Date of Evaluation: 08/23/17 Time of Evaluation: 18:32 - Subjective Subjective: I D NOTE THERE ARE NO NEW CULTURE RESULTS HAVE ADDED TEFLARO MAY DC VANCOMYCIN TOMORROW Objective - Vital Signs/Intake and Output Vital Signs (last 24 hours): Temp Pulse Resp BP Pulse Ox 97.8 F 92 H 18 119/80 95 08/23/17 16:06 08/23/17 16:06 08/23/17 16:06 08/23/17 16:06 08/23/17 16:06 - Medications Medications: Current Medications Acetaminophen (Tylenol 325mg Tab) 650 mg PO Q6 PRN PRN Reason: Fever >100.4 F Last Admin: 08/22/17 16:13 Dose: 650 mg Albuterol/Ipratropium (Duoneb 3 Mg/0.5 Mg (3 Ml) Ud) 3 ml INH RQ6 PRN PRN Reason: Shortness of Breath Enoxaparin Sodium (Lovenox) 40 mg SC DAILY [facility] PRN Reason: Protocol Last Admin: 08/22/17 09:00 Dose: 40 mg Famotidine (Pepcid) 20 mg PO BID [facility] Last Admin: 08/23/17 16:51 Dose: 20 mg Ferrous Sulfate (Feosol) 325 mg PO BID [facility] Last Admin: 08/23/17 16:50 Dose: 325 mg Vancomycin HCl 1 gm/ Sodium (Chloride) 250 mls @ 166.667 mls/hr IVPB Q12 [facility] PRN Reason: Protocol Last Admin: 08/23/17 09:08 Dose: 166.667 mls/hr Metronidazole (Flagyl 500mg/100ml Ns) 100 mls @ 100 mls/hr IVPB Q8 [facility] PRN Reason: Protocol Last Admin: 08/23/17 16:49 Dose: 100 mls/hr Meropenem 500 mg/ Sodium (Chloride) 100 mls @ 100 mls/hr IVPB Q8 [facility] PRN Reason: Protocol Last Admin: 08/23/17 16:51 Dose: 100 mls/hr Ceftaroline Fosamil 600 mg/ (Sodium Chloride) 250 mls @ 125 mls/hr IVPB Q12 [facility] PRN Reason: Protocol Ibuprofen (Motrin Tab) 600 mg PO Q6 PRN PRN Reason: Pain, Mild (1-3) Last Admin: 08/20/17 13:45 Dose: 600 mg Ondansetron HCl (Zofran Inj) 4 mg IVP Q6 PRN PRN Reason: Nausea/Vomiting Multivit/Folic Acid/Iron () 1 tab PO DAILY [facility] Last Admin: 08/23/17 09:10 Dose: 1 tab Saccharomyces Boulardii (Florastor) 250 mg PO BID [facility] Last Admin: 08/23/17 16:51 Dose: 250 mg Senna/Docusate Sodium (Senokot S 50 Mg-8.6 Mg) 1 tab PO HS [facility] Last Admin: 08/22/17 22:00 Dose: 1 tab - Labs Labs: 08/23/17 08:24 08/23/17 08:24 PT 14.8 Seconds (9.8-13.1) H 08/20/17 05:30 INR 1.3 (0.9-1.2) H 08/20/17 05:30 APTT 32.5 Seconds (25.6-37.1) 08/18/17 19:12
[2017-08-23 18:56] LABS: % CD4 (T HELPER CELL) 53 Percent (30-61); % CD8 (SUPPRESSOR T CELL) 29 Percent (12-42); ABSOLUTE CD4 CELLS 1178 Cells/mcL (490-1740); ABSOLUTE CD8 CELLS 643 Cells/mcL (180-1170); ABSOLUTE LYMPHOCYTES 2214 Cells/mcL (850-3900); HELPER/SUPPRESSOR RATIO 1.83 Ratio (0.86-5.00)
[2017-08-23] MEDS: Docusate-Senna 50 mg-8.6 mg Tab PO SCH (22:28)
[2017-08-24] MEDS: Meropenem 500 MG in Sodium Chloride 0.9% 100 ML IVPB SCH ×3 (00:55→16:51)
[2017-08-24] MEDS: metroNIDAZOLE 500mg/100ml NS 100 ML IVPB SCH ×3 (01:15→16:50)
[2017-08-24 06:44] LABS: BASO # 0.1 K/uL (0.0-0.2); BASO % 0.8 % (0.0-2.0); EOS # 0.1 K/uL (0.0-0.7); EOS % 1.5 % (0.0-4.0); HEMOGLOBIN 9.1 g/dL (12.0-16.0); LYMPH # 2.2 K/uL (1.0-4.3); LYMPH % 22.9 % (20.0-40.0); MEAN CELL VOLUME 78.8 fl (81.0-99.0); MEAN CORPUSCULAR HEMOGLOBIN 25.1 pg (27.0-31.0); MEAN CORPUSCULAR HGB CONC 31.8 g/dL (33.0-37.0); MEAN PLATELET VOLUME 8.9 fl (7.2-11.7); MONO # 0.8 K/uL (0.0-0.8); NEUT # 6.3 K/uL (1.8-7.0); NEUT % 66.8 % (50.0-75.0); NRBC % 0.1 % (0.0-0.0); RBC 3.61 Mil/uL (3.80-5.20); RED CELL DISTRIBUTION WIDTH 16.7 % (11.5-14.5); WHITE BLOOD COUNT 9.5 K/uL (4.8-10.8)
[2017-08-24 06:51] LABS: ALB/GLOB RATIO 0.8 (1.0-2.1); ALBUMIN 2.9 g/dL (3.5-5.0); ALT/SGPT 32 U/L (9-52); AST/SGOT 19 U/L (14-36); BLOOD UREA NITROGEN 7 mg/dl (7-17); CALCIUM 8.9 mg/dL (8.4-10.2); GFR AFRICAN-AMERICAN > 60; GFR NON-AFRICAN AMERICAN > 60
[2017-08-24 08:07] LABS: ABG ALLEN TEST YES
[2017-08-24 08:20] LABS: ARTERIAL BLOOD GAS HCO3 27.4 mmol/L (21-28); ARTERIAL BLOOD GAS HEMOGLOBIN 8.4 g/dL (11.7-17.4); ARTERIAL BLOOD GAS O2 CAPACITY 11.5 mL/dL (16-24); ARTERIAL BLOOD GAS O2 CONTENT 11.4 ML/dL (15-23); ARTERIAL BLOOD GAS O2 SAT 98.9 % (95-98); ARTERIAL BLOOD GAS PCO2 36 mm/Hg (35-45); ARTERIAL BLOOD GAS PH 7.48 (7.35-7.45); ARTERIAL BLOOD GAS PO2 87 mm/Hg (80-100); ARTERIAL BLOOD GAS TCO2 27.9 mmol/L (22-28)
--- NOTE | 2017-08-24 08:33 | CP.PCM.PN ---
Subjective - Date & Time of Evaluation Date of Evaluation: 08/24/17 Time of Evaluation: 08:28 - Subjective Subjective: SURGERY PROGRESS NOTE FOR DR. VARGAS 31F seen and examined at bedside. No acute events overnight. Patient has mild abdominal pain in right lower quadrant. denies nausea, vomiting, and has been tolerating diet. Objective - Vital Signs/Intake and Output Vital Signs (last 24 hours): Temp Pulse Resp BP Pulse Ox 98.4 F 83 20 131/80 92 L 08/24/17 07:50 08/24/17 07:50 08/24/17 07:50 08/24/17 07:50 08/24/17 07:50 - Medications Medications: Current Medications Acetaminophen (Tylenol 325mg Tab) 650 mg PO Q6 PRN PRN Reason: Fever >100.4 F Last Admin: 08/22/17 16:13 Dose: 650 mg Albuterol/Ipratropium (Duoneb 3 Mg/0.5 Mg (3 Ml) Ud) 3 ml INH RQ6 PRN PRN Reason: Shortness of Breath Enoxaparin Sodium (Lovenox) 40 mg SC DAILY [facility] PRN Reason: Protocol Last Admin: 08/22/17 09:00 Dose: 40 mg Famotidine (Pepcid) 20 mg PO BID [facility] Last Admin: 08/23/17 16:51 Dose: 20 mg Ferrous Sulfate (Feosol) 325 mg PO BID [facility] Last Admin: 08/23/17 16:50 Dose: 325 mg Vancomycin HCl 1 gm/ Sodium (Chloride) 250 mls @ 166.667 mls/hr IVPB Q12 [facility] PRN Reason: Protocol Last Admin: 08/23/17 22:28 Dose: 166.667 mls/hr Metronidazole (Flagyl 500mg/100ml Ns) 100 mls @ 100 mls/hr IVPB Q8 [facility] PRN Reason: Protocol Last Admin: 08/24/17 01:15 Dose: 100 mls/hr Meropenem 500 mg/ Sodium (Chloride) 100 mls @ 100 mls/hr IVPB Q8 [facility] PRN Reason: Protocol Last Admin: 08/24/17 00:55 Dose: 100 mls/hr Ceftaroline Fosamil 600 mg/ (Sodium Chloride) 250 mls @ 125 mls/hr IVPB Q12 [facility] PRN Reason: Protocol Last Admin: 08/23/17 20:41 Dose: 125 mls/hr Ibuprofen (Motrin Tab) 600 mg PO Q6 PRN PRN Reason: Pain, Mild (1-3) Last Admin: 08/20/17 13:45 Dose: 600 mg Ondansetron HCl (Zofran Inj) 4 mg IVP Q6 PRN PRN Reason: Nausea/Vomiting Multivit/Folic Acid/Iron () 1 tab PO DAILY [facility] Last Admin: 08/23/17 09:10 Dose: 1 tab Saccharomyces Boulardii (Florastor) 250 mg PO BID [facility] Last Admin: 08/23/17 16:51 Dose: 250 mg Senna/Docusate Sodium (Senokot S 50 Mg-8.6 Mg) 1 tab PO HS [facility] Last Admin: 08/23/17 22:28 Dose: 1 tab - Labs Labs: 08/24/17 05:45 08/24/17 05:45 PT 14.8 Seconds (9.8-13.1) H 08/20/17 05:30 INR 1.3 (0.9-1.2) H 08/20/17 05:30 APTT 32.5 Seconds (25.6-37.1) 08/18/17 19:12 - Constitutional Appears: Well, Non-toxic, No Acute Distress - Eye Exam Eye Exam: EOMI, PERRL - Respiratory Exam Respiratory Exam: Clear to Ausculation Bilateral, NORMAL BREATHING PATTERN - Cardiovascular Exam Cardiovascular Exam: REGULAR RHYTHM, +S1, +S2 - GI/Abdominal Exam GI & Abdominal Exam: Soft, Tenderness (mildly tender in RLQ). absent: Distended , Firm, Guarding, Rigid, Rebound - Neurological Exam Neurological Exam: Alert, Awake - Psychiatric Exam Psychiatric exam: Normal Affect, Normal Mood Assessment and Plan - Assessment and Plan (Free Text) Assessment: 31F with pelvic hematoma s/p c-sec last month Plan: - pain control - hematoma may take weeks to resolve - No OR recommended currently Further recs discuss with Dr. Rayray Reid, PGY2
--- NOTE | 2017-08-24 08:37 | CP.PCM.PN ---
Subjective - Date & Time of Evaluation Date of Evaluation: 08/24/17 Time of Evaluation: 08:34 - Subjective Subjective: SURGERY NOTE FOR DR. QUIÑONES 31F seen and examined at bedside. Patient states her pleuritic chest pain is improving, denies shortness of breath. Objective - Vital Signs/Intake and Output Vital Signs (last 24 hours): Temp Pulse Resp BP Pulse Ox 98.4 F 83 20 131/80 92 L 08/24/17 07:50 08/24/17 07:50 08/24/17 07:50 08/24/17 07:50 08/24/17 07:50 - Medications Medications: Current Medications Acetaminophen (Tylenol 325mg Tab) 650 mg PO Q6 PRN PRN Reason: Fever >100.4 F Last Admin: 08/22/17 16:13 Dose: 650 mg Albuterol/Ipratropium (Duoneb 3 Mg/0.5 Mg (3 Ml) Ud) 3 ml INH RQ6 PRN PRN Reason: Shortness of Breath Enoxaparin Sodium (Lovenox) 40 mg SC DAILY [facility] PRN Reason: Protocol Last Admin: 08/22/17 09:00 Dose: 40 mg Famotidine (Pepcid) 20 mg PO BID [facility] Last Admin: 08/23/17 16:51 Dose: 20 mg Ferrous Sulfate (Feosol) 325 mg PO BID [facility] Last Admin: 08/23/17 16:50 Dose: 325 mg Vancomycin HCl 1 gm/ Sodium (Chloride) 250 mls @ 166.667 mls/hr IVPB Q12 [facility] PRN Reason: Protocol Last Admin: 08/23/17 22:28 Dose: 166.667 mls/hr Metronidazole (Flagyl 500mg/100ml Ns) 100 mls @ 100 mls/hr IVPB Q8 [facility] PRN Reason: Protocol Last Admin: 08/24/17 01:15 Dose: 100 mls/hr Meropenem 500 mg/ Sodium (Chloride) 100 mls @ 100 mls/hr IVPB Q8 [facility] PRN Reason: Protocol Last Admin: 08/24/17 00:55 Dose: 100 mls/hr Ceftaroline Fosamil 600 mg/ (Sodium Chloride) 250 mls @ 125 mls/hr IVPB Q12 [facility] PRN Reason: Protocol Last Admin: 08/23/17 20:41 Dose: 125 mls/hr Ibuprofen (Motrin Tab) 600 mg PO Q6 PRN PRN Reason: Pain, Mild (1-3) Last Admin: 08/20/17 13:45 Dose: 600 mg Ondansetron HCl (Zofran Inj) 4 mg IVP Q6 PRN PRN Reason: Nausea/Vomiting Multivit/Folic Acid/Iron () 1 tab PO DAILY [facility] Last Admin: 08/23/17 09:10 Dose: 1 tab Saccharomyces Boulardii (Florastor) 250 mg PO BID [facility] Last Admin: 08/23/17 16:51 Dose: 250 mg Senna/Docusate Sodium (Senokot S 50 Mg-8.6 Mg) 1 tab PO HS [facility] Last Admin: 08/23/17 22:28 Dose: 1 tab - Labs Labs: 08/24/17 05:45 08/24/17 05:45 PT 14.8 Seconds (9.8-13.1) H 08/20/17 05:30 INR 1.3 (0.9-1.2) H 08/20/17 05:30 APTT 32.5 Seconds (25.6-37.1) 08/18/17 19:12 - Constitutional Appears: Well, Non-toxic, No Acute Distress - ENT Exam ENT Exam: Mucous Membranes Moist - Respiratory Exam Respiratory Exam: Clear to Ausculation Bilateral, NORMAL BREATHING PATTERN - Cardiovascular Exam Cardiovascular Exam: REGULAR RHYTHM, +S1, +S2 - GI/Abdominal Exam GI & Abdominal Exam: Soft, Tenderness (mildl tender in RLQ). absent: Distended , Firm, Guarding, Rigid, Rebound - Neurological Exam Neurological Exam: Alert, Awake - Skin Skin Exam: Dry, Intact, Normal Color, Warm Assessment and Plan - Assessment and Plan (Free Text) Assessment: 31F presents with right sided loculated pleural effusions. s/p drainage by IR Plan: - Continue antibiotics - Pulmonary physiotherapy - poss repeat chest CTs Further recs discuss with Dr Shona Reid, PGY2
[2017-08-24] MEDS: Enoxaparin 40 mg Syringe SC SCH (08:44)
[2017-08-24] MEDS: Saccharomyces Boulardi 250 mg Cap PO SCH ×2 (08:44→16:51)
[2017-08-24] MEDS: Prenatal Multivit/Folic Acid/Iron Tab PO SCH (08:45)
--- NOTE | 2017-08-24 09:35 | CP.PCM.PN ---
Subjective - Date & Time of Evaluation Date of Evaluation: 08/24/17 Time of Evaluation: 08:00 - Subjective Subjective: Pt seen and examined at the bedside this am. Reports mild lower abdominal pain that she feels only when she coughs or moves quickly. Did not ask for pain meds overnight bc it was not severe. Also has chest wall pain (right lower) only when taking deep breaths. She states she feels fine otherwise. Denies sob, cough , fever, chills, n/v/d. Tolerating diet. Ambulating and using incentive spirometry. Objective - Vital Signs/Intake and Output Vital Signs (last 24 hours): Temp Pulse Resp BP Pulse Ox 98.4 F 83 20 131/80 92 L 08/24/17 07:50 08/24/17 07:50 08/24/17 07:50 08/24/17 07:50 08/24/17 07:50 - Medications Medications: Current Medications Acetaminophen (Tylenol 325mg Tab) 650 mg PO Q6 PRN PRN Reason: Fever >100.4 F Last Admin: 08/22/17 16:13 Dose: 650 mg Albuterol/Ipratropium (Duoneb 3 Mg/0.5 Mg (3 Ml) Ud) 3 ml INH RQ6 PRN PRN Reason: Shortness of Breath Enoxaparin Sodium (Lovenox) 40 mg SC DAILY MARCIA PRN Reason: Protocol Last Admin: 08/24/17 08:44 Dose: 40 mg Famotidine (Pepcid) 20 mg PO BID [facility] Last Admin: 08/24/17 08:45 Dose: 20 mg Ferrous Sulfate (Feosol) 325 mg PO BID [facility] Last Admin: 08/24/17 08:51 Dose: 325 mg Vancomycin HCl 1 gm/ Sodium (Chloride) 250 mls @ 166.667 mls/hr IVPB Q12 MARCIA PRN Reason: Protocol Last Admin: 08/24/17 08:46 Dose: 166.667 mls/hr Metronidazole (Flagyl 500mg/100ml Ns) 100 mls @ 100 mls/hr IVPB Q8 MARCIA PRN Reason: Protocol Last Admin: 08/24/17 08:44 Dose: 100 mls/hr Meropenem 500 mg/ Sodium (Chloride) 100 mls @ 100 mls/hr IVPB Q8 MARCIA PRN Reason: Protocol Last Admin: 08/24/17 00:55 Dose: 100 mls/hr Ceftaroline Fosamil 600 mg/ (Sodium Chloride) 250 mls @ 125 mls/hr IVPB Q12 MARCIA PRN Reason: Protocol Last Admin: 08/24/17 08:46 Dose: 125 mls/hr Ibuprofen (Motrin Tab) 600 mg PO Q6 PRN PRN Reason: Pain, Mild (1-3) Last Admin: 08/20/17 13:45 Dose: 600 mg Ondansetron HCl (Zofran Inj) 4 mg IVP Q6 PRN PRN Reason: Nausea/Vomiting Multivit/Folic Acid/Iron () 1 tab PO DAILY [facility] Last Admin: 08/24/17 08:45 Dose: 1 tab Saccharomyces Boulardii (Florastor) 250 mg PO BID [facility] Last Admin: 08/24/17 08:44 Dose: 250 mg Senna/Docusate Sodium (Senokot S 50 Mg-8.6 Mg) 1 tab PO HS [facility] Last Admin: 08/23/17 22:28 Dose: 1 tab - Labs Labs: 08/24/17 05:45 08/24/17 05:45 PT 14.8 Seconds (9.8-13.1) H 08/20/17 05:30 INR 1.3 (0.9-1.2) H 08/20/17 05:30 APTT 32.5 Seconds (25.6-37.1) 08/18/17 19:12 - Constitutional Appears: Well, Non-toxic, No Acute Distress - Head Exam Head Exam: NORMAL INSPECTION - Eye Exam Eye Exam: Normal appearance - ENT Exam ENT Exam: Mucous Membranes Moist - Respiratory Exam Respiratory Exam: Decreased Breath Sounds (Right sided, improved). absent: Accessory Muscle Use, Chest Wall Tenderness, Rales, Wheezes, Respiratory Distress - Cardiovascular Exam Cardiovascular Exam: REGULAR RHYTHM, +S1, +S2. absent: Murmur - GI/Abdominal Exam GI & Abdominal Exam: Soft, Normal Bowel Sounds. absent: Distended, Guarding, Rigid, Tenderness - Extremities Exam Extremities Exam: absent: Pedal Edema - Back Exam Back Exam: absent: CVA tenderness (L), CVA tenderness (R) - Neurological Exam Neurological Exam: Alert, Awake, Oriented x3 - Psychiatric Exam Psychiatric exam: Normal Affect - Skin Skin Exam: Normal Color Assessment and Plan - Assessment and Plan (Free Text) Assessment: Assessment: 31 y/o F admitted with moderate pleural effusion. Pt was recently d/c after 10 day hosp admission for pelvic abscess complication from c section on 07/23. S/P thoracentisis on 08/19. Patient no longer has plan for OR as per OBGYN. Will continue to monitor pleural effusion and abdominals fluid collection. Chest CT with contrast for today. Pelvic MRI for 08/25. Consultations on board: OBGYN: , No plan for OR, risks>benefits given pnu, hematoma will resolve over weeks Infectious Disease: Dr. Gaviria, Ceftaroline started, will consider starting Vanco Pulmonology: Dr. Shepherd, ABG ordered for today, will follow up chest ct Cardiothoracic: Dr. Nagel, pleural effusion to small to drain, serial chest ct w / contrast to monitor size. Possible surgery if increase in effusion Pleural effusion s/p thoracentesis on 08/21 -Etiology unknown. Working differential includes Transudative 2/2 to low albumin , ParaPNU effusion, Patient DCed from hosp 4 days ago and had similar symptoms to today's presentation during last inpatient stay as well as some changes including R/pleural effusion on CXR done at the time. -No cough, SOB, C/O Pleuritic CP -No Leukocytisis, procalcitonin wn -Cxray: Moderate R. Pleural Effusion -CT Chest at ED today: Moderate right pleural effusion with evidence of mild loculation. Mass-like focus of infiltrate in the left. Pulmonary arteries no PE upper lobe with air bronchograms. -Pulmonology on board -Cadiothoracic on board -Duonebs PRN and Incentive spirometry prn -Pleural fluid analysis c/w Exudative effusion, LDH 961, elevated WBC w/ neutrophilic predominance, ++ blood. +Cloudy.Stain and CX wnl -Echo completed ,no pericardial effusion seen, EF wnl -Plan for Chest CT today Pelvic abscess 5.9 *10.3*6.7cm complex pelvic collection -Recently DCed from hosp after 10 days of IV abx -C/W Zosyn/Vanco IV -CT Abd/Pelvis on 08/13/17: Some interval improvement from initial CT -Denies pelvic/abd pain -ID on board on board -OBGYN on board -Plan for pelvic MRI today to evaluate fluid collection Microcytic anemia -Stable -Patient anemic since delivery and has been on Iron BID at home. -Hgb 10.0 today -Iron studies c/w iron def anemia -Continue with Ferrous Sulfate BID MILIND,resolved -Crea 0.8 today -Likely prerenal 2/2 dehydration Coagulopathy -Elevated PT/INR/D-Dimers/Platelets -POss related to infectious/inflammatory process? -Denies LE pain. CT angio chest no PE -F/U Abd/Pelvis US -F/U INES/ESR Small pericardial effusion -Chest CT finding -F/U Echo, INES, RF, ESR -F/u Echo Prophylactic measures -Lovenox 40mg SC daily -SCDs Diet -Regular
[2017-08-24] MEDS ORDERED: Iohexol 300 100 ML IJ ONE (12:04)
[2017-08-24] MEDS ORDERED: Sodium Chloride 0.9% 100 ML ONE (12:04)
--- NOTE | 2017-08-24 14:07 | CP.PCM.PN ---
Subjective - Date & Time of Evaluation Date of Evaluation: 08/24/17 Time of Evaluation: 14:00 - Subjective Subjective: Pt s/e at bedside. No chest pain of sob. vss. [id number] ct of chest this am: decreasing consolidation, right lower lobe, makes pleural effusion more discernable. Compressive atelectasis and effusion diminishing. Left upper lobe intiltrates-improving also. a/p: Lung pathology improve from ct of 08-21-17. Continue current care-antbiotics, chest PT. CT on Sunday without contrast. d/w Stella Shepherd, [employer], and [employer]. Objective - Vital Signs/Intake and Output Vital Signs (last 24 hours): Temp Pulse Resp BP Pulse Ox 98.4 F 83 20 131/80 92 L 08/24/17 07:50 08/24/17 07:50 08/24/17 07:50 08/24/17 07:50 08/24/17 07:50 - Medications Medications: Current Medications Acetaminophen (Tylenol 325mg Tab) 650 mg PO Q6 PRN PRN Reason: Fever >100.4 F Last Admin: 08/22/17 16:13 Dose: 650 mg Albuterol/Ipratropium (Duoneb 3 Mg/0.5 Mg (3 Ml) Ud) 3 ml INH RQ6 PRN PRN Reason: Shortness of Breath Enoxaparin Sodium (Lovenox) 40 mg SC DAILY [facility]IA PRN Reason: Protocol Last Admin: 08/24/17 08:44 Dose: 40 mg Famotidine (Pepcid) 20 mg PO BID [facility] Last Admin: 08/24/17 08:45 Dose: 20 mg Ferrous Sulfate (Feosol) 325 mg PO BID [facility] Last Admin: 08/24/17 08:51 Dose: 325 mg Metronidazole (Flagyl 500mg/100ml Ns) 100 mls @ 100 mls/hr IVPB Q8 MARCIA PRN Reason: Protocol Last Admin: 08/24/17 08:44 Dose: 100 mls/hr Meropenem 500 mg/ Sodium (Chloride) 100 mls @ 100 mls/hr IVPB Q8 MARCIA PRN Reason: Protocol Last Admin: 08/24/17 13:56 Dose: 100 mls/hr Ceftaroline Fosamil 600 mg/ (Sodium Chloride) 250 mls @ 125 mls/hr IVPB Q12 MARCIA PRN Reason: Protocol Last Admin: 08/24/17 08:46 Dose: 125 mls/hr Ibuprofen (Motrin Tab) 600 mg PO Q6 PRN PRN Reason: Pain, Mild (1-3) Last Admin: 08/20/17 13:45 Dose: 600 mg Ondansetron HCl (Zofran Inj) 4 mg IVP Q6 PRN PRN Reason: Nausea/Vomiting Multivit/Folic Acid/Iron () 1 tab PO DAILY [facility] Last Admin: 08/24/17 08:45 Dose: 1 tab Saccharomyces Boulardii (Florastor) 250 mg PO BID [facility] Last Admin: 08/24/17 08:44 Dose: 250 mg Senna/Docusate Sodium (Senokot S 50 Mg-8.6 Mg) 1 tab PO HS [facility] Last Admin: 08/23/17 22:28 Dose: 1 tab - Labs Labs: 08/24/17 05:45 08/24/17 05:45 PT 14.8 Seconds (9.8-13.1) H 08/20/17 05:30 INR 1.3 (0.9-1.2) H 08/20/17 05:30 APTT 32.5 Seconds (25.6-37.1) 08/18/17 19:12
--- NOTE | 2017-08-24 14:11 | CT ---
PROCEDURE: CT Chest with contrast HISTORY: Monitor Loculated Pleural effusion. R Lung COMPARISON: Chest CT without contrast 08/21/2017. TECHNIQUE: Contiguous axial images were obtained through the chest with intravenous contrast enhancement. Sagittal and coronal reconstructions were performed. IV contrast: Omnipaque 300, 100 cc Radiation dose (DLP): 376.63 mGy-cm. This CT exam was performed using one or more of the following dose reduction techniques: Automated exposure control, adjustment of the mA and/or kV according to patient size, and/or use of iterative reconstruction technique. FINDINGS: LUNGS: Diminishing triangular-shaped infiltrate or atelectasis in the left upper lobe is identified as well as right lower lobe atelectasis/infiltrate. Linear atelectasis favored over fibrosis again noted at the left lower lobe base. No pneumothorax or central airway lesion. Underlying lesions in either of these areas of infiltrate or atelectasis is not completely excluded though not shown at this time either. MEDIASTINUM: Unremarkable thoracic aorta. No aneurysm or dissection. Normal sized heart. Main pulmonary artery unremarkable. No vascular congestion. No lymphadenopathy. PLEURA: Diminishing partially loculated right pleural effusion identified including the major fissure inferiorly. No left pleural effusion. No pericardial effusion. No pneumothorax bilaterally. BONES: No fracture. No destructive lesion. UPPER ABDOMEN: Fatty liver changes noted. OTHER FINDINGS: None. IMPRESSION: Diminishing partially loculated right pleural effusion and right lower lobe airspace disease. Diminishing left upper lobe airspace disease also identified. Examination otherwise stable.
--- NOTE | 2017-08-24 15:31 | CP.PCM.PN ---
Subjective - Date & Time of Evaluation Date of Evaluation: 08/24/17 Time of Evaluation: 11:30 - Subjective Subjective: F/U Pleural Effusion. no SOB , no cough , no RUBIN , minimal pain R lowe chest wall with deep breathuing , not with regular breathinb , had reaction to Teflaro with tingling of extremities and fingers Objective - Vital Signs/Intake and Output Vital Signs (last 24 hours): Temp Pulse Resp BP Pulse Ox 98.4 F 83 20 131/80 92 L 08/24/17 07:50 08/24/17 07:50 08/24/17 07:50 08/24/17 07:50 08/24/17 07:50 - Medications Medications: Current Medications Acetaminophen (Tylenol 325mg Tab) 650 mg PO Q6 PRN PRN Reason: Fever >100.4 F Last Admin: 08/22/17 16:13 Dose: 650 mg Albuterol/Ipratropium (Duoneb 3 Mg/0.5 Mg (3 Ml) Ud) 3 ml INH RQ6 PRN PRN Reason: Shortness of Breath Enoxaparin Sodium (Lovenox) 40 mg SC DAILY MARCIA PRN Reason: Protocol Last Admin: 08/24/17 08:44 Dose: 40 mg Famotidine (Pepcid) 20 mg PO BID [facility] Last Admin: 08/24/17 08:45 Dose: 20 mg Ferrous Sulfate (Feosol) 325 mg PO BID [facility] Last Admin: 08/24/17 08:51 Dose: 325 mg Metronidazole (Flagyl 500mg/100ml Ns) 100 mls @ 100 mls/hr IVPB Q8 MARCIA PRN Reason: Protocol Last Admin: 08/24/17 08:44 Dose: 100 mls/hr Meropenem 500 mg/ Sodium (Chloride) 100 mls @ 100 mls/hr IVPB Q8 MARCIA PRN Reason: Protocol Last Admin: 08/24/17 13:56 Dose: 100 mls/hr Ceftaroline Fosamil 600 mg/ (Sodium Chloride) 250 mls @ 125 mls/hr IVPB Q12 MARCIA PRN Reason: Protocol Last Admin: 08/24/17 08:46 Dose: 125 mls/hr Ibuprofen (Motrin Tab) 600 mg PO Q6 PRN PRN Reason: Pain, Mild (1-3) Last Admin: 08/24/17 13:59 Dose: 600 mg Ondansetron HCl (Zofran Inj) 4 mg IVP Q6 PRN PRN Reason: Nausea/Vomiting Multivit/Folic Acid/Iron () 1 tab PO DAILY [facility] Last Admin: 08/24/17 08:45 Dose: 1 tab Saccharomyces Boulardii (Florastor) 250 mg PO BID [facility] Last Admin: 08/24/17 08:44 Dose: 250 mg Senna/Docusate Sodium (Senokot S 50 Mg-8.6 Mg) 1 tab PO HS [facility] Last Admin: 08/23/17 22:28 Dose: 1 tab - Labs Labs: 08/24/17 05:45 08/24/17 05:45 PT 14.8 Seconds (9.8-13.1) H 08/20/17 05:30 INR 1.3 (0.9-1.2) H 08/20/17 05:30 APTT 32.5 Seconds (25.6-37.1) 08/18/17 19:12 - Constitutional Appears: No Acute Distress - Head Exam Head Exam: NORMAL INSPECTION - Eye Exam Eye Exam: PERRL - ENT Exam ENT Exam: Normal Exam - Neck Exam Neck Exam: Normal Inspection - Respiratory Exam Respiratory Exam: Chest Wall Tenderness (lower R chest wall with deep breathing), Decreased Breath Sounds ( R base), NORMAL BREATHING PATTERN - Cardiovascular Exam Cardiovascular Exam: REGULAR RHYTHM - GI/Abdominal Exam GI & Abdominal Exam: Soft, Normal Bowel Sounds - Extremities Exam Extremities Exam: Normal Inspection - Back Exam Back Exam: NORMAL INSPECTION - Neurological Exam Neurological Exam: Alert, Oriented x3 - Psychiatric Exam Psychiatric exam: Normal Mood - Skin Skin Exam: Warm Assessment and Plan (1) Pleural effusion Assessment & Plan: Status: Acute (2) Atelectasis of right lung Status: Acute (3) PNA (pneumonia) Status: Acute - Assessment and Plan (Free Text) Plan: CT Chest decreased partially loculated R pleural effusion and RLL PNA , no need for VATS at this moment in view of improvement of R pleural effusion and PNA , Pleural Fluid for Thoracentesis 3-12 C-S negative, sputum C-S 3-11 negative , Teflaro DC 2nd to Allergic reaction, f/u CT Chest on Sunday, Patient treated for Pelvic abcess
--- NOTE | 2017-08-24 17:58 | CP.PCM.PN ---
Subjective - Date & Time of Evaluation Date of Evaluation: 08/24/17 Time of Evaluation: 17:54 - Subjective Subjective: I D NOTE PATIENT HAD REACTION TO TEFLARO SHE STATES TINGLING DOWN HER EXTREMITIES AND FINGERS,AND PAIN AT IV SITE HAVE D/MELIDA IT AND RESTARTED VANCOMYCIN IN ADJUSTED DOSE CHEST CT IMPROVED SOMEWHAT CONTINUE MEROPENEM AND FLAGYL Objective - Vital Signs/Intake and Output Vital Signs (last 24 hours): Temp Pulse Resp BP Pulse Ox 98.3 F 78 18 110/75 97 08/24/17 16:02 08/24/17 16:02 08/24/17 16:02 08/24/17 16:02 08/24/17 16:02 - Medications Medications: Current Medications Acetaminophen (Tylenol 325mg Tab) 650 mg PO Q6 PRN PRN Reason: Fever >100.4 F Last Admin: 08/22/17 16:13 Dose: 650 mg Albuterol/Ipratropium (Duoneb 3 Mg/0.5 Mg (3 Ml) Ud) 3 ml INH RQ6 PRN PRN Reason: Shortness of Breath Enoxaparin Sodium (Lovenox) 40 mg SC DAILY MARCIA PRN Reason: Protocol Last Admin: 08/24/17 08:44 Dose: 40 mg Famotidine (Pepcid) 20 mg PO BID [facility] Last Admin: 08/24/17 08:45 Dose: 20 mg Ferrous Sulfate (Feosol) 325 mg PO BID [facility] Last Admin: 08/24/17 16:52 Dose: 325 mg Metronidazole (Flagyl 500mg/100ml Ns) 100 mls @ 100 mls/hr IVPB Q8 MARCIA PRN Reason: Protocol Last Admin: 08/24/17 16:50 Dose: 100 mls/hr Meropenem 500 mg/ Sodium (Chloride) 100 mls @ 100 mls/hr IVPB Q8 MARCIA PRN Reason: Protocol Last Admin: 08/24/17 16:51 Dose: 100 mls/hr Vancomycin HCl 750 mg/ Sodium (Chloride) 250 mls @ 250 mls/hr IVPB Q12H MARCIA PRN Reason: Protocol Ibuprofen (Motrin Tab) 600 mg PO Q6 PRN PRN Reason: Pain, Mild (1-3) Last Admin: 08/24/17 13:59 Dose: 600 mg Ondansetron HCl (Zofran Inj) 4 mg IVP Q6 PRN PRN Reason: Nausea/Vomiting Multivit/Folic Acid/Iron () 1 tab PO DAILY [facility] Last Admin: 08/24/17 08:45 Dose: 1 tab Saccharomyces Boulardii (Florastor) 250 mg PO BID [facility] Last Admin: 08/24/17 16:51 Dose: 250 mg Senna/Docusate Sodium (Senokot S 50 Mg-8.6 Mg) 1 tab PO HS [facility] Last Admin: 08/23/17 22:28 Dose: 1 tab - Labs Labs: 08/24/17 05:45 08/24/17 05:45 PT 14.8 Seconds (9.8-13.1) H 08/20/17 05:30 INR 1.3 (0.9-1.2) H 08/20/17 05:30 APTT 32.5 Seconds (25.6-37.1) 08/18/17 19:12
[2017-08-24] MEDS: Docusate-Senna 50 mg-8.6 mg Tab PO SCH (21:48)
[2017-08-25] MEDS: metroNIDAZOLE 500mg/100ml NS 100 ML IVPB SCH ×3 (00:49→16:40)
[2017-08-25] MEDS: Meropenem 500 MG in Sodium Chloride 0.9% 100 ML IVPB SCH ×3 (01:50→16:42)
--- NOTE | 2017-08-25 05:41 | CP.PCM.PN ---
Subjective - Date & Time of Evaluation Date of Evaluation: 08/25/17 Time of Evaluation: 05:39 - Subjective Subjective: SURGERY PROGRESS NOTE FOR DR. QUIÑONES 31F seen and examined at bedside. Patient states she feels much better, denies pain in the right chest, denies shortness of breath. Objective - Vital Signs/Intake and Output Vital Signs (last 24 hours): Temp Pulse Resp BP Pulse Ox 98 F 69 18 107/69 98 08/25/17 00:18 08/25/17 00:18 08/25/17 00:18 08/25/17 00:18 08/25/17 00:18 - Medications Medications: Current Medications Acetaminophen (Tylenol 325mg Tab) 650 mg PO Q6 PRN PRN Reason: Fever >100.4 F Last Admin: 08/22/17 16:13 Dose: 650 mg Albuterol/Ipratropium (Duoneb 3 Mg/0.5 Mg (3 Ml) Ud) 3 ml INH RQ6 PRN PRN Reason: Shortness of Breath Enoxaparin Sodium (Lovenox) 40 mg SC DAILY [facility] PRN Reason: Protocol Last Admin: 08/24/17 08:44 Dose: 40 mg Famotidine (Pepcid) 20 mg PO BID [facility] Last Admin: 08/24/17 18:30 Dose: 20 mg Ferrous Sulfate (Feosol) 325 mg PO BID [facility] Last Admin: 08/24/17 16:52 Dose: 325 mg Metronidazole (Flagyl 500mg/100ml Ns) 100 mls @ 100 mls/hr IVPB Q8 [facility]IA PRN Reason: Protocol Last Admin: 08/25/17 00:49 Dose: 100 mls/hr Meropenem 500 mg/ Sodium (Chloride) 100 mls @ 100 mls/hr IVPB Q8 [facility]IA PRN Reason: Protocol Last Admin: 08/25/17 01:50 Dose: 100 mls/hr Vancomycin HCl 750 mg/ Sodium (Chloride) 250 mls @ 166.667 mls/hr IVPB Q12H [facility]IA PRN Reason: Protocol Last Admin: 08/24/17 21:45 Dose: 166.667 mls/hr Ibuprofen (Motrin Tab) 600 mg PO Q6 PRN PRN Reason: Pain, Mild (1-3) Last Admin: 08/24/17 13:59 Dose: 600 mg Ondansetron HCl (Zofran Inj) 4 mg IVP Q6 PRN PRN Reason: Nausea/Vomiting Multivit/Folic Acid/Iron () 1 tab PO DAILY [facility] Last Admin: 08/24/17 08:45 Dose: 1 tab Saccharomyces Boulardii (Florastor) 250 mg PO BID [facility] Last Admin: 08/24/17 16:51 Dose: 250 mg Senna/Docusate Sodium (Senokot S 50 Mg-8.6 Mg) 1 tab PO HS [facility] Last Admin: 08/24/17 21:48 Dose: 1 tab - Labs Labs: 08/24/17 05:45 08/24/17 05:45 PT 14.8 Seconds (9.8-13.1) H 08/20/17 05:30 INR 1.3 (0.9-1.2) H 08/20/17 05:30 APTT 32.5 Seconds (25.6-37.1) 08/18/17 19:12 - Constitutional Appears: Well, Non-toxic, No Acute Distress - Respiratory Exam Respiratory Exam: Clear to Ausculation Bilateral, NORMAL BREATHING PATTERN - Cardiovascular Exam Cardiovascular Exam: REGULAR RHYTHM, +S1, +S2 - GI/Abdominal Exam GI & Abdominal Exam: Soft, Tenderness (midlly tender in RLQ). absent: Distended , Firm, Guarding, Rigid, Rebound - Neurological Exam Neurological Exam: Alert, Awake Assessment and Plan - Assessment and Plan (Free Text) Assessment: 31F with loculated pleural effusions (improving) Plan: - continue antibiotics - CT scan on Sunday Further recs discuss with Dr. mansi Reid, PGY2
[2017-08-25 06:35] LABS: HEMOGLOBIN 9.1 g/dL (12.0-16.0); MEAN CELL VOLUME 78.3 fl (81.0-99.0); MEAN CORPUSCULAR HEMOGLOBIN 25.6 pg (27.0-31.0); MEAN CORPUSCULAR HGB CONC 32.7 g/dL (33.0-37.0); RBC 3.54 Mil/uL (3.80-5.20); RED CELL DISTRIBUTION WIDTH 16.5 % (11.5-14.5); WHITE BLOOD COUNT 7.5 K/uL (4.8-10.8)
[2017-08-25 06:56] LABS: BLOOD UREA NITROGEN 9 mg/dl (7-17); GFR AFRICAN-AMERICAN > 60; GFR NON-AFRICAN AMERICAN > 60
[2017-08-25 06:57] LABS: CALCIUM 8.6 mg/dL (8.4-10.2)
[2017-08-25] MEDS: Enoxaparin 40 mg Syringe SC SCH (10:48)
[2017-08-25] MEDS: Saccharomyces Boulardi 250 mg Cap PO SCH ×2 (10:48→16:43)
[2017-08-25] MEDS: Prenatal Multivit/Folic Acid/Iron Tab PO SCH (10:50)
[2017-08-25] MEDS ORDERED: Gadodiamide 287 MG/ML VIAL (15ML) IV ONE (11:44)
--- NOTE | 2017-08-25 13:30 | MRI ---
PROCEDURE: MRI examination of the pelvis with contrast only. HISTORY: Abdominal abscess, recent surgery COMPARISON: Multiple prior examinations including noncontrast MRI exam dated 08/21/[address] scan dated 08/13/2017 TECHNIQUE: MRI examination of the pelvis was performed after the administration of gadolinium contrast. Coronal, axial, and sagittal postcontrast images were obtained and compared to the recent precontrast exam. FINDINGS: There is once again evidence of a large collection in the anterior aspect of the pelvis. Mild increased signal intensity is seen peripherally surrounding the collection, however on the prior noncontrast MRI examination of the pelvis axial fat-suppressed T1 weighted imaging there was high signal surrounding the collection. Therefore this does not appear to represent enhancement. Multiple areas of scattered low signal are seen within the collection, as well as some additional areas of low signal in the anterior abdominal wall region which may suggest susceptibility artifact. Small amounts of air cannot fully be excluded accounting for the low signal. The collection is noted to closely abut the anterior aspect of the lower uterine segment region with possible connection with the endometrial canal. An element of dehiscence of the anterior scar cannot be excluded on this MRI exam. A previously noted catheter on the CT scan appears to have been removed. There are mild areas of inflammatory change along the right lateral aspect of the collection extending into the right side of the upper pelvis. Mild enhancement is noted. Visualized cervix is unremarkable. There does not appear to be appreciable enhancement within the endometrial canal although some mild fluid is suspected. The collection is causing some impression upon the superior dome of the bladder. Mildly prominent pelvic vessels are appreciated without thrombus suggesting some pelvic congestion and could be related to the recent . No other appreciable collection is noted. The overall size of the collection is grossly unchanged from the MRI exam performed 08/21/2017 No new presacral collections are noted. No appreciable new abnormal enhancement is noted in the spine or bony pelvis. Motion artifact limits evaluation of the bowel. IMPRESSION: Large anterior pelvic collection abutting the uterus and possibly extending from the patient's scar. An element of uterine dehiscence at the site cannot be excluded. Small areas of susceptibility artifact are noted. There does not appear to be significant enhancement peripherally when compared with the recent noncontrast MRI images. A mild amount of additional adjacent inflammatory change is noted.
--- NOTE | 2017-08-25 15:43 | CP.PCM.PN ---
Subjective - Date & Time of Evaluation Date of Evaluation: 08/25/17 Time of Evaluation: 15:43 - Subjective Subjective: I D NOTE AFEBRILE TOLERATING ANTIBIOTICS TODAY HAS SOME BURN[place] URINATION CULTURE ORDERED Objective - Vital Signs/Intake and Output Vital Signs (last 24 hours): Temp Pulse Resp BP Pulse Ox 99.2 F 98 H 20 118/73 95 08/25/17 15:30 08/25/17 15:30 08/25/17 15:30 08/25/17 15:30 08/25/17 15:30 - Medications Medications: Current Medications Acetaminophen (Tylenol 325mg Tab) 650 mg PO Q6 PRN PRN Reason: Fever >100.4 F Last Admin: 08/22/17 16:13 Dose: 650 mg Albuterol/Ipratropium (Duoneb 3 Mg/0.5 Mg (3 Ml) Ud) 3 ml INH RQ6 PRN PRN Reason: Shortness of Breath Enoxaparin Sodium (Lovenox) 40 mg SC DAILY [facility] PRN Reason: Protocol Last Admin: 08/25/17 10:48 Dose: 40 mg Famotidine (Pepcid) 20 mg PO BID [facility] Last Admin: 08/25/17 10:50 Dose: 20 mg Ferrous Sulfate (Feosol) 325 mg PO BID [facility] Last Admin: 08/25/17 10:48 Dose: 325 mg Metronidazole (Flagyl 500mg/100ml Ns) 100 mls @ 100 mls/hr IVPB Q8 [facility] PRN Reason: Protocol Last Admin: 08/25/17 10:48 Dose: 100 mls/hr Meropenem 500 mg/ Sodium (Chloride) 100 mls @ 100 mls/hr IVPB Q8 [facility] PRN Reason: Protocol Last Admin: 08/25/17 10:49 Dose: 100 mls/hr Vancomycin HCl 750 mg/ Sodium (Chloride) 250 mls @ 166.667 mls/hr IVPB Q12 [facility] PRN Reason: Protocol Last Admin: 08/25/17 10:57 Dose: 166.667 mls/hr Ibuprofen (Motrin Tab) 600 mg PO Q6 PRN PRN Reason: Pain, Mild (1-3) Last Admin: 08/24/17 13:59 Dose: 600 mg Ondansetron HCl (Zofran Inj) 4 mg IVP Q6 PRN PRN Reason: Nausea/Vomiting Multivit/Folic Acid/Iron () 1 tab PO DAILY [facility] Last Admin: 08/25/17 10:50 Dose: 1 tab Saccharomyces Boulardii (Florastor) 250 mg PO BID [facility] Last Admin: 08/25/17 10:48 Dose: 250 mg Senna/Docusate Sodium (Senokot S 50 Mg-8.6 Mg) 1 tab PO HS [facility] Last Admin: 08/24/17 21:48 Dose: 1 tab - Labs Labs: 08/25/17 05:30 08/25/17 05:30 PT 14.8 Seconds (9.8-13.1) H 08/20/17 05:30 INR 1.3 (0.9-1.2) H 08/20/17 05:30 APTT 32.5 Seconds (25.6-37.1) 08/18/17 19:12
--- NOTE | 2017-08-25 16:51 | CP.PCM.PN ---
Subjective - Date & Time of Evaluation Date of Evaluation: 08/25/17 Time of Evaluation: 09:00 - Subjective Subjective: Pt seen and at bedside. Mild Abdominal pain. Mild pleuritic chest pain. Denies sob, cough, fever, chills. Ambulating. Tolerating diet. Plan for Pelvic MRI today. Objective - Vital Signs/Intake and Output Vital Signs (last 24 hours): Temp Pulse Resp BP Pulse Ox 99.2 F 98 H 20 118/73 95 08/25/17 15:30 08/25/17 15:30 08/25/17 15:30 08/25/17 15:30 08/25/17 15:30 - Medications Medications: Current Medications Acetaminophen (Tylenol 325mg Tab) 650 mg PO Q6 PRN PRN Reason: Fever >100.4 F Last Admin: 08/22/17 16:13 Dose: 650 mg Albuterol/Ipratropium (Duoneb 3 Mg/0.5 Mg (3 Ml) Ud) 3 ml INH RQ6 PRN PRN Reason: Shortness of Breath Enoxaparin Sodium (Lovenox) 40 mg SC DAILY MARCIA PRN Reason: Protocol Last Admin: 08/25/17 10:48 Dose: 40 mg Famotidine (Pepcid) 20 mg PO BID [facility] Last Admin: 08/25/17 16:43 Dose: 20 mg Ferrous Sulfate (Feosol) 325 mg PO BID [facility] Last Admin: 08/25/17 16:43 Dose: 325 mg Metronidazole (Flagyl 500mg/100ml Ns) 100 mls @ 100 mls/hr IVPB Q8 MARCIA PRN Reason: Protocol Last Admin: 08/25/17 16:40 Dose: 100 mls/hr Meropenem 500 mg/ Sodium (Chloride) 100 mls @ 100 mls/hr IVPB Q8 MARCIA PRN Reason: Protocol Last Admin: 08/25/17 16:42 Dose: 100 mls/hr Vancomycin HCl 750 mg/ Sodium (Chloride) 250 mls @ 166.667 mls/hr IVPB Q12 MARCIA PRN Reason: Protocol Last Admin: 08/25/17 10:57 Dose: 166.667 mls/hr Ibuprofen (Motrin Tab) 600 mg PO Q6 PRN PRN Reason: Pain, Mild (1-3) Last Admin: 08/25/17 16:48 Dose: 600 mg Ondansetron HCl (Zofran Inj) 4 mg IVP Q6 PRN PRN Reason: Nausea/Vomiting Multivit/Folic Acid/Iron () 1 tab PO DAILY [facility] Last Admin: 08/25/17 10:50 Dose: 1 tab Saccharomyces Boulardii (Florastor) 250 mg PO BID [facility] Last Admin: 08/25/17 16:43 Dose: 250 mg Senna/Docusate Sodium (Senokot S 50 Mg-8.6 Mg) 1 tab PO HS [facility] Last Admin: 08/24/17 21:48 Dose: 1 tab - Labs Labs: 08/25/17 05:30 08/25/17 05:30 PT 14.8 Seconds (9.8-13.1) H 08/20/17 05:30 INR 1.3 (0.9-1.2) H 08/20/17 05:30 APTT 32.5 Seconds (25.6-37.1) 08/18/17 19:12 - Constitutional Appears: Well, Non-toxic, No Acute Distress - Head Exam Head Exam: NORMAL INSPECTION - ENT Exam ENT Exam: Mucous Membranes Moist - Respiratory Exam Respiratory Exam: Decreased Breath Sounds (Right lung base), Clear to Ausculation Bilateral. absent: Rales, Wheezes - Cardiovascular Exam Cardiovascular Exam: REGULAR RHYTHM, +S1, +S2, Murmur - GI/Abdominal Exam GI & Abdominal Exam: Soft, Tenderness (Mild diffuse tenderness). absent: Distended - Extremities Exam Extremities Exam: Normal Inspection - Neurological Exam Neurological Exam: Alert, Awake, Oriented x3 - Psychiatric Exam Psychiatric exam: Normal Affect - Skin Skin Exam: Normal Color Assessment and Plan - Assessment and Plan (Free Text) Assessment: Assessment: 31 y/o F admitted with moderate pleural effusion. Pt was recently d/c after 10 day hosp admission for pelvic abscess complication from c section on 07/23. S/P thoracentisis on 08/19. Patient no longer has plan for OR as per OBGYN. Will continue to monitor pleural effusion and abdominals fluid collection. Chest CT with contrast for today. Pelvic MRI for today. Consultations on board: OBGYN: , No plan for OR, risks>benefits given pnu, hematoma will resolve over weeks Infectious Disease: Dr. Gaviria, Ceftaroline started, will consider starting Vanco Pulmonology: Dr. Shepherd, ABG ordered for today, will follow up chest ct Cardiothoracic: Dr. Nagel, pleural effusion to small to drain, serial chest ct w / contrast to monitor size. Possible surgery if increase in effusion Pleural effusion s/p thoracentesis on 08/21 -Etiology unknown. Working differential includes Transudative 2/2 to low albumin , ParaPNU effusion, Patient DCed from [facility] 4 days ago and had similar symptoms to today's presentation during last inpatient stay as well as some changes including R/pleural effusion on CXR done at the time. -No cough, SOB, C/O Pleuritic CP -No Leukocytisis, procalcitonin wn -Cxray: Moderate R. Pleural Effusion -CT Chest at ED today: Moderate right pleural effusion with evidence of mild loculation. Mass-like focus of infiltrate in the left. Pulmonary arteries no PE upper lobe with air bronchograms. -Pulmonology on board -Cadiothoracic on board -Duonebs PRN and Incentive spirometry prn -Pleural fluid analysis c/w Exudative effusion, LDH 961, elevated WBC w/ neutrophilic predominance, ++ blood. +Cloudy.Stain and CX wnl -Echo completed ,no pericardial effusion seen, EF wnl -CT chest shows diminishing R. Loculated pleural effusion Pelvic abscess 5.9 *10.3*6.7cm complex pelvic collection -Recently DCed from [facility] after 10 days of IV abx -C/W Zosyn/Vanco IV -CT Abd/Pelvis on 08/13/17: Some interval improvement from initial CT -Denies pelvic/abd pain -ID on board on board -OBGYN on board -Plan for pelvic MRI today to evaluate fluid collection Microcytic anemia -Stable -Patient anemic since delivery and has been on Iron BID at home. -Hgb 10.0 today -Iron studies c/w iron def anemia -Continue with Ferrous Sulfate BID MILIND,resolved -Crea 0.8 today -Likely prerenal 2/2 dehydration Coagulopathy -Elevated PT/INR/D-Dimers/Platelets -POss related to infectious/inflammatory process? -Denies LE pain. CT angio chest no PE -F/U Abd/Pelvis US -F/U INES/ESR Small pericardial effusion -Chest CT finding -F/U Echo, INES, RF, ESR -F/u Echo Prophylactic measures -Lovenox 40mg SC daily -SCDs Diet -Regular
--- NOTE | 2017-08-25 17:27 | CP.PCM.PN ---
Subjective - Date & Time of Evaluation Date of Evaluation: 08/25/17 Time of Evaluation: 16:30 - Subjective Subjective: F/U Pleural effusion. No cough , no SOB , no RUBIN , mild R lower chest wall pain with deep breathing , not with regular breathing Objective - Vital Signs/Intake and Output Vital Signs (last 24 hours): Temp Pulse Resp BP Pulse Ox 99.2 F 98 H 20 118/73 95 08/25/17 15:30 08/25/17 15:30 08/25/17 15:30 08/25/17 15:30 08/25/17 15:30 - Medications Medications: Current Medications Acetaminophen (Tylenol 325mg Tab) 650 mg PO Q6 PRN PRN Reason: Fever >100.4 F Last Admin: 08/22/17 16:13 Dose: 650 mg Albuterol/Ipratropium (Duoneb 3 Mg/0.5 Mg (3 Ml) Ud) 3 ml INH RQ6 PRN PRN Reason: Shortness of Breath Enoxaparin Sodium (Lovenox) 40 mg SC DAILY MARCIA PRN Reason: Protocol Last Admin: 08/25/17 10:48 Dose: 40 mg Famotidine (Pepcid) 20 mg PO BID [facility] Last Admin: 08/25/17 16:43 Dose: 20 mg Ferrous Sulfate (Feosol) 325 mg PO BID [facility] Last Admin: 08/25/17 16:43 Dose: 325 mg Metronidazole (Flagyl 500mg/100ml Ns) 100 mls @ 100 mls/hr IVPB Q8 MARCIA PRN Reason: Protocol Last Admin: 08/25/17 16:40 Dose: 100 mls/hr Meropenem 500 mg/ Sodium (Chloride) 100 mls @ 100 mls/hr IVPB Q8 MARCIA PRN Reason: Protocol Last Admin: 08/25/17 16:42 Dose: 100 mls/hr Vancomycin HCl 750 mg/ Sodium (Chloride) 250 mls @ 166.667 mls/hr IVPB Q12 MARCIA PRN Reason: Protocol Last Admin: 08/25/17 10:57 Dose: 166.667 mls/hr Ibuprofen (Motrin Tab) 600 mg PO Q6 PRN PRN Reason: Pain, Mild (1-3) Last Admin: 08/25/17 16:48 Dose: 600 mg Ondansetron HCl (Zofran Inj) 4 mg IVP Q6 PRN PRN Reason: Nausea/Vomiting Multivit/Folic Acid/Iron () 1 tab PO DAILY [facility] Last Admin: 08/25/17 10:50 Dose: 1 tab Saccharomyces Boulardii (Florastor) 250 mg PO BID [facility] Last Admin: 08/25/17 16:43 Dose: 250 mg Senna/Docusate Sodium (Senokot S 50 Mg-8.6 Mg) 1 tab PO HS [facility] Last Admin: 08/24/17 21:48 Dose: 1 tab - Labs Labs: 08/25/17 05:30 08/25/17 05:30 PT 14.8 Seconds (9.8-13.1) H 08/20/17 05:30 INR 1.3 (0.9-1.2) H 08/20/17 05:30 APTT 32.5 Seconds (25.6-37.1) 08/18/17 19:12 - Constitutional Appears: No Acute Distress - Head Exam Head Exam: NORMAL INSPECTION - Eye Exam Eye Exam: PERRL - ENT Exam ENT Exam: Normal Exam - Neck Exam Neck Exam: Normal Inspection - Respiratory Exam Respiratory Exam: Chest Wall Tenderness (minimal R lower chest wall with deep breathing), Decreased Breath Sounds (R base) - GI/Abdominal Exam GI & Abdominal Exam: Soft, Tenderness (mild suprapubic and periumbilical), Normal Bowel Sounds. absent: Guarding, Rebound - Extremities Exam Extremities Exam: Normal Inspection - Back Exam Back Exam: NORMAL INSPECTION - Neurological Exam Neurological Exam: Alert, Oriented x3. absent: Motor Sensory Deficit - Psychiatric Exam Psychiatric exam: Normal Affect, Normal Mood - Skin Skin Exam: Warm Assessment and Plan (1) Pleural effusion Status: Acute (2) Atelectasis of right lung Status: Acute (3) PNA (pneumonia) Status: Acute - Assessment and Plan (Free Text) Plan: continue DuoNeb , Merren , Anca , Joseo , R loculated Pleural effusion and PNA improved , f/u CT Chest Patient on Sunday , Patient treated for Pelvic Abcess , to have MRI Pelvic today
[2017-08-25] MEDS: Docusate-Senna 50 mg-8.6 mg Tab PO SCH (21:32)
[2017-08-26] MEDS: Meropenem 500 MG in Sodium Chloride 0.9% 100 ML IVPB SCH ×3 (00:35→16:13)
[2017-08-26] MEDS: metroNIDAZOLE 500mg/100ml NS 100 ML IVPB SCH ×3 (00:35→16:13)
[2017-08-26 07:12] LABS: MEAN CELL VOLUME 79.4 fl (81.0-99.0); MEAN CORPUSCULAR HEMOGLOBIN 25.6 pg (27.0-31.0); MEAN CORPUSCULAR HGB CONC 32.2 g/dL (33.0-37.0); RBC 3.51 Mil/uL (3.80-5.20); RED CELL DISTRIBUTION WIDTH 16.5 % (11.5-14.5); WHITE BLOOD COUNT 7.5 K/uL (4.8-10.8)
[2017-08-26 07:38] LABS: BLOOD UREA NITROGEN 7 mg/dl (7-17); GFR AFRICAN-AMERICAN > 60; GFR NON-AFRICAN AMERICAN > 60
[2017-08-26] MEDS: Saccharomyces Boulardi 250 mg Cap PO SCH ×2 (08:12→16:17)
[2017-08-26] MEDS: Enoxaparin 40 mg Syringe SC SCH (08:12)
[2017-08-26] MEDS: Prenatal Multivit/Folic Acid/Iron Tab PO SCH (08:12)
--- NOTE | 2017-08-26 10:09 | CP.PCM.PN ---
Subjective - Date & Time of Evaluation Date of Evaluation: 08/26/17 Time of Evaluation: 10:06 - Subjective Subjective: SURGERY PROGRESS NOTE FOR DR. QUIÑONES 31F seen and examined at bedside. Patient feels much better, denies pain in chest, denies shortness of breath. Objective - Vital Signs/Intake and Output Vital Signs (last 24 hours): Temp Pulse Resp BP Pulse Ox 98.5 F 77 20 102/64 96 08/26/17 08:01 08/26/17 08:01 08/26/17 08:01 08/26/17 08:01 08/26/17 08:01 - Medications Medications: Current Medications Acetaminophen (Tylenol 325mg Tab) 650 mg PO Q6 PRN PRN Reason: Fever >100.4 F Last Admin: 08/22/17 16:13 Dose: 650 mg Albuterol/Ipratropium (Duoneb 3 Mg/0.5 Mg (3 Ml) Ud) 3 ml INH RQ6 PRN PRN Reason: Shortness of Breath Enoxaparin Sodium (Lovenox) 40 mg SC DAILY MARCIA PRN Reason: Protocol Last Admin: 08/26/17 08:12 Dose: 40 mg Famotidine (Pepcid) 20 mg PO BID [facility] Last Admin: 08/26/17 08:13 Dose: 20 mg Ferrous Sulfate (Feosol) 325 mg PO BID [facility] Last Admin: 08/26/17 08:12 Dose: 325 mg Metronidazole (Flagyl 500mg/100ml Ns) 100 mls @ 100 mls/hr IVPB Q8 MARCIA PRN Reason: Protocol Last Admin: 08/26/17 08:13 Dose: 100 mls/hr Meropenem 500 mg/ Sodium (Chloride) 100 mls @ 100 mls/hr IVPB Q8 MARCIA PRN Reason: Protocol Last Admin: 08/26/17 08:13 Dose: 100 mls/hr Vancomycin HCl 750 mg/ Sodium (Chloride) 250 mls @ 166.667 mls/hr IVPB Q12 MARCIA PRN Reason: Protocol Last Admin: 08/26/17 09:24 Dose: 166.667 mls/hr Ibuprofen (Motrin Tab) 600 mg PO Q6 PRN PRN Reason: Pain, Mild (1-3) Last Admin: 08/25/17 16:48 Dose: 600 mg Ondansetron HCl (Zofran Inj) 4 mg IVP Q6 PRN PRN Reason: Nausea/Vomiting Multivit/Folic Acid/Iron () 1 tab PO DAILY [facility] Last Admin: 08/26/17 08:12 Dose: 1 tab Saccharomyces Boulardii (Florastor) 250 mg PO BID [facility] Last Admin: 08/26/17 08:12 Dose: 250 mg Senna/Docusate Sodium (Senokot S 50 Mg-8.6 Mg) 1 tab PO HS [facility] Last Admin: 08/25/17 21:32 Dose: 1 tab - Labs Labs: 08/26/17 05:30 08/26/17 05:30 PT 14.8 Seconds (9.8-13.1) H 08/20/17 05:30 INR 1.3 (0.9-1.2) H 08/20/17 05:30 APTT 32.5 Seconds (25.6-37.1) 08/18/17 19:12 - Constitutional Appears: Well, Non-toxic, No Acute Distress - Respiratory Exam Respiratory Exam: Clear to Ausculation Bilateral, NORMAL BREATHING PATTERN - Cardiovascular Exam Cardiovascular Exam: REGULAR RHYTHM, +S1, +S2 - GI/Abdominal Exam GI & Abdominal Exam: Soft, Tenderness (mild tenderness in RLQ). absent: Distended, Firm, Guarding, Rigid, Rebound - Neurological Exam Neurological Exam: Alert, Awake - Psychiatric Exam Psychiatric exam: Normal Affect, Normal Mood - Skin Skin Exam: Dry, Intact, Normal Color, Warm Assessment and Plan - Assessment and Plan (Free Text) Assessment: 31F presents with loculated right pleural effusions Plan: - repeat CT chest scan 08/27 Further recs discuss with Dr. Shona Reid, PGY2
--- NOTE | 2017-08-26 10:12 | CP.PCM.PN ---
Subjective - Date & Time of Evaluation Date of Evaluation: 08/26/17 Time of Evaluation: 09:40 - Subjective Subjective: 31F seen and examined at bedside with attending. Pt reports mild lower abdominal pain, but otherwise is feeling "okay". She is reporting some itching after Meropenem infusion WITHOUT breathing difficulty, hives, or tongue swelling. She states she did discuss with ID last night. Also , she says she is having menstrual type bleeding which is an increase from prior vaginal bleeding. Objective - Vital Signs/Intake and Output Vital Signs (last 24 hours): Temp Pulse Resp BP Pulse Ox 36.9 C 77 20 102/64 96 08/26/17 08:01 08/26/17 08:01 08/26/17 08:01 08/26/17 08:01 08/26/17 08:01 - Medications Medications: Current Medications Acetaminophen (Tylenol 325mg Tab) 650 mg PO Q6 PRN PRN Reason: Fever >100.4 F Last Admin: 08/22/17 16:13 Dose: 650 mg Albuterol/Ipratropium (Duoneb 3 Mg/0.5 Mg (3 Ml) Ud) 3 ml INH RQ6 PRN PRN Reason: Shortness of Breath Enoxaparin Sodium (Lovenox) 40 mg SC DAILY MARCIA PRN Reason: Protocol Last Admin: 08/26/17 08:12 Dose: 40 mg Famotidine (Pepcid) 20 mg PO BID [facility] Last Admin: 08/26/17 08:13 Dose: 20 mg Ferrous Sulfate (Feosol) 325 mg PO BID [facility] Last Admin: 08/26/17 08:12 Dose: 325 mg Metronidazole (Flagyl 500mg/100ml Ns) 100 mls @ 100 mls/hr IVPB Q8 MARCIA PRN Reason: Protocol Last Admin: 08/26/17 08:13 Dose: 100 mls/hr Meropenem 500 mg/ Sodium (Chloride) 100 mls @ 100 mls/hr IVPB Q8 MARCIA PRN Reason: Protocol Last Admin: 08/26/17 08:13 Dose: 100 mls/hr Vancomycin HCl 750 mg/ Sodium (Chloride) 250 mls @ 166.667 mls/hr IVPB Q12 MARCIA PRN Reason: Protocol Last Admin: 08/26/17 09:24 Dose: 166.667 mls/hr Ibuprofen (Motrin Tab) 600 mg PO Q6 PRN PRN Reason: Pain, Mild (1-3) Last Admin: 08/25/17 16:48 Dose: 600 mg Ondansetron HCl (Zofran Inj) 4 mg IVP Q6 PRN PRN Reason: Nausea/Vomiting Multivit/Folic Acid/Iron () 1 tab PO DAILY [facility] Last Admin: 08/26/17 08:12 Dose: 1 tab Saccharomyces Boulardii (Florastor) 250 mg PO BID [facility] Last Admin: 08/26/17 08:12 Dose: 250 mg Senna/Docusate Sodium (Senokot S 50 Mg-8.6 Mg) 1 tab PO HS [facility] Last Admin: 08/25/17 21:32 Dose: 1 tab - Labs Labs: 08/26/17 05:30 08/26/17 05:30 PT 14.8 Seconds (9.8-13.1) H 08/20/17 05:30 INR 1.3 (0.9-1.2) H 08/20/17 05:30 APTT 32.5 Seconds (25.6-37.1) 08/18/17 19:12 - Constitutional Appears: Well, Non-toxic - Head Exam Head Exam: ATRAUMATIC, NORMAL INSPECTION - Eye Exam Eye Exam: EOMI, Normal appearance - ENT Exam ENT Exam: Mucous Membranes Moist - Neck Exam Neck Exam: Full ROM, Normal Inspection - Respiratory Exam Respiratory Exam: Decreased Breath Sounds (RIGHT base), Clear to Ausculation Bilateral, NORMAL BREATHING PATTERN. absent: Wheezes - Cardiovascular Exam Cardiovascular Exam: REGULAR RHYTHM, +S1, +S2 - GI/Abdominal Exam GI & Abdominal Exam: Soft, Tenderness (mild mid-lower abdominal ttp, NO rebound) , Normal Bowel Sounds - Extremities Exam Extremities Exam: Full ROM, Normal Capillary Refill, Normal Inspection. absent : Pedal Edema - Neurological Exam Neurological Exam: Alert, Awake, Oriented x3 - Psychiatric Exam Psychiatric exam: Normal Affect, Normal Mood - Skin Skin Exam: Dry, Pallor (General color is c/w anemia) Assessment and Plan - Assessment and Plan (Free Text) Assessment: 31F s/p c-sxn and now almost 5 weeks post-op with intra-abdominal mass which has been deemed as safe for observation at this time. Concerning findings are continued vaginal bleeding for 5 weeks, no decrease in "collection" size, sequela of RIGHT pleural effusion, and 08/25 MRI findings stating "cannot r/o uterine dehiscence and new inflammatory changes". Plan: - RIGHT multi-loculated pleural effusion: CT surgery rec serial CT chest, no intervention at this time - Exudative Thoracentesis: ID consult appreciated, f/u antibiotic recommendations, Benadryl for itching, PCT is negative and NO leukocytosis or fevers - Intra-abdominal collection: DOOR TRIMMER/Gen Surg consults- "no intervention at present " and f/u watchful waiting approach
[2017-08-26] MEDS ORDERED: DiphenhydrAMINE 50 mg/ml Inj IVP STA (13:44)
--- NOTE | 2017-08-26 15:46 | CP.PCM.PN ---
Subjective - Date & Time of Evaluation Date of Evaluation: 08/26/17 Time of Evaluation: 12:30 - Subjective Subjective: F/U Pleural effusion. No A/D, no SOB. Objective - Vital Signs/Intake and Output Vital Signs (last 24 hours): Temp Pulse Resp BP Pulse Ox 98.5 F 77 20 102/64 96 08/26/17 08:01 08/26/17 08:01 08/26/17 08:01 08/26/17 08:01 08/26/17 08:01 - Medications Medications: Current Medications Acetaminophen (Tylenol 325mg Tab) 650 mg PO Q6 PRN PRN Reason: Fever >100.4 F Last Admin: 08/22/17 16:13 Dose: 650 mg Albuterol/Ipratropium (Duoneb 3 Mg/0.5 Mg (3 Ml) Ud) 3 ml INH RQ6 PRN PRN Reason: Shortness of Breath Enoxaparin Sodium (Lovenox) 40 mg SC DAILY MARCIA PRN Reason: Protocol Last Admin: 08/26/17 08:12 Dose: 40 mg Famotidine (Pepcid) 20 mg PO BID [facility] Last Admin: 08/26/17 08:13 Dose: 20 mg Ferrous Sulfate (Feosol) 325 mg PO BID [facility] Last Admin: 08/26/17 08:12 Dose: 325 mg Metronidazole (Flagyl 500mg/100ml Ns) 100 mls @ 100 mls/hr IVPB Q8 MARCIA PRN Reason: Protocol Last Admin: 08/26/17 08:13 Dose: 100 mls/hr Meropenem 500 mg/ Sodium (Chloride) 100 mls @ 100 mls/hr IVPB Q8 MARCIA PRN Reason: Protocol Last Admin: 08/26/17 08:13 Dose: 100 mls/hr Vancomycin HCl 750 mg/ Sodium (Chloride) 250 mls @ 166.667 mls/hr IVPB Q12 MARCIA PRN Reason: Protocol Last Admin: 08/26/17 09:24 Dose: 166.667 mls/hr Ibuprofen (Motrin Tab) 600 mg PO Q6 PRN PRN Reason: Pain, Mild (1-3) Last Admin: 08/25/17 16:48 Dose: 600 mg Ondansetron HCl (Zofran Inj) 4 mg IVP Q6 PRN PRN Reason: Nausea/Vomiting Multivit/Folic Acid/Iron () 1 tab PO DAILY [facility] Last Admin: 08/26/17 08:12 Dose: 1 tab Saccharomyces Boulardii (Florastor) 250 mg PO BID [facility] Last Admin: 08/26/17 08:12 Dose: 250 mg Senna/Docusate Sodium (Senokot S 50 Mg-8.6 Mg) 1 tab PO HS [facility] Last Admin: 08/25/17 21:32 Dose: 1 tab - Labs Labs: 08/26/17 05:30 08/26/17 05:30 PT 14.8 Seconds (9.8-13.1) H 08/20/17 05:30 INR 1.3 (0.9-1.2) H 08/20/17 05:30 APTT 32.5 Seconds (25.6-37.1) 08/18/17 19:12 - Constitutional Appears: No Acute Distress - Head Exam Head Exam: NORMAL INSPECTION - Eye Exam Eye Exam: PERRL - ENT Exam ENT Exam: Normal Exam - Neck Exam Neck Exam: Normal Inspection - Respiratory Exam Respiratory Exam: Chest Wall Tenderness (mild), NORMAL BREATHING PATTERN - Cardiovascular Exam Cardiovascular Exam: REGULAR RHYTHM - GI/Abdominal Exam GI & Abdominal Exam: Soft, Normal Bowel Sounds - Extremities Exam Extremities Exam: Normal Inspection - Back Exam Back Exam: NORMAL INSPECTION - Neurological Exam Neurological Exam: Alert, Oriented x3 - Psychiatric Exam Psychiatric exam: Normal Mood - Skin Skin Exam: Warm Assessment and Plan (1) Pleural effusion Status: Acute (2) Atelectasis of right lung Status: Acute (3) PNA (pneumonia) Status: Acute - Assessment and Plan (Free Text) Plan: Continue currents abx. CT Chest on Sunday.
[2017-08-26] MEDS: Docusate-Senna 50 mg-8.6 mg Tab PO SCH (22:47)
[2017-08-27] MEDS: Meropenem 500 MG in Sodium Chloride 0.9% 100 ML IVPB SCH ×3 (00:30→17:21)
--- NOTE | 2017-08-27 01:40 | CP.PCM.PN ---
Subjective - Date & Time of Evaluation Date of Evaluation: 08/26/17 Time of Evaluation: 01:15 - Subjective Subjective: Patient ambulating reports vaginal bleeding about 2 to 3 pads per day also c/o mild pruritus of hands and feet after administration of meropenem no rash or sob relieved with benadryl made aware of CT chest results showing improvement Objective - Vital Signs/Intake and Output Vital Signs (last 24 hours): Temp Pulse Resp BP Pulse Ox 99 F 89 19 123/80 95 08/27/17 00:25 08/27/17 00:25 08/27/17 00:25 08/27/17 00:25 08/27/17 00:25 - Medications Medications: Current Medications Acetaminophen (Tylenol 325mg Tab) 650 mg PO Q6 PRN PRN Reason: Fever >100.4 F Last Admin: 08/22/17 16:13 Dose: 650 mg Albuterol/Ipratropium (Duoneb 3 Mg/0.5 Mg (3 Ml) Ud) 3 ml INH RQ6 PRN PRN Reason: Shortness of Breath Enoxaparin Sodium (Lovenox) 40 mg SC DAILY MARCIA PRN Reason: Protocol Last Admin: 08/26/17 08:12 Dose: 40 mg Famotidine (Pepcid) 20 mg PO BID [facility] Last Admin: 08/26/17 16:17 Dose: 20 mg Ferrous Sulfate (Feosol) 325 mg PO BID [facility] Last Admin: 08/26/17 16:13 Dose: 325 mg Metronidazole (Flagyl 500mg/100ml Ns) 100 mls @ 100 mls/hr IVPB Q8 MARCIA PRN Reason: Protocol Last Admin: 08/26/17 16:13 Dose: 100 mls/hr Meropenem 500 mg/ Sodium (Chloride) 100 mls @ 100 mls/hr IVPB Q8 MARCIA PRN Reason: Protocol Last Admin: 08/27/17 00:30 Dose: 100 mls/hr Vancomycin HCl 750 mg/ Sodium (Chloride) 250 mls @ 166.667 mls/hr IVPB Q12 MARCIA PRN Reason: Protocol Last Admin: 08/26/17 22:00 Dose: 166.667 mls/hr Ibuprofen (Motrin Tab) 600 mg PO Q6 PRN PRN Reason: Pain, Mild (1-3) Last Admin: 03/17/18 16:48 Dose: 600 mg Ondansetron HCl (Zofran Inj) 4 mg IVP Q6 PRN PRN Reason: Nausea/Vomiting Multivit/Folic Acid/Iron () 1 tab PO DAILY [facility] Last Admin: 08/26/17 08:12 Dose: 1 tab Saccharomyces Boulardii (Florastor) 250 mg PO BID [facility] Last Admin: 08/26/17 16:17 Dose: 250 mg Senna/Docusate Sodium (Senokot S 50 Mg-8.6 Mg) 1 tab PO HS [facility] Last Admin: 08/26/17 22:47 Dose: 1 tab - Labs Labs: 08/26/17 05:30 08/26/17 05:30 PT 14.8 Seconds (9.8-13.1) H 08/20/17 05:30 INR 1.3 (0.9-1.2) H 08/20/17 05:30 APTT 32.5 Seconds (25.6-37.1) 08/18/17 19:12 - Additional Findings Additional findings: ABDOMEN tender RUQ to palpation pos BS EXT no edema SKIN no erythema no rash Assessment and Plan (1) Atelectasis of right lung Status: Acute - Assessment and Plan (Free Text) Assessment: IMPROVED on CT scan cont ABx
[2017-08-27] MEDS: metroNIDAZOLE 500mg/100ml NS 100 ML IVPB SCH ×3 (02:00→17:20)
[2017-08-27] MEDS: Prenatal Multivit/Folic Acid/Iron Tab PO SCH (08:35)
[2017-08-27] MEDS: Saccharomyces Boulardi 250 mg Cap PO SCH ×2 (08:35→17:25)
[2017-08-27] MEDS: Enoxaparin 40 mg Syringe SC SCH (08:40)
--- NOTE | 2017-08-27 09:24 | CP.PCM.PN ---
Subjective - Date & Time of Evaluation Date of Evaluation: 08/27/17 Time of Evaluation: 09:21 - Subjective Subjective: SURGERY PROGRESS NOTE FOR DR. QUIÑONES 31F seen and examined at bedside. Denies of any acute overnight events. Patient feels much better, denies pain in chest, denies shortness of breath. Reports that the breathing has gotten a lot better. Denies of any F/N/V/C Objective - Vital Signs/Intake and Output Vital Signs (last 24 hours): Temp Pulse Resp BP Pulse Ox 97.6 F 65 20 130/82 96 08/27/17 07:54 08/27/17 07:54 08/27/17 07:54 08/27/17 07:54 08/27/17 07:54 - Medications Medications: Current Medications Acetaminophen (Tylenol 325mg Tab) 650 mg PO Q6 PRN PRN Reason: Fever >100.4 F Last Admin: 08/22/17 16:13 Dose: 650 mg Albuterol/Ipratropium (Duoneb 3 Mg/0.5 Mg (3 Ml) Ud) 3 ml INH RQ6 PRN PRN Reason: Shortness of Breath Enoxaparin Sodium (Lovenox) 40 mg SC DAILY [facility] PRN Reason: Protocol Last Admin: 08/27/17 08:40 Dose: Not Given Famotidine (Pepcid) 20 mg PO BID [facility] Last Admin: 08/27/17 08:35 Dose: 20 mg Ferrous Sulfate (Feosol) 325 mg PO BID [facility] Last Admin: 08/27/17 08:35 Dose: 325 mg Metronidazole (Flagyl 500mg/100ml Ns) 100 mls @ 100 mls/hr IVPB Q8 [facility] PRN Reason: Protocol Last Admin: 08/27/17 08:38 Dose: 100 mls/hr Meropenem 500 mg/ Sodium (Chloride) 100 mls @ 100 mls/hr IVPB Q8 [facility] PRN Reason: Protocol Last Admin: 08/27/17 08:38 Dose: 100 mls/hr Vancomycin HCl 750 mg/ Sodium (Chloride) 250 mls @ 166.667 mls/hr IVPB Q12 [facility] PRN Reason: Protocol Last Admin: 08/27/17 08:36 Dose: 166.667 mls/hr Ibuprofen (Motrin Tab) 600 mg PO Q6 PRN PRN Reason: Pain, Mild (1-3) Last Admin: 08/25/17 16:48 Dose: 600 mg Ondansetron HCl (Zofran Inj) 4 mg IVP Q6 PRN PRN Reason: Nausea/Vomiting Multivit/Folic Acid/Iron () 1 tab PO DAILY [facility] Last Admin: 08/27/17 08:35 Dose: 1 tab Saccharomyces Boulardii (Florastor) 250 mg PO BID [facility] Last Admin: 08/27/17 08:35 Dose: 250 mg Senna/Docusate Sodium (Senokot S 50 Mg-8.6 Mg) 1 tab PO HS [facility] Last Admin: 08/26/17 22:47 Dose: 1 tab - Labs Labs: 08/26/17 05:30 08/26/17 05:30 PT 14.8 Seconds (9.8-13.1) H 08/20/17 05:30 INR 1.3 (0.9-1.2) H 08/20/17 05:30 APTT 32.5 Seconds (25.6-37.1) 08/18/17 19:12 - Constitutional Appears: Well, Non-toxic, No Acute Distress - Head Exam Head Exam: ATRAUMATIC - Eye Exam Eye Exam: Normal appearance - ENT Exam ENT Exam: Normal Exam - Neck Exam Neck Exam: Normal Inspection - Respiratory Exam Respiratory Exam: NORMAL BREATHING PATTERN - GI/Abdominal Exam GI & Abdominal Exam: Soft. absent: Rigid, Hernia, Mass - Rectal Exam Rectal Exam: Deferred - Extremities Exam Extremities Exam: Normal Inspection - Back Exam Back Exam: Full ROM, NORMAL INSPECTION - Neurological Exam Neurological Exam: Alert, Awake, Oriented x3 - Psychiatric Exam Psychiatric exam: Normal Affect, Normal Mood - Skin Skin Exam: Dry, Intact, Normal Color, Warm Assessment and Plan - Assessment and Plan (Free Text) Assessment: 31F presents with loculated right pleural effusions Plan: - repeat CT chest scan today Further recs discuss with Dr. Quiñones
--- NOTE | 2017-08-27 09:46 | CT ---
PROCEDURE: CT Chest without contrast HISTORY: F/U Pleural Effusions and Pneumonia COMPARISON: Contrast-enhanced chest CT 08/24/2017. TECHNIQUE: Contiguous axial images were obtained through the chest without intravenous contrast enhancement. Sagittal and coronal reconstructions were performed. Radiation dose (DLP): 363.33 mGy-cm. This CT exam was performed using one or more of the following dose reduction techniques: Automated exposure control, adjustment of the mA and/or kV according to patient size, and/or use of iterative reconstruction technique. FINDINGS: LUNGS: Further reduction in left upper lobe atelectasis or infiltrate with limited linear atelectasis or fibrosis again evident at the left base. Stable limited right pleural effusions are identified including the minor fissure and dependent portion of the right lower lobe pleural space again evident. Associated limited local atelectasis or infiltrate does not appear significant changed in the interval either. No pneumothorax bilaterally. MEDIASTINUM: Unremarkable thoracic aorta. No aneurysm. Normal sized heart. Main pulmonary artery unremarkable. No vascular congestion. No lymphadenopathy. PLEURA: As above. BONES: No fracture. No destructive lesion. UPPER ABDOMEN: Retained food moderately distends the stomach. OTHER FINDINGS: None. IMPRESSION: Mildly diminished left upper lobe atelectasis or infiltrate with limited right basilar atelectasis or infiltrate unchanged. Limited loculated pleural effusions at the major fissure and right lower lobe pleural space not are not significantly changed. Continued clinical correlation advised.
--- NOTE | 2017-08-27 12:12 | CP.PCM.PN ---
<[place] - Last Filed: 08/27/17 18:55> Subjective - Date & Time of Evaluation Date of Evaluation: 08/27/17 Time of Evaluation: 11:10 - Subjective Subjective: REQUISITION APPROVER consult progress note: Pt seen and examined at bedside this morning. Pt reports she feels little pain on the right sided upper abdomen when she ambulates. Denies abdominal pain at rest. Reports regular BM. Tolerating PO intake. Pt also reports mild vaginal spotting that requires her to change 2-3 pads/day. Denies dizziness, blurry vision, nausea, vomiting, dysuria, fever or chills. Objective - Vital Signs/Intake and Output Vital Signs (last 24 hours): Temp Pulse Resp BP Pulse Ox 97.6 F 65 20 130/82 96 08/27/17 07:54 08/27/17 07:54 08/27/17 07:54 08/27/17 07:54 08/27/17 07:54 - Medications Medications: Current Medications Acetaminophen (Tylenol 325mg Tab) 650 mg PO Q6 PRN PRN Reason: Fever >100.4 F Last Admin: 08/22/17 16:13 Dose: 650 mg Albuterol/Ipratropium (Duoneb 3 Mg/0.5 Mg (3 Ml) Ud) 3 ml INH RQ6 PRN PRN Reason: Shortness of Breath Enoxaparin Sodium (Lovenox) 40 mg SC DAILY [facility] PRN Reason: Protocol Last Admin: 08/27/17 08:40 Dose: Not Given Famotidine (Pepcid) 20 mg PO BID [facility] Last Admin: 08/27/17 08:35 Dose: 20 mg Ferrous Sulfate (Feosol) 325 mg PO BID [facility] Last Admin: 08/27/17 08:35 Dose: 325 mg Metronidazole (Flagyl 500mg/100ml Ns) 100 mls @ 100 mls/hr IVPB Q8 [facility] PRN Reason: Protocol Last Admin: 08/27/17 08:38 Dose: 100 mls/hr Meropenem 500 mg/ Sodium (Chloride) 100 mls @ 100 mls/hr IVPB Q8 [facility] PRN Reason: Protocol Last Admin: 08/27/17 08:38 Dose: 100 mls/hr Vancomycin HCl 750 mg/ Sodium (Chloride) 250 mls @ 166.667 mls/hr IVPB Q12 [facility] PRN Reason: Protocol Last Admin: 08/27/17 08:36 Dose: 166.667 mls/hr Ibuprofen (Motrin Tab) 600 mg PO Q6 PRN PRN Reason: Pain, Mild (1-3) Last Admin: 08/25/17 16:48 Dose: 600 mg Ondansetron HCl (Zofran Inj) 4 mg IVP Q6 PRN PRN Reason: Nausea/Vomiting Multivit/Folic Acid/Iron () 1 tab PO DAILY [facility] Last Admin: 08/27/17 08:35 Dose: 1 tab Saccharomyces Boulardii (Florastor) 250 mg PO BID [facility] Last Admin: 08/27/17 08:35 Dose: 250 mg Senna/Docusate Sodium (Senokot S 50 Mg-8.6 Mg) 1 tab PO HS [facility] Last Admin: 08/26/17 22:47 Dose: 1 tab - Labs Labs: 08/26/17 05:30 08/26/17 05:30 PT 14.8 Seconds (9.8-13.1) H 08/20/17 05:30 INR 1.3 (0.9-1.2) H 08/20/17 05:30 APTT 32.5 Seconds (25.6-37.1) 08/18/17 19:12 - Constitutional Appears: Well, Non-toxic, No Acute Distress - Respiratory Exam Respiratory Exam: NORMAL BREATHING PATTERN. absent: Respiratory Distress Additional comments: Mild decreased breath sounds on R lower lung field - Cardiovascular Exam Cardiovascular Exam: REGULAR RHYTHM, RRR, +S1, +S2 - GI/Abdominal Exam GI & Abdominal Exam: Soft, Normal Bowel Sounds. absent: Distended, Rebound Additional comments: Mild tenderness on sided mid abdomen, no rebound tenderness or guarding. No lower abdominal tenderness. surgical site looks dry and clean. No signs of infection seen. - Extremities Exam Extremities Exam: Normal Capillary Refill, Normal Inspection. absent: Pedal Edema, Tenderness - Neurological Exam Neurological Exam: Alert, Awake, Oriented x3 - Psychiatric Exam Psychiatric exam: Normal Mood Assessment and Plan - Assessment and Plan (Free Text) Assessment: Assessment: 31 y/o female s/p on 07/22/17, admitted for right sided plural effusion S/P thoracocentesis; pneumonia and pelvic mass. Plan: 1. Pelvic mass. -MRI w/ contrast on 08/25/17 IMPRESSION: Large anterior pelvic collection abutting the uterus and possibly extending from the patient's scar. An element of uterine dehiscence at the site cannot be excluded. Small areas of susceptibility artifact are noted. There does not appear to be significant enhancement peripherally when compared with the recent noncontrast MRI images. A mild amount of additional adjacent inflammatory change is noted. -Pelvic collection is likely hematoma and size is decreasing. Pt is afebrile and has stable vitals. -Continue with current management. 2. Right sided pleural effusion/PNU - Continue current tx as per primary team and ID recommendation 3. Vaginal bleeding s/p on 07/22/17. - H&H 9.0/27.8 today - Monitor vitals. Pt seen and examined with on-call OB Hospitalist Dr. Andrew Hagen, pgy-1 <[place] S - Last Filed: 09/03/17 21:16> Subjective - Subjective Subjective: Pt seen & examined by me with Dr. Hagen. Agree with above assessment and plan. Pt d/w Dr. Solo who recommends continued conservative management. He states he will see pt tomorrw. Objective - Vital Signs/Intake and Output Vital Signs (last 24 hours): Temp Pulse Resp BP Pulse Ox 98.2 F 89 20 119/82 96 08/31/17 16:37 08/31/17 16:37 08/31/17 16:37 08/31/17 16:37 08/31/17 16:37 - Labs Labs: 08/30/17 06:35 08/30/17 06:35 PT 14.8 Seconds (9.8-13.1) H 08/20/17 05:30 INR 1.3 (0.9-1.2) H 08/20/17 05:30 APTT 32.5 Seconds (25.6-37.1) 08/18/17 19:12
--- NOTE | 2017-08-27 12:59 | CP.PCM.PN ---
Subjective - Date & Time of Evaluation Date of Evaluation: 08/27/17 Time of Evaluation: 12:55 - Subjective Subjective: pt s/e at the bedside. No chest pain no sob vss [id number] ct this am-slowly improving. a/p; Continue antibiotics and chest PT. CT of chest on Sun. Objective - Vital Signs/Intake and Output Vital Signs (last 24 hours): Temp Pulse Resp BP Pulse Ox 97.6 F 65 20 130/82 96 08/27/17 07:54 08/27/17 07:54 08/27/17 07:54 08/27/17 07:54 08/27/17 07:54 - Medications Medications: Current Medications Acetaminophen (Tylenol 325mg Tab) 650 mg PO Q6 PRN PRN Reason: Fever >100.4 F Last Admin: 08/22/17 16:13 Dose: 650 mg Albuterol/Ipratropium (Duoneb 3 Mg/0.5 Mg (3 Ml) Ud) 3 ml INH RQ6 PRN PRN Reason: Shortness of Breath Enoxaparin Sodium (Lovenox) 40 mg SC DAILY [facility] PRN Reason: Protocol Last Admin: 08/27/17 08:40 Dose: Not Given Famotidine (Pepcid) 20 mg PO BID [facility] Last Admin: 08/27/17 08:35 Dose: 20 mg Ferrous Sulfate (Feosol) 325 mg PO BID [facility] Last Admin: 08/27/17 08:35 Dose: 325 mg Metronidazole (Flagyl 500mg/100ml Ns) 100 mls @ 100 mls/hr IVPB Q8 [facility] PRN Reason: Protocol Last Admin: 08/27/17 08:38 Dose: 100 mls/hr Meropenem 500 mg/ Sodium (Chloride) 100 mls @ 100 mls/hr IVPB Q8 [facility] PRN Reason: Protocol Last Admin: 08/27/17 08:38 Dose: 100 mls/hr Vancomycin HCl 750 mg/ Sodium (Chloride) 250 mls @ 166.667 mls/hr IVPB Q12 [facility] PRN Reason: Protocol Last Admin: 08/27/17 08:36 Dose: 166.667 mls/hr Ibuprofen (Motrin Tab) 600 mg PO Q6 PRN PRN Reason: Pain, Mild (1-3) Last Admin: 08/25/17 16:48 Dose: 600 mg Ondansetron HCl (Zofran Inj) 4 mg IVP Q6 PRN PRN Reason: Nausea/Vomiting Multivit/Folic Acid/Iron () 1 tab PO DAILY [facility] Last Admin: 08/27/17 08:35 Dose: 1 tab Saccharomyces Boulardii (Florastor) 250 mg PO BID [facility] Last Admin: 08/27/17 08:35 Dose: 250 mg Senna/Docusate Sodium (Senokot S 50 Mg-8.6 Mg) 1 tab PO HS [facility] Last Admin: 08/26/17 22:47 Dose: 1 tab - Labs Labs: 08/26/17 05:30 08/26/17 05:30 PT 14.8 Seconds (9.8-13.1) H 08/20/17 05:30 INR 1.3 (0.9-1.2) H 08/20/17 05:30 APTT 32.5 Seconds (25.6-37.1) 08/18/17 19:12
--- NOTE | 2017-08-27 13:10 | CP.PCM.PN ---
Subjective - Date & Time of Evaluation Date of Evaluation: 08/27/17 Time of Evaluation: 08:00 - Subjective Subjective: Pt seen and examined in the am. States she has mild chest wall pain exacerbated with deep inhalation. Abdominal pain, mild. Tolerating diet. Ambulating. Plan for Chest CT today. Objective - Vital Signs/Intake and Output Vital Signs (last 24 hours): Temp Pulse Resp BP Pulse Ox 97.6 F 65 20 130/82 96 08/27/17 07:54 08/27/17 07:54 08/27/17 07:54 08/27/17 07:54 08/27/17 07:54 - Medications Medications: Current Medications Acetaminophen (Tylenol 325mg Tab) 650 mg PO Q6 PRN PRN Reason: Fever >100.4 F Last Admin: 08/22/17 16:13 Dose: 650 mg Albuterol/Ipratropium (Duoneb 3 Mg/0.5 Mg (3 Ml) Ud) 3 ml INH RQ6 PRN PRN Reason: Shortness of Breath Enoxaparin Sodium (Lovenox) 40 mg SC DAILY [facility] PRN Reason: Protocol Last Admin: 08/27/17 08:40 Dose: Not Given Famotidine (Pepcid) 20 mg PO BID [facility] Last Admin: 08/27/17 08:35 Dose: 20 mg Ferrous Sulfate (Feosol) 325 mg PO BID [facility] Last Admin: 08/27/17 08:35 Dose: 325 mg Metronidazole (Flagyl 500mg/100ml Ns) 100 mls @ 100 mls/hr IVPB Q8 [facility] PRN Reason: Protocol Last Admin: 08/27/17 08:38 Dose: 100 mls/hr Meropenem 500 mg/ Sodium (Chloride) 100 mls @ 100 mls/hr IVPB Q8 [facility] PRN Reason: Protocol Last Admin: 08/27/17 08:38 Dose: 100 mls/hr Vancomycin HCl 750 mg/ Sodium (Chloride) 250 mls @ 166.667 mls/hr IVPB Q12 [facility] PRN Reason: Protocol Last Admin: 08/27/17 08:36 Dose: 166.667 mls/hr Ibuprofen (Motrin Tab) 600 mg PO Q6 PRN PRN Reason: Pain, Mild (1-3) Last Admin: 08/25/17 16:48 Dose: 600 mg Ondansetron HCl (Zofran Inj) 4 mg IVP Q6 PRN PRN Reason: Nausea/Vomiting Multivit/Folic Acid/Iron () 1 tab PO DAILY [facility] Last Admin: 08/27/17 08:35 Dose: 1 tab Saccharomyces Boulardii (Florastor) 250 mg PO BID [facility] Last Admin: 08/27/17 08:35 Dose: 250 mg Senna/Docusate Sodium (Senokot S 50 Mg-8.6 Mg) 1 tab PO HS [facility] Last Admin: 08/26/17 22:47 Dose: 1 tab - Labs Labs: 08/26/17 05:30 08/26/17 05:30 PT 14.8 Seconds (9.8-13.1) H 08/20/17 05:30 INR 1.3 (0.9-1.2) H 08/20/17 05:30 APTT 32.5 Seconds (25.6-37.1) 08/18/17 19:12 - Constitutional Appears: Well, Non-toxic, No Acute Distress - Head Exam Head Exam: NORMAL INSPECTION - Eye Exam Eye Exam: Normal appearance - ENT Exam ENT Exam: Mucous Membranes Moist - Respiratory Exam Respiratory Exam: Decreased Breath Sounds (Right), Clear to Ausculation Bilateral, Rales. absent: Chest Wall Tenderness, Wheezes - Cardiovascular Exam Cardiovascular Exam: REGULAR RHYTHM, +S1, +S2. absent: Murmur - GI/Abdominal Exam GI & Abdominal Exam: Soft, Tenderness (Diffuse on deep palpation) Assessment and Plan - Assessment and Plan (Free Text) Assessment: Assessment: 31 y/o F admitted with moderate pleural effusion. Pt was recently d/c after 10 day hosp admission for pelvic abscess complication from c section on 07/23. S/P thoracentisis on 08/19. Patient no longer has plan for OR as per OBGYN. Will continue to monitor pleural effusion and abdominals fluid collection. Plan for Chest CT today to evaluate R sided loculated pleural effusion. Consultations on board: OBGYN: , No plan for OR, risks>benefits given pnu, hematoma will resolve over weeks Infectious Disease: Dr. Gaviria, c/w Abx Pulmonology: Dr. Shepherd, will follow up serial chest ct Cardiothoracic: Dr. Nagel,serial chest ct w/ contrast to monitor size. Possible surgery if increase in effusion Pleural effusion s/p thoracentesis on 08/21 -Etiology unknown. Likely relate to abdominal fluid collection -No Leukocytisis, procalcitonin wn -Pleural fluid analysis c/w Exudative effusion -CT Chest (08/18): Moderate right pleural effusion with evidence of mild loculation. Mass-like focus of infiltrate in the left. Pulmonary arteries no PE upper lobe with air bronchograms. -CT chest from (08/24) shows diminishing R. Loculated pleural effusion -Duonebs PRN and Incentive spirometry prn -Pulmonology on board -Cadiothoracic on board Pelvic fluid collection -Etiology: Abscess vs hematoma -C/W Zosyn/Meropenem, Flagyl IV -CT Abd/Pelvis on 08/13/17: Some interval improvement from initial CT -Pelvic MRI (08/25): No significant change in size, +inflamamtory changes, cannot r/o uterus wound dehiscence -ID on board on board -OBGYN on board Microcytic anemia -Stable -Patient anemic since delivery and has been on Iron BID at home. -Hgb 9 today -Iron studies c/w iron def anemia -Continue with Ferrous Sulfate BID MILIND,resolved -Crea 0.6 today -Likely prerenal 2/2 dehydration Prophylactic measures -Lovenox 40mg SC daily -SCDs Diet -Regular
[2017-08-27] MEDS: Docusate-Senna 50 mg-8.6 mg Tab PO SCH (21:13)
[2017-08-28] MEDS: Meropenem 500 MG in Sodium Chloride 0.9% 100 ML IVPB SCH ×3 (00:22→17:00)
[2017-08-28] MEDS: metroNIDAZOLE 500mg/100ml NS 100 ML IVPB SCH ×3 (01:59→16:59)
[2017-08-28 06:46] LABS: HEMOGLOBIN 9.1 g/dL (12.0-16.0); MEAN CELL VOLUME 77.9 fl (81.0-99.0); MEAN CORPUSCULAR HEMOGLOBIN 25.6 pg (27.0-31.0); MEAN CORPUSCULAR HGB CONC 32.8 g/dL (33.0-37.0); RBC 3.55 Mil/uL (3.80-5.20); RED CELL DISTRIBUTION WIDTH 16.8 % (11.5-14.5); WHITE BLOOD COUNT 7.7 K/uL (4.8-10.8)
[2017-08-28 06:53] LABS: BLOOD UREA NITROGEN 6 mg/dl (7-17); CALCIUM 8.7 mg/dL (8.4-10.2); GFR AFRICAN-AMERICAN > 60; GFR NON-AFRICAN AMERICAN > 60
--- NOTE | 2017-08-28 08:27 | CP.PCM.PN ---
Subjective - Date & Time of Evaluation Date of Evaluation: 08/28/17 Time of Evaluation: 08:25 - Subjective Subjective: SURGERY PROGRESS NOTE FOR DR. QUIÑONES 31F seen and examined at bedside. Denies of any acute overnight events. Denies of pain in her chest now. Reports it only hurts if she moves it. Denies of any F /N/V/C/SOB/CP/headache. No other complains at this time. Objective - Vital Signs/Intake and Output Vital Signs (last 24 hours): Temp Pulse Resp BP Pulse Ox 98.5 F 71 20 136/78 95 08/28/17 07:53 08/28/17 07:53 08/28/17 07:53 08/28/17 07:53 08/28/17 07:53 - Medications Medications: Current Medications Acetaminophen (Tylenol 325mg Tab) 650 mg PO Q6 PRN PRN Reason: Fever >100.4 F Last Admin: 08/22/17 16:13 Dose: 650 mg Albuterol/Ipratropium (Duoneb 3 Mg/0.5 Mg (3 Ml) Ud) 3 ml INH RQ6 PRN PRN Reason: Shortness of Breath Enoxaparin Sodium (Lovenox) 40 mg SC DAILY [facility] PRN Reason: Protocol Last Admin: 08/27/17 08:40 Dose: Not Given Famotidine (Pepcid) 20 mg PO BID [facility] Last Admin: 08/27/17 17:25 Dose: 20 mg Ferrous Sulfate (Feosol) 325 mg PO BID [facility] Last Admin: 08/27/17 17:25 Dose: 325 mg Metronidazole (Flagyl 500mg/100ml Ns) 100 mls @ 100 mls/hr IVPB Q8 [facility] PRN Reason: Protocol Last Admin: 08/28/17 01:59 Dose: 100 mls/hr Meropenem 500 mg/ Sodium (Chloride) 100 mls @ 100 mls/hr IVPB Q8 [facility] PRN Reason: Protocol Last Admin: 08/28/17 00:22 Dose: 100 mls/hr Vancomycin HCl 750 mg/ Sodium (Chloride) 250 mls @ 166.667 mls/hr IVPB Q12 [facility] PRN Reason: Protocol Last Admin: 08/27/17 21:12 Dose: 166.667 mls/hr Ibuprofen (Motrin Tab) 600 mg PO Q6 PRN PRN Reason: Pain, Mild (1-3) Last Admin: 08/25/17 16:48 Dose: 600 mg Ondansetron HCl (Zofran Inj) 4 mg IVP Q6 PRN PRN Reason: Nausea/Vomiting Multivit/Folic Acid/Iron () 1 tab PO DAILY [facility] Last Admin: 08/27/17 08:35 Dose: 1 tab Saccharomyces Boulardii (Florastor) 250 mg PO BID [facility] Last Admin: 08/27/17 17:25 Dose: 250 mg Senna/Docusate Sodium (Senokot S 50 Mg-8.6 Mg) 1 tab PO HS [facility] Last Admin: 08/27/17 21:13 Dose: 1 tab - Labs Labs: 08/28/17 06:00 08/28/17 06:00 PT 14.8 Seconds (9.8-13.1) H 08/20/17 05:30 INR 1.3 (0.9-1.2) H 08/20/17 05:30 APTT 32.5 Seconds (25.6-37.1) 08/18/17 19:12 - Constitutional Appears: Well, Non-toxic, No Acute Distress - Head Exam Head Exam: ATRAUMATIC - Eye Exam Eye Exam: Normal appearance - ENT Exam ENT Exam: Normal Exam - Neck Exam Neck Exam: Full ROM, Normal Inspection - Respiratory Exam Respiratory Exam: NORMAL BREATHING PATTERN - Cardiovascular Exam Cardiovascular Exam: REGULAR RHYTHM, +S1, +S2 - GI/Abdominal Exam GI & Abdominal Exam: Soft, Normal Bowel Sounds. absent: Rigid, Hernia, Mass - Rectal Exam Rectal Exam: Deferred - Extremities Exam Extremities Exam: Full ROM, Normal Inspection - Back Exam Back Exam: NORMAL INSPECTION. absent: tenderness - Neurological Exam Neurological Exam: Alert, Awake, Oriented x3 - Psychiatric Exam Psychiatric exam: Normal Affect, Normal Mood - Skin Skin Exam: Intact, Normal Color, Warm Assessment and Plan - Assessment and Plan (Free Text) Assessment: 31F presents with loculated right pleural effusions Plan: - repeat CT chest scan on Sunday Further recs discuss with Dr. Quiñones
--- NOTE | 2017-08-28 08:28 | CP.PCM.PN ---
Subjective - Date & Time of Evaluation Date of Evaluation: 08/28/17 Time of Evaluation: 08:00 - Subjective Subjective: No overnight events. Pt seen and examined at bedside in the am. States she is still have vaginal bleeding - 3 pads, not soaked (spotting) with occasional clots. Reports mild lower abdominal pain. Denies sob, cp. Plan for Transvaginal U/S today. Pt aware. Objective - Vital Signs/Intake and Output Vital Signs (last 24 hours): Temp Pulse Resp BP Pulse Ox 98.5 F 71 20 136/78 95 08/28/17 07:53 08/28/17 07:53 08/28/17 07:53 08/28/17 07:53 08/28/17 07:53 - Medications Medications: Current Medications Acetaminophen (Tylenol 325mg Tab) 650 mg PO Q6 PRN PRN Reason: Fever >100.4 F Last Admin: 08/22/17 16:13 Dose: 650 mg Albuterol/Ipratropium (Duoneb 3 Mg/0.5 Mg (3 Ml) Ud) 3 ml INH RQ6 PRN PRN Reason: Shortness of Breath Enoxaparin Sodium (Lovenox) 40 mg SC DAILY MARCIA PRN Reason: Protocol Last Admin: 08/27/17 08:40 Dose: Not Given Famotidine (Pepcid) 20 mg PO BID [facility] Last Admin: 08/27/17 17:25 Dose: 20 mg Ferrous Sulfate (Feosol) 325 mg PO BID [facility] Last Admin: 08/27/17 17:25 Dose: 325 mg Metronidazole (Flagyl 500mg/100ml Ns) 100 mls @ 100 mls/hr IVPB Q8 MARCIA PRN Reason: Protocol Last Admin: 08/28/17 01:59 Dose: 100 mls/hr Meropenem 500 mg/ Sodium (Chloride) 100 mls @ 100 mls/hr IVPB Q8 MARCIA PRN Reason: Protocol Last Admin: 08/28/17 00:22 Dose: 100 mls/hr Vancomycin HCl 750 mg/ Sodium (Chloride) 250 mls @ 166.667 mls/hr IVPB Q12 MARCIA PRN Reason: Protocol Last Admin: 08/27/17 21:12 Dose: 166.667 mls/hr Ibuprofen (Motrin Tab) 600 mg PO Q6 PRN PRN Reason: Pain, Mild (1-3) Last Admin: 08/25/17 16:48 Dose: 600 mg Ondansetron HCl (Zofran Inj) 4 mg IVP Q6 PRN PRN Reason: Nausea/Vomiting Multivit/Folic Acid/Iron () 1 tab PO DAILY [facility] Last Admin: 08/27/17 08:35 Dose: 1 tab Saccharomyces Boulardii (Florastor) 250 mg PO BID [facility] Last Admin: 08/27/17 17:25 Dose: 250 mg Senna/Docusate Sodium (Senokot S 50 Mg-8.6 Mg) 1 tab PO HS [facility] Last Admin: 08/27/17 21:13 Dose: 1 tab - Labs Labs: 08/28/17 06:00 08/28/17 06:00 PT 14.8 Seconds (9.8-13.1) H 08/20/17 05:30 INR 1.3 (0.9-1.2) H 08/20/17 05:30 APTT 32.5 Seconds (25.6-37.1) 08/18/17 19:12 - Constitutional Appears: Well, Non-toxic, No Acute Distress - Head Exam Head Exam: NORMAL INSPECTION - Eye Exam Eye Exam: Normal appearance - ENT Exam ENT Exam: Mucous Membranes Moist - Neck Exam Neck Exam: Normal Inspection - Respiratory Exam Respiratory Exam: Clear to Ausculation Bilateral. absent: Rales, Wheezes - Cardiovascular Exam Cardiovascular Exam: REGULAR RHYTHM, +S1, +S2. absent: Murmur - GI/Abdominal Exam GI & Abdominal Exam: Soft, Normal Bowel Sounds. absent: Tenderness - Extremities Exam Extremities Exam: absent: Pedal Edema - Neurological Exam Neurological Exam: Alert, Awake, Oriented x3 - Psychiatric Exam Psychiatric exam: Normal Affect - Skin Skin Exam: Normal Color Assessment and Plan - Assessment and Plan (Free Text) Assessment: 31 y/o F admitted with moderate pleural effusion. Pt was recently d/c after 10 day hosp admission for pelvic abscess complication from c section on 07/23. S/P thoracentisis on 08/19. Will continue to monitor pleural effusion and abdominals fluid collection. Transvaginal U/S today. Consultations on board: OBGYN: , No plan for OR, risks>benefits given pnu, hematoma will resolve over weeks Infectious Disease: Dr. Gaviria, c/w Abx Pulmonology: Dr. Shepherd, will follow up serial chest ct Cardiothoracic: Dr. Nagel,Repeat Chest CT tomorrow Pleural effusion s/p thoracentesis on 08/21 -Etiology unknown. Likely relate to abdominal fluid collection -No Leukocytisis, procalcitonin wn -Pleural fluid analysis c/w Exudative effusion -CT Chest (08/18): Moderate right pleural effusion with evidence of mild loculation. Mass-like focus of infiltrate in the left. Pulmonary arteries no PE upper lobe with air bronchograms. -CT chest from (08/24) shows diminishing R. Loculated pleural effusion -Duonebs PRN and Incentive spirometry prn -Pulmonology on board -Cadiothoracic on board Pelvic fluid collection -Etiology: Abscess vs hematoma -C/W Zosyn/Meropenem, Flagyl IV -CT Abd/Pelvis on 08/13/17: Some interval improvement from initial CT -Pelvic MRI (08/25): No significant change in size, +inflammatory changes, cannot r/o uterus wound dehiscence -ID on board on board -OBGYN on board Vaginal Bleeding -Pt still bleeding 8 weeks post -MANAGER CONTROL on board -H/H stable Microcytic anemia -Stable -Patient anemic since delivery and has been on Iron BID at home. -Hgb 9 today -Iron studies c/w iron def anemia -Continue with Ferrous Sulfate BID Prophylactic measures -Lovenox 40mg SC daily -SCDs Diet -Regular
[2017-08-28] MEDS: Prenatal Multivit/Folic Acid/Iron Tab PO SCH (09:59)
[2017-08-28] MEDS: Enoxaparin 40 mg Syringe SC SCH (09:59)
[2017-08-28] MEDS: Saccharomyces Boulardi 250 mg Cap PO SCH ×2 (09:59→17:18)
[2017-08-28] MEDS: Potassium Chloride 20 mEq ER Tab PO SCH ×2 (10:00→17:18)
--- NOTE | 2017-08-28 11:34 | CP.PCM.CON ---
Past Patient History - Past Medical History & Family History Past Medical History?: Yes - Past Social History Smoking Status: Never Smoked Alcohol: None Drugs: Denies Home Situation {Lives}: With Family - CARDIAC Hx Hypertension: No - PULMONARY Hx Respiratory Disorders: No - NEUROLOGICAL Hx Neurological Disorder: No - HEENT Hx HEENT Problems: No - RENAL Hx Chronic Kidney Disease: No - ENDOCRINE/METABOLIC Hx Endocrine Disorders: No - HEMATOLOGICAL/ONCOLOGICAL Hx Human Immunodeficiency Virus (HIV): No - INTEGUMENTARY Hx Dermatological Problems: No - MUSCULOSKELETAL/RHEUMATOLOGICAL Hx Musculoskeletal Disorders: No Hx Falls: No - GASTROINTESTINAL Hx Gastrointestinal Disorders: No - GENITOURINARY/GYNECOLOGICAL Hx Genitourinary Disorders: Yes (Pelvic abscess/Post bleeding) - PSYCHIATRIC Hx Depression: No - SURGICAL HISTORY Hx Surgeries: Yes Hx Section: Yes - ANESTHESIA Hx Anesthesia: Yes Hx Anesthesia Reactions: No Hx Malignant Hyperthermia: No Meds Allergies/Adverse Reactions: Allergies Allergy/AdvReac Type Severity Reaction Status Date / Time No Known Allergies Allergy Verified 08/18/17 18:29 - Medications Medications: Current Medications Acetaminophen (Tylenol 325mg Tab) 650 mg PO Q6 PRN PRN Reason: Fever >100.4 F Last Admin: 08/22/17 16:13 Dose: 650 mg Albuterol/Ipratropium (Duoneb 3 Mg/0.5 Mg (3 Ml) Ud) 3 ml INH RQ6 PRN PRN Reason: Shortness of Breath Enoxaparin Sodium (Lovenox) 40 mg SC DAILY MARCIA PRN Reason: Protocol Last Admin: 08/28/17 09:59 Dose: 40 mg Famotidine (Pepcid) 20 mg PO BID [facility] Last Admin: 08/28/17 09:59 Dose: 20 mg Ferrous Sulfate (Feosol) 325 mg PO BID [facility] Last Admin: 08/28/17 10:00 Dose: 325 mg Metronidazole (Flagyl 500mg/100ml Ns) 100 mls @ 100 mls/hr IVPB Q8 MARCIA PRN Reason: Protocol Last Admin: 08/28/17 10:00 Dose: 100 mls/hr Meropenem 500 mg/ Sodium (Chloride) 100 mls @ 100 mls/hr IVPB Q8 MARCIA PRN Reason: Protocol Last Admin: 08/28/17 10:01 Dose: 100 mls/hr Vancomycin HCl 750 mg/ Sodium (Chloride) 250 mls @ 166.667 mls/hr IVPB Q12 MARCIA PRN Reason: Protocol Last Admin: 08/28/17 10:01 Dose: 166.667 mls/hr Ibuprofen (Motrin Tab) 600 mg PO Q6 PRN PRN Reason: Pain, Mild (1-3) Last Admin: 08/25/17 16:48 Dose: 600 mg Ondansetron HCl (Zofran Inj) 4 mg IVP Q6 PRN PRN Reason: Nausea/Vomiting Potassium Chloride (K-Dur 20 Meq Er Tab) 40 meq PO BID [facility] Stop: 08/29/17 09:00 Last Admin: 08/28/17 10:00 Dose: 40 meq Multivit/Folic Acid/Iron () 1 tab PO DAILY [facility] Last Admin: 08/28/17 09:59 Dose: 1 tab Saccharomyces Boulardii (Florastor) 250 mg PO BID [facility] Last Admin: 08/28/17 09:59 Dose: 250 mg Senna/Docusate Sodium (Senokot S 50 Mg-8.6 Mg) 1 tab PO HS [facility] Last Admin: 08/27/17 21:13 Dose: 1 tab Results - Vital Signs Recent Vital Signs: Last Vital Signs Temp 98.5 F 08/28/17 07:53 Pulse 71 08/28/17 07:53 Resp 20 08/28/17 07:53 BP 136/78 08/28/17 07:53 Pulse Ox 95 08/28/17 07:53 - Labs Result Diagrams: 08/28/17 06:00 08/28/17 06:00 Labs: Laboratory Results - last 24 hr 08/28/17 08/28/17 06:00 06:00 WBC 7.7 RBC 3.55 L Hgb 9.1 L Hct 27.6 L MCV 77.9 L MCH 25.6 L MCHC 32.8 L RDW 16.8 H Plt Count 447 H Sodium 145 Potassium 3.3 L Chloride 107 Carbon Dioxide 26 Anion Gap 15 BUN 6 L Creatinine 0.6 L Est GFR ( Amer) > 60 Est GFR (Non-Af Amer) > 60 Random Glucose 95 Calcium 8.7
--- NOTE | 2017-08-28 11:35 | CP.PCM.PN ---
<Sultan Hieu - Last Filed: 08/28/17 18:20> Subjective - Date & Time of Evaluation Date of Evaluation: 08/28/17 Time of Evaluation: 10:40 - Subjective Subjective: ESTATE TAX EXAMINER consult progress note for Dr. Ruth Pt seen and examined at bedside this morning. No acute overnight events. Pt denies any abdominal pain at rest but some pain with ambulation. Pt is tolerating PO intake and reports regular BM. Denies nausea, vomiting, fever, or chills. Objective - Vital Signs/Intake and Output Vital Signs (last 24 hours): Temp Pulse Resp BP Pulse Ox 98.5 F 71 20 136/78 95 08/28/17 07:53 08/28/17 07:53 08/28/17 07:53 08/28/17 07:53 08/28/17 07:53 - Medications Medications: Current Medications Acetaminophen (Tylenol 325mg Tab) 650 mg PO Q6 PRN PRN Reason: Fever >100.4 F Last Admin: 08/22/17 16:13 Dose: 650 mg Albuterol/Ipratropium (Duoneb 3 Mg/0.5 Mg (3 Ml) Ud) 3 ml INH RQ6 PRN PRN Reason: Shortness of Breath Enoxaparin Sodium (Lovenox) 40 mg SC DAILY MARCIA PRN Reason: Protocol Last Admin: 08/28/17 09:59 Dose: 40 mg Famotidine (Pepcid) 20 mg PO BID [facility] Last Admin: 08/28/17 09:59 Dose: 20 mg Ferrous Sulfate (Feosol) 325 mg PO BID [facility] Last Admin: 08/28/17 10:00 Dose: 325 mg Metronidazole (Flagyl 500mg/100ml Ns) 100 mls @ 100 mls/hr IVPB Q8 MARCIA PRN Reason: Protocol Last Admin: 08/28/17 10:00 Dose: 100 mls/hr Meropenem 500 mg/ Sodium (Chloride) 100 mls @ 100 mls/hr IVPB Q8 MARCIA PRN Reason: Protocol Last Admin: 08/28/17 10:01 Dose: 100 mls/hr Vancomycin HCl 750 mg/ Sodium (Chloride) 250 mls @ 166.667 mls/hr IVPB Q12 MARCIA PRN Reason: Protocol Last Admin: 08/28/17 10:01 Dose: 166.667 mls/hr Ibuprofen (Motrin Tab) 600 mg PO Q6 PRN PRN Reason: Pain, Mild (1-3) Last Admin: 08/25/17 16:48 Dose: 600 mg Ondansetron HCl (Zofran Inj) 4 mg IVP Q6 PRN PRN Reason: Nausea/Vomiting Potassium Chloride (K-Dur 20 Meq Er Tab) 40 meq PO BID [facility] Stop: 08/29/17 09:00 Last Admin: 08/28/17 10:00 Dose: 40 meq Multivit/Folic Acid/Iron () 1 tab PO DAILY [facility] Last Admin: 08/28/17 09:59 Dose: 1 tab Saccharomyces Boulardii (Florastor) 250 mg PO BID [facility] Last Admin: 08/28/17 09:59 Dose: 250 mg Senna/Docusate Sodium (Senokot S 50 Mg-8.6 Mg) 1 tab PO HS [facility] Last Admin: 08/27/17 21:13 Dose: 1 tab - Labs Labs: 08/28/17 06:00 08/28/17 06:00 PT 14.8 Seconds (9.8-13.1) H 08/20/17 05:30 INR 1.3 (0.9-1.2) H 08/20/17 05:30 APTT 32.5 Seconds (25.6-37.1) 08/18/17 19:12 - Constitutional Appears: Well, Non-toxic, No Acute Distress - Respiratory Exam Respiratory Exam: Clear to Ausculation Bilateral, NORMAL BREATHING PATTERN. absent: Rhonchi, Wheezes - Cardiovascular Exam Cardiovascular Exam: REGULAR RHYTHM, RRR, +S1, +S2 - GI/Abdominal Exam GI & Abdominal Exam: Soft, Normal Bowel Sounds. absent: Tenderness, Rebound - Extremities Exam Extremities Exam: Normal Capillary Refill, Normal Inspection. absent: Calf Tenderness - Neurological Exam Neurological Exam: Alert, Awake, Oriented x3 Assessment and Plan - Assessment and Plan (Free Text) Assessment: Assessment: 31 y/o female s/p on 07/22/17, admitted for right sided plural effusion S/P thoracocentesis; pneumonia and pelvic mass. Plan: 1. Pelvic mass. -MRI w/ contrast on 08/25/17 IMPRESSION: Large anterior pelvic collection abutting the uterus and possibly extending from the patient's scar. An element of uterine dehiscence at the site cannot be excluded. Small areas of susceptibility artifact are noted. There does not appear to be significant enhancement peripherally when compared with the recent noncontrast MRI images. A mild amount of additional adjacent inflammatory change is noted. -Pelvic collection is likely hematoma and size is decreasing. -Pt has been afebrile and has stable vital signs -Recommend tests for HIV, CMV igG/igM, EBV -No surgical intervention from BUSINESS DEVELOPMENT ENGINEER service -Recommend for close f/u with Dr. Trejo within a week upon discharge. 2. Right sided pleural effusion/PNU - Continue current tx as per primary team and ID recommendation Case d/w on-call OB Hospitalist Dr. Flory Hagen, pgy-1 <Jose Antonio Ruth - Last Filed: 08/29/17 10:08> Objective - Vital Signs/Intake and Output Vital Signs (last 24 hours): Temp Pulse Resp BP Pulse Ox 98.1 F 79 18 123/82 97 08/29/17 08:44 08/29/17 08:44 08/29/17 08:44 08/29/17 08:44 08/29/17 08:44 - Medications Medications: Current Medications Acetaminophen (Tylenol 325mg Tab) 650 mg PO Q6 PRN PRN Reason: Fever >100.4 F Last Admin: 08/22/17 16:13 Dose: 650 mg Albuterol/Ipratropium (Duoneb 3 Mg/0.5 Mg (3 Ml) Ud) 3 ml INH RQ6 PRN PRN Reason: Shortness of Breath Enoxaparin Sodium (Lovenox) 40 mg SC DAILY MARCIA PRN Reason: Protocol Last Admin: 08/28/17 09:59 Dose: 40 mg Famotidine (Pepcid) 20 mg PO BID [facility] Last Admin: 08/28/17 17:18 Dose: 20 mg Ferrous Sulfate (Feosol) 325 mg PO BID [facility] Last Admin: 08/28/17 17:18 Dose: 325 mg Metronidazole (Flagyl 500mg/100ml Ns) 100 mls @ 100 mls/hr IVPB Q8 MARCIA PRN Reason: Protocol Last Admin: 08/29/17 00:21 Dose: 100 mls/hr Meropenem 500 mg/ Sodium (Chloride) 100 mls @ 100 mls/hr IVPB Q8 MARCIA PRN Reason: Protocol Last Admin: 08/29/17 00:21 Dose: 100 mls/hr Vancomycin HCl 750 mg/ Sodium (Chloride) 250 mls @ 166.667 mls/hr IVPB Q12 MARCIA PRN Reason: Protocol Last Admin: 08/28/17 21:24 Dose: 166.667 mls/hr Ibuprofen (Motrin Tab) 600 mg PO Q6 PRN PRN Reason: Pain, Mild (1-3) Last Admin: 08/25/17 16:48 Dose: 600 mg Ondansetron HCl (Zofran Inj) 4 mg IVP Q6 PRN PRN Reason: Nausea/Vomiting Polyethylene Glycol (Miralax) 17 gm PO DAILYWM [facility] Multivit/Folic Acid/Iron () 1 tab PO DAILY [facility] Last Admin: 08/28/17 09:59 Dose: 1 tab Saccharomyces Boulardii (Florastor) 250 mg PO BID [facility] Last Admin: 08/28/17 17:18 Dose: 250 mg Senna/Docusate Sodium (Senokot S 50 Mg-8.6 Mg) 2 tab PO HS [facility] Last Admin: 08/28/17 21:27 Dose: 2 tab - Labs Labs: 08/29/17 06:10 08/29/17 06:10 PT 14.8 Seconds (9.8-13.1) H 08/20/17 05:30 INR 1.3 (0.9-1.2) H 08/20/17 05:30 APTT 32.5 Seconds (25.6-37.1) 08/18/17 19:12 Attending/Attestation - Attestation Notes (Text): 08/29/17 09:24 Late entry for pt's chart. She was seen late morning/early afternoon on Aug 28 by me. Case was reviewed last week By Dr Sean Soria with Dr Arreola (BUSINESS DEVELOPMENT ENGINEER) ... he will come following up MRI over the weekend - TVS later Aug 28. Maria G's questions answered.
--- NOTE | 2017-08-28 13:07 | CP.PCM.PN ---
Subjective - Date & Time of Evaluation Date of Evaluation: 08/28/17 Time of Evaluation: 13:01 - Subjective Subjective: Pt s/e. Clinically continue to improve. Tmax-98.5 wbc-8k plat: 440k bc-08-03-17-+ enteroacter other fluid- a few g+ cocci a/p: continue antibiotcs. and pt ct chest in am tomorrow. Objective - Vital Signs/Intake and Output Vital Signs (last 24 hours): Temp Pulse Resp BP Pulse Ox 98.5 F 71 20 136/78 95 08/28/17 07:53 08/28/17 07:53 08/28/17 07:53 08/28/17 07:53 08/28/17 07:53 - Medications Medications: Current Medications Acetaminophen (Tylenol 325mg Tab) 650 mg PO Q6 PRN PRN Reason: Fever >100.4 F Last Admin: 08/22/17 16:13 Dose: 650 mg Albuterol/Ipratropium (Duoneb 3 Mg/0.5 Mg (3 Ml) Ud) 3 ml INH RQ6 PRN PRN Reason: Shortness of Breath Enoxaparin Sodium (Lovenox) 40 mg SC DAILY MARCIA PRN Reason: Protocol Last Admin: 08/28/17 09:59 Dose: 40 mg Famotidine (Pepcid) 20 mg PO BID [facility] Last Admin: 08/28/17 09:59 Dose: 20 mg Ferrous Sulfate (Feosol) 325 mg PO BID [facility] Last Admin: 08/28/17 10:00 Dose: 325 mg Metronidazole (Flagyl 500mg/100ml Ns) 100 mls @ 100 mls/hr IVPB Q8 MARCIA PRN Reason: Protocol Last Admin: 08/28/17 10:00 Dose: 100 mls/hr Meropenem 500 mg/ Sodium (Chloride) 100 mls @ 100 mls/hr IVPB Q8 MARCIA PRN Reason: Protocol Last Admin: 08/28/17 10:01 Dose: 100 mls/hr Vancomycin HCl 750 mg/ Sodium (Chloride) 250 mls @ 166.667 mls/hr IVPB Q12 MARCIA PRN Reason: Protocol Last Admin: 08/28/17 10:01 Dose: 166.667 mls/hr Ibuprofen (Motrin Tab) 600 mg PO Q6 PRN PRN Reason: Pain, Mild (1-3) Last Admin: 08/25/17 16:48 Dose: 600 mg Ondansetron HCl (Zofran Inj) 4 mg IVP Q6 PRN PRN Reason: Nausea/Vomiting Potassium Chloride (K-Dur 20 Meq Er Tab) 40 meq PO BID [facility] Stop: 08/29/17 09:00 Last Admin: 08/28/17 10:00 Dose: 40 meq Multivit/Folic Acid/Iron () 1 tab PO DAILY [facility] Last Admin: 08/28/17 09:59 Dose: 1 tab Saccharomyces Boulardii (Florastor) 250 mg PO BID [facility] Last Admin: 08/28/17 09:59 Dose: 250 mg Senna/Docusate Sodium (Senokot S 50 Mg-8.6 Mg) 1 tab PO HS [facility] Last Admin: 08/27/17 21:13 Dose: 1 tab - Labs Labs: 08/28/17 06:00 08/28/17 06:00 PT 14.8 Seconds (9.8-13.1) H 08/20/17 05:30 INR 1.3 (0.9-1.2) H 08/20/17 05:30 APTT 32.5 Seconds (25.6-37.1) 08/18/17 19:12
--- NOTE | 2017-08-28 15:19 | CP.PCM.PN ---
Subjective - Date & Time of Evaluation Date of Evaluation: 08/28/17 Time of Evaluation: 12:30 - Subjective Subjective: F/U R pleural effusion. Pt awake, no A/D, no SOB, occasional dry cough. Objective - Vital Signs/Intake and Output Vital Signs (last 24 hours): Temp Pulse Resp BP Pulse Ox 98.5 F 71 20 136/78 95 08/28/17 07:53 08/28/17 07:53 08/28/17 07:53 08/28/17 07:53 08/28/17 07:53 - Medications Medications: Current Medications Acetaminophen (Tylenol 325mg Tab) 650 mg PO Q6 PRN PRN Reason: Fever >100.4 F Last Admin: 08/22/17 16:13 Dose: 650 mg Albuterol/Ipratropium (Duoneb 3 Mg/0.5 Mg (3 Ml) Ud) 3 ml INH RQ6 PRN PRN Reason: Shortness of Breath Enoxaparin Sodium (Lovenox) 40 mg SC DAILY MARCIA PRN Reason: Protocol Last Admin: 08/28/17 09:59 Dose: 40 mg Famotidine (Pepcid) 20 mg PO BID [facility] Last Admin: 08/28/17 09:59 Dose: 20 mg Ferrous Sulfate (Feosol) 325 mg PO BID [facility] Last Admin: 08/28/17 10:00 Dose: 325 mg Metronidazole (Flagyl 500mg/100ml Ns) 100 mls @ 100 mls/hr IVPB Q8 MARCIA PRN Reason: Protocol Last Admin: 08/28/17 10:00 Dose: 100 mls/hr Meropenem 500 mg/ Sodium (Chloride) 100 mls @ 100 mls/hr IVPB Q8 MARCIA PRN Reason: Protocol Last Admin: 08/28/17 10:01 Dose: 100 mls/hr Vancomycin HCl 750 mg/ Sodium (Chloride) 250 mls @ 166.667 mls/hr IVPB Q12 MARCIA PRN Reason: Protocol Last Admin: 08/28/17 10:01 Dose: 166.667 mls/hr Ibuprofen (Motrin Tab) 600 mg PO Q6 PRN PRN Reason: Pain, Mild (1-3) Last Admin: 08/25/17 16:48 Dose: 600 mg Ondansetron HCl (Zofran Inj) 4 mg IVP Q6 PRN PRN Reason: Nausea/Vomiting Potassium Chloride (K-Dur 20 Meq Er Tab) 40 meq PO BID [facility] Stop: 08/29/17 09:00 Last Admin: 08/28/17 10:00 Dose: 40 meq Multivit/Folic Acid/Iron () 1 tab PO DAILY [facility] Last Admin: 08/28/17 09:59 Dose: 1 tab Saccharomyces Boulardii (Florastor) 250 mg PO BID [facility] Last Admin: 08/28/17 09:59 Dose: 250 mg Senna/Docusate Sodium (Senokot S 50 Mg-8.6 Mg) 1 tab PO HS [facility] Last Admin: 08/27/17 21:13 Dose: 1 tab - Labs Labs: 08/28/17 06:00 08/28/17 06:00 PT 14.8 Seconds (9.8-13.1) H 08/20/17 05:30 INR 1.3 (0.9-1.2) H 08/20/17 05:30 APTT 32.5 Seconds (25.6-37.1) 08/18/17 19:12 - Constitutional Appears: No Acute Distress - Head Exam Head Exam: NORMAL INSPECTION - Eye Exam Eye Exam: PERRL - ENT Exam ENT Exam: Normal Exam - Neck Exam Neck Exam: Normal Inspection - Respiratory Exam Respiratory Exam: Chest Wall Tenderness (mild), NORMAL BREATHING PATTERN - Cardiovascular Exam Cardiovascular Exam: REGULAR RHYTHM - GI/Abdominal Exam GI & Abdominal Exam: Soft, Normal Bowel Sounds - Extremities Exam Extremities Exam: Normal Inspection - Back Exam Back Exam: NORMAL INSPECTION - Neurological Exam Neurological Exam: Altered, Oriented x3 - Psychiatric Exam Psychiatric exam: Normal Mood - Skin Skin Exam: Warm Assessment and Plan (1) Pleural effusion Status: Resolved (2) Atelectasis of right lung Status: Resolved (3) PNA (pneumonia) Status: Resolved - Assessment and Plan (Free Text) Plan: Continue Vanco, Merrem and rest of Tx.
--- NOTE | 2017-08-28 16:48 | CP.PCM.CON ---
<MaxwellMario - Last Filed: 08/28/17 16:44> History of Present Illness - History of Present Illness History of Present Illness: 31 yo on her second admission for pneumonia and abdominal pain pneumonia resolving on inital admission a collection was noted on the pelvis 12 cm in size it was drained radiologically but it was an organizing hematoma cultures of the drain were negative patient complains of some pressure but no dysuria no bleeding in urine some vaginal bleeding , but ht stable Review of Systems - Hematologic/Lymphatic Additional comments: i personally performen a quick ultrasonographic evaluation and the mass is 5x5 cm with the appearance of an organizing hematoma a small hyperechogenic area is noted , most likely to be surgicel that was placed at time of surgery Past Patient History - Past Medical History & Family History Past Medical History?: Yes - Past Social History Smoking Status: Never Smoked Alcohol: None Drugs: Denies Home Situation {Lives}: With Family - CARDIAC Hx Hypertension: No - PULMONARY Hx Respiratory Disorders: No - NEUROLOGICAL Hx Neurological Disorder: No - HEENT Hx HEENT Problems: No - RENAL Hx Chronic Kidney Disease: No - ENDOCRINE/METABOLIC Hx Endocrine Disorders: No - HEMATOLOGICAL/ONCOLOGICAL Hx Human Immunodeficiency Virus (HIV): No - INTEGUMENTARY Hx Dermatological Problems: No - MUSCULOSKELETAL/RHEUMATOLOGICAL Hx Musculoskeletal Disorders: No Hx Falls: No - GASTROINTESTINAL Hx Gastrointestinal Disorders: No - GENITOURINARY/GYNECOLOGICAL Hx Genitourinary Disorders: Yes (Pelvic abscess/Post bleeding) - PSYCHIATRIC Hx Depression: No - SURGICAL HISTORY Hx Surgeries: Yes Hx Section: Yes - ANESTHESIA Hx Anesthesia: Yes Hx Anesthesia Reactions: No Hx Malignant Hyperthermia: No Meds Allergies/Adverse Reactions: Allergies Allergy/AdvReac Type Severity Reaction Status Date / Time No Known Allergies Allergy Verified 08/18/17 18:29 - Medications Medications: Current Medications Acetaminophen (Tylenol 325mg Tab) 650 mg PO Q6 PRN PRN Reason: Fever >100.4 F Last Admin: 08/22/17 16:13 Dose: 650 mg Albuterol/Ipratropium (Duoneb 3 Mg/0.5 Mg (3 Ml) Ud) 3 ml INH RQ6 PRN PRN Reason: Shortness of Breath Enoxaparin Sodium (Lovenox) 40 mg SC DAILY MARCIA PRN Reason: Protocol Last Admin: 08/28/17 09:59 Dose: 40 mg Famotidine (Pepcid) 20 mg PO BID [facility] Last Admin: 08/28/17 09:59 Dose: 20 mg Ferrous Sulfate (Feosol) 325 mg PO BID [facility] Last Admin: 08/28/17 10:00 Dose: 325 mg Metronidazole (Flagyl 500mg/100ml Ns) 100 mls @ 100 mls/hr IVPB Q8 MARCIA PRN Reason: Protocol Last Admin: 08/28/17 10:00 Dose: 100 mls/hr Meropenem 500 mg/ Sodium (Chloride) 100 mls @ 100 mls/hr IVPB Q8 MARCIA PRN Reason: Protocol Last Admin: 08/28/17 10:01 Dose: 100 mls/hr Vancomycin HCl 750 mg/ Sodium (Chloride) 250 mls @ 166.667 mls/hr IVPB Q12 MARCIA PRN Reason: Protocol Last Admin: 08/28/17 10:01 Dose: 166.667 mls/hr Ibuprofen (Motrin Tab) 600 mg PO Q6 PRN PRN Reason: Pain, Mild (1-3) Last Admin: 08/25/17 16:48 Dose: 600 mg Ondansetron HCl (Zofran Inj) 4 mg IVP Q6 PRN PRN Reason: Nausea/Vomiting [facility] Potassium Chloride (K-Dur 20 Meq Er Tab) 40 meq PO BID [facility] Stop: 08/29/17 09:00 Last Admin: 08/28/17 10:00 Dose: 40 meq Multivit/Folic Acid/Iron () 1 tab PO DAILY [facility] Last Admin: 08/28/17 09:59 Dose: 1 tab Saccharomyces Boulardii (Florastor) 250 mg PO BID [facility] Last Admin: 08/28/17 09:59 Dose: 250 mg Senna/Docusate Sodium (Senokot S 50 Mg-8.6 Mg) 2 tab PO HS [facility] Physical Exam - Additional Findings Additional findings: i personally performen a quick ultrasonographic evaluation and the mass is 5x5 cm with the appearance of an organizing hematoma a small hyperechogenic area is noted , most likely to be surgicel that was placed at time of surgery Results - Vital Signs Recent Vital Signs: Last Vital Signs Temp 98.5 F 08/28/17 15:35 Pulse 73 08/28/17 15:35 Resp 20 08/28/17 15:35 BP 133/84 08/28/17 15:35 Pulse Ox 98 08/28/17 15:35 - Labs Result Diagrams: 08/28/17 06:00 08/28/17 06:00 Labs: Laboratory Results - last 24 hr 08/28/17 08/28/17 06:00 06:00 WBC 7.7 RBC 3.55 L Hgb 9.1 L Hct 27.6 L MCV 77.9 L MCH 25.6 L MCHC 32.8 L RDW 16.8 H Plt Count 447 H Sodium 145 Potassium 3.3 L Chloride 107 Carbon Dioxide 26 Anion Gap 15 BUN 6 L Creatinine 0.6 L Est GFR ( Amer) > 60 Est GFR (Non-Af Amer) > 60 Random Glucose 95 Calcium 8.7 Assessment & Plan - Assessment and Plan (Free Text) Assessment: post surgical incisional uterine hematoma no clevidence of active infection pt afebrile labs wnl mild uterine bleeding under control Plan: i this point I advise conservative management will f/u with dr johan balbuena <Jose Antonio Ruth - Last Filed: 08/29/17 09:23> Meds - Medications Medications: Current Medications Acetaminophen (Tylenol 325mg Tab) 650 mg PO Q6 PRN PRN Reason: Fever >100.4 F Last Admin: 08/22/17 16:13 Dose: 650 mg Albuterol/Ipratropium (Duoneb 3 Mg/0.5 Mg (3 Ml) Ud) 3 ml INH RQ6 PRN PRN Reason: Shortness of Breath Enoxaparin Sodium (Lovenox) 40 mg SC DAILY MARCIA PRN Reason: Protocol Last Admin: 08/28/17 09:59 Dose: 40 mg Famotidine (Pepcid) 20 mg PO BID [facility] Last Admin: 08/28/17 17:18 Dose: 20 mg Ferrous Sulfate (Feosol) 325 mg PO BID [facility] Last Admin: 08/28/17 17:18 Dose: 325 mg Metronidazole (Flagyl 500mg/100ml Ns) 100 mls @ 100 mls/hr IVPB Q8 MARCIA PRN Reason: Protocol Last Admin: 08/29/17 00:21 Dose: 100 mls/hr Meropenem 500 mg/ Sodium (Chloride) 100 mls @ 100 mls/hr IVPB Q8 MARCIA PRN Reason: Protocol Last Admin: 08/29/17 00:21 Dose: 100 mls/hr Vancomycin HCl 750 mg/ Sodium (Chloride) 250 mls @ 166.667 mls/hr IVPB Q12 MARCIA PRN Reason: Protocol Last Admin: 08/28/17 21:24 Dose: 166.667 mls/hr Ibuprofen (Motrin Tab) 600 mg PO Q6 PRN PRN Reason: Pain, Mild (1-3) Last Admin: 08/25/17 16:48 Dose: 600 mg Ondansetron HCl (Zofran Inj) 4 mg IVP Q6 PRN PRN Reason: Nausea/Vomiting Polyethylene Glycol (Miralax) 17 gm PO DAILYWM [facility] Multivit/Folic Acid/Iron () 1 tab PO DAILY [facility] Last Admin: 08/28/17 09:59 Dose: 1 tab Saccharomyces Boulardii (Florastor) 250 mg PO BID [facility] Last Admin: 08/28/17 17:18 Dose: 250 mg Senna/Docusate Sodium (Senokot S 50 Mg-8.6 Mg) 2 tab PO HS [facility] Last Admin: 08/28/17 21:27 Dose: 2 tab Results - Vital Signs Recent Vital Signs: Last Vital Signs Temp 98.1 F 08/29/17 08:44 Pulse 79 08/29/17 08:44 Resp 18 08/29/17 08:44 BP 123/82 08/29/17 08:44 Pulse Ox 97 08/29/17 08:44 - Labs Result Diagrams: 08/29/17 06:10 08/29/17 06:10 Labs: Laboratory Results - last 24 hr 08/29/17 08/29/17 06:10 06:10 WBC 8.4 RBC 3.74 L Hgb 9.4 L Hct 29.8 L MCV 79.7 L MCH 25.1 L MCHC 31.5 L RDW 16.7 H Plt Count 455 H ESR 61 H Sodium 143 Potassium 4.1 Chloride 106 Carbon Dioxide 25 Anion Gap 16 BUN 11 Creatinine 0.6 L Est GFR ( Amer) > 60 Est GFR (Non-Af Amer) > 60 Random Glucose 97 Calcium 9.1 Assessment & Plan - Date & Time Date: 08/28/17 Time: 16:30 (With Dr Arreola, we went to ultrasound dept with Maria G. She ndertood above...case aslso discussed with Dr [place]. Dr Neil hartley [facility] will follow upon discharge)
[2017-08-28] MEDS: Docusate-Senna 50 mg-8.6 mg Tab PO SCH (21:27)
[2017-08-29] MEDS: Meropenem 500 MG in Sodium Chloride 0.9% 100 ML IVPB SCH ×3 (00:21→16:43)
[2017-08-29] MEDS: metroNIDAZOLE 500mg/100ml NS 100 ML IVPB SCH ×3 (00:21→16:42)
[2017-08-29 06:29] LABS: HEMOGLOBIN 9.4 g/dL (12.0-16.0); MEAN CELL VOLUME 79.7 fl (81.0-99.0); MEAN CORPUSCULAR HEMOGLOBIN 25.1 pg (27.0-31.0); MEAN CORPUSCULAR HGB CONC 31.5 g/dL (33.0-37.0); RBC 3.74 Mil/uL (3.80-5.20); RED CELL DISTRIBUTION WIDTH 16.7 % (11.5-14.5); WHITE BLOOD COUNT 8.4 K/uL (4.8-10.8)
[2017-08-29 07:40] LABS: BLOOD UREA NITROGEN 11 mg/dl (7-17); CALCIUM 9.1 mg/dL (8.4-10.2); GFR AFRICAN-AMERICAN > 60; GFR NON-AFRICAN AMERICAN > 60
[2017-08-29] MEDS ORDERED: Lidocaine 1% Inj (20ml) ONE (08:22)
--- NOTE | 2017-08-29 08:24 | CP.PCM.PN ---
Subjective - Date & Time of Evaluation Date of Evaluation: 08/29/17 Time of Evaluation: 08:21 - Subjective Subjective: SURGERY PROGRESS NOTE FOR DR. QUIÑONES 31F seen and examined at bedside. Denies of any acute overnight events. Denies of pain in her chest now. Reports that she is feeling better. Denies of any coughing. Denies of any F/N/V/C/SOB/CP/headache. No other complains at this time. Objective - Vital Signs/Intake and Output Vital Signs (last 24 hours): Temp Pulse Resp BP Pulse Ox 98.8 F 64 20 143/91 H 97 08/29/17 08:13 08/29/17 08:13 08/29/17 08:13 08/29/17 08:13 08/29/17 08:13 - Medications Medications: Current Medications Acetaminophen (Tylenol 325mg Tab) 650 mg PO Q6 PRN PRN Reason: Fever >100.4 F Last Admin: 08/22/17 16:13 Dose: 650 mg Albuterol/Ipratropium (Duoneb 3 Mg/0.5 Mg (3 Ml) Ud) 3 ml INH RQ6 PRN PRN Reason: Shortness of Breath Enoxaparin Sodium (Lovenox) 40 mg SC DAILY MARCIA PRN Reason: Protocol Last Admin: 08/28/17 09:59 Dose: 40 mg Famotidine (Pepcid) 20 mg PO BID [facility] Last Admin: 08/28/17 17:18 Dose: 20 mg Ferrous Sulfate (Feosol) 325 mg PO BID [facility] Last Admin: 08/28/17 17:18 Dose: 325 mg Metronidazole (Flagyl 500mg/100ml Ns) 100 mls @ 100 mls/hr IVPB Q8 MARCIA PRN Reason: Protocol Last Admin: 08/29/17 00:21 Dose: 100 mls/hr Meropenem 500 mg/ Sodium (Chloride) 100 mls @ 100 mls/hr IVPB Q8 MARCIA PRN Reason: Protocol Last Admin: 08/29/17 00:21 Dose: 100 mls/hr Vancomycin HCl 750 mg/ Sodium (Chloride) 250 mls @ 166.667 mls/hr IVPB Q12 MARCIA PRN Reason: Protocol Last Admin: 08/28/17 21:24 Dose: 166.667 mls/hr Ibuprofen (Motrin Tab) 600 mg PO Q6 PRN PRN Reason: Pain, Mild (1-3) Last Admin: 08/25/17 16:48 Dose: 600 mg Ondansetron HCl (Zofran Inj) 4 mg IVP Q6 PRN PRN Reason: Nausea/Vomiting Polyethylene Glycol (Miralax) 17 gm PO DAILYWM [facility] Potassium Chloride (K-Dur 20 Meq Er Tab) 40 meq PO BID [facility] Stop: 08/29/17 09:00 Last Admin: 08/28/17 17:18 Dose: 40 meq Multivit/Folic Acid/Iron () 1 tab PO DAILY [facility] Last Admin: 08/28/17 09:59 Dose: 1 tab Saccharomyces Boulardii (Florastor) 250 mg PO BID [facility] Last Admin: 08/28/17 17:18 Dose: 250 mg Senna/Docusate Sodium (Senokot S 50 Mg-8.6 Mg) 2 tab PO HS [facility] Last Admin: 08/28/17 21:27 Dose: 2 tab - Labs Labs: 08/29/17 06:10 08/29/17 06:10 PT 14.8 Seconds (9.8-13.1) H 08/20/17 05:30 INR 1.3 (0.9-1.2) H 08/20/17 05:30 APTT 32.5 Seconds (25.6-37.1) 08/18/17 19:12 - Constitutional Appears: Well, Non-toxic, No Acute Distress - Head Exam Head Exam: ATRAUMATIC - Eye Exam Eye Exam: Normal appearance - ENT Exam ENT Exam: Normal Exam - Neck Exam Neck Exam: Normal Inspection - Respiratory Exam Respiratory Exam: NORMAL BREATHING PATTERN - GI/Abdominal Exam GI & Abdominal Exam: Soft. absent: Rigid, Tenderness, Hernia, Mass - Rectal Exam Rectal Exam: Deferred - Extremities Exam Extremities Exam: Full ROM, Normal Inspection - Back Exam Back Exam: NORMAL INSPECTION. absent: tenderness - Neurological Exam Neurological Exam: Alert, Awake, Oriented x3 - Psychiatric Exam Psychiatric exam: Normal Affect, Normal Mood - Skin Skin Exam: Intact, Normal Color, Warm Assessment and Plan - Assessment and Plan (Free Text) Assessment: 31F presents with loculated right pleural effusions Plan: - repeat CT chest scan today Further recs discuss with Dr. Quiñones
--- NOTE | 2017-08-29 08:39 | PCM.SURG1 ---
Surgeon's Initial Post Op Note - Surgeon's Notes Surgeon: Mars Vasquez MD Quarter Backer: NONE Type of Anesthesia: Local Pre-Operative Diagnosis: Infection Operative Findings: US showed a patent right basilic vein. Post-Operative Diagnosis: Infection Operation Performed: Single lumen picc placement right basilic vein, 33 cm. Tip is in the SVC. Specimen/Specimens Removed: None Estimated Blood Loss: EBL {In ML}: 2 Blood Products Given: N/A Drains Used: No Drains Post-Op Condition: Fair Date of Surgery/Procedure: 08/29/17 Time of Surgery/Procedure: 08:30
[2017-08-29] MEDS ORDERED: Iohexol 300 100 ML IJ ONE (09:14)
[2017-08-29] MEDS ORDERED: Sodium Chloride 0.9% 100 ML ONE (09:14)
[2017-08-29] MEDS: Enoxaparin 40 mg Syringe SC SCH (09:53)
[2017-08-29] MEDS: Potassium Chloride 20 mEq ER Tab PO SCH (09:56)
[2017-08-29] MEDS: Saccharomyces Boulardi 250 mg Cap PO SCH ×2 (09:56→16:43)
[2017-08-29] MEDS: Prenatal Multivit/Folic Acid/Iron Tab PO SCH (09:57)
[2017-08-29] MEDS: POLYETHYLENE GLYCOL 3350 17 GM/Dose PACKET PO SCH (09:57)
--- NOTE | 2017-08-29 10:28 | CP.PCM.PN ---
Subjective - Date & Time of Evaluation Date of Evaluation: 08/29/17 Time of Evaluation: 09:00 - Subjective Subjective: No acute overnight events. Pt seen and examined in the am. Complains of slight redness on left arm and hand, and neck associated with generalized itchiness. Benadryl helps but makes her drowsy. Minimal abdominal pain. Tolerating Diet. Had 3BM which improved her abdominal pain. Ambulating. Transvaginal U/S competed yesterday by [employer]IST. Repeat Chest CT completed, will f/u on Dr. Nagel recommendations. Objective - Vital Signs/Intake and Output Vital Signs (last 24 hours): Temp Pulse Resp BP Pulse Ox 98.1 F 79 18 123/82 97 08/29/17 08:44 08/29/17 08:44 08/29/17 08:44 08/29/17 08:44 08/29/17 08:44 - Medications Medications: Current Medications Acetaminophen (Tylenol 325mg Tab) 650 mg PO Q6 PRN PRN Reason: Fever >100.4 F Last Admin: 08/22/17 16:13 Dose: 650 mg Albuterol/Ipratropium (Duoneb 3 Mg/0.5 Mg (3 Ml) Ud) 3 ml INH RQ6 PRN PRN Reason: Shortness of Breath Enoxaparin Sodium (Lovenox) 40 mg SC DAILY MARCIA PRN Reason: Protocol Last Admin: 08/29/17 09:53 Dose: 40 mg Famotidine (Pepcid) 20 mg PO BID [facility] Last Admin: 08/29/17 09:57 Dose: 20 mg Ferrous Sulfate (Feosol) 325 mg PO BID [facility] Last Admin: 08/29/17 09:53 Dose: 325 mg Metronidazole (Flagyl 500mg/100ml Ns) 100 mls @ 100 mls/hr IVPB Q8 MARCIA PRN Reason: Protocol Last Admin: 08/29/17 00:21 Dose: 100 mls/hr Meropenem 500 mg/ Sodium (Chloride) 100 mls @ 100 mls/hr IVPB Q8 MARCIA PRN Reason: Protocol Last Admin: 08/29/17 09:55 Dose: 100 mls/hr Vancomycin HCl 750 mg/ Sodium (Chloride) 250 mls @ 166.667 mls/hr IVPB Q12 MARCIA PRN Reason: Protocol Last Admin: 08/28/17 21:24 Dose: 166.667 mls/hr Ibuprofen (Motrin Tab) 600 mg PO Q6 PRN PRN Reason: Pain, Mild (1-3) Last Admin: 08/25/17 16:48 Dose: 600 mg Ondansetron HCl (Zofran Inj) 4 mg IVP Q6 PRN PRN Reason: Nausea/Vomiting Polyethylene Glycol (Miralax) 17 gm PO DAILYWM [facility] Last Admin: 08/29/17 09:57 Dose: 17 gm Multivit/Folic Acid/Iron () 1 tab PO DAILY [facility] Last Admin: 08/29/17 09:57 Dose: 1 tab Saccharomyces Boulardii (Florastor) 250 mg PO BID [facility] Last Admin: 08/29/17 09:56 Dose: 250 mg Senna/Docusate Sodium (Senokot S 50 Mg-8.6 Mg) 2 tab PO HS [facility] Last Admin: 08/28/17 21:27 Dose: 2 tab - Labs Labs: 08/29/17 06:10 08/29/17 06:10 PT 14.8 Seconds (9.8-13.1) H 08/20/17 05:30 INR 1.3 (0.9-1.2) H 08/20/17 05:30 APTT 32.5 Seconds (25.6-37.1) 08/18/17 19:12 - Constitutional Appears: Well, Non-toxic, No Acute Distress - Head Exam Head Exam: NORMAL INSPECTION - Eye Exam Eye Exam: Normal appearance - ENT Exam ENT Exam: Mucous Membranes Moist - Respiratory Exam Respiratory Exam: Clear to Ausculation Bilateral. absent: Rales, Wheezes - Cardiovascular Exam Cardiovascular Exam: REGULAR RHYTHM, +S1, +S2. absent: Murmur - GI/Abdominal Exam GI & Abdominal Exam: Soft. absent: Distended, Tenderness - Extremities Exam Extremities Exam: Normal Inspection - Neurological Exam Neurological Exam: Alert, Awake, Oriented x3 - Psychiatric Exam Psychiatric exam: Normal Affect - Skin Skin Exam: Normal Color, Rash (Right forearm, palm and neck. No lesions/blisters , or sores visible. ) Assessment and Plan - Assessment and Plan (Free Text) Assessment: 31 y/o F admitted with moderate pleural effusion. Pt was recently d/c after 10 day hosp admission for pelvic abscess complication from c section on 07/23. S/P thoracentisis on 08/19. Will continue to monitor pleural effusion and abdominals fluid collection. Transvaginal U/S competed yesterday by [employer]. Repeat Chest CT completed today, report pending. Will f/u on Dr. Nagel recommendations. Picc access placed today as well. Consultations on board: OBGYN: Hematoma will resolve over weeks[facility] recommending conservative management will repeat Transvaginal U/S Infectious Disease: Dr. Gaviria, c/w Abx Pulmonology: Dr. Shepherd, will follow up serial chest ct Cardiothoracic: Dr. Nagel,Repeat Chest CT tomorrow Pleural effusion s/p thoracentesis on 08/21 -Etiology unknown. Likely relate to abdominal fluid collection -No Leukocytisis, procalcitonin wn -Pleural fluid analysis c/w Exudative effusion -CT Chest (08/18): Moderate right pleural effusion with evidence of mild loculation. Mass-like focus of infiltrate in the left. Pulmonary arteries no PE upper lobe with air bronchograms. -CT chest from (08/24) shows diminishing R. Loculated pleural effusion -Chest CT (08/29)- pending -Duonebs PRN and Incentive spirometry prn -Pulmonology on board -Cadiothoracic on board Pelvic fluid collection -Etiology: Abscess vs hematoma -C/W Vancomyscin, Meropenem, Flagyl IV. Will erassess infusion rate for Vanco -CT Abd/Pelvis on 08/13/17: Some interval improvement from initial CT -Pelvic MRI (08/25): No significant change in size, +inflammatory changes, cannot r/o uterus wound dehiscence -ID on board -OBGYN on board Vaginal Bleeding -Pt still bleeding 8 weeks post -ACTIVE DIRECT[employer] SPECIALIST on board -H/H stable Microcytic anemia -Stable -Patient anemic since delivery and has been on Iron BID at home. -Hgb 9.3 today -Iron studies c/w iron def anemia -Continue with Ferrous Sulfate BID Prophylactic measures -Lovenox 40mg SC daily -SCDs -Ambulating Diet -Regular
--- NOTE | 2017-08-29 12:26 | CP.PCM.PN ---
Subjective - Date & Time of Evaluation Date of Evaluation: 08/29/17 Time of Evaluation: 12:13 - Subjective Subjective: I D NOTE PICC INSERTED HAVE DISCUSSED c WHO WILL DO F/U US WILL DISCUSS F/U CARE c HIM AND MEDICAL .FOR NOW ,CONTINUE SAME IV ANTIBIOTIC COVERAGE Objective - Vital Signs/Intake and Output Vital Signs (last 24 hours): Temp Pulse Resp BP Pulse Ox 98.1 F 79 18 123/82 97 08/29/17 08:44 08/29/17 08:44 08/29/17 08:44 08/29/17 08:44 08/29/17 08:44 - Medications Medications: Current Medications Acetaminophen (Tylenol 325mg Tab) 650 mg PO Q6 PRN PRN Reason: Fever >100.4 F Last Admin: 08/22/17 16:13 Dose: 650 mg Albuterol/Ipratropium (Duoneb 3 Mg/0.5 Mg (3 Ml) Ud) 3 ml INH RQ6 PRN PRN Reason: Shortness of Breath Enoxaparin Sodium (Lovenox) 40 mg SC DAILY [facility]IA PRN Reason: Protocol Last Admin: 08/29/17 09:53 Dose: 40 mg Famotidine (Pepcid) 20 mg PO BID [facility] Last Admin: 08/29/17 09:57 Dose: 20 mg Ferrous Sulfate (Feosol) 325 mg PO BID [facility] Last Admin: 08/29/17 09:53 Dose: 325 mg Metronidazole (Flagyl 500mg/100ml Ns) 100 mls @ 100 mls/hr IVPB Q8 MARCIA PRN Reason: Protocol Last Admin: 08/29/17 11:41 Dose: 100 mls/hr Meropenem 500 mg/ Sodium (Chloride) 100 mls @ 100 mls/hr IVPB Q8 [facility]IA PRN Reason: Protocol Last Admin: 08/29/17 09:55 Dose: 100 mls/hr Vancomycin HCl 750 mg/ Sodium (Chloride) 250 mls @ 166.667 mls/hr IVPB Q12 MARCIA PRN Reason: Protocol Last Admin: 08/28/17 21:24 Dose: 166.667 mls/hr Ibuprofen (Motrin Tab) 600 mg PO Q6 PRN PRN Reason: Pain, Mild (1-3) Last Admin: 08/25/17 16:48 Dose: 600 mg Ondansetron HCl (Zofran Inj) 4 mg IVP Q6 PRN PRN Reason: Nausea/Vomiting Polyethylene Glycol (Miralax) 17 gm PO DAILYWM [facility] Last Admin: 08/29/17 09:57 Dose: 17 gm Multivit/Folic Acid/Iron () 1 tab PO DAILY [facility] Last Admin: 08/29/17 09:57 Dose: 1 tab Saccharomyces Boulardii (Florastor) 250 mg PO BID [facility] Last Admin: 08/29/17 09:56 Dose: 250 mg Senna/Docusate Sodium (Senokot S 50 Mg-8.6 Mg) 2 tab PO HS [facility] Last Admin: 08/28/17 21:27 Dose: 2 tab - Labs Labs: 08/29/17 06:10 08/29/17 06:10 PT 14.8 Seconds (9.8-13.1) H 08/20/17 05:30 INR 1.3 (0.9-1.2) H 08/20/17 05:30 APTT 32.5 Seconds (25.6-37.1) 08/18/17 19:12
--- NOTE | 2017-08-29 12:35 | CP.PCM.PN ---
Subjective - Date & Time of Evaluation Date of Evaluation: 08/29/17 Time of Evaluation: 12:29 - Subjective Subjective: Tmax-98.4 wbc-7.7k sed-60+ ct chest: right-effusion, consolidation , atelectsis -continue to decrease. left- infiltrates decreasing. a/p: clinically improving, slowly. continue antibiotics and chest PT. ct chest on Sunday. Objective - Vital Signs/Intake and Output Vital Signs (last 24 hours): Temp Pulse Resp BP Pulse Ox 98.1 F 79 18 123/82 97 08/29/17 08:44 08/29/17 08:44 08/29/17 08:44 08/29/17 08:44 08/29/17 08:44 - Medications Medications: Current Medications Acetaminophen (Tylenol 325mg Tab) 650 mg PO Q6 PRN PRN Reason: Fever >100.4 F Last Admin: 08/22/17 16:13 Dose: 650 mg Albuterol/Ipratropium (Duoneb 3 Mg/0.5 Mg (3 Ml) Ud) 3 ml INH RQ6 PRN PRN Reason: Shortness of Breath Enoxaparin Sodium (Lovenox) 40 mg SC DAILY [facility] PRN Reason: Protocol Last Admin: 08/29/17 09:53 Dose: 40 mg Famotidine (Pepcid) 20 mg PO BID [facility] Last Admin: 08/29/17 09:57 Dose: 20 mg Ferrous Sulfate (Feosol) 325 mg PO BID [facility] Last Admin: 08/29/17 09:53 Dose: 325 mg Metronidazole (Flagyl 500mg/100ml Ns) 100 mls @ 100 mls/hr IVPB Q8 [facility]IA PRN Reason: Protocol Last Admin: 08/29/17 11:41 Dose: 100 mls/hr Meropenem 500 mg/ Sodium (Chloride) 100 mls @ 100 mls/hr IVPB Q8 [facility]IA PRN Reason: Protocol Last Admin: 08/29/17 09:55 Dose: 100 mls/hr Vancomycin HCl 750 mg/ Sodium (Chloride) 250 mls @ 166.667 mls/hr IVPB Q12 [facility]IA PRN Reason: Protocol Last Admin: 08/28/17 21:24 Dose: 166.667 mls/hr Ibuprofen (Motrin Tab) 600 mg PO Q6 PRN PRN Reason: Pain, Mild (1-3) Last Admin: 08/25/17 16:48 Dose: 600 mg Ondansetron HCl (Zofran Inj) 4 mg IVP Q6 PRN PRN Reason: Nausea/Vomiting Polyethylene Glycol (Miralax) 17 gm PO DAILYWM [facility] Last Admin: 08/29/17 09:57 Dose: 17 gm Multivit/Folic Acid/Iron () 1 tab PO DAILY [facility] Last Admin: 08/29/17 09:57 Dose: 1 tab Saccharomyces Boulardii (Florastor) 250 mg PO BID [facility] Last Admin: 08/29/17 09:56 Dose: 250 mg Senna/Docusate Sodium (Senokot S 50 Mg-8.6 Mg) 2 tab PO HS [facility] Last Admin: 08/28/17 21:27 Dose: 2 tab - Labs Labs: 08/29/17 06:10 08/29/17 06:10 PT 14.8 Seconds (9.8-13.1) H 08/20/17 05:30 INR 1.3 (0.9-1.2) H 08/20/17 05:30 APTT 32.5 Seconds (25.6-37.1) 08/18/17 19:12
--- NOTE | 2017-08-29 14:01 | CT ---
PROCEDURE: CT scan chest dated 08/29/2017 HISTORY: Dr. Penn COMPARISON: Comparison made with prior CT scan chest dated 08/27/2017. TECHNIQUE: Contiguous axial images were obtained through the chest with intravenous contrast enhancement. Sagittal and coronal reconstructions were performed. IV contrast: 100 cc Omnipaque 300 contrast material. Radiation dose (DLP): 364.79 mGy-cm. This CT exam was performed using one or more of the following dose reduction techniques: Automated exposure control, adjustment of the mA and/or kV according to patient size, and/or use of iterative reconstruction technique. FINDINGS: LUNGS: Decreased size right-sided effusion and right lower lobe atelectasis. . Questionable tiny loculated pleural effusion component along the posteromedial aspect of the right eugene thorax just cephalad to the larger basilar effusion component. Again noted is a small amount of fluid within the major fissure. Minor linear/fibrotic scarring changes left lung base extending to the posteromedial pleural surface. In addition, there is a somewhat wedge-shaped area of presumed atelectasis in the left upper lobe with a more elliptical/ nodular configuration along its inferior border extending to the pleural surface of the lateral convexity. . This suspected very slightly. Continued follow-up until resolution recommended to exclude the possibility of underlying mass which is less likely in this age group though not excluded. MEDIASTINUM: Heart appears enlarged. No evidence of significant pericardial effusion. Ascending thoracic aorta measures approximately 3.0 cm and descending thoracic aorta measures approximately 2.0 cm. Pulmonary trunk measures approximately 2.6 cm. Few small nonspecific mediastinal lymph nodes are present. No significant hilar adenopathy is identified. Central airways are midline and patent. No large central endoluminal lesions. PLEURA: As above. No evidence of pneumothorax BONES: No fr osseous structures intact. UPPER ABDOMEN: Mild diffuse fatty hepatic infiltration. OTHER FINDINGS: None. IMPRESSION: Interval decrease in size right-sided effusion and right lower lobe atelectasis. There may be a tiny loculated pleural effusion component along the posteromedial aspect right eugene thorax just cephalic to the larger basilar effusion component small amount of fluid . Seen within the right major fissure. . Localized atelectasis left upper lobe extending to the pleural surface of the lateral convexity slightly diminished in size. Recommend followup CT scan until resolution as above. Minor irregular somewhat linear atelectasis/scarring -fibrosis left lung base again noted Mild fatty hepatic infiltration.
--- NOTE | 2017-08-29 15:18 | CP.PCM.PN ---
Subjective - Date & Time of Evaluation Date of Evaluation: 08/29/17 Time of Evaluation: 11:40 - Subjective Subjective: F/U R pleural effusion. Pt ambulating, no SOB, no CP, no RUBIN, occasional dry cough. Objective - Vital Signs/Intake and Output Vital Signs (last 24 hours): Temp Pulse Resp BP Pulse Ox 98.1 F 79 18 123/82 97 08/29/17 08:44 08/29/17 08:44 08/29/17 08:44 08/29/17 08:44 08/29/17 08:44 - Medications Medications: Current Medications Acetaminophen (Tylenol 325mg Tab) 650 mg PO Q6 PRN PRN Reason: Fever >100.4 F Last Admin: 08/22/17 16:13 Dose: 650 mg Albuterol/Ipratropium (Duoneb 3 Mg/0.5 Mg (3 Ml) Ud) 3 ml INH RQ6 PRN PRN Reason: Shortness of Breath Enoxaparin Sodium (Lovenox) 40 mg SC DAILY [facility] PRN Reason: Protocol Last Admin: 08/29/17 09:53 Dose: 40 mg Famotidine (Pepcid) 20 mg PO BID [facility] Last Admin: 08/29/17 09:57 Dose: 20 mg Ferrous Sulfate (Feosol) 325 mg PO BID [facility] Last Admin: 08/29/17 09:53 Dose: 325 mg Metronidazole (Flagyl 500mg/100ml Ns) 100 mls @ 100 mls/hr IVPB Q8 [facility] PRN Reason: Protocol Last Admin: 08/29/17 11:41 Dose: 100 mls/hr Meropenem 500 mg/ Sodium (Chloride) 100 mls @ 100 mls/hr IVPB Q8 [facility] PRN Reason: Protocol Last Admin: 08/29/17 09:55 Dose: 100 mls/hr Vancomycin HCl 750 mg/ Sodium (Chloride) 250 mls @ 166.667 mls/hr IVPB Q12 [facility] PRN Reason: Protocol Last Admin: 08/29/17 14:00 Dose: 166.667 mls/hr Ibuprofen (Motrin Tab) 600 mg PO Q6 PRN PRN Reason: Pain, Mild (1-3) Last Admin: 08/25/17 16:48 Dose: 600 mg Ondansetron HCl (Zofran Inj) 4 mg IVP Q6 PRN PRN Reason: Nausea/Vomiting Polyethylene Glycol (Miralax) 17 gm PO DAILYWM [facility] Last Admin: 08/29/17 09:57 Dose: 17 gm Multivit/Folic Acid/Iron () 1 tab PO DAILY [facility] Last Admin: 08/29/17 09:57 Dose: 1 tab Saccharomyces Boulardii (Florastor) 250 mg PO BID [facility] Last Admin: 08/29/17 09:56 Dose: 250 mg Senna/Docusate Sodium (Senokot S 50 Mg-8.6 Mg) 2 tab PO HS [facility] Last Admin: 08/28/17 21:27 Dose: 2 tab - Labs Labs: 08/29/17 06:10 08/29/17 06:10 PT 14.8 Seconds (9.8-13.1) H 08/20/17 05:30 INR 1.3 (0.9-1.2) H 08/20/17 05:30 APTT 32.5 Seconds (25.6-37.1) 08/18/17 19:12 - Constitutional Appears: No Acute Distress - Head Exam Head Exam: NORMAL INSPECTION - Eye Exam Eye Exam: PERRL - ENT Exam ENT Exam: Normal Exam - Neck Exam Neck Exam: Normal Inspection - Respiratory Exam Respiratory Exam: Chest Wall Tenderness (mild), Decreased Breath Sounds ( slightly decreased R base.) - Cardiovascular Exam Cardiovascular Exam: REGULAR RHYTHM - GI/Abdominal Exam GI & Abdominal Exam: Soft, Tenderness (mild RUQ> RLQ), Normal Bowel Sounds - Extremities Exam Extremities Exam: Normal Inspection - Back Exam Back Exam: NORMAL INSPECTION - Neurological Exam Neurological Exam: Altered, Oriented x3 - Psychiatric Exam Psychiatric exam: Normal Mood - Skin Skin Exam: Warm Assessment and Plan (1) Pleural effusion Status: Acute (2) Atelectasis of right lung Status: Acute (3) PNA (pneumonia) Status: Acute - Assessment and Plan (Free Text) Plan: F/U CT Chest report, continue current abx and rest of Tx.
[2017-08-29] MEDS: Docusate-Senna 50 mg-8.6 mg Tab PO SCH (21:07)
[2017-08-30] MEDS: Meropenem 500 MG in Sodium Chloride 0.9% 100 ML IVPB SCH ×3 (01:38→16:58)
[2017-08-30] MEDS: metroNIDAZOLE 500mg/100ml NS 100 ML IVPB SCH ×3 (01:38→16:57)
[2017-08-30 07:04] LABS: HEMOGLOBIN 10.2 g/dL (12.0-16.0); MEAN CELL VOLUME 78.8 fl (81.0-99.0); MEAN CORPUSCULAR HEMOGLOBIN 25.2 pg (27.0-31.0); RBC 4.05 Mil/uL (3.80-5.20); RED CELL DISTRIBUTION WIDTH 17.4 % (11.5-14.5); WHITE BLOOD COUNT 7.5 K/uL (4.8-10.8)
[2017-08-30 07:26] LABS: BLOOD UREA NITROGEN 11 mg/dl (7-17); CALCIUM 9.1 mg/dL (8.4-10.2); GFR AFRICAN-AMERICAN > 60; GFR NON-AFRICAN AMERICAN > 60
[2017-08-30] MEDS: Enoxaparin 40 mg Syringe SC SCH (09:20)
[2017-08-30] MEDS: Prenatal Multivit/Folic Acid/Iron Tab PO SCH (09:20)
[2017-08-30] MEDS: Saccharomyces Boulardi 250 mg Cap PO SCH ×2 (09:20→16:58)
[2017-08-30] MEDS: POLYETHYLENE GLYCOL 3350 17 GM/Dose PACKET PO SCH (09:22)
--- NOTE | 2017-08-30 12:12 | CP.PCM.PN ---
Subjective - Date & Time of Evaluation Date of Evaluation: 08/30/17 Time of Evaluation: 08:00 - Subjective Subjective: Pt seen in the am Reports mild abdominal pain. Having regular BM, constipation improved. No complaints. Ambulating. Objective - Vital Signs/Intake and Output Vital Signs (last 24 hours): Temp Pulse Resp BP Pulse Ox 98.2 F 71 20 133/86 96 08/30/17 08:05 08/30/17 08:05 08/30/17 08:05 08/30/17 08:05 08/30/17 08:05 - Medications Medications: Current Medications Acetaminophen (Tylenol 325mg Tab) 650 mg PO Q6 PRN PRN Reason: Fever >100.4 F Last Admin: 08/22/17 16:13 Dose: 650 mg Albuterol/Ipratropium (Duoneb 3 Mg/0.5 Mg (3 Ml) Ud) 3 ml INH RQ6 PRN PRN Reason: Shortness of Breath Enoxaparin Sodium (Lovenox) 40 mg SC DAILY [facility] PRN Reason: Protocol Last Admin: 08/30/17 09:20 Dose: 40 mg Famotidine (Pepcid) 20 mg PO BID [facility] Last Admin: 08/30/17 09:20 Dose: 20 mg Ferrous Sulfate (Feosol) 325 mg PO BID [facility] Last Admin: 08/30/17 09:20 Dose: 325 mg Metronidazole (Flagyl 500mg/100ml Ns) 100 mls @ 100 mls/hr IVPB Q8 [facility] PRN Reason: Protocol Last Admin: 08/30/17 09:23 Dose: 100 mls/hr Meropenem 500 mg/ Sodium (Chloride) 100 mls @ 100 mls/hr IVPB Q8 [facility] PRN Reason: Protocol Last Admin: 08/30/17 09:28 Dose: 100 mls/hr Vancomycin HCl 750 mg/ Sodium (Chloride) 250 mls @ 166.667 mls/hr IVPB Q12 [facility] PRN Reason: Protocol Last Admin: 08/30/17 09:29 Dose: 166.667 mls/hr Ibuprofen (Motrin Tab) 600 mg PO Q6 PRN PRN Reason: Pain, Mild (1-3) Last Admin: 08/25/17 16:48 Dose: 600 mg Ondansetron HCl (Zofran Inj) 4 mg IVP Q6 PRN PRN Reason: Nausea/Vomiting Polyethylene Glycol (Miralax) 17 gm PO DAILYWM [facility] Last Admin: 08/30/17 09:22 Dose: Not Given Multivit/Folic Acid/Iron () 1 tab PO DAILY [facility] Last Admin: 08/30/17 09:20 Dose: 1 tab Saccharomyces Boulardii (Florastor) 250 mg PO BID [facility] Last Admin: 08/30/17 09:20 Dose: 250 mg Senna/Docusate Sodium (Senokot S 50 Mg-8.6 Mg) 2 tab PO HS [facility] Last Admin: 08/29/17 21:07 Dose: 2 tab - Labs Labs: 08/30/17 06:35 08/30/17 06:35 PT 14.8 Seconds (9.8-13.1) H 08/20/17 05:30 INR 1.3 (0.9-1.2) H 08/20/17 05:30 APTT 32.5 Seconds (25.6-37.1) 08/18/17 19:12 - Constitutional Appears: Well, Non-toxic, No Acute Distress - Head Exam Head Exam: NORMAL INSPECTION - Eye Exam Eye Exam: Normal appearance - ENT Exam ENT Exam: Mucous Membranes Moist - Respiratory Exam Respiratory Exam: Clear to Ausculation Bilateral. absent: Rales, Wheezes - Cardiovascular Exam Cardiovascular Exam: REGULAR RHYTHM, +S1, +S2. absent: Murmur - GI/Abdominal Exam GI & Abdominal Exam: Soft. absent: Distended, Tenderness, Normal Bowel Sounds - Extremities Exam Extremities Exam: absent: Calf Tenderness, Pedal Edema - Neurological Exam Neurological Exam: Alert, Awake, Oriented x3 - Psychiatric Exam Psychiatric exam: Normal Affect - Skin Skin Exam: Normal Color Assessment and Plan - Assessment and Plan (Free Text) Assessment: 31 y/o F admitted with moderate pleural effusion. Pt was recently d/c after 10 day hosp admission for pelvic abscess complication from c section on 07/23. S/P Thoracentisis on 08/19. Will continue to monitor pleural effusion and abdominals fluid collection. Chest CT on 08/29 showed decrease right sided pleural effusions with small loculations. Plan for repeat Chest CT completed tomorrow. Will f/u on Dr. Nagel recommendations. Consultations on board: OBGYN: Hematoma will resolve over weeks, f/u with [facility] outpatient. Dr. Chambers recommending conservative management will repeat Transvaginal U/S Infectious Disease: Dr. Gaviria, c/w Abx Pulmonology: Dr. Shepherd, will follow up serial chest ct Cardiothoracic: Dr. Nagel,Repeat Chest CT tomorrow Pleural effusion s/p thoracentesis on 08/21 -Etiology unknown. Likely relate to abdominal fluid collection -No Leukocytisis, procalcitonin wn -Pleural fluid analysis c/w Exudative effusion -CT Chest (08/18): Moderate right pleural effusion with evidence of mild loculation. Mass-like focus of infiltrate in the left. Pulmonary arteries no PE upper lobe with air bronchograms. -CT chest from (08/24) shows diminishing R. Loculated pleural effusion -Chest CT (08/29)- pending -Duonebs PRN and Incentive spirometry prn -Pulmonology on board -Cadiothoracic on board Pelvic fluid collection -Etiology: Abscess vs hematoma -C/W Vancomyscin, Meropenem, Flagyl IV. Will erassess infusion rate for Vanco -CT Abd/Pelvis on 08/13/17: Some interval improvement from initial CT -Pelvic MRI (08/25): No significant change in size, +inflammatory changes, cannot r/o uterus wound dehiscence -ID on board -OBGYN on board Vaginal Bleeding -Pt still bleeding 8 weeks post -[employer] on board -H/H stable Microcytic anemia -Stable -Patient anemic since delivery and has been on Iron BID at home. -Hgb 9.3 today -Iron studies c/w iron def anemia -Continue with Ferrous Sulfate BID Prophylactic measures -Lovenox 40mg SC daily -SCDs -Ambulating Diet -Regular -Miralax for constipation
[2017-08-30] MEDS: Docusate-Senna 50 mg-8.6 mg Tab PO SCH (21:35)
[2017-08-31] MEDS: Meropenem 500 MG in Sodium Chloride 0.9% 100 ML IVPB SCH ×2 (00:52→08:26)
[2017-08-31] MEDS: metroNIDAZOLE 500mg/100ml NS 100 ML IVPB SCH ×2 (00:53→08:26)
[2017-08-31 08:07] VITALS: O2SAT 96
[2017-08-31] MEDS: POLYETHYLENE GLYCOL 3350 17 GM/Dose PACKET PO SCH (08:22)
[2017-08-31] MEDS: Saccharomyces Boulardi 250 mg Cap PO SCH (08:22)
[2017-08-31] MEDS: Prenatal Multivit/Folic Acid/Iron Tab PO SCH (08:22)
[2017-08-31] MEDS: Enoxaparin 40 mg Syringe SC SCH (08:23)
--- NOTE | 2017-08-31 11:40 | CT ---
PROCEDURE: CT scan chest dated 08/31/2017 HISTORY: Lung infiltrates. COMPARISON: Comparison made with prior CT scan chest 08/29/2017. TECHNIQUE: Contiguous helical/transaxial images were obtained through the chest without intravenous contrast enhancement. Sagittal and coronal reconstructions were performed. Radiation dose (DLP): 306.98 mGy-cm. This CT exam was performed using one or more of the following dose reduction techniques: Automated exposure control, adjustment of the mA and/or kV according to patient size, and/or use of iterative reconstruction technique. FINDINGS: LUNGS: Previously noted small right-sided effusion has diminished. Persistent of minor right basilar atelectasis also slightly diminished as well. Persistent small area of atelectasis left upper lobe also improved. . Interval interval resolution previously noted minor atelectasis left posterior sulcus No new infiltrates. MEDIASTINUM: Heart remains mildly enlarged in appearance. No significant pericardial effusion. Few tiny nonspecific mediastinal lymph nodes. PLEURA: As above. . No pneumothorax. BONES: No fracture. No destructive lesion. UPPER ABDOMEN: Grossly unremarkable. OTHER FINDINGS: None. IMPRESSION: Previously noted small right-sided effusion has diminished. Persistent of minor right basilar atelectasis also slightly diminished as well. Persistent small area of atelectasis left upper lobe also improved. . interval resolution previously noted minor atelectasis left posterior sulcus .
--- NOTE | 2017-08-31 12:07 | CP.PCM.PN ---
Subjective - Subjective Subjective: no SOB , no RUBIN , ambulating in ross , no cough , no chest wall pain Objective - Vital Signs/Intake and Output Vital Signs (last 24 hours): Temp Pulse Resp BP Pulse Ox 98.6 F 80 18 121/80 96 08/31/17 08:06 08/31/17 08:06 08/31/17 08:06 08/31/17 08:06 08/31/17 08:06 - Medications Medications: Current Medications Acetaminophen (Tylenol 325mg Tab) 650 mg PO Q6 PRN PRN Reason: Fever >100.4 F Last Admin: 08/22/17 16:13 Dose: 650 mg Albuterol/Ipratropium (Duoneb 3 Mg/0.5 Mg (3 Ml) Ud) 3 ml INH RQ6 PRN PRN Reason: Shortness of Breath Enoxaparin Sodium (Lovenox) 40 mg SC DAILY [facility] PRN Reason: Protocol Last Admin: 08/31/17 08:23 Dose: 40 mg Famotidine (Pepcid) 20 mg PO BID [facility] Last Admin: 08/31/17 08:22 Dose: 20 mg Ferrous Sulfate (Feosol) 325 mg PO BID [facility] Last Admin: 08/31/17 08:22 Dose: 325 mg Metronidazole (Flagyl 500mg/100ml Ns) 100 mls @ 100 mls/hr IVPB Q8 [facility] PRN Reason: Protocol Last Admin: 08/31/17 08:26 Dose: 100 mls/hr Meropenem 500 mg/ Sodium (Chloride) 100 mls @ 100 mls/hr IVPB Q8 [facility] PRN Reason: Protocol Last Admin: 08/31/17 08:26 Dose: 100 mls/hr Vancomycin HCl 750 mg/ Sodium (Chloride) 250 mls @ 166.667 mls/hr IVPB Q12 [facility] PRN Reason: Protocol Last Admin: 08/31/17 08:27 Dose: 166.667 mls/hr Ibuprofen (Motrin Tab) 600 mg PO Q6 PRN PRN Reason: Pain, Mild (1-3) Last Admin: 08/25/17 16:48 Dose: 600 mg Ondansetron HCl (Zofran Inj) 4 mg IVP Q6 PRN PRN Reason: Nausea/Vomiting Polyethylene Glycol (Miralax) 17 gm PO DAILYWM [facility] Last Admin: 08/31/17 08:22 Dose: Not Given Multivit/Folic Acid/Iron () 1 tab PO DAILY [facility] Last Admin: 08/31/17 08:22 Dose: 1 tab Saccharomyces Boulardii (Florastor) 250 mg PO BID [facility] Last Admin: 08/31/17 08:22 Dose: 250 mg Senna/Docusate Sodium (Senokot S 50 Mg-8.6 Mg) 2 tab PO HS [facility] Last Admin: 08/30/17 21:35 Dose: 2 tab - Labs Labs: 08/30/17 06:35 08/30/17 06:35 PT 14.8 Seconds (9.8-13.1) H 08/20/17 05:30 INR 1.3 (0.9-1.2) H 08/20/17 05:30 APTT 32.5 Seconds (25.6-37.1) 08/18/17 19:12 - Constitutional Appears: No Acute Distress - Head Exam Head Exam: NORMAL INSPECTION - Eye Exam Eye Exam: PERRL - ENT Exam ENT Exam: Normal Exam - Neck Exam Neck Exam: Normal Inspection - Respiratory Exam Respiratory Exam: Decreased Breath Sounds (minimal R base) - Cardiovascular Exam Cardiovascular Exam: REGULAR RHYTHM - GI/Abdominal Exam GI & Abdominal Exam: Soft, Normal Bowel Sounds - Extremities Exam Extremities Exam: Normal Inspection - Back Exam Back Exam: NORMAL INSPECTION - Neurological Exam Neurological Exam: Alert, Oriented x3. absent: CN II-XII Intact - Psychiatric Exam Psychiatric exam: Normal Affect, Normal Mood - Skin Skin Exam: Warm Assessment and Plan (1) Pleural effusion Status: Resolved (2) Atelectasis of right lung Status: Resolved (3) PNA (pneumonia) Status: Resolved - Assessment and Plan (Free Text) Plan: CT Chest improved with residual R effusion , residual RLL , UNRULY , LLL atelectasis , Patient is Pulmonary cleared for discharge
--- NOTE | 2017-08-31 13:02 | CP.PCM.PN ---
Subjective - Date & Time of Evaluation Date of Evaluation: 08/31/17 Time of Evaluation: 12:53 - Subjective Subjective: Pt s/e at the bedside. Clinically improving-no chest pain or sob. ct of chest today: Furhter decrease in effusion, atelectasis, and infiltrates. a/p: 1. chest pathology is Improving on current rx. 2. Continue antibiotics and chest PT. 3.ct chest next sun.- 4. d/w Kaitlyn Palacios. Objective - Vital Signs/Intake and Output Vital Signs (last 24 hours): Temp Pulse Resp BP Pulse Ox 98.6 F 80 18 121/80 96 08/31/17 08:06 08/31/17 08:06 08/31/17 08:06 08/31/17 08:06 08/31/17 08:06 - Medications Medications: Current Medications Acetaminophen (Tylenol 325mg Tab) 650 mg PO Q6 PRN PRN Reason: Fever >100.4 F Last Admin: 08/22/17 16:13 Dose: 650 mg Albuterol/Ipratropium (Duoneb 3 Mg/0.5 Mg (3 Ml) Ud) 3 ml INH RQ6 PRN PRN Reason: Shortness of Breath Enoxaparin Sodium (Lovenox) 40 mg SC DAILY [facility] PRN Reason: Protocol Last Admin: 08/31/17 08:23 Dose: 40 mg Famotidine (Pepcid) 20 mg PO BID [facility] Last Admin: 08/31/17 08:22 Dose: 20 mg Ferrous Sulfate (Feosol) 325 mg PO BID [facility] Last Admin: 08/31/17 08:22 Dose: 325 mg Metronidazole (Flagyl 500mg/100ml Ns) 100 mls @ 100 mls/hr IVPB Q8 [facility] PRN Reason: Protocol Last Admin: 08/31/17 08:26 Dose: 100 mls/hr Meropenem 500 mg/ Sodium (Chloride) 100 mls @ 100 mls/hr IVPB Q8 [facility] PRN Reason: Protocol Last Admin: 08/31/17 08:26 Dose: 100 mls/hr Vancomycin HCl 750 mg/ Sodium (Chloride) 250 mls @ 166.667 mls/hr IVPB Q12 [facility] PRN Reason: Protocol Last Admin: 08/31/17 08:27 Dose: 166.667 mls/hr Ibuprofen (Motrin Tab) 600 mg PO Q6 PRN PRN Reason: Pain, Mild (1-3) Last Admin: 08/25/17 16:48 Dose: 600 mg Ondansetron HCl (Zofran Inj) 4 mg IVP Q6 PRN PRN Reason: Nausea/Vomiting Polyethylene Glycol (Miralax) 17 gm PO DAILYWM [facility] Last Admin: 08/31/17 08:22 Dose: Not Given Multivit/Folic Acid/Iron () 1 tab PO DAILY [facility] Last Admin: 08/31/17 08:22 Dose: 1 tab Saccharomyces Boulardii (Florastor) 250 mg PO BID [facility] Last Admin: 08/31/17 08:22 Dose: 250 mg Senna/Docusate Sodium (Senokot S 50 Mg-8.6 Mg) 2 tab PO HS [facility] Last Admin: 08/30/17 21:35 Dose: 2 tab - Labs Labs: 08/30/17 06:35 08/30/17 06:35 PT 14.8 Seconds (9.8-13.1) H 08/20/17 05:30 INR 1.3 (0.9-1.2) H 08/20/17 05:30 APTT 32.5 Seconds (25.6-37.1) 08/18/17 19:12
--- NOTE | 2017-08-31 15:22 | VASCULAR ---
PROCEDURE: Date of procedure: 08/29/2017 Procedure: 1. Placement of a right arm PICC with ultrasound and fluoroscopic guidance, CPT 54348 2. PICC tip confirmation with spot radiograph and is in the superior vena cava Medications: 1 percent lidocaine Total Fluoro time: 5.3 seconds Radiation: 0.75 MGy EBL: 2 cc HISTORY: Infection requiring long-term IV antibiotics TECHNIQUE: Following informed consent and procedure time-out, the patient was placed supine on the interventional table and the right arm prepped and draped in the usual sterile fashion. Ultrasound showed a patent and compressible right basilic vein. After the skin was anesthetized with lidocaine, the basilic vein was accessed with micro micropuncture technique using ultrasound guidance. A guidewire was then advanced under fluoroscopic guidance into the superior vena cava. An image documenting ultrasound guidance for vascular access was permanently saved. The length of the single-lumen 4 [place] PICC was trimmed to 33 centimeters and advanced through a peel-away sheath. The PICC was position with tip of PICC confirm a spot radiograph the superior vena cava. The PICC was secured to the patient's skin. The PICC was flushed. A biopatch and sterile dressing was applied. IMPRESSION: Placement of a single-lumen 4 [place] PICC trimmed to 33 centimeters via right basilic vein. The tip of the PICC is confirmed with spot radiograph and is in the superior vena cava.
--- NOTE | 2017-08-31 15:42 | CP.PCM.DIS ---
Provider - Provider Date of Admission: 08/18/17 23:22 Attending physician: Jenni Baumann MD Time Spent in preparation of Discharge (in minutes): 55 Diagnosis - Discharge Diagnosis (1) Pleural effusion Status: Acute Priority: High (2) uterine abscess Status: Acute (3) Anemia Status: Acute Hospital Course - Lab Results Lab Results: Micro Results 08/25/17 07:40 Urine,Clean Catch Urine Culture - Final No Growth (<1,000 CFU/ML) 08/20/17 15:10 Pleural Fluid Gram Stain - Final 08/20/17 15:10 Pleural Fluid Body Fluid Culture - Final No growth. 08/18/17 19:19 Blood Blood Culture - Final NO GROWTH AFTER 5 DAYS 08/18/17 19:19 Blood Gram Stain - Final TEST NOT PERFORMED 08/19/17 16:08 Sputum Induced Gram Stain - Final 08/19/17 16:08 Sputum Induced Sputum Culture - Final NORMAL ORAL MEGAN 08/19/17 10:15 Urine,Clean Catch Urine Culture - Final No Growth (<1,000 CFU/ML) Most Recent Lab Values WBC 7.5 K/uL (4.8-10.8) 08/30/17 06:35 RBC 4.05 Mil/uL (3.80-5.20) 08/30/17 06:35 Hgb 10.2 g/dL (12.0-16.0) L 08/30/17 06:35 Hct 31.9 % (34.0-47.0) L 08/30/17 06:35 MCV 78.8 fl (81.0-99.0) L 08/30/17 06:35 MCH 25.2 pg (27.0-31.0) L 08/30/17 06:35 MCHC 32.0 g/dL (33.0-37.0) L 08/30/17 06:35 RDW 17.4 % (11.5-14.5) H 08/30/17 06:35 Plt Count 481 K/uL (130-400) H 08/30/17 06:35 MPV 8.9 fl (7.2-11.7) 08/24/17 05:45 Neut % (Auto) 66.8 % (50.0-75.0) 08/24/17 05:45 Lymph % (Auto) 22.9 % (20.0-40.0) 08/24/17 05:45 Gordon % (Auto) 8.0 % (0.0-10.0) 08/24/17 05:45 Eos % (Auto) 1.5 % (0.0-4.0) 08/24/17 05:45 Baso % (Auto) 0.8 % (0.0-2.0) 08/24/17 05:45 Neut # (Auto) 6.3 K/uL (1.8-7.0) 08/24/17 05:45 Lymph # (Auto) 2.2 K/uL (1.0-4.3) 08/24/17 05:45 Gordon # (Auto) 0.8 K/uL (0.0-0.8) 08/24/17 05:45 Eos # (Auto) 0.1 K/uL (0.0-0.7) 08/24/17 05:45 Baso # (Auto) 0.1 K/uL (0.0-0.2) 08/24/17 05:45 ESR 61 mm/hr (0-20) H 08/29/17 06:10 PT 14.8 Seconds (9.8-13.1) H 08/20/17 05:30 INR 1.3 (0.9-1.2) H 08/20/17 05:30 APTT 32.5 Seconds (25.6-37.1) 08/18/17 19:12 D-Dimer, Quantitative 3117 ng/mlDDU (0-230) H 08/18/17 19:12 pCO2 36 mm/Hg (35-45) 08/24/17 07:45 pO2 87 mm/Hg (80-100) 08/24/17 07:45 HCO3 27.4 mmol/L (21-28) 08/24/17 07:45 ABG pH 7.48 (7.35-7.45) H 08/24/17 07:45 ABG Total CO2 27.9 mmol/L (22-28) 08/24/17 07:45 ABG O2 Saturation 98.9 % (95-98) H 08/24/17 07:45 ABG O2 Content 11.4 ML/dL (15-23) L 08/24/17 07:45 ABG Base Excess 3.2 mmol/L (-2.0-3.0) H 08/24/17 07:45 ABG Hemoglobin 8.4 g/dL (11.7-17.4) L 08/24/17 07:45 ABG Carboxyhemoglobin 1.1 % (0.5-1.5) 08/24/17 07:45 POC ABG HHb (Measured) 1.1 % (0.0-5.0) 08/24/17 07:45 ABG Methemoglobin 2.9 % (0.0-3.0) 08/24/17 07:45 ABG O2 Capacity 11.5 mL/dL (16-24) L 08/24/17 07:45 Sam Test Yes 08/24/17 07:45 VBG pH 7.42 (7.32-7.43) 08/18/17 19:05 VBG pCO2 39 mmHg (40-60) L 08/18/17 19:05 VBG HCO3 24.6 mmol/L 08/18/17 19:05 VBG Total CO2 26.5 mmol/L (22-28) 08/18/17 19:05 VBG O2 Sat (Calc) 56.3 % (40-65) 08/18/17 19:05 VBG Base Excess 0.8 mmol/L (0.0-2.0) 08/18/17 19:05 VBG Potassium 4.0 mmol/L (3.6-5.2) 08/18/17 19:05 A-a O2 Difference 18.0 mm/Hg 08/24/17 07:45 Hgb O2 Saturation 94.9 % (95.0-98.0) L 08/24/17 07:45 Sodium 139.0 mmol/L (132-148) 08/18/17 19:05 Chloride 110.0 mmol/L (98-107) H 08/18/17 19:05 Glucose 129 mg/dL (65-105) H 08/18/17 19:05 Lactate 0.8 mmol/L (0.7-2.1) 08/18/17 19:05 FiO2 21.0 % 08/24/17 07:45 Sodium 143 mmol/l (132-148) 08/30/17 06:35 Potassium 4.0 MMOL/L (3.6-5.0) 08/30/17 06:35 Chloride 104 mmol/L (98-107) 08/30/17 06:35 Carbon Dioxide 25 mmol/L (22-30) 08/30/17 06:35 Anion Gap 18 (10-20) 08/30/17 06:35 BUN 11 mg/dl (7-17) 08/30/17 06:35 Creatinine 0.6 mg/dl (0.7-1.2) L 08/30/17 06:35 Est GFR ( Amer) > 60 08/30/17 06:35 Est GFR (Non-Af Amer) > 60 08/30/17 06:35 Random Glucose 95 mg/dL (65-105) 08/30/17 06:35 Calcium 9.1 mg/dL (8.4-10.2) 08/30/17 06:35 Iron 19 ug/dL (37-170) L 08/19/17 06:30 TIBC 233 ug/dL (250-450) L 08/19/17 06:30 % Saturation 8 % (20-55) L 08/19/17 06:30 Ferritin 146.0 ng/Ml (6.24-137.0) H 08/19/17 06:30 Total Bilirubin 0.3 mg/dl (0.2-1.3) 08/24/17 05:45 AST 19 U/L (14-36) 08/24/17 05:45 ALT 32 U/L (9-52) 08/24/17 05:45 Alkaline Phosphatase 81 U/L (38-126) 08/24/17 05:45 Total Protein 6.5 G/DL (6.3-8.2) 08/24/17 05:45 Albumin 2.9 g/dL (3.5-5.0) L 08/24/17 05:45 Globulin 3.6 gm/dL (2.2-3.9) 08/24/17 05:45 Albumin/Globulin Ratio 0.8 (1.0-2.1) L 08/24/17 05:45 Angiotensin Convert Enz 16 U/L (9-67) 08/21/17 05:55 Vitamin B12 438 pg/mL (239-931) 08/19/17 06:30 Folate 15.1 ng/mL 08/19/17 06:30 Procalcitonin < 0.05 NG/ML (0.19-0.49) L 08/21/17 05:55 TSH 3rd Generation 1.70 mIU/ML (0.46-4.68) 08/19/17 06:30 Venous Blood Potassium 4.0 mmol/L (3.6-5.2) 08/18/17 19:05 Urine Color Yellow (YELLOW) 08/18/17 19:12 Urine Clarity Clear (Clear) 08/18/17 19:12 Urine pH 6.0 (5.0-8.0) 08/18/17 19:12 Ur Specific [place] 1.010 (1.003-1.030) 08/18/17 19:12 Urine Protein Negative mg/dL (NEGATIVE) 08/18/17 19:12 Urine Glucose (UA) Neg mg/dL (Normal) 08/18/17 19:12 Urine Ketones Negative mg/dL (NEGATIVE) 08/18/17 19:12 Urine Blood Small (NEGATIVE) 08/18/17 19:12 Urine Nitrate Negative (NEGATIVE) 08/18/17 19:12 Urine Bilirubin Negative (NEGATIVE) 08/18/17 19:12 Urine Urobilinogen 0.2-1.0 mg/dL (0.2-1.0) 08/18/17 19:12 Ur Leukocyte Esterase Small [place]/uL (Negative) 08/18/17 19:12 Urine RBC (Auto) 1 /hpf (0-3) 08/18/17 19:12 Urine Microscopic WBC 6 /hpf (0-5) H 08/18/17 19:12 Fluid Source Pleural/thoracentesi 08/20/17 15:10 Fluid Appearance Sl cloudy (CLEAR) 08/20/17 15:10 Fluid WBC 3018.0 /mm3 (0.0-300.0) H 08/20/17 15:10 Fluid RBC 9525.0 /mm3 (0.0-0.0) H 08/20/17 15:10 Fluid Tot Cell Count 100 (0-0) H 08/20/17 15:10 Fluid Neutrophils 72.0 % (0-0) H 08/20/17 15:10 Fluid Lymphocytes 22.0 % (0-0) H 08/20/17 15:10 Fld Monocyte/Macrophag 6 % (0-0) H 08/20/17 15:10 Fluid Glucose 88 mg/dL (NONE ESTABLISHED) 08/20/17 15:10 Fluid Total Protein 4.0 g/dL (NONE ESTABLISHED) 08/20/17 15:10 Fluid LDH 961 IU (NONE ESTABLISHED) 08/20/17 15:10 Fluid Amylase < 30 mg/dL (NONE ESTABLISHED) 08/20/17 15:10 Fluid Comment Lt yellow 08/20/17 15:10 Pleur Adenosine Deamin 13.7 U/L (<9.2) H 08/20/17 15:42 Vancomycin Trough 8.6 ug/mL (5.0-10.0) 08/26/17 08:30 Rheum Arthritis Panel Negative (NEGATIVE) 08/19/17 06:30 INES Screen Negative (Negative) 08/20/17 14:00 Absolute Lymphs (Flow) 2214 Cells/mcL (850-3900) 08/22/17 05:45 % CD4 Cells 53 Percent (30-61) 08/22/17 05:45 Absolute CD4 Count 1178 Cells/mcL (490-1740) 08/22/17 05:45 T-Help/Suppress Ratio 1.83 Ratio (0.86-5.00) 08/22/17 05:45 % CD8 Cells 29 Percent (12-42) 08/22/17 05:45 Absolute CD8 Count 643 Cells/mcL (180-1170) 08/22/17 05:45 CMV IgG Ab >10.00 U/mL H 08/28/17 20:55 CMV IgM Ab <30.00 AU/mL 08/28/17 20:55 EBV Capsid Ag IgG Ab 275.00 U/mL H 08/28/17 20:55 EBV Capsid Ag IgM Ab <36.00 U/mL 08/28/17 20:55 HIV 1&2 Ag/Ab, 4th Gen Nonreactive (Nonreactive) 08/28/17 20:48 Ur L.pneumophila Ag Negative (NEGATIVE) 08/19/17 10:15 TB Test (QFT) Nil 0.05 IU/mL 08/21/17 10:50 TB Test Mitogen - Nil 2.71 IU/mL 08/21/17 10:50 TB Test TB - Nil <0.00 IU/mL 08/21/17 10:50 TB Test (QFT) Negative (Negative) 08/21/17 10:50 - Hospital Course Hospital Course: Hospital Course: 31 y/o F admitted with moderate pleural effusion and abdominal fluid collection in the setting of a recent c section operation. While admitted pt had thoracentesis of pleural collection and multiple Chest CT's showing decrease in size. Her abdominal fluid collection was treated with IV antibiotics and shown to have reduced in size since first discovered. She was evaluated by CAR SUPPLIER, Thoracic Surgery, and Infectious disease during her time here. Pt also had Picc placed by IR. Her condition was stable on discharge. On discharge, she was hemodynamically stable and afebrile. Discharge medications: Pt instructed as per ID to take 2 po antibiotics (RX given) and 1 IV Antibiotic which she has been scheduled to receive daily at Same day Surgery (or ER on weekend). C/W Ferrous Sulfate (refill given), Rx Docusate given for constipation, Rx No other changes to medications Discharge Exam - Head Exam Head Exam: NORMAL INSPECTION - Eye Exam Eye Exam: Normal appearance - ENT Exam ENT Exam: Mucous Membranes Moist - Respiratory Exam Respiratory Exam: Clear to PA & Lateral, Rales (Right lower base (improved)). absent: Wheezes - Cardiovascular Exam Cardiovascular Exam: REGULAR RHYTHM, +S1, +S2. absent: Systolic Murmur - GI/Abdominal Exam GI & Abdominal Exam: Normal Bowel Sounds, Soft. absent: Tenderness - Neurological Exam Neurological exam: Alert, Oriented x3 - Psychiatric Exam Psychiatric exam: Normal Affect - Skin Skin Exam: Normal Color Discharge Plan - Discharge Medications Prescriptions: Docusate Sodium/Sennosides A [Senokot S 50 MG-8.6 MG] 2 tab PO HS 28 Days #56 tab Doxycycline Hyclate 100 mg PO DAILY 7 Days #7 capsule Metronidazole [Flagyl] 500 mg PO QID 7 Days #32 tablet - Follow Up Plan Condition: STABLE Disposition: HOME/ ROUTINE Instructions: Pneumonia, Adult (DC), Pleural Effusion (DC), Thoracentesis (DC) Additional Instructions[facility] el ziggy a las 3:20pm con Dr. Aguiar. appointment with dr. millard september 11 at 4pm para cat scan y transvaginal examen en [facility]. Referrals: [facility] [place] [Outside]
[2017-08-31 15:56] VITALS: BP 119/82; PULSE 89; RESP 20; TEMP 98.2
== END 2017-08-31 16:45 | disposition home or self-care (01) | DRG 186 ==
LOC: H.ER 18:01 → H.ERHOLD 23:22 → H.MEDSURG1 08-19 01:08
PROVIDERS: ADMIT Family Medicine; ATTEND Family Medicine
PROC: 0W993ZX Drainage of Right Pleural Cavity, Percutaneous Approach, Diagnostic (ICD-10-PCS; principal; 2017-08-20)
PROC: 0W993ZZ Drainage of Right Pleural Cavity, Percutaneous Approach (ICD-10-PCS; 2017-08-20)
PROC: 02HV33Z Insertion of Infusion Device into Superior Vena Cava, Percutaneous Approach (ICD-10-PCS; 2017-08-29)
DX: J90 Pleural effusion, not elsewhere classified (principal); J18.9 Pneumonia, unspecified organism; N17.9 Acute kidney failure, unspecified; I31.3 Pericardial effusion (noninflammatory); D68.9 Coagulation defect, unspecified; O86.12 Endometritis following delivery; J98.11 Atelectasis; D50.9 Iron deficiency anemia, unspecified; N93.9 Abnormal uterine and vaginal bleeding, unspecified; E86.0 Dehydration; N94.89 Other specified conditions associated with female genital organs and menstrual cycle; O99.89 Other specified diseases and conditions complicating pregnancy, childbirth and the puerperium; R20.2 Paresthesia of skin; T36.1X5A Adverse effect of cephalosporins and other beta-lactam antibiotics, initial encounter; O90.81 Anemia of the puerperium; K59.00 Constipation, unspecified

== ENCOUNTER 2018-04-09 13:23 | Emergency (ER) | payer SELFPAY ==
[2018-04-09 13:23] VITALS: BMI 27.6
[2018-04-09] MEDS ORDERED: Sodium Chloride 0.9% 1,000 ML IV ONE (14:15)
--- NOTE | 2018-04-09 14:17 | ED PDOC ---
HPI: Back Time Seen by Provider: 04/09/18 13:46 Chief Complaint (Nursing): Back Pain Chief Complaint (Provider): Back Pain History Per: Patient History/Exam Limitations: no limitations Onset/Duration Of Symptoms: Days (x3 ) Current Symptoms Are (Timing): Still Present Pain Scale Rating Of: 6 Additional Complaint(s): Patient reports diffuse pain in the lower back, that radiates to upper back, and goes into both arms, beginning x3 days ago. Her associated symptoms are nausea, dry cough, body aches, and an episode of posttussive vomiting this morning. Patient states her symptoms improved with Tylenol which she took today at noon. Otherwise: (-) paresthesias, (-) weakness, (-) acute bowel or bladder dysfunction, (-) fever, (-) chills, (-) shortness of breath, (-) chest pain, (-) sick contact, (-) travel, (-) headache, (-) dizziness, (-) calf pain, (-) leg swelling, (-) current control pills. Has a history of similar back pain a nd cough from a pleural effusion as a complication from her child in July of this year. Concern for recurrence of pleural effusion prompted ED visit. PMD: [facility] LMP: today Past Medical History Reviewed: Historical Data, Nursing Documentation, Vital Signs Vital Signs: Last Vital Signs Temp 98.7 F 04/09/18 13:39 Pulse 100 H 04/09/18 13:39 Resp 19 04/09/18 13:39 BP 121/81 04/09/18 13:39 Pulse Ox 98 04/09/18 13:39 - Medical History Other PMH: pleural effusion (right sided- childbirth complication) - Surgical History Surgical History: - Family History Family History: States: Unknown Family Hx - Living Arrangements Living Arrangements: With Family - Home Medications Home Medications: Ambulatory Orders Medication Instructions Recorded RX: Docusate Sodium/Sennosides A 2 tab PO HS 28 Days #56 tab 08/31/17 [Senokot S 50 MG-8.6 MG] RX: Doxycycline Hyclate 100 mg PO DAILY 7 Days #7 capsule 08/31/17 RX: Ferrous Sulfate [Feosol] 325 mg PO BID 14 Days #28 tab 08/31/17 RX: Doxycycline Hyclate 100 mg IV DAILY 09/03/17 [Vibramycin] metroNIDAZOLE [Flagyl] 500 mg PO .4X/DAY 09/04/17 Acetaminophen [Acetaminophen 8 650 mg PO Q8 PRN #21 tablet.er 04/09/18 Hour] RX: Naproxen 500 mg PO BID PRN #20 tab 04/09/18 RX: Promethazine DM [Phenergan DM 5 ml PO Q6 PRN #150 ml 04/09/18 Syrup] - Allergies Allergies/Adverse Reactions: Allergies Allergy/AdvReac Type Severity Reaction Status Date / Time No Known Allergies Allergy Verified 04/09/18 13:38 Review of Systems ROS Statement: Except As Marked, All Systems Reviewed And Found Negative Constitutional: Negative for: Fever, Chills Respiratory: Positive for: Cough. Negative for: Shortness of Breath Gastrointestinal: Positive for: Nausea. Negative for: Vomiting, Abdominal Pain, Diarrhea Musculoskeletal: Positive for: Arm Pain, Back Pain Neurological: Negative for: Headache, Dizziness Physical Exam - Reviewed Nursing Documentation Reviewed: Yes Vital Signs Reviewed: Yes - Physical Exam Comments: GENERAL APPEARANCE: Patient is awake, alert, oriented x 3, in no acute distress; resting comfortably. SKIN: Warm, dry; (-) cyanosis. EYES: (-) conjunctival pallor. ENMT: Mucous membranes moist. Airway patent, (-) stridor. NECK: Supple, FROM (-) tenderness, (-) stiffness, (-) lymphadenopathy. CHEST AND RESPIRATORY: (-) rales, (-) rhonchi, (-) wheezes; breath sounds equal bilaterally; respirations equal and nonlabored, able to speak in full sentences. HEART AND CARDIOVASCULAR: (-) irregularity ABDOMEN AND GI: Soft; (-) tenderness (-) guarding (-) distention; (-) palpable mass. BACK: (+) bilateral paralumbar and parathoracic tenderness, (+) bilateral trapezius tenderness, (-) direct bony tenderness, (-) deformity (-) CVA tenderness EXTREMITIES: (+) full ROM of bilateral upper extremities (-) erythema (-) warmth (-) effusion (-) deformity. Distal pulses good bilaterally. (+) capillary refill intact NEURO AND PSYCH: Mental status as above. Intact sensation bilaterally; normal strength in extension of the knees, plantar and dorsiflexion of the toes. Gait: steady. Speech: clear (-) facial asymmetry (-) aphasia. - Laboratory Results Result Diagrams: 04/09/18 15:02 04/09/18 15:02 Urine POC: Negative Urine dip results: Positive for: Leukocyte Esterase (trace), Blood (large (patient currently on period)). Negative for: Nitrate, Ketones, Glucose, Bilirubin, Protein - ECG O2 Sat by Pulse Oximetry: 98 (RA) Pulse Ox Interpretation: Normal Medical Decision Making Medical Decision Making: Initial time: 13:45 Initial impression: back pain and cough Initial plan: --CMP --ED urine --CBC with differential --Chest x-ray --Flexiril 10 mg PO (Not driving) --Toradol 30 mg IM --Sodium chloride 1,000 ml --zofran 4 mg pO --Saline Lock --Influenza A B 14: 15 Urine : negative. 1425 Udip reviewed, U/A and U/C ordered. 14:40 Chest X-Ray FINDINGS: LINES AND TUBES: None. LUNG AND PLEURA: The lungs are well inflated and clear. No pleural effusion or pneumothorax. There is mild right pleural thickening. HEART AND MEDIASTINUM: The heart is not enlarged. No aortic atherosclerotic calcification present. The hilar and mediastinal contours are within normal limits. SKELETAL STRUCTURES: The bony structures are within normal limits for the patient's age. VISUALIZED UPPER ABDOMEN: Normal. OTHER FINDINGS: There is chronic elevation of the right hemidiaphragm. IMPRESSION: No active pulmonary disease. Mild right pleural thickening. 1550 Repeat HR: 80 Labs reviewed and grossly unremarkable. Influenza: negative U/A with hematuria but patient currently menstruating. No evidence of UTI: negative nitrates, leukocytes. On re-evaluation, patient reports improvement of symptoms. On exam, patient re charli AAOx3, in no acute distress. Lungs clear to auscultation, cardiac RRR, abdomen soft, non-tender, repeat neuro exam shows no focal findings. Vitals stable. Lab/Diagnostic results d/w the patient in great detail. Diagnosis of bodyaches, cough, back pain, probable viral illness d/w the patient. Based on history, exam and diagnostic results, plan will be for outpatient follow up. Patient instructed to follow-up with pmd / referral provided / the clinic in 1- 2 days without fail. Advised to take medication as prescribed. Return to the emergency room at any time for any new or worsening symptoms. Patient states she fully agrees with and understands discharge instructions. States that she agrees with the plan and disposition. Verbalized and repeated discharge instructions and plan. I have given the patient opportunity to ask any additional questions. Scribe Attestation: Documented by José Smith, acting as a scribe for Aleyda Preciado. Provider Scribe Attestation: All medical record entries made by the Scribe were at my direction and personally dictated by me. I have reviewed the chart and agree that the record accurately reflects my personal performance of the history, physical exam, medical decision making, and the department course for this patient. I have also personally directed, reviewed, and agree with the discharge instructions and disposition. Disposition - Clinical Impression Clinical Impression: Back pain, Cough, Body aches, Viral syndrome - Patient ED Disposition Is Patient to be Admitted: No Counseled Patient/Family Regarding: Studies Performed, Diagnosis, Need For Followup, Rx Given - Disposition Referrals: [facility] [Outside] Disposition: Routine/Home Disposition Time: 15:55 Condition: STABLE Additional Instructions: The emergency medical care you received today was directed at your acute symptoms. If you were prescribed any medication, please fill it and take as directed. It may take several days for your symptoms to resolve. Return to the Emergency Department if your symptoms worsen, do not improve, or if you have any other problems. Please contact your doctor in 2 days for re-evaluation and follow up / or call one of the physicians/clinics you have been referred to that are listed on the Patient Visit Information form that is included in your discharge packet. Bring any paperwork you were given at discharge with you along with any medications you are taking to your follow up visit. Our treatment cannot replace ongoing medical care by a primary care provider (PCP) outside of the emergency department. Prescriptions: Acetaminophen [Acetaminophen 8 Hour] 650 mg PO Q8 PRN #21 tablet.er PRN Reason: Fever >100.4 F RX: Naproxen 500 mg PO BID PRN #20 tab PRN Reason: Pain, Moderate (4-7) RX: Promethazine DM [Phenergan DM Syrup] 5 ml PO Q6 PRN #150 ml PRN Reason: Cough Instructions: Cough in Adults, Viral Upper Respiratory Infection, Adult (DC), Upper Back Pain Forms: [employer] (Slovenian) Print Language: FRENCH - POA Present On Arrival: None Results - Lab Results Lab Results: 04/09/18 04/09/18 04/09/18 15:02 15:02 15:02 WBC 7.7 RBC 4.77 Hgb 13.6 Hct 40.6 MCV 85.0 D MCH 28.5 MCHC 33.5 RDW 13.8 Plt Count 217 MPV 10.2 Neut % (Auto) 82.1 H Lymph % (Auto) 10.6 L [place] % (Auto) 5.1 Eos % (Auto) 2.1 Baso % (Auto) 0.1 Neut # (Auto) 6.3 Lymph # (Auto) 0.8 L [place] # (Auto) 0.4 Eos # (Auto) 0.2 Baso # (Auto) 0.0 Sodium 140 Potassium 3.6 Chloride 107 Carbon Dioxide 22 Anion Gap 15 BUN 9 Creatinine 0.5 L Est GFR ( Amer) > 60 Est GFR (Non-Af Amer) > 60 Random Glucose 108 H Calcium 9.1 Total Bilirubin 0.7 AST 24 ALT 33 Alkaline Phosphatase 95 Total Protein 7.4 Albumin 4.0 Globulin 3.4 Albumin/Globulin Ratio 1.2 Urine Color Straw Urine Clarity Clear Urine pH 6.0 Ur Specific [place] 1.008 Urine Protein Negative Urine Glucose (UA) Neg Urine Ketones Negative Urine Blood Small Urine Nitrate Negative Urine Bilirubin Negative Urine Urobilinogen 0.2-1.0 Ur Leukocyte Esterase Neg Urine RBC (Auto) 5 H Urine Microscopic WBC 2 Ur Squamous Epith Cells 1 Influenza Typ A,B (EIA) 04/09/18 14:08 WBC RBC Hgb Hct MCV MCH MCHC RDW Plt Count MPV Neut % (Auto) Lymph % (Auto) [place] % (Auto) Eos % (Auto) Baso % (Auto) Neut # (Auto) Lymph # (Auto) [place] # (Auto) Eos # (Auto) Baso # (Auto) Sodium Potassium Chloride Carbon Dioxide Anion Gap BUN Creatinine Est GFR ( Amer) Est GFR (Non-Af Amer) Random Glucose Calcium Total Bilirubin AST ALT Alkaline Phosphatase Total Protein Albumin Globulin Albumin/Globulin Ratio Urine Color Urine Clarity Urine pH Ur Specific [place] Urine Protein Urine Glucose (UA) Urine Ketones Urine Blood Urine Nitrate Urine Bilirubin Urine Urobilinogen Ur Leukocyte Esterase Urine RBC (Auto) Urine Microscopic WBC Ur Squamous Epith Cells Influenza Typ A,B (EIA) Negative for flu a/b
--- NOTE | 2018-04-09 14:41 | RAD ---
HISTORY: Cough and back pain COMPARISON: CT chest without contrast from 09/25/2017 TECHNIQUE: Chest PA and lateral FINDINGS: LINES AND TUBES: None. LUNG AND PLEURA: The lungs are well inflated and clear. No pleural effusion or pneumothorax. There is mild right pleural thickening. HEART AND MEDIASTINUM: The heart is not enlarged. No aortic atherosclerotic calcification present. The hilar and mediastinal contours are within normal limits. SKELETAL STRUCTURES: The bony structures are within normal limits for the patient's age. VISUALIZED UPPER ABDOMEN: Normal. OTHER FINDINGS: There is chronic elevation of the right hemidiaphragm. IMPRESSION: No active pulmonary disease. Mild right pleural thickening
[2018-04-09 15:19] LABS: BASO % 0.1 % (0.0-2.0); EOS # 0.2 K/uL (0.0-0.7); EOS % 2.1 % (0.0-4.0); HEMOGLOBIN 13.6 g/dL (12.0-16.0); LYMPH # 0.8 K/uL (1.0-4.3); LYMPH % 10.6 % (20.0-40.0); MEAN CORPUSCULAR HEMOGLOBIN 28.5 pg (27.0-31.0); MEAN CORPUSCULAR HGB CONC 33.5 g/dL (33.0-37.0); MEAN PLATELET VOLUME 10.2 fl (7.2-11.7); MONO # 0.4 K/uL (0.0-0.8); MONO % 5.1 % (0.0-10.0); NEUT # 6.3 K/uL (1.8-7.0); NEUT % 82.1 % (50.0-75.0); RBC 4.77 Mil/uL (3.80-5.20); RED CELL DISTRIBUTION WIDTH 13.8 % (11.5-14.5); WHITE BLOOD COUNT 7.7 K/uL (4.8-10.8)
[2018-04-09 15:24] LABS: SQUAMOUS EPITHIAL 1 /hpf (0-5); URINE BILIRUBIN NEGATIVE (NEGATIVE); URINE CLARITY CLEAR (Clear); URINE COLOR STRAW (YELLOW); URINE GLUCOSE (UA) NEG (Normal); URINE LEUKOCYTE ESTERASE NEG Leu/uL (Negative); URINE PROTEIN NEGATIVE (NEGATIVE); URINE UROBILINOGEN 0.2-1.0 mg/dL (0.2-1.0)
[2018-04-09 15:29] LABS: ALB/GLOB RATIO 1.2 (1.0-2.1); ALT/SGPT 33 U/L (9-52); AST/SGOT 24 U/L (14-36); BLOOD UREA NITROGEN 9 mg/dl (7-17); CALCIUM 9.1 mg/dL (8.4-10.2); GFR NON-AFRICAN AMERICAN > 60
[2018-04-09 15:37] LABS: URINE BLOOD SMALL (NEGATIVE)
[2018-04-09 16:32] VITALS: BP 105/62; PULSE 80; RESP 18; TEMP 98.2
[2018-04-10 22:03] VITALS: O2SAT 98
== END 2018-04-09 16:32 | disposition home or self-care (01) ==
LOC: H.ER 13:23
DX: M54.5 Low back pain (principal); R05 Cough; B34.9 Viral infection, unspecified; M79.10 Myalgia, unspecified site
CPT/HCPCS: 71046; 80053; 81003; 81025; 85025; 87086; 87804; 96374; 96375; 99283; J1885; J2405; J7030